=== PATIENT | male | born 1965 ===

== ENCOUNTER 2016-07-30 10:56 | Inpatient (IN) | payer MEDICARE, OTHER ==
[2016-07-30 10:56] VITALS: BMI 27.4
--- NOTE | 2016-07-30 11:41 | RAD ---
PROCEDURE: CHEST RADIOGRAPH, 1 VIEW HISTORY: chest pain COMPARISON: Comparison chest 06/23/2016 FINDINGS: LUNGS: Poor inspiration with low lung volumes, mild crowded bronchovascular markings and atelectasis minimal bibasilar atelectasis PLEURA: No pneumothorax or pleural fluid seen. CARDIOVASCULAR: Heart appears upper limits of normal in size OSSEOUS STRUCTURES: No significant abnormalities. VISUALIZED UPPER ABDOMEN: Normal. OTHER FINDINGS: None. IMPRESSION: Poor inspiration, low lung volumes, mild crowded bronchovascular markings and minimal bibasilar
[2016-07-30 11:52] LABS: EOS # 0.1 K/uL (0.0-0.7); EOS % 2.8 % (0.0-4.0); LYMPH # 0.7 K/uL (1.0-4.3); NRBC % 0.1 % (0.0-2.0); WHITE BLOOD COUNT 4.2 K/uL (4.8-10.8)
[2016-07-30 12:00] LABS: BASO % 0.5 % (0.0-2.0); HEMATOCRIT 39.7 % (35.0-51.0); LYMPH % 16.5 % (20.0-40.0); MEAN CORPUSCULAR HEMOGLOBIN 33.5 pg (27.0-31.0); MEAN CORPUSCULAR HGB CONC 34.4 g/dL (33.0-37.0); MEAN PLATELET VOLUME 10.7 fL (7.2-11.7); MONO # 0.5 K/uL (0.0-0.8); MONO % 12.3 % (0.0-10.0); RED CELL DISTRIBUTION WIDTH 13.7 % (11.5-14.5)
[2016-07-30 12:02] LABS: CHLORIDE 97 mmol/L (98-107)
[2016-07-30 12:03] LABS: MEAN CELL VOLUME 97.4 fL (80.0-94.0); POTASSIUM 3.7 mmol/L (3.6-5.2); SODIUM 135 mmol/L (132-148)
[2016-07-30 12:05] LABS: BILIRUBIN,TOTAL 2.2 mg/dL (0.2-1.3); CARBON DIOXIDE 26 mmol/L (22-30); GFR AFRICAN-AMERICAN > 60
[2016-07-30 12:06] LABS: ALKALINE PHOSPHATASE 115 U/L (38-126); ALT/SGPT 63 U/L (21-72); AST/SGOT 123 U/L (17-59); BLOOD UREA NITROGEN 8 mg/dL (9-20); CALCIUM 9.2 mg/dl (8.6-10.4); GLUCOSE,RANDOM 97 mg/dL (75-110); TOTAL PROTEIN 8.3 g/dL (6.3-8.3)
[2016-07-30 12:07] LABS: ALCOHOL SERUM < 10 mg/dl (0-10)
[2016-07-30] MEDS ORDERED: Sodium Chloride 0.9% 1,000 ML IV ONE (12:48)
[2016-07-30] MEDS ORDERED: Sodium Chloride 0.9% 1,000 ML ONE (12:50)
--- NOTE | 2016-07-30 13:00 | C.PDOC ---
History Of Present Illness 51 year old male with a history of schizophrenia, HTN, Depression/Anxiety, presents to the ED with complaint of substernal chest pain and mild SOB since this morning. Patient states the pain is constant and worse with deep breathing. He also states he has been hearing voices telling him to kill himself for the past week. He is a daily drinker of alcohol, and his last drink was yesterday. Patient denies fever, chills, cough, palpitations, abdominal pain. Time Seen by Provider: 07/30/16 11:01 Chief Complaint (Nursing): Chest Pain History Per: Patient History/Exam Limitations: no limitations Onset/Duration Of Symptoms: Hrs Current Symptoms Are (Timing): Still Present Severity: Mild Quality: "Pain" Associated Symptoms: denies: Nausea, Dyspnea, Diaphoresis Exacerbating Factors: Deep Breathing Past Medical History Reviewed: Historical Data, Nursing Documentation, Vital Signs Vital Signs: Last Vital Signs Temp 98.4 F 08/03/16 16:54 Pulse 59 L 08/03/16 16:54 Resp 20 08/03/16 16:54 BP 131/87 08/03/16 16:54 Pulse Ox 95 08/03/16 16:54 - Medical History PMH: Anxiety, Arthritis (L KNEE), Depression, HTN, Schizophrenia, Seizures ( LAST ONE LONG TIME AGO) Denies: Asthma (SMOKER) - [facility] Procedures ALCOHOL DETOXIFICATION (12/25/14) DETOXIFICATION SERVICES FOR SUBSTANCE ABUSE TREATMENT (05/16/16) GROUP TWISTING FRAME OPERATOR FOR SUBSTANCE ABUSE TREATMENT, PSYCHOEDUCATION (02/12/16) INDIVID PSYCHOTHERAP NEC (01/17/15) INSERTION OF ENDOTRACHEAL AIRWAY INTO TRACHEA, VIA OPENING (02/10/15) MEDS MGMT FOR SUBSTANCE ABUSE TREATMENT, PSYCH MED (05/16/16) OTHER GROUP THERAPY (01/17/15) PSYCHIAT DRUG THERAP NEC (01/17/15) RESPIRATORY VENTILATION, 24-96 CONSECUTIVE HOURS (02/10/15) Family History: States: [place] (Father in his 60's) - Social History Hx Tobacco Use: Yes (heavy smoker) Hx Alcohol Use: Yes (DAILY) Hx Substance Use: No - Immunization History Hx Tetanus Toxoid Vaccination: Yes Hx Influenza Vaccination: Yes Hx Pneumococcal Vaccination: No Review Of Systems Except As Marked, All Systems Reviewed And Found Negative. Cardiovascular: Positive for: Chest Pain. Negative for: Palpitations Respiratory: Positive for: Shortness of Breath. Negative for: Cough Gastrointestinal: Negative for: Nausea, Vomiting, Abdominal Pain, Diarrhea Psych: Positive for: Other (+hearing voices) Physical Exam - Physical Exam Appears: Non-toxic, No Acute Distress, Other (+Anxious) Skin: Normal Color, Warm, Dry, No Rash Head: Normacephalic Eye(s): bilateral: Normal Inspection Oral Mucosa: Moist Chest: Symmetrical, No Deformity, No Tenderness Cardiovascular: Rhythm Regular (+Tachycardic) Respiratory: Normal Breath Sounds, No Rales, No Rhonchi, No Wheezing Gastrointestinal/Abdominal: Normal Exam, Bowel Sounds, Soft, No Tenderness, No Rebound Extremity: Normal ROM, No Deformity, Other (+Mild tremors of B/L extremities) Neurological/Psych: Oriented x3 ED Course And Treatment - Laboratory Results Result Diagrams: 08/03/16 07:05 08/03/16 07:05 ECG: Interpreted By Me, Viewed By Me (NSR 90 bom, normal axis, no acute ST/T wave changes) ECG Rhythm: Sinus Rhythm ECG Interpretation: No Acute Changes Interpretation Of ECG: Normal axis. No acute ST/T wave changes. Rate From EC O2 Sat by Pulse Oximetry: 97 (Room air) Pulse Ox Interpretation: Normal - Radiology CXR: Viewed By Me, Read By Radiologist CXR Interpretation: Yes: Other (Poor inspiration, low lung volumes, mild crowded bronchovascular markings and minimal bibasilar) Progress Note: Blood work, CXR, EKG, Urinalysis, UDS ordered and reviewed. Patient treated with IV NS bolus, IV ativan. Patient also given PO ASA and PO Librium. - Physician Consult Information Physician Contacted: Richard Chacon Outcome Of Conversation: Discussed patient with Dr. Chacon, he agrees with telemetry observation for chest pain r/o ACS, alcohol withdrawal. schizophrenia. Psych consult entered. Medical Decision Making Medical Decision Making: differential diagnoses considered: RI/ACS, pancreatitis, pneumonia, gastritis, GERD, PUD, PE, asthma/copd, aortic dissection Disposition - Disposition Disposition: HOSPITALIZED Disposition Time: 14:37 Condition: STABLE - Clinical Impression Clinical Impression: Chest pain, Alcohol abuse, Schizophrenia, Alcohol withdrawal - Scribe Statement The provider has reviewed the documentation as recorded by the Scribe Pamela Collazo. Provider Attestation: All medical record entries made by the Scribe were at my direction and personally dictated by me. I have reviewed the chart and agree that the record accurately reflects my personal performance of the history, physical exam, medical decision making, and the department course for this patient. I have also personally directed, reviewed, and agree with the discharge instructions and disposition. Decision To Admit - Pt Status Changed To: Hospital Disposition Of: Observation - . Bed Request Type: Telemetry Admitting Physician: Richard Chacon Patient Diagnosis: Chest pain, Alcohol abuse, Schizophrenia, Alcohol withdrawal
[2016-07-30 14:23] LABS: URINE BILIRUBIN NEGATIVE (NEGATIVE); URINE BLOOD NEGATIVE (NEGATIVE); URINE COLOR Yellow (YELLOW); URINE GLUCOSE (UA) NORMAL (Normal); URINE HYALINE CAST 0-2 /lpf (0-2); URINE KETONE NEGATIVE (NEGATIVE); URINE LEUKOCYTE ESTERASE NEG Leu/uL (Negative); URINE PROTEIN 1+ mg/dL (NEGATIVE); URINE UROBILINOGEN NORMAL mg/dL (0.2-1.0); WBC URINE 1 /hpf (0-5)
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
[2016-07-30] MEDS ORDERED: Iohexol 350mg/ml 100 ML ONE (17:00)
[2016-07-30] MEDS ORDERED: Bisacodyl 5mg EC Tab PO ONE (17:23)
[2016-07-30] MEDS ORDERED: Multivitamin (MVI) 10 ML, Thiamine 100 MG, Folic Acid 1 MG in Sodium Chloride 0.9% 1,00... IV ONE (17:23)
[2016-07-30] MEDS ORDERED: Piperacillin/Tazobact 3.375 GM in Sodium Chloride 100 ML IVPB SCH (17:30)
[2016-07-30] MEDS ORDERED: Piperacillin/Tazobact 3.375 gm 100 ML IVPB ONE (18:23)
--- NOTE | 2016-07-30 18:54 | CT ---
PROCEDURE: CT Angiography Chest, Abdomen and Pelvis with and without intravenous contrast HISTORY: r/o dissection COMPARISON: CT abdomen and pelvis from 10/11/2015 TECHNIQUE: Contiguous axial images of the chest, abdomen and pelvis were obtained in the phase of aortic enhancement. A noncontrast enhanced CT of the chest was also obtained to evaluate for possible intramural thrombus. Coronal and sagittal reformats were generated. IV dose administered: 100 mL Omnipaque 350 Radiation dose: Total exam DLP = 2064.78 mGy-cm. FINDINGS: CT ANGIOGRAPHY OF THE CHEST WITH & WITHOUT CONTRAST: AORTA (CHEST AND ABDOMEN): The thoracic and abdominal aorta are unremarkable, without aneurysm, dissection or rupture. There are early atherosclerotic aortoiliac calcifications. No intramural thrombus identified in the thoracic aorta on the non-contrast ct of the chest. The celiac axis, superior mesenteric artery, inferior mesenteric artery and the renal arteries are widely patent. The pelvic arteries are unremarkable. LUNGS: There is dependent atelectasis in the lungs. No nodule, mass or consolidation. MEDIASTINUM: The heart is normal in size. No pericardial effusion LYMPH NODES: No pathologic lymphadenopathy. PLEURA: No pneumothorax. No pleural fluid. BONES: Multilevel degenerative disc disease. OTHER FINDINGS: None. CT ANGIOGRAPHY OF THE ABDOMEN AND PELVIS WITH CONTRAST: LIVER: Normal in size. No gross lesion or ductal dilatation. GALLBLADDER AND BILE DUCTS: The gallbladder is contracted. PANCREAS: The head of the pancreas is bulky. Allowing for angiographic phase, there is an apparent 3.0 x 2.7 cm low-attenuation lesion in the head. SPLEEN: The spleen is normal in size. ADRENALS: Normal in size. No discrete nodule the KIDNEYS AND URETERS: Normal in size and homogeneous enhancement. No hydronephrosis. No solid mass. VASCULATURE: The splenic vein is not visualized. Normal aorta with STOMACH AND BOWEL: The small bowel loops are normal in caliber. The colon is normal in appearance. APPENDIX: Normal appendix. PERITONEUM: Unremarkable. No free fluid. No free air. LYMPH NODES: Unremarkable. No enlarged lymph nodes. BLADDER: There is apparent mild mural thickening in the anterior urinary bladder wall. REPRODUCTIVE: The prostate gland is normal in size. BONES: No acute fracture. Multilevel degenerative changes. OTHER FINDINGS: None. IMPRESSION: 1. No CTA evidence for aortic aneurysm, aortic dissection, mural hematoma or pulmonary embolism. 2. Allowing for angiographic phase, apparent 3.0 x 2.7 cm masslike lesion in the head of the pancreas. The splenic vein is not visualized. Findings are concerning and correlation with CT scan of the abdomen without and with intravenous contrast with pancreatic protocol is recommended for further evaluation. Alternatively, correlation with MRI abdomen without and with intravenous contrast with pancreas protocol could also be performed.
[2016-07-30 20:36] VITALS: RESP 20
[2016-07-30] MEDS ORDERED: Influenza Virus Vaccine 45 mcg/0.5 ml Syr IM ONE (20:39)
[2016-07-31] MEDS: Piperacill/Tazo 3.375gm in Dex 50 ML IVPB SCH ×4 (00:03→18:11)
[2016-07-31] MEDS: Sodium Chloride 0.9% 1,000 ML IV SCH ×2 (05:00→12:33)
[2016-07-31 06:22] LABS: BASO % 0.7 % (0.0-2.0); EOS # 0.3 K/uL (0.0-0.7); LYMPH # 1.1 K/uL (1.0-4.3); LYMPH % 21.5 % (20.0-40.0); MEAN CELL VOLUME 99.2 fL (80.0-94.0); MEAN CORPUSCULAR HEMOGLOBIN 34.7 pg (27.0-31.0); MONO # 0.6 K/uL (0.0-0.8); MONO % 10.8 % (0.0-10.0); NRBC % 0.1 % (0.0-2.0); RED CELL DISTRIBUTION WIDTH 13.6 % (11.5-14.5); WHITE BLOOD COUNT 5.1 K/uL (4.8-10.8)
[2016-07-31 06:42] LABS: CHLORIDE 100 mmol/L (98-107); SODIUM 141 mmol/L (132-148)
[2016-07-31 06:43] LABS: POTASSIUM 3.5 mmol/L (3.6-5.2)
[2016-07-31 06:45] LABS: ALB/GLOB RATIO 1.1 (1.0-2.1); ALKALINE PHOSPHATASE 95 U/L (38-126); ALT/SGPT 45 U/L (21-72); AST/SGOT 74 U/L (17-59); BILIRUBIN,TOTAL 1.9 mg/dL (0.2-1.3); BLOOD UREA NITROGEN 12 mg/dL (9-20); CALCIUM 8.3 mg/dl (8.6-10.4); CARBON DIOXIDE 27 mmol/L (22-30); GFR AFRICAN-AMERICAN > 60; GLUCOSE,RANDOM 90 mg/dL (75-110); PHOSPHOROUS 3.6 mg/dL (2.5-4.5); TOTAL PROTEIN 6.9 g/dL (6.3-8.3)
[2016-07-31 06:46] LABS: MAGNESIUM 1.6 mg/dL (1.6-2.3)
--- NOTE | 2016-07-31 08:00 | CP.PCM.PN ---
<Fadi Brooks - Last Filed: 07/31/16 22:18> Subjective - Date & Time of Evaluation Date of Evaluation: 07/31/16 Time of Evaluation: 07:40 - Subjective Subjective: PGY-1 medicine progress note on Dr. Romero service Patient seen and examined at bedside, chart reviewed and case discussed. The patient states that his chest pain and abdominal pain are only slightly better today. He still feels nauseous but has not vomited since admission. His rash has resolved. Patient denies fever, chills, headache, vomiting, diarrhea, dysuria or any additional acute complaints at this time. Objective - Vital Signs/Intake and Output Vital Signs (last 24 hours): Temp Pulse Resp BP Pulse Ox 98.5 F 79 20 116/74 99 07/30/16 23:05 07/30/16 23:05 07/30/16 23:05 07/30/16 23:05 07/30/16 23:05 Intake and Output: 07/31/16 07/31/16 06:59 18:59 Intake Total 1200 Output Total 500 Balance 700 - Medications Medications: Current Medications Benztropine Mesylate (Cogentin) 1 mg PO BID [facility] Last Admin: 07/30/16 21:56 Dose: 1 mg Chlordiazepoxide (Librium) 25 mg PO Q6 [facility] PRN Reason: Taper Stop: 08/03/16 20:59 Last Admin: 07/31/16 05:40 Dose: 25 mg Docusate Sodium (Colace) 100 mg PO BID [facility] Escitalopram Oxalate (Lexapro) 5 mg PO DAILY [facility] Folic Acid (Folic Acid) 1 mg PO DAILY [facility] Gabapentin (Neurontin) 300 mg PO TID [facility] Last Admin: 07/30/16 21:54 Dose: 300 mg Haloperidol (Haldol) 5 mg PO BID [facility] Last Admin: 07/30/16 21:55 Dose: 5 mg Heparin Sodium (Porcine) (Heparin) 5,000 units SC Q8 [facility] Last Admin: 07/31/16 05:40 Dose: 5,000 units Vancomycin HCl 1,000 mg/ (Sodium Chloride) 250 mls @ 166.6 mls/hr IVPB DAILY [facility] Last Admin: 07/30/16 19:00 Dose: 166.6 mls/hr Sodium Chloride (Sodium Chloride 0.9%) 1,000 mls @ 100 mls/hr IV .Q10H [facility] Last Admin: 07/31/16 05:00 Dose: Not Given Piperacillin Sod/Tazobactam Sod (Zosyn 3.375 Gm Iv Premix) 50 mls @ 100 mls/hr IVPB Q6H [facility] Last Admin: 07/31/16 05:40 Dose: 100 mls/hr Multivitamins (Hexavitamin) 1 tab PO DAILY [facility] Pantoprazole Sodium (Protonix Ec Tab) 40 mg PO DAILY [facility] Thiamine HCl (Vitamin B1 Tab) 100 mg PO DAILY [facility] Trazodone HCl (Desyrel) 50 mg PO HS [facility] Last Admin: 07/30/16 21:55 Dose: 50 mg - Labs Labs: 07/31/16 06:04 07/31/16 06:04 PT 11.6 SECONDS (9.7-12.2) 07/30/16 11:49 INR 1.0 07/30/16 11:49 APTT 32 SECONDS (21-34) 07/31/16 06:04 - Additional Findings Additional findings: - Constitutional Appears: No Acute Distress, Unkempt - Head Exam Head Exam: ATRAUMATIC, NORMOCEPHALIC - Eye Exam Eye Exam: EOMI, Nystagmus - ENT Exam ENT Exam: Mucous Membranes Moist - Respiratory Exam Respiratory Exam: Clear to Auscultation Bilateral, NORMAL BREATHING PATTERN - Cardiovascular Exam Cardiovascular Exam: +S1, +S2. absent: JVD - GI/Abdominal Exam GI & Abdominal Exam: Normal Bowel Sounds, Soft, Tenderness (diffuse, improving) . absent: Distended, Firm, Guarding. - Extremities Exam Extremities exam: Positive for: normal inspection. Negative for: pedal edema - Neurological Exam Neurological exam: Alert Additional comments: no dysmetria noted patient with noticeable Left hand tremor (worst with movement) patient with diminished sensation to both lower extremities - Psychiatric Exam Psychiatric exam: Anxious -tremulous - Skin Skin Exam: Dry, Normal Color, Warm - rash from posterior scalp to upper back RESOLVED Assessment and Plan - Assessment and Plan (Free Text) Assessment: Chest pain -Imaging: CXR in the ED showed poor inspiratory effort and low lung volumes DRE x3 negative ddimer 659 CT angio chest (r/o dissection) - Negative patient received ASA 325mg in ER Lactic Acid x2 - suspicious for SEPSIS - Negative Alcohol withdrawal Patient received Librium 50mg in ED, and another 50mg prior to admission. Starting Librium taper PO Q6H CIWA protocol aspiration precautions seizure precautions fall risk Banana Bag at 100cc/hr once -> NS 0.9 at 100cc/hr thiamine 100mg PO daily folic acid 1mg daily Multivitamins (Hexavitamin) 1 tab PO DAILY [facility] Pancreatic mass GI Consult, Dr. Gutierrez, f/u recs Rec: CEA, CA19, MRI pancreas with contrast. Consider endoscopic ultrasound. URI/Rash 07/31: RESOLVED rash from back of scalp to upper shoulders Zosyn 3.375mg IVPB Q6H Vanco IVPB 1gm QD strep, flu - negative Schizophrenia Dr. So, psychiatry, consulted- help appreciated Abilify instead of haldol - pt has not benefit from haldol much, although this is mainly bc of his non-compliance and alcoholism too. Moreover Abilify is better as he has QTc prolongation Detox refer to short term rehab if possible - Otherwise refer to [facility] in [place] Stop haldol 5mg PO BID (07/31) cogentin 1mg BID Depression Dr. So, psychiatry, consulted- help appreciated Escitalopram Oxalate (Lexapro) 5 mg PO DAILY [facility] Neuropathy -lower extremity neuropathy Gabapentin (Neurontin) 300 mg PO TID [facility] Hypertension 07/31: BP WNL BP 148/97 on admission [place] Constipation Colace 100mg PO BID Prophylactic measure SCDs protonix 40mg PO daily patient counseled on tobacco cessation- will give nicotine patch while hospitalized Hep 5k SC Q8 Trazodone HCl 50 mg PO HS [facility] (home med) <Marie Arthur V - Last Filed: 07/31/16 23:54> Objective - Vital Signs/Intake and Output Vital Signs (last 24 hours): Temp Pulse Resp BP Pulse Ox 97.8 F 113 H 20 110/75 96 07/31/16 15:47 07/31/16 15:47 07/31/16 15:47 07/31/16 15:47 07/31/16 15:47 - Medications Medications: Current Medications Aripiprazole (Abilify) 10 mg PO DAILY [facility] Chlordiazepoxide (Librium) 25 mg PO TID [facility] PRN Reason: Taper Stop: 08/03/16 20:59 Last Admin: 07/31/16 17:59 Dose: 25 mg Docusate Sodium (Colace) 100 mg PO BID [facility] Last Admin: 07/31/16 17:59 Dose: 100 mg Escitalopram Oxalate (Lexapro) 5 mg PO DAILY [facility] Last Admin: 07/31/16 09:31 Dose: 5 mg Folic Acid (Folic Acid) 1 mg PO DAILY [facility] Last Admin: 07/31/16 09:30 Dose: 1 mg Gabapentin (Neurontin) 300 mg PO TID [facility] Last Admin: 07/31/16 17:59 Dose: 300 mg Vancomycin HCl 1,000 mg/ (Sodium Chloride) 250 mls @ 166.6 mls/hr IVPB DAILY [facility] Last Admin: 07/31/16 09:31 Dose: 166.6 mls/hr Sodium Chloride (Sodium Chloride 0.9%) 1,000 mls @ 100 mls/hr IV .Q10H [facility] Last Admin: 07/31/16 12:33 Dose: 100 mls/hr Piperacillin Sod/Tazobactam Sod (Zosyn 3.375 Gm Iv Premix) 50 mls @ 100 mls/hr IVPB Q6H [facility] Last Admin: 07/31/16 18:11 Dose: 100 mls/hr Metoclopramide HCl (Reglan) 10 mg IVP Q6H PRN PRN Reason: Nausea/Vomiting Multivitamins (Hexavitamin) 1 tab PO DAILY [facility] Last Admin: 07/31/16 09:30 Dose: 1 tab Pantoprazole Sodium (Protonix Ec Tab) 40 mg PO DAILY [facility] Last Admin: 07/31/16 09:30 Dose: 40 mg Saccharomyces Boulardii (Florastor) 250 mg PO BID [facility] Last Admin: 07/31/16 17:58 Dose: 250 mg Thiamine HCl (Vitamin B1 Tab) 100 mg PO DAILY [facility] Trazodone HCl (Desyrel) 50 mg PO HS [facility] Last Admin: 07/31/16 22:23 Dose: 50 mg - Labs Labs: 07/31/16 06:04 07/31/16 06:04 PT 11.6 SECONDS (9.7-12.2) 07/30/16 11:49 INR 1.0 07/30/16 11:49 APTT 32 SECONDS (21-34) 07/31/16 06:04 Attending/Attestation - Attestation I have personally seen and examined this patient.: Yes I have fully participated in the care of the patient.: Yes I have reviewed all pertinent clinical information, including history, physical exam and plan: Yes Notes (Text): Patient seen, examined and case discussed with day-time resident. Patient seen by psych today; discussed with psych; Haldol switched to Abilify. Patient has localized tremors but does not appear in DTs. Patient is on Librium taper for heavy alcohol use. GI consult for pancreatic mass noted on CT. ROMIX3 negative; CT angio negative for cardiac cause of chest pain monitor platelets; d/c heparin Assessment/Plan 1) Sepsis * Suspicion of * Patient is tachycardia, leukopenia, thrombocytopenia, lactate: 3.0 but unknown source on admission * Lactate acid resolved to 0.9; 0.7 respectively * Blood culture (07/30): no growth after 24 hoursX2 , urine pending, and CT no sign of pneumonia noted * Started on Zosyn and Vancomycin for empiric broad coverage therapy (07/30/16) * Started on IV fluids 2)Chest pain * Imaging: CXR (07/30/16) in the ED showed poor inspiratory effort and low lung volumes * first DRE negative; no appreciate St changes nor prolonged QT given haldol use on inital EKG * d-dimer: elevated; CT angio: negative for aortic aneurysm, aortic dissection, mural thrombus, and pE * ROMIX3 negative; EKG QT prolongation 470ms * patient received ASA 325mg in ER 3) Alcohol withdrawal * Patient received Librium 50mg in ED, and in addition to Librium given by the ED * Patient started on Librium taper; patient has mild transaminitis * Patient per my exam, mild tremulous over the left upper extremity, HR; 90s * CIWA protocol * aspiration precautions * seizure precautions * fall risk * Banana Bag at 100cc/hr once -> NS 0.9 at 100cc/hr * thiamine 100mg PO daily * folic acid 1mg daily * Multivitamins (Hexavitamin) 1 tab PO daily 4) URI/Rash * rash from back of scalp to upper shoulders resolving; faded on my exam today * Started on Zosyn 3.375mg IVPB Q6H and Vanco IVPB 1gm QDaily for empiric broad coverage (started 07/30/16, day 2 today) * strep: negative, flu: negative 5) Schizophrenia, history of * Dr. So, psychiatry, consulted- help appreciated * Home medications started: d/c haldol 5mg PO BID per psych given QT prolongation noted on follow-up EKG and cogentin 1mg BID * Per psych switched to Abilify 5mg PO daily 6) Depression, history of * Dr. So, psychiatry, consulted- help appreciated * restart home medication: Escitalopram Oxalate (Lexapro) 5 mg PO DAILY 7) Neuropathy, history of * lower extremity neuropathy, decreased sensation b/l * restart home medication: Gabapentin (Neurontin) 300 mg PO TID 8) Hypertension, questionable history of * BP 148/97 on admission * Patient is not on antihypertensives 9) Constipation * Colace 100mg PO BID 10) Thrombocytopenia * heparin d/c * HIT AB ordered * patient is heavy alcohol user, bone marrow suppression secondary 11) Prophylactic measure * SCDs b/l * Protonix 40mg PO daily for GI ppx * patient counseled on tobacco cessation- will give nicotine patch while hospitalized * d/c Hep 5k SC Q8; patient is thrombocytpenia * Trazodone HCl 50 mg PO HS [facility] (home med) * PT/OT eval 12) Pancreatic mass * 3.0 X2.7 CM masslike lesion in the head of pancreas noted on CT * GI consult (Dr. Gutierrez) on board * Suggested for cancer markers, MRI of pancreas, EUS * Discussed with patient finding on CT scan
[2016-07-31] MEDS: Multiple Vitamins Tab PO SCH (09:30)
[2016-07-31] MEDS: Pantoprazole 40 mg EC Tab PO SCH (09:30)
[2016-07-31] MEDS: Saccharomyces Boulardi 250 mg Cap PO SCH ×2 (09:30→17:58)
[2016-07-31] MEDS ORDERED: Potassium Chloride 20 mEq 100 ML IVPB ONE (10:04)
[2016-07-31] MEDS ORDERED: Potassium Chloride 10 mEq 100 ML IVPB SCH (12:00)
[2016-07-31] MEDS ORDERED: Potassium Chloride 20 mEq ER Tab PO SCH (12:00)
--- NOTE | 2016-07-31 14:12 | PCM.PSYCH ---
Initial Psychiatric Evaluation - Initial Psychiatric Evaluation Type of Admission: Voluntary Legal Status: Capacity History of Present Illness and Precipitating Events: Patient seen, chart reviewed, case discussed with staff. He is well-known to the principal technical writer from numerous previous admissions. consultation was requested for his alcohol withdrawal and schizophrenia. 51 year old single, unemployed, domiciled (alone) male with past history of schizophrenia and alcohol use disorder. States that he is seeing "black and men trying to kill" him and hearing their voices telling him they will kill him. He believes them. Patient admits to being noncompliant with his medications (includes Cogentin, Haldol and Seroquel) since his discharge from [facility]... most of the times, and he did relapse as before and last drink was more than 48 hr ago. He has tremors and sweating now. Patient admits to drinking several cans of beer per day since his discharge. He used to have DTs and got admitted to medicine multiple times with alcohol- related complications. Pt gave the principal technical writer his mother's and sister's numbers and principal technical writer left a message. Past psychiatric history: schizophrenia - chronic, multiple admissions. PMHx: HTN Family history: denies Current Medications: Active Medications Generic Name Dose Route Start Last Admin Trade Name Freq PRN Reason Stop Dose Admin Benztropine Mesylate 1 mg 07/30/16 20:04 07/31/16 09:31 Cogentin PO 1 mg BID [facility] Administration Chlordiazepoxide 25 mg 07/30/16 21:00 07/31/16 11:40 Librium PO 08/03/16 20:59 25 mg Q6 [facility] Administration Taper Docusate Sodium 100 mg 07/31/16 10:00 07/31/16 09:30 Colace PO 100 mg BID [facility] Administration Escitalopram Oxalate 5 mg 07/31/16 10:00 07/31/16 09:31 Lexapro PO 5 mg DAILY [facility] Administration Folic Acid 1 mg 07/31/16 10:00 07/31/16 09:30 Folic Acid PO 1 mg DAILY [facility] Administration Gabapentin 300 mg 07/30/16 20:04 07/31/16 13:24 Neurontin PO 300 mg TID [facility] Administration Haloperidol 5 mg 07/30/16 20:04 07/31/16 09:30 Haldol PO 5 mg BID [facility] Administration Vancomycin HCl 1,000 mg/ 250 mls @ 166.6 mls/hr 07/30/16 17:30 07/31/16 09:31 Sodium Chloride IVPB 166.6 mls/hr DAILY [facility] Administration Sodium Chloride 1,000 mls @ 100 mls/hr 07/31/16 04:30 07/31/16 12:33 Sodium Chloride 0.9% IV 100 mls/hr .Q10H [facility] Administration Piperacillin Sod/Tazobactam Sod 50 mls @ 100 mls/hr 07/31/16 00:30 07/31/16 11: 40 Zosyn 3.375 Gm Iv Premix IVPB 100 mls/hr Q6H [facility] Administration Metoclopramide HCl 10 mg 07/31/16 10:00 Reglan IVP Q6H PRN Nausea/Vomiting Multivitamins 1 tab 07/31/16 10:00 07/31/16 09:30 Hexavitamin PO 1 tab DAILY [facility] Administration Pantoprazole Sodium 40 mg 07/31/16 10:00 07/31/16 09:30 Protonix Ec Tab PO 40 mg DAILY [facility] Administration Saccharomyces Boulardii 250 mg 07/31/16 10:00 07/31/16 09:30 Florastor PO 250 mg BID [facility] Administration Thiamine HCl 100 mg 07/31/16 10:00 Vitamin B1 Tab PO DAILY [facility] Trazodone HCl 50 mg 07/30/16 22:00 07/30/16 21:55 Desyrel PO 50 mg HS [facility] Administration Past Psychiatric History - Past Psychiatric History Previous Treatment History: Inpatient Pertinent Medical Hx (Current Medical&Sleep Prob, Allergies): Allergies Allergy/AdvReac Type Severity Reaction Status Date / Time No Known Allergies Allergy Verified 07/01/16 08:47 Benztropine [Cogentin] 1 mg PO BID #60 tab 07/09/16 Escitalopram [Lexapro] 5 mg PO DAILY #30 tab 07/09/16 Gabapentin [Neurontin] 300 mg PO TID #90 cap 07/09/16 Haloperidol [Haldol] 5 mg PO BID #60 tab 07/09/16 traZODone [Desyrel] 50 mg PO HS #30 tab 07/09/16 Review of Systems - Neurological Neurological: Tremor - Psychiatric Psychiatric: Abnormal Sleep Pattern, Anhedonia, Anxiety, Auditory Hallucinations , Depression, Difficulty Concentrating, Hallucinations, Paranoia. absent: Homicidal Ideation, Suicidal Ideation Mental Status Examination - Personal Presentation Personal Presentation: Looks older than stated age - Affect Affect: Constricted - Motor Activity Motor Activity: Calm - Reliability in Providing Information Reliability in Providing Information: Fair - Speech Speech: Organized (slurred) - Mood Mood: Depressed, Anxious - Formal Thought Process Formal Thought Process: Hallucinations, Delusions, Paranoia - Hallucinations/Delusions Hallucinations: Visual, Auditory - Cognitive Functions Orientation: Person, Place, Situation, Time Sensorium: Drowsy Attention/Concentration: Easily distracted Abstract Thinking: [place] Estimate of Intelligence: Below average Judgement: Imparied, as evidence by: Poor judgement, Intact, as evidence by: Insight regarding need for hospitalization Memory: Recent impaired, as evidence by: Inability to recall events of the day, Remote impaired as evidenced by: Inability to recall sig life events - Risk Risk: Seizure, Withdrawal - Strength & Assets Inventory Strength & Assets Inventory: Cooperative - Limitations Limitations: Living alone DSM 5 DX - DSM 5 DSM 5 Diagnosis: Chronic schizophrenia - acute exacerbation Depression- unspecified Alcohol withdrawal Alcohol use d/o - severe - Recommended/Plan of Treatment Treatment Recommendations and Plan of Treatment: Abilify instead of haldol - pt has not benefit from haldol much, although this is mainly bc of his non-compliance and alcoholism too. Moreover Abilify is better as he has QTc prolongation Detox refer to short term rehab if possible Otherwise refer to [facility] in [place] [facility] Medical treatment 33 min
--- NOTE | 2016-07-31 17:19 | US ---
Abdominal ultrasound History: Alcoholic liver disease. Transaminitis. Comparison: 03/30/2016 Technique: Real-time sonography was performed through the abdomen. Findings: Liver: 15.9 centimeters in length. Increased echogenicity suggestive for fatty infiltration. Gallbladder: Within normal limits. Normal wall thickness of 2.7 millimeters. Common bile duct measures 3.7 millimeters, within normal limits. Pancreas not well visualized. Spleen measures 9.6 centimeters in length, within normal limits. Visualized aorta and IVC are preserved. Right kidney: 12.1 x 4.9 x 6.6 centimeters. No calculi or hydronephrosis. Left Kidney: 11.6 x 6.3 x 6.0 centimeters. No calculi or hydronephrosis. Impression: Fatty infiltration of the liver. Limited visualization of the pancreas.
--- NOTE | 2016-07-31 20:51 | CP.PCM.CON ---
History of Present Illness - History of Present Illness History of Present Illness: We were called for GI service consult for pancreas mass. Pt was admiited for CP. Reports mild epig pain x 5 days. Pt is seen with sitter present. Review of Systems - Constitutional Constitutional: absent: Chills, Fatigue, Headache, Weight Gain - Cardiovascular Cardiovascular: Chest Pain. absent: Diaphoresis - Respiratory Respiratory: absent: Cough, Hemoptysis, Wheezing - Gastrointestinal Gastrointestinal: Abdominal Pain. absent: Dysphagia, Heartburn, Hematemesis, Hematochezia, Melena, Vomiting - Genitourinary Genitourinary: absent: Dysuria, Hematuria - Musculoskeletal Musculoskeletal: absent: Myalgias - Integumentary Integumentary: absent: Pruritus, Rash - Neurological Neurological: Tremor. absent: Convulsions Past Patient History - Infectious Disease Hx of Infectious Diseases: None - Past Medical History & Family History Past Medical History?: Yes - Past Social History Smoking Status: Light Smoker < 10 Cigarettes Daily - CARDIAC Hx Hypertension: Yes - PULMONARY Hx Asthma: No (SMOKER) - NEUROLOGICAL Hx Seizures: Yes (LAST ONE LONG TIME AGO) - HEENT Hx HEENT Problems: No - RENAL Hx Chronic Kidney Disease: No - ENDOCRINE/METABOLIC Hx Endocrine Disorders: No - HEMATOLOGICAL/ONCOLOGICAL Hx Human Immunodeficiency Virus (HIV): No - INTEGUMENTARY Hx Dermatological Problems: No - MUSCULOSKELETAL/RHEUMATOLOGICAL Hx Arthritis: Yes (L KNEE) - GASTROINTESTINAL Hx Gastrointestinal Disorders: No - GENITOURINARY/GYNECOLOGICAL Hx Sexually Transmitted Disorders: No - PSYCHIATRIC Hx Anxiety: Yes Hx Depression: Yes Hx Schizophrenia: Yes Hx Substance Use: No - SURGICAL HISTORY Hx Surgeries: Yes Hx Orthopedic Surgery: Yes (left knee) Other/Comment: surgery of the left knee. PRESENTLY USING A CANE - ANESTHESIA Hx Anesthesia: Yes Hx Anesthesia Reactions: No Hx Malignant Hyperthermia: No Meds Allergies/Adverse Reactions: Allergies Allergy/AdvReac Type Severity Reaction Status Date / Time No Known Allergies Allergy Verified 07/01/16 08:47 - Medications Medications: Current Medications Aripiprazole (Abilify) 5 mg PO DAILY [facility] Last Admin: 07/31/16 17:59 Dose: 5 mg Chlordiazepoxide (Librium) 25 mg PO Q6 [facility] PRN Reason: Taper Stop: 08/03/16 20:59 Last Admin: 07/31/16 17:59 Dose: 25 mg Docusate Sodium (Colace) 100 mg PO BID [facility] Last Admin: 07/31/16 17:59 Dose: 100 mg Escitalopram Oxalate (Lexapro) 5 mg PO DAILY [facility] Last Admin: 07/31/16 09:31 Dose: 5 mg Folic Acid (Folic Acid) 1 mg PO DAILY [facility] Last Admin: 07/31/16 09:30 Dose: 1 mg Gabapentin (Neurontin) 300 mg PO TID [facility] Last Admin: 07/31/16 17:59 Dose: 300 mg Vancomycin HCl 1,000 mg/ (Sodium Chloride) 250 mls @ 166.6 mls/hr IVPB DAILY [facility] Last Admin: 07/31/16 09:31 Dose: 166.6 mls/hr Sodium Chloride (Sodium Chloride 0.9%) 1,000 mls @ 100 mls/hr IV .Q10H [facility] Last Admin: 07/31/16 12:33 Dose: 100 mls/hr Piperacillin Sod/Tazobactam Sod (Zosyn 3.375 Gm Iv Premix) 50 mls @ 100 mls/hr IVPB Q6H [facility] Last Admin: 07/31/16 18:11 Dose: 100 mls/hr Metoclopramide HCl (Reglan) 10 mg IVP Q6H PRN PRN Reason: Nausea/Vomiting Multivitamins (Hexavitamin) 1 tab PO DAILY [facility] Last Admin: 07/31/16 09:30 Dose: 1 tab Pantoprazole Sodium (Protonix Ec Tab) 40 mg PO DAILY [facility] Last Admin: 07/31/16 09:30 Dose: 40 mg Saccharomyces Boulardii (Florastor) 250 mg PO BID [facility] Last Admin: 07/31/16 17:58 Dose: 250 mg Thiamine HCl (Vitamin B1 Tab) 100 mg PO DAILY [facility] Trazodone HCl (Desyrel) 50 mg PO HS [facility] Last Admin: 07/30/16 21:55 Dose: 50 mg Physical Exam - Constitutional Appears: Non-toxic - Neck Exam Neck exam: Negative for: Tenderness - Respiratory Exam Respiratory Exam: Clear to Auscultation Bilateral - Cardiovascular Exam Cardiovascular Exam: RRR - GI/Abdominal Exam GI & Abdominal Exam: Normal Bowel Sounds, Soft. absent: Distended, Guarding, Tenderness - Extremities Exam Extremities exam: Negative for: calf tenderness - Neurological Exam Neurological exam: Alert Additional comments: tremors Results - Vital Signs Recent Vital Signs: Last Vital Signs Temp 97.8 F 07/31/16 15:47 Pulse 113 H 07/31/16 15:47 Resp 20 07/31/16 15:47 BP 110/75 07/31/16 15:47 Pulse Ox 96 07/31/16 15:47 - Labs Result Diagrams: 07/31/16 06:04 07/31/16 06:04 Labs: Laboratory Results - last 24 hr 07/30/16 07/30/16 07/31/16 20:30 21:40 00:42 WBC RBC Hgb Hct MCV MCH MCHC RDW Plt Count MPV Neut % (Auto) Lymph % (Auto) [place] % (Auto) Eos % (Auto) Baso % (Auto) Neut # Lymph # [place] # Eos # Baso # APTT Sodium Potassium Chloride Carbon Dioxide Anion Gap BUN Creatinine Est GFR ( Amer) Est GFR (Non-Af Amer) POC Glucose (mg/dL) 99 Random Glucose Lactic Acid 0.9 Calcium Phosphorus Magnesium Total Bilirubin AST ALT Alkaline Phosphatase Total Creatine Kinase 89 CK-MB (Mass) 0.49 Troponin I, Quant < 0.0120 Total Protein Albumin Globulin Albumin/Globulin Ratio 07/31/16 07/31/16 04:13 06:04 WBC 5.1 RBC 3.63 L Hgb 12.6 Hct 36.0 MCV 99.2 H MCH 34.7 H MCHC 35.0 RDW 13.6 Plt Count 55 L MPV 10.0 Neut % (Auto) 62.0 Lymph % (Auto) 21.5 [place] % (Auto) 10.8 H Eos % (Auto) 5.0 H Baso % (Auto) 0.7 Neut # 3.2 Lymph # 1.1 [place] # 0.6 Eos # 0.3 Baso # 0.0 APTT 32 Sodium 141 Potassium 3.5 L Chloride 100 Carbon Dioxide 27 Anion Gap 18 BUN 12 Creatinine 0.8 Est GFR ( Amer) > 60 Est GFR (Non-Af Amer) > 60 POC Glucose (mg/dL) Random Glucose 90 Lactic Acid Calcium 8.3 L Phosphorus 3.6 Magnesium 1.6 Total Bilirubin 1.9 H AST 74 H D ALT 45 Alkaline Phosphatase 95 Total Creatine Kinase 68 CK-MB (Mass) 0.34 Troponin I, Quant < 0.0120 Total Protein 6.9 Albumin 3.6 Globulin 3.3 Albumin/Globulin Ratio 1.1 Assessment & Plan (1) Alcohol intoxication Status: Acute (2) Abdominal pain Assessment and Plan: gastritis Status: Acute (3) Alcohol withdrawal Status: Acute (4) Chest pain Assessment and Plan: chest CT done Status: Acute (5) Elevated liver function tests Assessment and Plan: alcohol liver disease. Status: Acute (6) Pancreatic mass Assessment and Plan: Rec: CEA, CA19, MRI pancreas with contrast.. Consider endoscopic ultrasound. Status: Acute
--- NOTE | 2016-07-31 21:33 | CARD ---
APPROVED REPORT EKG Measurement Heart [id number] CO 126P24 [id number] <Conclusion> Normal sinus rhythm Minimal voltage criteria for LVH, may be normal variant Borderline ECG
[2016-08-01] MEDS: Piperacill/Tazo 3.375gm in Dex 50 ML IVPB SCH ×4 (00:08→17:31)
[2016-08-01 07:15] LABS: BASO % 0.6 % (0.0-2.0); EOS # 0.3 K/uL (0.0-0.7); EOS % 5.4 % (0.0-4.0); HEMATOCRIT 37.8 % (35.0-51.0); LYMPH # 1.3 K/uL (1.0-4.3); LYMPH % 22.8 % (20.0-40.0); MEAN CELL VOLUME 99.9 fL (80.0-94.0); MEAN PLATELET VOLUME 10.9 fL (7.2-11.7); MONO # 0.7 K/uL (0.0-0.8); MONO % 11.8 % (0.0-10.0); NRBC % 0.1 % (0.0-2.0); RED CELL DISTRIBUTION WIDTH 13.3 % (11.5-14.5); WHITE BLOOD COUNT 5.7 K/uL (4.8-10.8)
[2016-08-01 07:45] LABS: CHLORIDE 98 mmol/L (98-107); POTASSIUM 3.2 mmol/L (3.6-5.2); SODIUM 142 mmol/L (132-148)
[2016-08-01 07:47] LABS: GFR AFRICAN-AMERICAN > 60
[2016-08-01 07:48] LABS: ALB/GLOB RATIO 1.1 (1.0-2.1); ALKALINE PHOSPHATASE 88 U/L (38-126); ALT/SGPT 44 U/L (21-72); AST/SGOT 56 U/L (17-59); BLOOD UREA NITROGEN 8 mg/dL (9-20); CARBON DIOXIDE 28 mmol/L (22-30); GLUCOSE,RANDOM 85 mg/dL (75-110); PHOSPHOROUS 3.8 mg/dL (2.5-4.5); TOTAL PROTEIN 7.4 g/dL (6.3-8.3)
[2016-08-01 07:49] LABS: CALCIUM 8.5 mg/dl (8.6-10.4); MAGNESIUM 1.5 mg/dL (1.6-2.3)
--- NOTE | 2016-08-01 07:54 | CP.PCM.PN ---
<Fadi Brooks - Last Filed: 08/01/16 23:42> Subjective - Date & Time of Evaluation Date of Evaluation: 08/01/16 Time of Evaluation: 07:00 - Subjective Subjective: PGY-1 medicine progress note on Dr. Romero service Patient seen and examined at bedside, chart reviewed and case discussed. The patient states that his chest pain and abdominal pain are slightly better today. He still feels nauseous but has not vomited since admission. His rash has resolved. Patient reports that his audio hallucinations continue. Patient denies fever, chills, headache, vomiting, diarrhea, dysuria or any additional acute complaints at this time. Objective - Vital Signs/Intake and Output Vital Signs (last 24 hours): Temp Pulse Resp BP Pulse Ox 97.5 F L 97 H 20 113/76 97 07/31/16 23:00 08/01/16 00:00 07/31/16 23:00 07/31/16 23:00 07/31/16 23:00 - Medications Medications: Current Medications Aripiprazole (Abilify) 10 mg PO DAILY [facility] Chlordiazepoxide (Librium) 25 mg PO TID [facility] PRN Reason: Taper Stop: 08/03/16 20:59 Last Admin: 07/31/16 17:59 Dose: 25 mg Docusate Sodium (Colace) 100 mg PO BID [facility] Last Admin: 07/31/16 17:59 Dose: 100 mg Escitalopram Oxalate (Lexapro) 5 mg PO DAILY [facility] Last Admin: 07/31/16 09:31 Dose: 5 mg Folic Acid (Folic Acid) 1 mg PO DAILY [facility] Last Admin: 07/31/16 09:30 Dose: 1 mg Gabapentin (Neurontin) 300 mg PO TID [facility] Last Admin: 07/31/16 17:59 Dose: 300 mg Vancomycin HCl 1,000 mg/ (Sodium Chloride) 250 mls @ 166.6 mls/hr IVPB DAILY [facility] Last Admin: 07/31/16 09:31 Dose: 166.6 mls/hr Sodium Chloride (Sodium Chloride 0.9%) 1,000 mls @ 100 mls/hr IV .Q10H [facility] Last Admin: 07/31/16 12:33 Dose: 100 mls/hr Piperacillin Sod/Tazobactam Sod (Zosyn 3.375 Gm Iv Premix) 50 mls @ 100 mls/hr IVPB Q6H [facility] Last Admin: 08/01/16 05:29 Dose: 100 mls/hr Metoclopramide HCl (Reglan) 10 mg IVP Q6H PRN PRN Reason: Nausea/Vomiting Multivitamins (Hexavitamin) 1 tab PO DAILY [facility] Last Admin: 07/31/16 09:30 Dose: 1 tab Pantoprazole Sodium (Protonix Ec Tab) 40 mg PO DAILY [facility] Last Admin: 07/31/16 09:30 Dose: 40 mg Saccharomyces Boulardii (Florastor) 250 mg PO BID [facility] Last Admin: 07/31/16 17:58 Dose: 250 mg Thiamine HCl (Vitamin B1 Tab) 100 mg PO DAILY [facility] Trazodone HCl (Desyrel) 50 mg PO HS [facility] Last Admin: 07/31/16 22:23 Dose: 50 mg - Labs Labs: 08/01/16 06:59 07/31/16 06:04 PT 11.6 SECONDS (9.7-12.2) 07/30/16 11:49 INR 1.0 07/30/16 11:49 APTT 32 SECONDS (21-34) 07/31/16 06:04 - Additional Findings Additional findings: - Constitutional Appears: No Acute Distress, Unkempt - Head Exam Head Exam: ATRAUMATIC, NORMOCEPHALIC - Eye Exam Eye Exam: EOMI, Nystagmus - ENT Exam ENT Exam: Mucous Membranes Moist - Respiratory Exam Respiratory Exam: Clear to Auscultation Bilateral, NORMAL BREATHING PATTERN - Cardiovascular Exam Cardiovascular Exam: +S1, +S2. absent: JVD - GI/Abdominal Exam GI & Abdominal Exam: Normal Bowel Sounds, Soft, Tenderness (diffuse, improving) . absent: Distended, Firm, Guarding. - Extremities Exam Extremities exam: Positive for: normal inspection. Negative for: pedal edema - Neurological Exam Neurological exam: Alert Additional comments: no dysmetria noted patient with noticeable Left hand tremor (worst with movement) patient with diminished sensation to both lower extremities - Psychiatric Exam Psychiatric exam: Anxious -tremulous - Skin Skin Exam: Dry, Normal Color, Warm - rash from posterior scalp to upper back RESOLVED Assessment and Plan - Assessment and Plan (Free Text) Assessment: Alcohol withdrawal 08/01: Patient detoxing well. Librium taper due to end 08/03/16 Patient received Librium 50mg in ED, and another 50mg prior to admission. Starting Librium taper PO Q6H [facility] protocol aspiration precautions seizure precautions fall risk Banana Bag at 100cc/hr once -> NS 0.9 at 100cc/hr thiamine 100mg PO daily folic acid 1mg daily Multivitamins (Hexavitamin) 1 tab PO DAILY [facility] Pancreatic mass -GI Consult, Dr. Gutierrez, f/u recs -f/u CT abdomen, pancreatic protocol -f/u Dr. Sheikh regarding performing endoscopic ultrasound CEA 5.7 H CA19-9 = 8.1 N Consider MRI pancreas with contrast. Thrombocytopenia 08/01: Platelet count 60 f/u HIT panel Schizophrenia Dr. So, psychiatry, consulted- help appreciated 07/31-08/01: Abilify instead of haldol - pt has not benefit from haldol much, although this is mainly bc of his non-compliance and alcoholism too. Moreover Abilify is better as he has QTc prolongation Detox refer to short term rehab if possible - Otherwise refer to [facility] in [place] Stop haldol 5mg PO BID (07/31) cogentin 1mg BID Depression Dr. So, psychiatry, consulted- help appreciated Escitalopram Oxalate (Lexapro) 5 mg PO DAILY [facility] Neuropathy -lower extremity neuropathy Gabapentin (Neurontin) 300 mg PO TID [facility] Hypertension 07/31-08/01: BP WNL BP 148/97 on admission [facility] Electrolyte Imbalance -Hypokalemia, K3.2 - monitor and replete -Hypomagnesemia, Mg 1.5 - monitor and replete Chest pain - resolved -Imaging: CXR in the ED showed poor inspiratory effort and low lung volumes DRE x3 negative ddimer 659 CT angio chest (r/o dissection) - Negative patient received ASA 325mg in ER Lactic Acid x2 - suspicious for SEPSIS - Negative URI/Rash - resolved 07/31-08/01: rash from back of scalp to upper shoulders (RESOLVED). D/C IV ABX Zosyn 3.375mg IVPB Q6H (stopped 08/01) Vanco IVPB 1gm QD (stopped 08/01) strep, flu - negative Constipation Colace 100mg PO BID Prophylactic measure SCDs protonix 40mg PO daily patient counseled on tobacco cessation- will give nicotine patch while hospitalized HOLD Hep 5k SC Q8 (due to low platelet count) Trazodone HCl 50 mg PO HS [facility] (home med) <Raffi Arthuria V - Last Filed: 08/02/16 18:03> Objective - Vital Signs/Intake and Output Vital Signs (last 24 hours): Temp Pulse Resp BP Pulse Ox 97.6 F 75 20 113/78 96 08/02/16 07:53 08/02/16 12:55 08/02/16 07:53 08/02/16 07:53 08/02/16 07:53 Intake and Output: 08/02/16 08/02/16 06:59 18:59 Intake Total 1050 Output Total 900 Balance 150 - Medications Medications: Current Medications Aripiprazole (Abilify) 10 mg PO DAILY [facility] Last Admin: 08/02/16 10:29 Dose: 10 mg Chlordiazepoxide (Librium) 25 mg PO BID [facility] PRN Reason: Taper Stop: 08/03/16 20:59 Last Admin: 08/02/16 10:31 Dose: 25 mg Docusate Sodium (Colace) 100 mg PO BID [facility] Last Admin: 08/02/16 10:30 Dose: 100 mg Escitalopram Oxalate (Lexapro) 5 mg PO DAILY [facility] Last Admin: 08/02/16 10:30 Dose: 5 mg Folic Acid (Folic Acid) 1 mg PO DAILY [facility] Last Admin: 08/02/16 10:30 Dose: 1 mg Gabapentin (Neurontin) 300 mg PO TID [facility] Last Admin: 08/02/16 13:19 Dose: 300 mg Sodium Chloride (Sodium Chloride 0.9%) 1,000 mls @ 100 mls/hr IV .Q10H [facility] Last Admin: 08/01/16 22:51 Dose: Not Given Metoclopramide HCl (Reglan) 10 mg IVP Q6H PRN PRN Reason: Nausea/Vomiting Multivitamins (Hexavitamin) 1 tab PO DAILY [facility] Last Admin: 08/02/16 10:30 Dose: 1 tab Pantoprazole Sodium (Protonix Ec Tab) 40 mg PO DAILY [facility] Last Admin: 08/02/16 10:31 Dose: 40 mg Saccharomyces Boulardii (Florastor) 250 mg PO BID [facility] Last Admin: 08/02/16 10:30 Dose: 250 mg Thiamine HCl (Vitamin B1 Tab) 100 mg PO DAILY [facility] Last Admin: 08/02/16 10:31 Dose: 100 mg Trazodone HCl (Desyrel) 50 mg PO HS [facility] Last Admin: 08/01/16 21:36 Dose: 50 mg - Labs Labs: 08/02/16 06:00 08/02/16 06:00 PT 11.6 SECONDS (9.7-12.2) 07/30/16 11:49 INR 1.0 07/30/16 11:49 APTT 32 SECONDS (21-34) 07/31/16 06:04 Attending/Attestation - Attestation I have personally seen and examined this patient.: Yes I have fully participated in the care of the patient.: Yes I have reviewed all pertinent clinical information, including history, physical exam and plan: Yes Notes (Text): This is late computer entry for 08/01/16. Patient seen, examined and case discussed with the patient. Patien reports he is feeling better. Patient has mild tremors. Discussed with patient he is off Haldol and on Abilify. Telemetry renewed given patient is heavy alcohol user and has had propensity for delirium tremens frequently noted in prior EMR records. Discontinue IV antibiotics. Rash has resolved. Blood cultures remain negative. Continue Librium taper for alcohol withdrawl. Discussed with Dr. Porter (Dr. Gutierrez group) given pancreatic mass noted on Ct angio, recommended for Ct pancreatic protocol, consult Dr. Mccall given patient may need EUS for noted pancreatic mass, and cancer markers. Electrolytes repleted. Assessment/Plan 1) Sepsis * Blood culture (07/30): no growth after 24 hoursX2 , urine cx (07/30): no growth , and CT no sign of pneumonia noted * Rash has resolved 2)Chest pain * Imaging: CXR (07/30/16) in the ED showed poor inspiratory effort and low lung volumes * first DRE negative; no appreciate St changes nor prolonged QT given haldol use on inital EKG * d-dimer: elevated; CT angio: negative for aortic aneurysm, aortic dissection, mural thrombus, and pE * ROMIX3 negative; EKG QT prolongation 470ms * patient received ASA 325mg in ER * Off haldol secondary to elongated QT 3) Alcohol withdrawal * Patient received Librium 50mg in ED, and in addition to Librium given by the ED on admission * Patient started on Librium taper; patient has mild transaminitis * CIWA protocol * aspiration precautions * seizure precautions * fall risk * Banana Bag at 100cc/hr once -> NS 0.9 at 100cc/hr * thiamine 100mg PO daily * folic acid 1mg daily * Multivitamins (Hexavitamin) 1 tab PO daily 4) URI/Rash * resolved * strep: negative, flu: negative * d/c abx 5) Schizophrenia, history of * Dr. So, psychiatry, consulted- help appreciated * Home medications started: d/c haldol 5mg PO BID per psych given QT prolongation noted on follow-up EKG and cogentin 1mg BID * Per psych switched and increased to Abilify 10mg PO daily 6) Depression, history of * Dr. So, psychiatry, consulted- help appreciated * restart home medication: Escitalopram Oxalate (Lexapro) 5 mg PO DAILY 7) Neuropathy, history of * lower extremity neuropathy, decreased sensation b/l * restart home medication: Gabapentin (Neurontin) 300 mg PO TID 8) Hypertension, questionable history of * BP 148/97 on admission * Patient is not on antihypertensives 9) Constipation * Colace 100mg PO BID 10) Thrombocytopenia * heparin d/c * HIT AB ordered * patient is heavy alcohol user, bone marrow suppression secondary * improving 11) Prophylactic measure * SCDs b/l * Protonix 40mg PO daily for GI ppx * patient counseled on tobacco cessation- will give nicotine patch while hospitalized * d/c Hep 5k SC Q8; patient is thrombocytpenia * Trazodone HCl 50 mg PO HS [facility] (home med) * PT/OT eval 12) Pancreatic mass * 3.0 X2.7 CM masslike lesion in the head of pancreas noted on CT * Ordered for CT pancreatic protocol given pancreatic mass noted on Ct angio, and cancer markers * GI consult (Dr. Gutierrez) on board; help appreciated * GI (EUS): Dr Sheikh for possible pancreatic mass; help appreciatedl
[2016-08-01] MEDS: Saccharomyces Boulardi 250 mg Cap PO SCH ×2 (09:27→17:18)
[2016-08-01] MEDS: Multiple Vitamins Tab PO SCH (09:27)
[2016-08-01] MEDS: Pantoprazole 40 mg EC Tab PO SCH (09:28)
[2016-08-01] MEDS ORDERED: Influenza Virus Vaccine 45 mcg/0.5 ml Syr IM ONE (10:00)
[2016-08-01] MEDS ORDERED: Pneumococcal 23-Valent Vaccine IM ONE (10:00)
[2016-08-01] MEDS ORDERED: POLYETHYLENE GLYCOL 3350 17 GM/Dose PACKET PO ONE (11:00)
[2016-08-01] MEDS: Potassium Chloride 20 mEq ER Tab PO SCH ×2 (11:10→13:45)
--- NOTE | 2016-08-01 11:39 | CP.PCM.PN ---
Subjective - Date & Time of Evaluation Date of Evaluation: 08/01/16 Time of Evaluation: 11:36 - Subjective Subjective: panc mass incidentally noted on CT for chest pain Still notes soreness in epigastric region. Tolerating diet. Ambulating with physical therapist Objective - Vital Signs/Intake and Output Vital Signs (last 24 hours): Temp Pulse Resp BP Pulse Ox 98.1 F 99 H 20 103/71 99 08/01/16 08:20 08/01/16 08:20 08/01/16 08:20 08/01/16 08:20 08/01/16 08:20 - Medications Medications: Current Medications Aripiprazole (Abilify) 10 mg PO DAILY [facility] Last Admin: 08/01/16 09:26 Dose: 10 mg Chlordiazepoxide (Librium) 25 mg PO TID [facility] PRN Reason: Taper Stop: 08/03/16 20:59 Last Admin: 08/01/16 09:27 Dose: 25 mg Docusate Sodium (Colace) 100 mg PO BID [facility] Last Admin: 08/01/16 09:27 Dose: 100 mg Escitalopram Oxalate (Lexapro) 5 mg PO DAILY [facility] Last Admin: 08/01/16 10:04 Dose: 5 mg Folic Acid (Folic Acid) 1 mg PO DAILY [facility] Last Admin: 08/01/16 09:27 Dose: 1 mg Gabapentin (Neurontin) 300 mg PO TID [facility] Last Admin: 08/01/16 09:28 Dose: 300 mg Vancomycin HCl 1,000 mg/ (Sodium Chloride) 250 mls @ 166.6 mls/hr IVPB DAILY [facility] Last Admin: 08/01/16 10:04 Dose: 166.6 mls/hr Sodium Chloride (Sodium Chloride 0.9%) 1,000 mls @ 100 mls/hr IV .Q10H [facility] Last Admin: 07/31/16 12:33 Dose: 100 mls/hr Piperacillin Sod/Tazobactam Sod (Zosyn 3.375 Gm Iv Premix) 50 mls @ 100 mls/hr IVPB Q6H [facility] Last Admin: 08/01/16 05:29 Dose: 100 mls/hr Metoclopramide HCl (Reglan) 10 mg IVP Q6H PRN PRN Reason: Nausea/Vomiting Multivitamins (Hexavitamin) 1 tab PO DAILY [facility] Last Admin: 08/01/16 09:27 Dose: 1 tab Pantoprazole Sodium (Protonix Ec Tab) 40 mg PO DAILY [facility] Last Admin: 08/01/16 09:28 Dose: 40 mg Potassium Chloride (K-Dur 20 Meq Er Tab) 40 meq PO Q4H [facility] Stop: 08/01/16 14:31 Last Admin: 08/01/16 11:10 Dose: 40 meq Saccharomyces Boulardii (Florastor) 250 mg PO BID [facility] Last Admin: 08/01/16 09:27 Dose: 250 mg Thiamine HCl (Vitamin B1 Tab) 100 mg PO DAILY [facility] Last Admin: 08/01/16 09:28 Dose: 100 mg Trazodone HCl (Desyrel) 50 mg PO HS [facility] Last Admin: 07/31/16 22:23 Dose: 50 mg - Labs Labs: 08/01/16 06:59 08/01/16 06:59 PT 11.6 SECONDS (9.7-12.2) 07/30/16 11:49 INR 1.0 07/30/16 11:49 APTT 32 SECONDS (21-34) 07/31/16 06:04 - Constitutional Appears: Chronically Ill - Eye Exam Eye Exam: absent: Scleral icterus - Respiratory Exam Respiratory Exam: NORMAL BREATHING PATTERN - Cardiovascular Exam Cardiovascular Exam: REGULAR RHYTHM - GI/Abdominal Exam GI & Abdominal Exam: Soft. absent: Tenderness, Mass Assessment and Plan (1) Pancreatic mass Assessment & Plan: 3 cm incidental panc head mass. No evidence of biliary obstruction. R/O malignancy vs chronic alcoholic pancreatitis Rec: as discussed with attending and resident: CEA, CA 19-9, CT with pancreatic protocol, endoscopic ultrasound by biliary endoscopist Status: Acute
[2016-08-01 13:57] LABS: CARCINOEMBRYONIC ANTIGEN 5.7 ng/mL (0-3.0)
[2016-08-01 14:01] LABS: CA 19-9 8.1 U/mL (0-37)
--- NOTE | 2016-08-01 14:43 | PCM.PYCHPN ---
Psychiatric Progress Note - Psychiatric Progress Note Patient seen today, length of contact: 16 min Patient Chief Complaint: "I'm better now" Problems Identified/Issues Discussed: The pt is seen, chart reviewed, case discussed with staff. The pt is compliant with medications and reports no side-effects. Symptoms are improving but needs more time to stabilize. After care discussed, support and psychoeducation given. UT and CBT used briefly. Medication Change: Yes (detox changes daily. Abilify) Medical Record Reviewed: Yes Mental Status Examination - Cognitive Function Orientation: Person, Place, Situation, Time Memory: Impaired Attention: Poor Concentration: Poor Association: WNL Fund of Knowledge: Poor - Mood Mood: Depressed, Anxious - Affect Affect: Constricted - Speech Speech: Appropriate - Formal Thought Process Formal Thought Process: Hallucinations, Delusions, Paranoia - Suicidal Ideation Suicidal Ideation: No - Homicidal Ideation Homicidal Ideation: No Goal/Treatment Plan - Goal/Treatment Plan Need for Continued Stay: Discharge may exacerbated symptoms Progress Toward Problem(s) and Goals/Treatment Plan: Abilify instead of haldol - pt has not benefit from haldol much, although this is mainly bc of his non-compliance and alcoholism too. Moreover Abilify is better as he has QTc prolongation Detox refer to short term rehab if possible Otherwise refer to [facility] in [place] [facility]
[2016-08-01] MEDS ORDERED: Iodixanol 320 MG/ML 100 ML BOTTLE IV ONE (17:36)
[2016-08-01] MEDS ORDERED: Iohexol 240 (50 ml) PO ONE (18:00)
[2016-08-01] MEDS: Sodium Chloride 0.9% 1,000 ML IV SCH (22:51)
--- NOTE | 2016-08-02 00:32 | CP.PCM.PN ---
<Yumi Swartz - Last Filed: 08/02/16 00:55> Subjective - Date & Time of Evaluation Date of Evaluation: 08/02/16 Time of Evaluation: 07:25 - Subjective Subjective: PGY-1 medicine progress note for Dr. Arthur: Patient seen and examined at bedside. He was asleep in bed. He allowed examination but did not want to answer questions. He admitted to [facility]. Patient denies fever, chills, headache, vomiting, diarrhea, dysuria or any additional acute complaints at this time. Objective - Vital Signs/Intake and Output Vital Signs (last 24 hours): Temp Pulse Resp BP Pulse Ox 98.2 F 96 H 20 128/82 96 08/01/16 15:39 08/01/16 16:49 08/01/16 15:39 08/01/16 15:39 08/01/16 16:49 Intake and Output: 08/01/16 08/02/16 18:59 06:59 Intake Total 1050 Balance 1050 - Medications Medications: Current Medications Aripiprazole (Abilify) 10 mg PO DAILY [facility] Last Admin: 08/01/16 09:26 Dose: 10 mg Chlordiazepoxide (Librium) 25 mg PO BID [facility] PRN Reason: Taper Stop: 08/03/16 20:59 Last Admin: 08/01/16 17:18 Dose: 25 mg Docusate Sodium (Colace) 100 mg PO BID [facility] Last Admin: 08/01/16 17:19 Dose: 100 mg Escitalopram Oxalate (Lexapro) 5 mg PO DAILY [facility] Last Admin: 08/01/16 10:04 Dose: 5 mg Folic Acid (Folic Acid) 1 mg PO DAILY [facility] Last Admin: 08/01/16 09:27 Dose: 1 mg Gabapentin (Neurontin) 300 mg PO TID [facility] Last Admin: 08/01/16 17:18 Dose: 300 mg Sodium Chloride (Sodium Chloride 0.9%) 1,000 mls @ 100 mls/hr IV .Q10H [facility] Last Admin: 08/01/16 22:51 Dose: Not Given Metoclopramide HCl (Reglan) 10 mg IVP Q6H PRN PRN Reason: Nausea/Vomiting Multivitamins (Hexavitamin) 1 tab PO DAILY [facility] Last Admin: 08/01/16 09:27 Dose: 1 tab Pantoprazole Sodium (Protonix Ec Tab) 40 mg PO DAILY [facility] Last Admin: 08/01/16 09:28 Dose: 40 mg Saccharomyces Boulardii (Florastor) 250 mg PO BID [facility] Last Admin: 08/01/16 17:18 Dose: 250 mg Thiamine HCl (Vitamin B1 Tab) 100 mg PO DAILY [facility] Last Admin: 08/01/16 09:28 Dose: 100 mg Trazodone HCl (Desyrel) 50 mg PO HS [facility] Last Admin: 08/01/16 21:36 Dose: 50 mg - Labs Labs: 08/01/16 06:59 08/01/16 06:59 PT 11.6 SECONDS (9.7-12.2) 07/30/16 11:49 INR 1.0 07/30/16 11:49 APTT 32 SECONDS (21-34) 07/31/16 06:04 - Constitutional Appears: Non-toxic, No Acute Distress, Unkempt - Head Exam Head Exam: ATRAUMATIC, NORMAL INSPECTION - Eye Exam Eye Exam: EOMI, Normal appearance, PERRL Pupil Exam: NORMAL ACCOMODATION - ENT Exam ENT Exam: Mucous Membranes Dry - Respiratory Exam Respiratory Exam: Clear to Ausculation Bilateral, NORMAL BREATHING PATTERN. absent: Respiratory Distress - Cardiovascular Exam Cardiovascular Exam: REGULAR RHYTHM, +S1 - GI/Abdominal Exam GI & Abdominal Exam: Soft, Normal Bowel Sounds. absent: Distended, Firm, Guarding - Extremities Exam Extremities Exam: Normal Inspection - Back Exam Back Exam: NORMAL INSPECTION. absent: CVA tenderness (L), CVA tenderness (R), paraspinal tenderness - Neurological Exam Neurological Exam: Alert, Awake. absent: Oriented x3 Additional comments: + tremors - Skin Skin Exam: Dry, Intact, Normal Color, Warm Assessment and Plan - Assessment and Plan (Free Text) Assessment: Alcohol withdrawal Patient detoxing well. Librium taper due to end 08/03/16 Patient received Librium 50mg in ED, and another 50mg prior to admission. Starting Librium taper PO Q6H CIWA protocol aspiration precautions seizure precautions fall risk Banana Bag at 100cc/hr once -> NS 0.9 at 100cc/hr thiamine 100mg PO daily folic acid 1mg daily Multivitamins (Hexavitamin) 1 tab PO DAILY [facility] Pancreatic mass -GI Consult, Dr. Gutierrez, f/u recs -f/u CT abdomen, pancreatic protocol -f/u Dr. Sheikh regarding performing endoscopic ultrasound CEA 5.7 H CA19-9 = 8.1 N Consider MRI pancreas with contrast. Thrombocytopenia 08/01: Platelet count 60 f/u HIT panel Schizophrenia Dr. So, psychiatry, consulted- help appreciated: 07/31-08/01: Abilify instead of haldol - pt has not benefit from haldol much, although this is mainly bc of his non-compliance and alcoholism too. Moreover Abilify is better as he has QTc prolongation Detox refer to short term rehab if possible - Otherwise refer to [facility] in [place] Stop haldol 5mg PO BID (07/31) cogentin 1mg BID Depression Dr. So, psychiatry, consulted- help appreciated Escitalopram Oxalate (Lexapro) 5 mg PO DAILY [facility] Neuropathy -lower extremity neuropathy Gabapentin (Neurontin) 300 mg PO TID [facility] Hypertension 07/31-08/01: BP WNL BP 148/97 on admission Montior Electrolyte Imbalance -Hypokalemia, K3.2 - monitor and replete -Hypomagnesemia, Mg 1.5 - monitor and replete Chest pain - resolved -Imaging: CXR in the ED showed poor inspiratory effort and low lung volumes DRE x3 negative ddimer 659 CT angio chest (r/o dissection) - Negative patient received ASA 325mg in ER Lactic Acid x2 - suspicious for SEPSIS - Negative URI/Rash - resolved 07/31-08/01: rash from back of scalp to upper shoulders (RESOLVED). D/C IV ABX Zosyn 3.375mg IVPB Q6H (stopped 08/01) Vanco IVPB 1gm QD (stopped 08/01) strep, flu - negative Constipation Colace 100mg PO BID Prophylactic measure SCDs protonix 40mg PO daily patient counseled on tobacco cessation- will give nicotine patch while hospitalized HOLD Hep 5k SC Q8 (due to low platelet count) Trazodone HCl 50 mg PO HS [facility] (home med) <Marie Arthur V - Last Filed: 08/02/16 17:57> Objective - Vital Signs/Intake and Output Vital Signs (last 24 hours): Temp Pulse Resp BP Pulse Ox 98.3 F 67 20 122/79 96 08/02/16 15:46 08/02/16 16:00 08/02/16 15:46 08/02/16 15:46 08/02/16 15:46 Intake and Output: 08/02/16 08/02/16 06:59 18:59 Intake Total 1050 Output Total 900 Balance 150 - Medications Medications: Current Medications Aripiprazole (Abilify) 10 mg PO DAILY [facility] Last Admin: 08/02/16 10:29 Dose: 10 mg Chlordiazepoxide (Librium) 25 mg PO BID [facility] PRN Reason: Taper Stop: 08/03/16 20:59 Last Admin: 08/02/16 17:10 Dose: 25 mg Docusate Sodium (Colace) 100 mg PO BID [facility] Last Admin: 08/02/16 17:10 Dose: 100 mg Escitalopram Oxalate (Lexapro) 5 mg PO DAILY [facility] Last Admin: 08/02/16 10:30 Dose: 5 mg Folic Acid (Folic Acid) 1 mg PO DAILY [facility] Last Admin: 08/02/16 10:30 Dose: 1 mg Gabapentin (Neurontin) 300 mg PO TID [facility] Last Admin: 08/02/16 17:10 Dose: 300 mg Sodium Chloride (Sodium Chloride 0.9%) 1,000 mls @ 100 mls/hr IV .Q10H [facility] Last Admin: 08/02/16 16:08 Dose: Not Given Metoclopramide HCl (Reglan) 10 mg IVP Q6H PRN PRN Reason: Nausea/Vomiting Multivitamins (Hexavitamin) 1 tab PO DAILY [facility] Last Admin: 08/02/16 10:30 Dose: 1 tab Pantoprazole Sodium (Protonix Ec Tab) 40 mg PO DAILY [facility] Last Admin: 08/02/16 10:31 Dose: 40 mg Saccharomyces Boulardii (Florastor) 250 mg PO BID [facility] Last Admin: 08/02/16 17:10 Dose: 250 mg Thiamine HCl (Vitamin B1 Tab) 100 mg PO DAILY [facility] Last Admin: 08/02/16 10:31 Dose: 100 mg Trazodone HCl (Desyrel) 50 mg PO HS [facility] Last Admin: 08/01/16 21:36 Dose: 50 mg - Labs Labs: 08/02/16 06:00 08/02/16 06:00 PT 11.6 SECONDS (9.7-12.2) 07/30/16 11:49 INR 1.0 07/30/16 11:49 APTT 32 SECONDS (21-34) 07/31/16 06:04 Attending/Attestation - Attestation I have personally seen and examined this patient.: Yes I have fully participated in the care of the patient.: Yes I have reviewed all pertinent clinical information, including history, physical exam and plan: Yes Notes (Text): Patient seen, examined, and case discussed with day-time resident. Patient seen this morning. Patient seen no acute complaints except for mild tremors. Patient completed CT pancreatic protocol: no evidence of mass lesion in the pancreas. No evidence of acute pathology in the abdomen and pelvis. Patient is on Librium taper (day 4) for heavy alcohol use. ROMIX3 negative; CT angio negative for cardiac cause of chest pain monitor platelets; pending HIT panel Possible discharge tomorrow; will discuss with GI and Psych Assessment/Plan 1) Sepsis * Patient is not septic. White count has normalized. Thrombocytopenia improving. Lactic acid has normalized * Blood culture (07/30): no growth after 48 hoursX2 , urine cx (07/30): no growth , and CT no sign of pneumonia noted 2)Chest pain * Imaging: CXR (07/30/16) in the ED showed poor inspiratory effort and low lung volumes * first DRE negative; no appreciate St changes nor prolonged QT given haldol use on inital EKG * d-dimer: elevated; CT angio: negative for aortic aneurysm, aortic dissection, mural thrombus, and pE * ROMIX3 negative; EKG QT prolongation 470ms * patient received ASA 325mg in ER * Off haldol secondary to elongated QT 3) Alcohol withdrawal * Patient received Librium 50mg in ED, and in addition to Librium given by the ED on admission * Patient started on Librium taper; patient has mild transaminitis * CIWA protocol * aspiration precautions * seizure precautions * fall risk * Banana Bag at 100cc/hr once -> NS 0.9 at 100cc/hr * thiamine 100mg PO daily * folic acid 1mg daily * Multivitamins (Hexavitamin) 1 tab PO daily 4) URI/Rash * resolved * strep: negative, flu: negative 5) Schizophrenia, history of * Dr. So, psychiatry, consulted- help appreciated * Home medications started: d/c haldol 5mg PO BID per psych given QT prolongation noted on follow-up EKG and cogentin 1mg BID * Per psych switched to Abilify 10mg PO daily 6) Depression, history of * Dr. So, psychiatry, consulted- help appreciated * restart home medication: Escitalopram Oxalate (Lexapro) 5 mg PO DAILY 7) Neuropathy, history of * lower extremity neuropathy, decreased sensation b/l * restart home medication: Gabapentin (Neurontin) 300 mg PO TID 8) Hypertension, questionable history of * BP 148/97 on admission * Patient is not on antihypertensives 9) Constipation * Colace 100mg PO BID 10) Thrombocytopenia * heparin d/c * HIT AB pending * patient is heavy alcohol user, bone marrow suppression secondary * improving 11) Prophylactic measure * SCDs b/l * Protonix 40mg PO daily for GI ppx * patient counseled on tobacco cessation- will give nicotine patch while hospitalized * d/c Hep 5k SC Q8; patient is thrombocytpenia * Trazodone HCl 50 mg PO HS [facility] (home med) * PT/OT eval 12) Pancreatic mass * 3.0 X2.7 CM masslike lesion in the head of pancreas noted on CT * Patient completed CT pancreatic protocol: no evidence of mass lesion in the pancreas. No evidence of acute pathology in the abdomen and pelvis. * GI consult (Dr. Gutierrez) on board; help appreciated * GI (EUS): Dr Sheikh for possible pancreatic mass; help appreciated * CEA: normal
--- NOTE | 2016-08-02 06:39 | CARD ---
APPROVED REPORT EKG Measurement Heart [id number] <Conclusion> Normal sinus rhythm Moderate voltage criteria for LVH, may be normal variant Nonspecific T wave abnormality Prolonged QT Abnormal ECG
[2016-08-02 06:42] LABS: BASO % 0.6 % (0.0-2.0); EOS # 0.4 K/uL (0.0-0.7); EOS % 5.2 % (0.0-4.0); HEMATOCRIT 38.6 % (35.0-51.0); MEAN CELL VOLUME 99.7 fL (80.0-94.0); MEAN CORPUSCULAR HEMOGLOBIN 33.4 pg (27.0-31.0); MEAN CORPUSCULAR HGB CONC 33.5 g/dL (33.0-37.0); MEAN PLATELET VOLUME 10.5 fL (7.2-11.7); MONO # 0.7 K/uL (0.0-0.8); MONO % 10.1 % (0.0-10.0); NRBC % 0.1 % (0.0-2.0); RED CELL DISTRIBUTION WIDTH 13.6 % (11.5-14.5); WHITE BLOOD COUNT 7.2 K/uL (4.8-10.8)
[2016-08-02 07:23] LABS: CHLORIDE 103 mmol/L (98-107); POTASSIUM 3.6 mmol/L (3.6-5.2); SODIUM 141 mmol/L (132-148)
[2016-08-02 07:25] LABS: ALB/GLOB RATIO 1.1 (1.0-2.1); ALKALINE PHOSPHATASE 78 U/L (38-126); AST/SGOT 48 U/L (17-59); BILIRUBIN,TOTAL 1.3 mg/dL (0.2-1.3); BLOOD UREA NITROGEN 9 mg/dL (9-20); CARBON DIOXIDE 26 mmol/L (22-30); GFR AFRICAN-AMERICAN > 60; TOTAL PROTEIN 7.1 g/dL (6.3-8.3)
[2016-08-02 07:26] LABS: ALT/SGPT 37 U/L (21-72); CALCIUM 8.9 mg/dl (8.6-10.4); GLUCOSE,RANDOM 95 mg/dL (75-110); PHOSPHOROUS 4.8 mg/dL (2.5-4.5)
--- NOTE | 2016-08-02 09:33 | CP.PCM.CON ---
<Cristina Lyle - Last Filed: 08/02/16 09:28> History of Present Illness - History of Present Illness History of Present Illness: Gastroenterology Fellow/PGY4 Consult Note 51 year old male with history of Schizophrenia, Hypertension, and Alcohol Abuse presenting with chest pain and shortness of breath on initial presentation. Currently improved with dissection and PE ruled out on CT Angiography. Incidental finding of pancreatic head mass on CT measuring 3.0x2.7cm with normal CBD caliber. GI consultation with workup of CT pancreatic protocol in process and request for EUS evaluation by Dr. Sheikh. On patient evaluation, he notes prior epigastric pain for one week associated with 1-2 episodes of vomiting daily for three days. No further episodes inpatient. He notes a 18 pound weight loss in the last two to three months associated with loss of appetite. He drinks four 24 ounce beers daily for 20 years, last drink three days prior to admission. Active treatment of alcohol withdrawal. No prior EGD or colonoscopy. Family- Mother-Hypertension, Diabetes, Father-CVA, denies colon cancer, pancreatic cancer Social- 5 cigarettes daily for 11 years, 4- 24oz beers daily for 20 years, denies illicit drugs Surgery- left knee arthroscopy Review of Systems - Review of Systems Review of Systems: A 12-point review of systems negative except for above Past Patient History - Infectious Disease Hx of Infectious Diseases: None - Past Medical History & Family History Past Medical History?: Yes - Past Social History Smoking Status: Light Smoker < 10 Cigarettes Daily - CARDIAC Hx Hypertension: Yes - PULMONARY Hx Asthma: No (SMOKER) - NEUROLOGICAL Hx Seizures: Yes (LAST ONE LONG TIME AGO) - HEENT Hx HEENT Problems: No - RENAL Hx Chronic Kidney Disease: No - ENDOCRINE/METABOLIC Hx Endocrine Disorders: No - HEMATOLOGICAL/ONCOLOGICAL Hx Human Immunodeficiency Virus (HIV): No - INTEGUMENTARY Hx Dermatological Problems: No - MUSCULOSKELETAL/RHEUMATOLOGICAL Hx Arthritis: Yes (L KNEE) - GASTROINTESTINAL Hx Gastrointestinal Disorders: No - GENITOURINARY/GYNECOLOGICAL Hx Sexually Transmitted Disorders: No - PSYCHIATRIC Hx Anxiety: Yes Hx Depression: Yes Hx Schizophrenia: Yes Hx Substance Use: No - SURGICAL HISTORY Hx Surgeries: Yes Hx Orthopedic Surgery: Yes (left knee) Other/Comment: surgery of the left knee. PRESENTLY USING A CANE - ANESTHESIA Hx Anesthesia: Yes Hx Anesthesia Reactions: No Hx Malignant Hyperthermia: No Meds Allergies/Adverse Reactions: Allergies Allergy/AdvReac Type Severity Reaction Status Date / Time No Known Allergies Allergy Verified 07/01/16 08:47 - Medications Medications: Current Medications Aripiprazole (Abilify) 10 mg PO DAILY [facility] Last Admin: 08/01/16 09:26 Dose: 10 mg Chlordiazepoxide (Librium) 25 mg PO BID [facility] PRN Reason: Taper Stop: 08/03/16 20:59 Last Admin: 08/01/16 17:18 Dose: 25 mg Docusate Sodium (Colace) 100 mg PO BID [facility] Last Admin: 08/01/16 17:19 Dose: 100 mg Escitalopram Oxalate (Lexapro) 5 mg PO DAILY [facility] Last Admin: 08/01/16 10:04 Dose: 5 mg Folic Acid (Folic Acid) 1 mg PO DAILY [facility] Last Admin: 08/01/16 09:27 Dose: 1 mg Gabapentin (Neurontin) 300 mg PO TID [facility] Last Admin: 08/01/16 17:18 Dose: 300 mg Sodium Chloride (Sodium Chloride 0.9%) 1,000 mls @ 100 mls/hr IV .Q10H [facility] Last Admin: 08/01/16 22:51 Dose: Not Given Metoclopramide HCl (Reglan) 10 mg IVP Q6H PRN PRN Reason: Nausea/Vomiting Multivitamins (Hexavitamin) 1 tab PO DAILY [facility] Last Admin: 08/01/16 09:27 Dose: 1 tab Pantoprazole Sodium (Protonix Ec Tab) 40 mg PO DAILY [facility] Last Admin: 08/01/16 09:28 Dose: 40 mg Saccharomyces Boulardii (Florastor) 250 mg PO BID [facility] Last Admin: 08/01/16 17:18 Dose: 250 mg Thiamine HCl (Vitamin B1 Tab) 100 mg PO DAILY [facility] Last Admin: 08/01/16 09:28 Dose: 100 mg Trazodone HCl (Desyrel) 50 mg PO [facility] Last Admin: 08/01/16 21:36 Dose: 50 mg Physical Exam - Constitutional Appears: Non-toxic, No Acute Distress - Head Exam Head Exam: ATRAUMATIC, NORMOCEPHALIC - Eye Exam Eye Exam: EOMI, PERRL Pupil Exam: PERRL. absent: Miosis, Mydriatic - ENT Exam ENT Exam: Mucous Membranes Moist, Normal Oropharynx - Neck Exam Neck exam: Positive for: Full Rom, Normal Inspection - Respiratory Exam Respiratory Exam: Clear to Auscultation Bilateral. absent: Rales, Rhonchi, Wheezes - Cardiovascular Exam Cardiovascular Exam: RRR, +S1, +S2. absent: Gallop, Rubs - GI/Abdominal Exam GI & Abdominal Exam: Normal Bowel Sounds, Soft, Tenderness. absent: Distended, Firm, Guarding, Organomegaly, Rebound, Rigid Additional comments: mid-epigastric tenderness to palpation - Extremities Exam Extremities exam: Positive for: normal inspection. Negative for: pedal edema - Neurological Exam Additional comments: delayed, appropriate responses to questioning - Psychiatric Exam Psychiatric exam: Flat Affect - Skin Skin Exam: Dry, Intact, Normal Color, Warm Results - Vital Signs Recent Vital Signs: Last Vital Signs Temp 97.6 F 08/02/16 07:53 Pulse 75 08/02/16 08:27 Resp 20 08/02/16 07:53 BP 113/78 08/02/16 07:53 Pulse Ox 96 08/02/16 07:53 - Labs Result Diagrams: 08/02/16 06:00 08/02/16 06:00 Labs: Laboratory Results - last 24 hr 08/01/16 08/02/16 06:59 06:00 WBC 7.2 RBC 3.87 L Hgb 12.9 Hct 38.6 MCV 99.7 H MCH 33.4 H MCHC 33.5 RDW 13.6 Plt Count 71 L MPV 10.5 Neut % (Auto) 70.1 Lymph % (Auto) 14.0 L [place] % (Auto) 10.1 H Eos % (Auto) 5.2 H Baso % (Auto) 0.6 Neut # 5.0 Lymph # 1.0 [place] # 0.7 Eos # 0.4 Baso # 0.0 Sodium 141 Potassium 3.6 Chloride 103 Carbon Dioxide 26 Anion Gap 16 BUN 9 Creatinine 0.9 Est GFR ( Amer) > 60 Est GFR (Non-Af Amer) > 60 Random Glucose 95 Calcium 8.9 Phosphorus 4.8 H Magnesium 2.0 Total Bilirubin 1.3 AST 48 ALT 37 Alkaline Phosphatase 78 Total Protein 7.1 Albumin 3.7 Globulin 3.4 Albumin/Globulin Ratio 1.1 Carcinoembryonic Ag 5.7 H CA 19-9 Antigen 8.1 Vancomycin Trough 5.5 Assessment & Plan - Assessment and Plan (Free Text) Assessment: 51 year old male with history of Schizophrenia, Hypertension, and Alcohol Abuse presenting with chest pain and shortness of breath on initial presentation with dissection and PE ruled out on CT Angiography. Incidental finding of pancreatic head mass on CT measuring 3.0x2.7cm with normal CBD caliber. Active treatment of alcohol withdrawal. GI consultation with workup of CT pancreatic protocol in process and request for EUS evaluation by Dr. Sheikh. No prior EGD or colonoscopy. Plan: >pending read of CT pancreas protocol >continue supportive care: IVFs, pain control >CT head negative >CTA negative >normal CEA and CA 19-9 >GI managing >further recommendations for EUS based on CT results <Ha Carpio - Last Filed: 08/02/16 09:52> Meds - Medications Medications: Current Medications Aripiprazole (Abilify) 10 mg PO DAILY [facility] Last Admin: 08/01/16 09:26 Dose: 10 mg Chlordiazepoxide (Librium) 25 mg PO BID [facility] PRN Reason: Taper Stop: 08/03/16 20:59 Last Admin: 08/01/16 17:18 Dose: 25 mg Docusate Sodium (Colace) 100 mg PO BID [facility] Last Admin: 08/01/16 17:19 Dose: 100 mg Escitalopram Oxalate (Lexapro) 5 mg PO DAILY [facility] Last Admin: 08/01/16 10:04 Dose: 5 mg Folic Acid (Folic Acid) 1 mg PO DAILY [facility] Last Admin: 08/01/16 09:27 Dose: 1 mg Gabapentin (Neurontin) 300 mg PO TID [facility] Last Admin: 08/01/16 17:18 Dose: 300 mg Sodium Chloride (Sodium Chloride 0.9%) 1,000 mls @ 100 mls/hr IV .Q10H [facility] Last Admin: 08/01/16 22:51 Dose: Not Given Metoclopramide HCl (Reglan) 10 mg IVP Q6H PRN PRN Reason: Nausea/Vomiting Multivitamins (Hexavitamin) 1 tab PO DAILY [facility] Last Admin: 08/01/16 09:27 Dose: 1 tab Pantoprazole Sodium (Protonix Ec Tab) 40 mg PO DAILY [facility] Last Admin: 08/01/16 09:28 Dose: 40 mg Saccharomyces Boulardii (Florastor) 250 mg PO BID [facility] Last Admin: 08/01/16 17:18 Dose: 250 mg Thiamine HCl (Vitamin B1 Tab) 100 mg PO DAILY [facility] Last Admin: 08/01/16 09:28 Dose: 100 mg Trazodone HCl (Desyrel) 50 mg PO HS [facility] Last Admin: 08/01/16 21:36 Dose: 50 mg Results - Vital Signs Recent Vital Signs: Last Vital Signs Temp 97.6 F 08/02/16 07:53 Pulse 75 08/02/16 08:27 Resp 20 08/02/16 07:53 BP 113/78 08/02/16 07:53 Pulse Ox 96 08/02/16 07:53 - Labs Result Diagrams: 08/02/16 06:00 08/02/16 06:00 Labs: Laboratory Results - last 24 hr 08/01/16 08/02/16 06:59 06:00 WBC 7.2 RBC 3.87 L Hgb 12.9 Hct 38.6 MCV 99.7 H MCH 33.4 H MCHC 33.5 RDW 13.6 Plt Count 71 L MPV 10.5 Neut % (Auto) 70.1 Lymph % (Auto) 14.0 L [place] % (Auto) 10.1 H Eos % (Auto) 5.2 H Baso % (Auto) 0.6 Neut # 5.0 Lymph # 1.0 [place] # 0.7 Eos # 0.4 Baso # 0.0 Sodium 141 Potassium 3.6 Chloride 103 Carbon Dioxide 26 Anion Gap 16 BUN 9 Creatinine 0.9 Est GFR ( Amer) > 60 Est GFR (Non-Af Amer) > 60 Random Glucose 95 Calcium 8.9 Phosphorus 4.8 H Magnesium 2.0 Total Bilirubin 1.3 AST 48 ALT 37 Alkaline Phosphatase 78 Total Protein 7.1 Albumin 3.7 Globulin 3.4 Albumin/Globulin Ratio 1.1 Carcinoembryonic Ag 5.7 H CA 19-9 Antigen 8.1 Vancomycin Trough 5.5 Attending/Attestation - Attestation I have personally seen and examined this patient.: Yes I have fully participated in the care of the patient.: Yes I have reviewed all pertinent clinical information: Yes Notes (Text): 08/02/16 09:43 I have seen and examined patient with GI fellow. Agree with above documentation with the following additions. In brief, this is a 51 year old male with history of schizophrenia, ETOH abuse, HTN who initially presented to hospital with complaint of dyspnea and chest pain. GI called for evaluation of pancreatic mass lesion noted on CT imaging during workup. Upon questioning, patient endorses epigastric pain, 4/10 intensity which radiates to umbilicus and worse after meal consumption for the past 1 week. During this time period he also notes multiple episodes of non-bloody emesis. He also endorses an approximately 15 pound weight loss over the past 3 months with associated loss of appetite. He otherwise denies fever/chills, jaundice, pruritis, or change in bowel habits. No prior endoscopic evaluation. Schizophrenia HTN ETOH abuse Pancratic mass lesion noted on CT imaging - Pancreatic CT protocol obtained by medical team, awaiting results - LFTs normal, continue to monitor - ETOH withdrawal management as per medical team - Diet as tolerated - Patient may benefit from EUS/FNA of lesion, will make additional recommendations following review of pancreatic CT imaging
[2016-08-02] MEDS: Saccharomyces Boulardi 250 mg Cap PO SCH ×2 (10:30→17:10)
[2016-08-02] MEDS: Multiple Vitamins Tab PO SCH (10:30)
[2016-08-02] MEDS: Pantoprazole 40 mg EC Tab PO SCH (10:31)
--- NOTE | 2016-08-02 12:44 | CP.PCM.PN ---
Subjective - Date & Time of Evaluation Date of Evaluation: 08/02/16 Time of Evaluation: 12:42 - Subjective Subjective: COVERING DR ELKINS/[place] Still with some epigastric pain, no vomiting GI therapeutic consult note appreciated and reviewed Objective - Vital Signs/Intake and Output Vital Signs (last 24 hours): Temp Pulse Resp BP Pulse Ox 97.6 F 75 20 113/78 96 08/02/16 07:53 08/02/16 08:27 08/02/16 07:53 08/02/16 07:53 08/02/16 07:53 Intake and Output: 08/02/16 08/02/16 06:59 18:59 Intake Total 1050 Output Total 900 Balance 150 - Medications Medications: Current Medications Aripiprazole (Abilify) 10 mg PO DAILY [facility] Last Admin: 08/02/16 10:29 Dose: 10 mg Chlordiazepoxide (Librium) 25 mg PO BID [facility] PRN Reason: Taper Stop: 08/03/16 20:59 Last Admin: 08/02/16 10:31 Dose: 25 mg Docusate Sodium (Colace) 100 mg PO BID [facility] Last Admin: 08/02/16 10:30 Dose: 100 mg Escitalopram Oxalate (Lexapro) 5 mg PO DAILY [facility] Last Admin: 08/02/16 10:30 Dose: 5 mg Folic Acid (Folic Acid) 1 mg PO DAILY [facility] Last Admin: 08/02/16 10:30 Dose: 1 mg Gabapentin (Neurontin) 300 mg PO TID [facility] Last Admin: 08/02/16 10:31 Dose: 300 mg Sodium Chloride (Sodium Chloride 0.9%) 1,000 mls @ 100 mls/hr IV .Q10H [facility] Last Admin: 08/01/16 22:51 Dose: Not Given Metoclopramide HCl (Reglan) 10 mg IVP Q6H PRN PRN Reason: Nausea/Vomiting Multivitamins (Hexavitamin) 1 tab PO DAILY [facility] Last Admin: 08/02/16 10:30 Dose: 1 tab Pantoprazole Sodium (Protonix Ec Tab) 40 mg PO DAILY [facility] Last Admin: 08/02/16 10:31 Dose: 40 mg Saccharomyces Boulardii (Florastor) 250 mg PO BID [facility] Last Admin: 08/02/16 10:30 Dose: 250 mg Thiamine HCl (Vitamin B1 Tab) 100 mg PO DAILY [facility] Last Admin: 08/02/16 10:31 Dose: 100 mg Trazodone HCl (Desyrel) 50 mg PO HS [facility] Last Admin: 08/01/16 21:36 Dose: 50 mg - Labs Labs: 08/02/16 06:00 08/02/16 06:00 PT 11.6 SECONDS (9.7-12.2) 07/30/16 11:49 INR 1.0 07/30/16 11:49 APTT 32 SECONDS (21-34) 07/31/16 06:04 - Constitutional Appears: No Acute Distress - Head Exam Head Exam: ATRAUMATIC, NORMOCEPHALIC - Eye Exam Eye Exam: EOMI, PERRL - Respiratory Exam Respiratory Exam: NORMAL BREATHING PATTERN - Cardiovascular Exam Cardiovascular Exam: REGULAR RHYTHM, +S1 - GI/Abdominal Exam GI & Abdominal Exam: Soft, Normal Bowel Sounds. absent: Guarding, Tenderness, Mass, Organomegaly - Extremities Exam Extremities Exam: Normal Inspection Assessment and Plan (1) Alcohol dependence Assessment & Plan: follow up as per psych. Still somulent but responds to questioning Status: Chronic (2) Pancreatic mass Assessment & Plan: Therapeutic GI consult done for possible EUS/FNA Awaiting CT SCan with pancreatic protocol Serologic markers ordered by Dr Elkins CA 19-9=8 CEA=5.7 Unclear if patient has had a colonoscopy. This should be considered as well based upon his age and CEA elevation. Status: Acute (3) Carcinoembryonic antigen (CEA) elevation Assessment & Plan: as above Status: Acute
--- NOTE | 2016-08-02 13:05 | CT ---
PROCEDURE: CT Abdomen and Pelvis with and without intravenous contrast HISTORY: pancreatic mass COMPARISON: Comparison is made to the previous CT dated 07/30/2016 TECHNIQUE: Axial images of the abdomen were obtained in the pre contrast, portal venous and delayed phases of enhancement. Coronal and sagittal reformats were generated. This CT exam was performed using one or more of the following dose reduction techniques: Automated exposure control, adjustment of the mA and/or kv according to patient size, and/or use of iterative reconstruction technique. Contrast dose: 100 cc of Visipaque 320 Radiation dose: Total exam DLP = 100 mL Visipaque 320 mGy-cm. FINDINGS: LOWER THORAX: Unremarkable. LIVER: Heterogeneous mildly enlarged liver without evidence of discrete mass. The portal vein is patent. GALLBLADDER AND BILE DUCTS: No evidence of acute cholecystitis. PANCREAS: No evidence of mass lesion in the pancreas. The pancreatic duct is not dilated. 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 SPLEEN: Unremarkable. ADRENALS: Unremarkable. No mass. KIDNEYS AND URETERS: Again seen is fat containing K partially exophytic lesion at the lower pole right kidney likely benign. The kidneys enhance symmetrically without evidence of hydronephrosis. VASCULATURE: Unremarkable. No aortic aneurysm. BOWEL: Unremarkable. No obstruction. No gross mural thickening. Mild constipation is noted. APPENDIX: No evidence of appendicitis. PERITONEUM: Unremarkable. No free fluid. No free air. LYMPH NODES: Unremarkable. No enlarged lymph nodes. BLADDER: [id number] urinary bladder wall thickening. REPRODUCTIVE: Unremarkable. BONES: No acute fracture. OTHER FINDINGS: None. IMPRESSION: No evidence of mass lesion in the pancreas. 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 No evidence of acute pathology in the abdomen and pelvis. Preliminary report was submitted by virtual Radiology contains concordant findings.
[2016-08-02] MEDS: Sodium Chloride 0.9% 1,000 ML IV SCH (16:08)
[2016-08-03 07:15] LABS: BASO % 0.6 % (0.0-2.0); EOS # 0.3 K/uL (0.0-0.7); EOS % 7.4 % (0.0-4.0); LYMPH # 1.2 K/uL (1.0-4.3); LYMPH % 26.4 % (20.0-40.0); MEAN CORPUSCULAR HEMOGLOBIN 34.1 pg (27.0-31.0); MEAN CORPUSCULAR HGB CONC 34.2 g/dL (33.0-37.0); MEAN PLATELET VOLUME 10.5 fL (7.2-11.7); MONO # 0.5 K/uL (0.0-0.8); MONO % 11.8 % (0.0-10.0); NRBC % 0.1 % (0.0-2.0); RED CELL DISTRIBUTION WIDTH 13.6 % (11.5-14.5); WHITE BLOOD COUNT 4.5 K/uL (4.8-10.8)
[2016-08-03 07:35] LABS: CHLORIDE 98 mmol/L (98-107); POTASSIUM 3.3 mmol/L (3.6-5.2); SODIUM 136 mmol/L (132-148)
[2016-08-03 07:37] LABS: AST/SGOT 46 U/L (17-59); BILIRUBIN,TOTAL 0.7 mg/dL (0.2-1.3); CARBON DIOXIDE 28 mmol/L (22-30); GFR AFRICAN-AMERICAN > 60; TOTAL PROTEIN 6.5 g/dL (6.3-8.3)
[2016-08-03 07:38] LABS: ALKALINE PHOSPHATASE 65 U/L (38-126); ALT/SGPT 39 U/L (21-72); BLOOD UREA NITROGEN 11 mg/dL (9-20); CALCIUM 8.8 mg/dl (8.6-10.4); GLUCOSE,RANDOM 112 mg/dL (75-110); MAGNESIUM 1.8 mg/dL (1.6-2.3); PHOSPHOROUS 4.1 mg/dL (2.5-4.5)
--- NOTE | 2016-08-03 07:47 | CP.PCM.PN ---
<Cristina Lyle - Last Filed: 08/03/16 08:47> Subjective - Date & Time of Evaluation Date of Evaluation: 08/03/16 Time of Evaluation: 07:44 - Subjective Subjective: Gastroenterology Fellow/PGY4 Progress Note Patient admits to mild mid-epigastric pain. No bowel movement for a couple of days. Tolerating regular diet. A 12-point review of systems negative except for as above. Objective - Vital Signs/Intake and Output Vital Signs (last 24 hours): Temp Pulse Resp BP Pulse Ox 97.9 F 61 20 110/70 95 08/03/16 00:15 08/03/16 00:15 08/03/16 00:15 08/03/16 00:15 08/03/16 00:15 - Medications Medications: Current Medications Aripiprazole (Abilify) 10 mg PO DAILY [facility] Last Admin: 08/02/16 10:29 Dose: 10 mg Chlordiazepoxide (Librium) 25 mg PO DAILY [facility] PRN Reason: Taper Stop: 08/03/16 20:59 Last Admin: 08/02/16 17:10 Dose: 25 mg Docusate Sodium (Colace) 100 mg PO BID [facility] Last Admin: 08/02/16 17:10 Dose: 100 mg Escitalopram Oxalate (Lexapro) 5 mg PO DAILY [facility] Last Admin: 08/02/16 10:30 Dose: 5 mg Folic Acid (Folic Acid) 1 mg PO DAILY [facility] Last Admin: 08/02/16 10:30 Dose: 1 mg Gabapentin (Neurontin) 300 mg PO TID [facility] Last Admin: 08/02/16 17:10 Dose: 300 mg Metoclopramide HCl (Reglan) 10 mg IVP Q6H PRN PRN Reason: Nausea/Vomiting Multivitamins (Hexavitamin) 1 tab PO DAILY [facility] Last Admin: 08/02/16 10:30 Dose: 1 tab Pantoprazole Sodium (Protonix Ec Tab) 40 mg PO DAILY [facility] Last Admin: 08/02/16 10:31 Dose: 40 mg Saccharomyces Boulardii (Florastor) 250 mg PO BID [facility] Last Admin: 08/02/16 17:10 Dose: 250 mg Thiamine HCl (Vitamin B1 Tab) 100 mg PO DAILY [facility] Last Admin: 08/02/16 10:31 Dose: 100 mg Trazodone HCl (Desyrel) 50 mg PO HS [facility] Last Admin: 08/02/16 21:21 Dose: 50 mg - Labs Labs: 08/03/16 07:05 08/03/16 07:05 PT 11.6 SECONDS (9.7-12.2) 07/30/16 11:49 INR 1.0 07/30/16 11:49 APTT 32 SECONDS (21-34) 07/31/16 06:04 - Constitutional Appears: Non-toxic, No Acute Distress - Head Exam Head Exam: ATRAUMATIC, NORMOCEPHALIC - Eye Exam Eye Exam: EOMI, PERRL Pupil Exam: PERRL. absent: Miosis, Mydriatic - ENT Exam ENT Exam: Mucous Membranes Moist, Normal Oropharynx - Neck Exam Neck Exam: Full ROM, Normal Inspection - Respiratory Exam Respiratory Exam: Clear to Ausculation Bilateral. absent: Rales, Rhonchi, Wheezes - Cardiovascular Exam Cardiovascular Exam: RRR, +S1, +S2. absent: Gallop, Rubs - GI/Abdominal Exam GI & Abdominal Exam: Soft, Tenderness, Normal Bowel Sounds, Organomegaly. absent: Distended, Firm, Rigid, Rebound Additional comments: mild mid-epigastric discomfort, hepatomegaly - Extremities Exam Extremities Exam: Full ROM, Pedal Edema - Neurological Exam Neurological Exam: Alert, Awake - Psychiatric Exam Psychiatric exam: Flat Affect - Skin Skin Exam: Dry, Intact, Normal Color, Warm Assessment and Plan - Assessment and Plan (Free Text) Assessment: 51 year old male with history of Schizophrenia, Hypertension, and Alcohol Abuse presenting with chest pain and shortness of breath on initial presentation with dissection and PE ruled out on CT Angiography. Incidental finding of pancreatic head mass on CT measuring 3.0x2.7cm with normal CBD caliber. Active treatment of alcohol withdrawal. GI consultation with workup of incidental pancreatic mass on CT Angiography with request for EUS evaluation by Dr. Sheikh. No prior EGD or colonoscopy. 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 Contact with questions or concerns. <Ha Carpio - Last Filed: 08/03/16 09:14> Objective - Vital Signs/Intake and Output Vital Signs (last 24 hours): Temp Pulse Resp BP Pulse Ox 98.0 F 64 20 122/78 96 08/03/16 08:01 08/03/16 08:06 08/03/16 08:01 08/03/16 08:01 08/03/16 08:01 - Medications Medications: Current Medications Aripiprazole (Abilify) 10 mg PO DAILY [facility] Last Admin: 08/02/16 10:29 Dose: 10 mg Chlordiazepoxide (Librium) 25 mg PO DAILY [facility] PRN Reason: Taper Stop: 08/03/16 20:59 Last Admin: 08/02/16 17:10 Dose: 25 mg Docusate Sodium (Colace) 100 mg PO BID [facility] Last Admin: 08/02/16 17:10 Dose: 100 mg Escitalopram Oxalate (Lexapro) 5 mg PO DAILY [facility] Last Admin: 08/02/16 10:30 Dose: 5 mg Folic Acid (Folic Acid) 1 mg PO DAILY [facility] Last Admin: 08/02/16 10:30 Dose: 1 mg Gabapentin (Neurontin) 300 mg PO TID [facility] Last Admin: 08/02/16 17:10 Dose: 300 mg Metoclopramide HCl (Reglan) 10 mg IVP Q6H PRN PRN Reason: Nausea/Vomiting Multivitamins (Hexavitamin) 1 tab PO DAILY [facility] Last Admin: 08/02/16 10:30 Dose: 1 tab Pantoprazole Sodium (Protonix Ec Tab) 40 mg PO DAILY [facility] Last Admin: 08/02/16 10:31 Dose: 40 mg Saccharomyces Boulardii (Florastor) 250 mg PO BID [facility] Last Admin: 08/02/16 17:10 Dose: 250 mg Thiamine HCl (Vitamin B1 Tab) 100 mg PO DAILY [facility] Last Admin: 08/02/16 10:31 Dose: 100 mg Trazodone HCl (Desyrel) 50 mg PO HS [facility] Last Admin: 08/02/16 21:21 Dose: 50 mg - Labs Labs: 08/03/16 07:05 08/03/16 07:05 PT 11.6 SECONDS (9.7-12.2) 07/30/16 11:49 INR 1.0 07/30/16 11:49 APTT 32 SECONDS (21-34) 07/31/16 06:04 Attending/Attestation - Attestation I have personally seen and examined this patient.: Yes I have fully participated in the care of the patient.: Yes I have reviewed all pertinent clinical information, including history, physical exam and plan: Yes Notes (Text): 08/03/16 09:07 I have seen and examined patient with GI fellow. No acute events overnight, he continues to endorse mild right sided abdominal pain. He denies nausea, vomiting, diarrhea (no bowel movements in past 2 days), fever/chills. He consumed his breakfast tray in entirety this morning. Review of vitals from today are normal. Schizophrenia HTN ETOH abuse Questionable pancreatic mass lesion seen on prior CT - I have personally reviewed the pancreatic CT myself along with discussion with radiologist Dr. Arellano. There does not appear to be any pancreatic mass lesion on the dedicated contrast enhanced images and no presence of pancreatic duct dilation. Rather, what was previously visualized seems to be the confluence of portal and splenic vein. - LFTs normal, continue to monitor - Diet as tolerated - Management of ETOH withdrawal as per medical team - No current indication for EUS imaging of pancreas at this time. Patient would however benefit from colonoscopy given his ongoing abdominal pain and recent weight loss. Patient has not had prior endoscopic evaluation. Will sign off case, further plan as per primary GI team. Please reconsult as necessary, thank you.
[2016-08-03] MEDS ORDERED: Potassium Chloride 20 mEq ER Tab PO ONE (09:20)
--- NOTE | 2016-08-03 09:28 | CP.PCM.DIS ---
<Monica Gilbert - Last Filed: 08/03/16 13:06> Provider - Provider Date of Admission: 07/30/16 14:37 Attending physician: Marie Arthur DO Primary care physician: Dr. Schmidt Consults: Dr. So psych Dr. Gutierrez/Speedy/Charlotte: GI Time Spent in preparation of Discharge (in minutes): 45 Hospital Course - Lab Results Lab Results: Micro Results 07/30/16 16:30 Blood Blood Culture - Preliminary NO GROWTH AFTER 3 DAYS 07/30/16 16:45 Blood Blood Culture - Preliminary NO GROWTH AFTER 3 DAYS 07/30/16 16:24 Urine,Clean Catch Urine Culture - Final No Growth (<1,000 CFU/ML) 07/30/16 16:24 Throat Group A Strep Throat Culture - Final NO BETA STREP GROUP A ISOLATED. Most Recent Lab Values WBC 4.5 K/uL (4.8-10.8) L 08/03/16 07:05 RBC 3.70 Mil/uL (4.40-5.90) L 08/03/16 07:05 Hgb 12.6 g/dL (12.0-18.0) 08/03/16 07:05 Hct 37.0 % (35.0-51.0) 08/03/16 07:05 MCV 100.0 fL (80.0-94.0) H 08/03/16 07:05 MCH 34.1 pg (27.0-31.0) H 08/03/16 07:05 MCHC 34.2 g/dL (33.0-37.0) 08/03/16 07:05 RDW 13.6 % (11.5-14.5) 08/03/16 07:05 Plt Count 78 K/uL (130-400) L 08/03/16 07:05 MPV 10.5 fL (7.2-11.7) 08/03/16 07:05 Neut % (Auto) 53.8 % (50.0-75.0) 08/03/16 07:05 Lymph % (Auto) 26.4 % (20.0-40.0) 08/03/16 07:05 [place] % (Auto) 11.8 % (0.0-10.0) H 08/03/16 07:05 Eos % (Auto) 7.4 % (0.0-4.0) H 08/03/16 07:05 Baso % (Auto) 0.6 % (0.0-2.0) 08/03/16 07:05 Neut # 2.4 K/uL (1.8-7.0) 08/03/16 07:05 Lymph # 1.2 K/uL (1.0-4.3) 08/03/16 07:05 [place] # 0.5 K/uL (0.0-0.8) 08/03/16 07:05 Eos # 0.3 K/uL (0.0-0.7) 08/03/16 07:05 Baso # 0.0 K/uL (0.0-0.2) 08/03/16 07:05 Differential Comment 07/30/16 11:49 PT 11.6 SECONDS (9.7-12.2) 07/30/16 11:49 INR 1.0 07/30/16 11:49 APTT 32 SECONDS (21-34) 07/31/16 06:04 D-Dimer, Quantitative 659 ng/mlDDU (0-243) H 07/30/16 17:32 Sodium 136 mmol/L (132-148) 08/03/16 07:05 Potassium 3.3 mmol/L (3.6-5.2) L 08/03/16 07:05 Chloride 98 mmol/L (98-107) 08/03/16 07:05 Carbon Dioxide 28 mmol/L (22-30) 08/03/16 07:05 Anion Gap 13 (10-20) 08/03/16 07:05 BUN 11 mg/dL (9-20) 08/03/16 07:05 Creatinine 0.9 MG/DL (0.8-1.5) 08/03/16 07:05 Est GFR ( Amer) > 60 08/03/16 07:05 Est GFR (Non-Af Amer) > 60 08/03/16 07:05 POC Glucose (mg/dL) 99 mg/dL (65-110) 07/30/16 21:40 Random Glucose 112 mg/dL (75-110) H 08/03/16 07:05 Lactic Acid 0.9 mmol/L (0.7-2.1) 07/31/16 00:42 Calcium 8.8 mg/dl (8.6-10.4) 08/03/16 07:05 Phosphorus 4.1 mg/dL (2.5-4.5) 08/03/16 07:05 Magnesium 1.8 mg/dL (1.6-2.3) 08/03/16 07:05 Total Bilirubin 0.7 mg/dL (0.2-1.3) 08/03/16 07:05 AST 46 U/L (17-59) 08/03/16 07:05 ALT 39 U/L (21-72) 08/03/16 07:05 Alkaline Phosphatase 65 U/L (38-126) 08/03/16 07:05 Total Creatine Kinase 68 U/L (55-170) 07/31/16 04:13 CK-MB (Mass) 0.34 ng/mL (0.0-3.38) 07/31/16 04:13 Troponin I < 0.0120 ng/mL (0.00-0.120) 07/30/16 11:49 Troponin I, Quant < 0.0120 ng/mL (0.00-0.120) 07/31/16 04:13 Total Protein 6.5 g/dL (6.3-8.3) 08/03/16 07:05 Albumin 3.3 g/dL (3.5-5.0) L 08/03/16 07:05 Globulin 3.2 gm/dL (2.2-3.9) 08/03/16 07:05 Albumin/Globulin Ratio 1.0 (1.0-2.1) 08/03/16 07:05 Carcinoembryonic Ag 5.7 ng/mL (0-3.0) H 08/01/16 06:59 CA 19-9 Antigen 8.1 U/mL (0-37) 08/01/16 06:59 Urine Color Yellow (YELLOW) 07/30/16 11:21 Urine Clarity Clear (Clear) 07/30/16 11:21 Urine pH 6.0 (5.0-8.0) 07/30/16 11:21 Ur Specific [place] 1.008 (1.003-1.030) 07/30/16 11:21 Urine Protein 1+ mg/dL (NEGATIVE) H 07/30/16 11:21 Urine Glucose (UA) Normal mg/dL (Normal) 07/30/16 11:21 Urine Ketones Negative mg/dL (NEGATIVE) 07/30/16 11:21 Urine Blood Negative (NEGATIVE) 07/30/16 11:21 Urine Nitrate Negative (NEGATIVE) 07/30/16 11:21 Urine Bilirubin Negative (NEGATIVE) 07/30/16 11:21 Urine Urobilinogen Normal mg/dL (0.2-1.0) 07/30/16 11:21 Ur Leukocyte Esterase Neg Ruiz/uL (Negative) 07/30/16 11:21 Urine WBC (Auto) 1 /hpf (0-5) 07/30/16 11:21 Hyaline Casts 0-2 /lpf (0-2) 07/30/16 11:21 Vancomycin Trough 5.5 ug/mL (5.0-10.0) 08/02/16 06:00 Urine Opiates Screen Negative (NEGATIVE) 07/30/16 14:06 Urine Methadone Screen Negative (NEGATIVE) 07/30/16 14:06 Ur Barbiturates Screen Negative (NEGATIVE) 07/30/16 14:06 Ur Phencyclidine Scrn Negative (NEGATIVE) 07/30/16 14:06 Ur Amphetamines Screen Negative (NEGATIVE) 07/30/16 14:06 U Benzodiazepines Scrn Negative (NEGATIVE) 07/30/16 14:06 U Oth Cocaine Metabols Negative (NEGATIVE) 07/30/16 14:06 U Cannabinoids Screen Negative (NEGATIVE) 07/30/16 14:06 Alcohol, Quantitative < 10 mg/dl (0-10) 07/30/16 11:49 Influenza Typ A,B (EIA) Negative for flu a/b (NEGATIVE) 07/30/16 16:36 Grp A Beta Strep Ag Negative (NEGATIVE) 07/30/16 16:24 - Hospital Course Hospital Course: Upon Admission: 51 yo male with past medical history of HTN, schizophrenia, and alcoholism - presents c/o substernal chest pain and mild SOB since this morning. His chest pain began around 8:30 this AM and came on suddenly without provocation. He describes the pain as tight, sharp and localized to the sternum with radiation to the right arm/back and of a 9/10 intensity. The patient is well-known to the hospital as having an alcohol use disorder and states that his last drink of several 24 oz beers was 2-3 days ago. Patient reports he drinks 4, 24-ounce beers per day, and gets tremors when he does not drink. Patient reports vomiting food contents and alcohol approximately 3 days ago, and again yesterday. He also admitted that he has had a bit of a URI recently and that coughing and heavy breathing worsen his pain. Nothing makes the pain better. Hallucinations are an ongoing problem as he has a well-documented history of schizophrenia. He states that he hears male and female voices that tell him to harm himself and his family. He sees the sources of the voices in the room with him and describes them as the same as you or me. He denies ever having suicidal or homicidal ideations. Patient reports lower leg numbness for the past 6 months and frequent falls. Patient ambulates with a cane at baseline. Admits to falls, anxiety, chills, diaphoresis, weakness, sore throat, palpitations, abdominal pain, n/v, leg pain, back pain, lack of appetite, unintentional weight loss, and depression. Patient was admitted to med/surg floor. Patient had negative DRE x 3 and no acute changes on EKG and CTA negative for aortic aneurysm, aortic dissection, mural thrombus, and PE. Patient was started on CIWA protocol for alcohol withdrawal and was started on Zosyn and Vancomycin for sepsis with lactate of 3. Blood culture (07/30) had no growth after 48 hoursX2, urine cx (07/30) had no growth, and CT no sign of pneumonia. Dr. So was consulted for schizophrenia and depression and patient was started on appropriate medications but haldol was discontinued secondary to QT elongation. On CT patient was seen to have 3.0 X2.7 CM masslike lesion in the head of pancreas and patient completed CT pancreatic protocol which showed no evidence of mass lesion in the pancreas. No evidence of acute pathology in the abdomen and pelvis and patient was not a candidate for EUS. GI was consulted and as patient had normal CEA it was determined that patient was to be seen outpatient and have colonoscopy outpatient. On day of discharge patient was deemed medically stable for discharge as per hospitalist team, psychiatry, and GI. 1) Sepsis; resolved 2) Chest pain: resolved 3) Alcohol withdrawal: resolved s/p CIWA protocol- patient [facility] 4) URI/rash: resolved 5) Depression/schizophrenia: managed outpatient by psychiatry Dr. Abdullahi 6) Neuropathy: monitor outpatient 7) Thrombocytopenia: likely secondary to bone marrow supression secondary to alcohol abuse- monitor outpatient 8) Pancreatic mass: unlikely mass as per pancreatic protocol and radiology. Patient to follow up with GI outpatient. Upon Discharge: Patient stable for discharge home as per Dr. Arthur, psychiatry Dr. So, and GI Dr. Carpio. Patient has been prescribed the following medications: Abilify 10mg po daily Disp #30 Colace 100mg po bid Disp#60 Trazodone 50mg po qhs Disp#30 Haloperidol 5mg po bid Disp#60 Lexapro 5mg PO daily Disp#30 Gabapentin 300mg PO tid Disp#90 Protonix 40mg po daily Disp#30 Thiamine 100mg po daily Disp#30 Patient needs to follow up with PMD Dr. Schmidt within 7 days. Patient to also follow up with Dr. Ruff GI for outpatient colonoscopy within 10 days and follow up with psychiatry Dr. Abdullahi within 10 days. Patient to [facility]. Patient counseled on abstaining from alcohol abuse and advised to seek alcohol cessation help. If symptoms persist or worsen patient to visit ED immediately. Instructions discussed with patient who understands and agrees. Discharge Exam - Head Exam Head Exam: ATRAUMATIC, NORMOCEPHALIC - Eye Exam Eye Exam: Normal appearance - ENT Exam ENT Exam: Mucous Membranes Moist - Neck Exam Neck exam: Normal Inspection - Respiratory Exam Respiratory Exam: Clear to PA & Lateral, NORMAL BREATHING PATTERN. absent: Accessory Muscle Use, Rales, Rhonchi, Wheezes, Respiratory Distress, UNREMARKABLE - Cardiovascular Exam Cardiovascular Exam: REGULAR RHYTHM, +S1, +S2 - GI/Abdominal Exam GI & Abdominal Exam: Normal Bowel Sounds, Soft. absent: Tenderness - Extremities Exam Extremities exam: normal capillary refill, normal inspection, pedal pulses present - Back Exam Back exam: NORMAL INSPECTION. absent: rash noted - Neurological Exam Neurological exam: Alert, Oriented x3 Additional comments: patient walks with cane - Psychiatric Exam Psychiatric exam: Normal Affect, Normal Mood - Skin Skin Exam: Dry, Intact, Normal Color, Warm Discharge Plan - Discharge Medications Prescriptions: ARIPiprazole [Abilify] 10 mg PO DAILY #30 tab Docusate [Colace] 100 mg PO BID #60 cap traZODone [Desyrel] 50 mg PO HS #30 tab Escitalopram [Lexapro] 5 mg PO DAILY #30 tab Gabapentin [Neurontin] 300 mg PO TID #90 cap Pantoprazole [Protonix EC Tab] 40 mg PO DAILY #30 tab Thiamine [Vitamin B1 Tab] 100 mg PO DAILY #30 tab - Follow Up Plan Condition: FAIR Disposition: HOME/ ROUTINE Instructions: Alcohol Intoxication (DC), Alcohol Intoxication (GEN), Alcohol Withdrawal (DC), Alcohol Withdrawal (GEN) Additional Instructions: Patient stable for discharge home as per Dr. Arthur, psychiatry Dr. So, and GI Dr. Carpio. Patient has been prescribed the following medications: Abilify 10mg po daily Disp #30 Colace 100mg po bid Disp#60 Trazodone 50mg po qhs Disp#30 Haloperidol 5mg po bid Disp#60 Lexapro 5mg PO daily Disp#30 Gabapentin 300mg PO tid Disp#90 Protonix 40mg po daily Disp#30 Thiamine 100mg po daily Disp#30 Patient needs to follow up with PMD Dr. Schmidt within 7 days. Patient to also follow up with Dr. Ruff GI for outpatient colonoscopy within 10 days and follow up with psychiatry Dr. Abdullahi within 10 days. Patient to go to [facility] for outpatient alcohol abuse help and [facility] for inpatient alcohol abuse help. Patient counseled on abstaining from alcohol abuse and advised to seek alcohol cessation help. If symptoms persist or worsen patient to visit ED immediately. Instructions discussed with patient who understands and agrees. Pt also given information for out patient meetings. Anna Arias <Marie Arthur V - Last Filed: 08/03/16 16:03> Provider - Provider Date of Admission: 07/30/16 14:37 Attending physician: Marie Arthur DO Hospital Course - Lab Results Lab Results: Micro Results 07/30/16 16:30 Blood Blood Culture - Preliminary NO GROWTH AFTER 3 DAYS 07/30/16 16:45 Blood Blood Culture - Preliminary NO GROWTH AFTER 3 DAYS 07/30/16 16:24 Urine,Clean Catch Urine Culture - Final No Growth (<1,000 CFU/ML) 07/30/16 16:24 Throat Group A Strep Throat Culture - Final NO BETA STREP GROUP A ISOLATED. Most Recent Lab Values WBC 4.5 K/uL (4.8-10.8) L 08/03/16 07:05 RBC 3.70 Mil/uL (4.40-5.90) L 08/03/16 07:05 Hgb 12.6 g/dL (12.0-18.0) 08/03/16 07:05 Hct 37.0 % (35.0-51.0) 08/03/16 07:05 MCV 100.0 fL (80.0-94.0) H 08/03/16 07:05 MCH 34.1 pg (27.0-31.0) H 08/03/16 07:05 MCHC 34.2 g/dL (33.0-37.0) 08/03/16 07:05 RDW 13.6 % (11.5-14.5) 08/03/16 07:05 Plt Count 78 K/uL (130-400) L 08/03/16 07:05 MPV 10.5 fL (7.2-11.7) 08/03/16 07:05 Neut % (Auto) 53.8 % (50.0-75.0) 08/03/16 07:05 Lymph % (Auto) 26.4 % (20.0-40.0) 08/03/16 07:05 [place] % (Auto) 11.8 % (0.0-10.0) H 08/03/16 07:05 Eos % (Auto) 7.4 % (0.0-4.0) H 08/03/16 07:05 Baso % (Auto) 0.6 % (0.0-2.0) 08/03/16 07:05 Neut # 2.4 K/uL (1.8-7.0) 08/03/16 07:05 Lymph # 1.2 K/uL (1.0-4.3) 08/03/16 07:05 [place] # 0.5 K/uL (0.0-0.8) 08/03/16 07:05 Eos # 0.3 K/uL (0.0-0.7) 08/03/16 07:05 Baso # 0.0 K/uL (0.0-0.2) 08/03/16 07:05 Differential Comment 07/30/16 11:49 PT 11.6 SECONDS (9.7-12.2) 07/30/16 11:49 INR 1.0 07/30/16 11:49 APTT 32 SECONDS (21-34) 07/31/16 06:04 D-Dimer, Quantitative 659 ng/mlDDU (0-243) H 07/30/16 17:32 Sodium 136 mmol/L (132-148) 08/03/16 07:05 Potassium 3.3 mmol/L (3.6-5.2) L 08/03/16 07:05 Chloride 98 mmol/L (98-107) 08/03/16 07:05 Carbon Dioxide 28 mmol/L (22-30) 08/03/16 07:05 Anion Gap 13 (10-20) 08/03/16 07:05 BUN 11 mg/dL (9-20) 08/03/16 07:05 Creatinine 0.9 MG/DL (0.8-1.5) 08/03/16 07:05 Est GFR ( Amer) > 60 08/03/16 07:05 Est GFR (Non-Af Amer) > 60 08/03/16 07:05 POC Glucose (mg/dL) 99 mg/dL (65-110) 07/30/16 21:40 Random Glucose 112 mg/dL (75-110) H 08/03/16 07:05 Lactic Acid 0.9 mmol/L (0.7-2.1) 07/31/16 00:42 Calcium 8.8 mg/dl (8.6-10.4) 08/03/16 07:05 Phosphorus 4.1 mg/dL (2.5-4.5) 08/03/16 07:05 Magnesium 1.8 mg/dL (1.6-2.3) 08/03/16 07:05 Total Bilirubin 0.7 mg/dL (0.2-1.3) 08/03/16 07:05 AST 46 U/L (17-59) 08/03/16 07:05 ALT 39 U/L (21-72) 08/03/16 07:05 Alkaline Phosphatase 65 U/L (38-126) 08/03/16 07:05 Total Creatine Kinase 68 U/L (55-170) 07/31/16 04:13 CK-MB (Mass) 0.34 ng/mL (0.0-3.38) 07/31/16 04:13 Troponin I < 0.0120 ng/mL (0.00-0.120) 07/30/16 11:49 Troponin I, Quant < 0.0120 ng/mL (0.00-0.120) 07/31/16 04:13 Total Protein 6.5 g/dL (6.3-8.3) 08/03/16 07:05 Albumin 3.3 g/dL (3.5-5.0) L 08/03/16 07:05 Globulin 3.2 gm/dL (2.2-3.9) 08/03/16 07:05 Albumin/Globulin Ratio 1.0 (1.0-2.1) 08/03/16 07:05 Carcinoembryonic Ag 5.7 ng/mL (0-3.0) H 08/01/16 06:59 CA 19-9 Antigen 8.1 U/mL (0-37) 08/01/16 06:59 Urine Color Yellow (YELLOW) 07/30/16 11:21 Urine Clarity Clear (Clear) 07/30/16 11:21 Urine pH 6.0 (5.0-8.0) 07/30/16 11:21 Ur Specific [place] 1.008 (1.003-1.030) 07/30/16 11:21 Urine Protein 1+ mg/dL (NEGATIVE) H 07/30/16 11:21 Urine Glucose (UA) Normal mg/dL (Normal) 07/30/16 11:21 Urine Ketones Negative mg/dL (NEGATIVE) 07/30/16 11:21 Urine Blood Negative (NEGATIVE) 07/30/16 11:21 Urine Nitrate Negative (NEGATIVE) 07/30/16 11:21 Urine Bilirubin Negative (NEGATIVE) 07/30/16 11:21 Urine Urobilinogen Normal mg/dL (0.2-1.0) 07/30/16 11:21 Ur Leukocyte Esterase Neg Ruiz/uL (Negative) 07/30/16 11:21 Urine WBC (Auto) 1 /hpf (0-5) 07/30/16 11:21 Hyaline Casts 0-2 /lpf (0-2) 07/30/16 11:21 Vancomycin Trough 5.5 ug/mL (5.0-10.0) 08/02/16 06:00 Urine Opiates Screen Negative (NEGATIVE) 07/30/16 14:06 Urine Methadone Screen Negative (NEGATIVE) 07/30/16 14:06 Ur Barbiturates Screen Negative (NEGATIVE) 07/30/16 14:06 Ur Phencyclidine Scrn Negative (NEGATIVE) 07/30/16 14:06 Ur Amphetamines Screen Negative (NEGATIVE) 07/30/16 14:06 U Benzodiazepines Scrn Negative (NEGATIVE) 07/30/16 14:06 U Oth Cocaine Metabols Negative (NEGATIVE) 07/30/16 14:06 U Cannabinoids Screen Negative (NEGATIVE) 07/30/16 14:06 Alcohol, Quantitative < 10 mg/dl (0-10) 07/30/16 11:49 Influenza Typ A,B (EIA) Negative for flu a/b (NEGATIVE) 07/30/16 16:36 Grp A Beta Strep Ag Negative (NEGATIVE) 07/30/16 16:24 Attending/Attestation - Attestation I have personally seen and examined this patient.: Yes I have fully participated in the care of the patient.: Yes I have reviewed all pertinent clinical information, including history, physical exam and plan: Yes Notes (Text): Patient seen, examined, and case discussed with day-time resident. Patient seen this morning. Patient seen no acute complaints except for mild tremors likely secondary to prior haldol use; which has been noted past EMR. Discussed with GI (Dr. Carpio), no plans for EUS given low suspicion for pancreatic mass and normalization for LFTs without PD dilation. Per GI, recommended for outpatient colonoscopy. Discussed with patient at bedside, patient is aware he should follow-up with GI to schedule for outpatient colonoscopy. Patient completed Librium taper (day 5) for heavy alcohol use. ROMIX3 negative; CT angio negative for cardiac cause of chest pain Platelets improving. Electrolytes repleted. Psychiatrically stable for discharge. Patient is medically stable for discharge. Discussed discharge order and instructions with the resident. Patient recommended for colonoscopy and to follow-up with GI. Patient has been prescribed the following medications: Abilify 10mg po daily Disp #30 Colace 100mg po bid Disp#60 Trazodone 50mg po qhs Disp#30 Lexapro 5mg PO daily Disp#30 Gabapentin 300mg PO tid Disp#90 Protonix 40mg po daily Disp#30 Thiamine 100mg po daily Disp#30 Discontinue Haldol given prolonged QT. Patient needs to follow up with PMD Dr. Schmidt within 7 days. Patient to also follow up with Dr. Charlotte SKINNER for outpatient colonoscopy within 10 days and follow up with psychiatry Dr. Abdullahi within 10 days. Patient recommended to go to [facility] for outpatient alcohol abuse help and [facility] for inpatient alcohol abuse help. Patient counseled on abstaining from alcohol abuse and advised to seek alcohol cessation help. If symptoms persist or worsen patient to visit ED immediately. Instructions discussed with patient who understands and agrees. This is summary of patient's hospitalization. Please refer to EMR for further details. Assessment/Plan 1) Sepsis * Patient is not septic. White count has normalized. Thrombocytopenia improving. Lactic acid has normalized * Blood culture (07/30): no growth after 3 days , urine cx (07/30): no growth, and CT no sign of pneumonia noted, no group A Step 2)Chest pain * Resolved * Imaging: CXR (07/30/16) in the ED showed poor inspiratory effort and low lung volumes * first DRE negative; no appreciate St changes nor prolonged QT given haldol use on inital EKG * d-dimer: elevated; CT angio: negative for aortic aneurysm, aortic dissection, mural thrombus, and pE * ROMIX3 negative; EKG QT prolongation 470ms * patient received ASA 325mg in ER * Off haldol secondary to elongated QT 3) Alcohol withdrawal * Completed Librium taper today * CIWA protocol * aspiration precautions * seizure precautions * fall risk * Banana Bag at 100cc/hr once -> NS 0.9 at 100cc/hr * thiamine 100mg PO daily * folic acid 1mg daily * Multivitamins (Hexavitamin) 1 tab PO daily 4) URI/Rash * resolved * strep: negative, flu: negative 5) Schizophrenia, history of * Dr. So, psychiatry, consulted- help appreciated * Home medications started: d/c haldol 5mg PO BID per psych given QT prolongation noted on follow-up EKG and cogentin 1mg BID * Per psych switched to Abilify 10mg PO daily 6) Depression, history of * Dr. So, psychiatry, consulted- help appreciated * restart home medication: Escitalopram Oxalate (Lexapro) 5 mg PO DAILY 7) Neuropathy, history of * lower extremity neuropathy, decreased sensation b/l * restart home medication: Gabapentin (Neurontin) 300 mg PO TID 8) Hypertension, questionable history of * Vitals are stable 9) Constipation * Colace 100mg PO BID 10) Thrombocytopenia * heparin d/c * HIT AB pending * patient is heavy alcohol user, bone marrow suppression secondary * improving 11) Prophylactic measure * SCDs b/l * Protonix 40mg PO daily for GI ppx * patient counseled on tobacco cessation- will give nicotine patch while hospitalized * d/c Hep 5k SC Q8; patient is thrombocytpenia * Trazodone HCl 50 mg PO HS IFTIKHAR (home med) * PT/OT eval 12) Pancreatic mass * 3.0 X2.7 CM masslike lesion in the head of pancreas noted on CT * Patient completed CT pancreatic protocol: no evidence of mass lesion in the pancreas. No evidence of acute pathology in the abdomen and pelvis. * GI consult (Dr. Gutierrez) on board; help appreciated * GI (EUS): Dr Sheikh for possible pancreatic mass; help appreciated * Discussed with GI (Dr. Carpio), no plans for EUS given low suspicion for pancreatic mass and normalization for LFTs without PD dilation. * CEA: mildly elevated--->recommended for outpatient colonoscopy.
[2016-08-03] MEDS: Pantoprazole 40 mg EC Tab PO SCH (10:34)
[2016-08-03] MEDS: Saccharomyces Boulardi 250 mg Cap PO SCH ×2 (10:34→17:10)
[2016-08-03] MEDS: Multiple Vitamins Tab PO SCH (10:35)
--- NOTE | 2016-08-03 11:14 | CP.PCM.PN ---
Subjective - Date & Time of Evaluation Date of Evaluation: 08/03/16 Time of Evaluation: 11:12 - Subjective Subjective: CT Scan reviewed as was note of therapeutic GI team No pain, N/V Objective - Vital Signs/Intake and Output Vital Signs (last 24 hours): Temp Pulse Resp BP Pulse Ox 98.0 F 64 20 122/78 96 08/03/16 08:01 08/03/16 08:06 08/03/16 08:01 08/03/16 08:01 08/03/16 08:01 - Medications Medications: Current Medications Aripiprazole (Abilify) 10 mg PO DAILY [facility] Last Admin: 08/03/16 10:33 Dose: 10 mg Chlordiazepoxide (Librium) 25 mg PO DAILY [facility] PRN Reason: Taper Stop: 08/03/16 20:59 Last Admin: 08/03/16 10:36 Dose: Not Given Docusate Sodium (Colace) 100 mg PO BID [facility] Last Admin: 08/03/16 10:36 Dose: Not Given Escitalopram Oxalate (Lexapro) 5 mg PO DAILY [facility] Last Admin: 08/03/16 10:35 Dose: 5 mg Folic Acid (Folic Acid) 1 mg PO DAILY [facility] Last Admin: 08/03/16 10:34 Dose: 1 mg Gabapentin (Neurontin) 300 mg PO TID [facility] Last Admin: 08/03/16 10:35 Dose: 300 mg Metoclopramide HCl (Reglan) 10 mg IVP Q6H PRN PRN Reason: Nausea/Vomiting Multivitamins (Hexavitamin) 1 tab PO DAILY [facility] Last Admin: 08/03/16 10:35 Dose: 1 tab Pantoprazole Sodium (Protonix Ec Tab) 40 mg PO DAILY [facility] Last Admin: 08/03/16 10:34 Dose: 40 mg Saccharomyces Boulardii (Florastor) 250 mg PO BID [facility] Last Admin: 08/03/16 10:34 Dose: 250 mg Thiamine HCl (Vitamin B1 Tab) 100 mg PO DAILY [facility] Last Admin: 08/03/16 10:37 Dose: 100 mg Trazodone HCl (Desyrel) 50 mg PO HS [facility] Last Admin: 08/02/16 21:21 Dose: 50 mg - Labs Labs: 08/03/16 07:05 08/03/16 07:05 PT 11.6 SECONDS (9.7-12.2) 07/30/16 11:49 INR 1.0 07/30/16 11:49 APTT 32 SECONDS (21-34) 07/31/16 06:04 - Constitutional Appears: No Acute Distress - Head Exam Head Exam: ATRAUMATIC, NORMOCEPHALIC - Eye Exam Eye Exam: EOMI, PERRL - Respiratory Exam Respiratory Exam: NORMAL BREATHING PATTERN - Cardiovascular Exam Cardiovascular Exam: REGULAR RHYTHM - GI/Abdominal Exam GI & Abdominal Exam: Soft, Normal Bowel Sounds. absent: Tenderness Assessment and Plan (1) Alcohol dependence Status: Chronic (2) Pancreatic mass Assessment & Plan: Mass appears to be confluence of vascular markings and not a mass No further workup indicated Status: Acute (3) Carcinoembryonic antigen (CEA) elevation Assessment & Plan: In view of plans to discharge today, would advise follow up with GI as outpatient for colonoscopy (Dr Porter/B[facility] or [facility] if uninsured) Status: Acute
[2016-08-03 16:55] VITALS: BP 131/87; PULSE 59; TEMP 98.4
[2016-08-04 16:08] LABS: HEPARIN-IND PLATELET AB Negative (Negative); RESULT Negative (Negative)
[2016-08-04 18:57] LABS: UFH SRA RESULT Negative (Negative)
[2016-08-13 02:37] VITALS: O2SAT 97
--- NOTE | 2016-08-13 12:13 | CARD ---
APPROVED REPORT EKG Measurement Heart [id number] <Conclusion> Normal sinus rhythm Nonspecific T wave abnormality Prolonged QT Abnormal ECG
== END 2016-08-03 18:50 | disposition home or self-care (01) | DRG 872 ==
LOC: C.ER 10:56 → C.9E 14:37 → UNDOADMOB 14:37 → OBSVTOIN 14:37 → INTOOBSV 14:37 → C.9E 18:45 → C.6T 18:45 → C.9E 19:03 → C.6T 19:43 → OBSVTOIN 08-01 23:43 → C.9E 08-01 23:43 → C.6T 08-01 23:43 → UNDODISIN 08-03 18:50
PROVIDERS: ADMIT Hospitalist; ATTEND Hospitalist
DX: A41.9 Sepsis, unspecified organism (principal); E87.2 Acidosis; G62.9 Polyneuropathy, unspecified; D69.59 Other secondary thrombocytopenia; F20.9 Schizophrenia, unspecified; F10.230 Alcohol dependence with withdrawal, uncomplicated; I10 Essential (primary) hypertension; R07.2 Precordial pain; J06.9 Acute upper respiratory infection, unspecified; F17.210 Nicotine dependence, cigarettes, uncomplicated; K86.9 Disease of pancreas, unspecified; F10.220 Alcohol dependence with intoxication, uncomplicated; R97.0 Elevated carcinoembryonic antigen [CEA]; K59.00 Constipation, unspecified; F32.9 Major depressive disorder, single episode, unspecified; R00.0 Tachycardia, unspecified; R21 Rash and other nonspecific skin eruption; Y90.0 Blood alcohol level of less than 20 mg/100 ml; Z91.14 Patient's other noncompliance with medication regimen

== ENCOUNTER 2016-09-09 16:26 | Inpatient (IN) | payer MEDICARE, OTHER ==
[2016-09-09 16:27] VITALS: BMI 27.4
--- NOTE | 2016-09-09 18:15 | C.PDOC ---
History Of Present Illness <Miriam Alvarez - Last Filed: 09/09/16 19:03> <Romario Lozano - Last Filed: 09/09/16 20:18> 51 year old patient, with a past medical history of anxiety, asthma, gastritis, schizophrenia, hypertension, and arthritis, presents to the ED complaining of worsening jaundice diffusely to his body for the past 3-4 days. Patient also complains of diffuse and sharp abdominal pain with associated symptoms of nausea , vomiting and diarrhea. Patient reports he's had dark urine for several days. He admits to his last alcoholic drink was earlier today. He notes a few drops of blood in the toilet after a strained bowel movement. Patient went to see his PMD today who sent him to the ED for further evaluation. Patient denies having a fever. (Miriam Alvarez) History Per: Patient History/Exam Limitations: no limitations Onset/Duration Of Symptoms: Days (3-4) Current Symptoms Are (Timing): Still Present Context: Other Severity: Mild Pain Scale Rating Of: 3 Location Of Pain/Discomfort: Diffuse Radiation Of Pain To:: None Quality Of Discomfort: Sharp, "Pain" Associated Symptoms: Nausea, Vomiting, Diarrhea Exacerbating Factors: None Alleviating Factors: None Last Bowel Movement: Today Recent travel outside of the [place]: No <Miriam Alvarez - Last Filed: 09/09/16 19:03> <Romario Lozano - Last Filed: 09/09/16 20:18> Time Seen by Provider: 09/09/16 16:43 Chief Complaint (Nursing): Abdominal Pain Past Medical History Reviewed: Historical Data, Nursing Documentation, Vital Signs - Medical History PMH: Anxiety, Arthritis (L KNEE), Depression, Gastritis, HTN, Schizophrenia, Seizures Family History: States: [place] (Father in his 60's) - Social History Hx Tobacco Use: Yes (heavy smoker) Hx Alcohol Use: Yes (DAILY) Hx Substance Use: No - Immunization History Hx Tetanus Toxoid Vaccination: Yes Hx Influenza Vaccination: Yes Hx Pneumococcal Vaccination: No <Miriam Alvarez - Last Filed: 09/09/16 19:03> Review Of Systems Except As Marked, All Systems Reviewed And Found Negative. Constitutional: Negative for: Fever Gastrointestinal: Positive for: Nausea, Vomiting, Abdominal Pain (diffuse), Diarrhea Genitourinary: Positive for: Other (dark urine; blood with strained stool) Skin: Positive for: Jaundice <Miriam Alvarez - Last Filed: 09/09/16 19:03> Physical Exam - Physical Exam Appears: Non-toxic, No Acute Distress Skin: Warm, Dry, Jaundice (diffusely) Head: Atraumatic, Normacephalic Eye(s): bilateral: EOMI, Scleral Icterus Ear(s): Bilateral: Normal Nose: Normal Oral Mucosa: Moist Throat: Normal Neck: Normal ROM, Supple Chest: Symmetrical Cardiovascular: Rhythm Regular Respiratory: Normal Breath Sounds, No Rales, No Rhonchi, No Wheezing Gastrointestinal/Abdominal: Soft, Tenderness (diffuse with hepatomegaly), No Guarding, No Rebound Rectal: Normal Exam, No Tenderness Back: Normal Inspection, No CVA Tenderness Extremity: Normal ROM Neurological/Psych: Oriented x3, Normal Speech, Normal Cognition Gait: Steady <Miriam Alvarez - Last Filed: 09/09/16 19:03> ED Course And Treatment - Laboratory Results Result Diagrams: 09/09/16 18:25 09/09/16 18:25 O2 Sat by Pulse Oximetry: 95 (room air) Pulse Ox Interpretation: Normal Progress Note: Plan: Pepcid, Zofran, Urinalysis, Abdomen US <Miriam Alvarez - Last Filed: 09/09/16 19:03> - Laboratory Results Result Diagrams: 09/09/16 18:25 09/09/16 18:25 <Romario Lozano - Last Filed: 09/09/16 20:18> Medical Decision Making <Miriam Alvarez - Last Filed: 09/09/16 19:03> <Romraio Lozano - Last Filed: 09/09/16 20:18> Medical Decision Making: pt endorsed to me pending us results and admission. us non specific. case dicussed with dr davies, accepts for admission. requests ct to be followed inpt ( Romario Lozano) Disposition - Disposition Disposition Time: 19:03 <Miriam Alvarez - Last Filed: 09/09/16 19:03> <Romario Lozano - Last Filed: 09/09/16 20:18> - Disposition Disposition: HOSPITALIZED Condition: SERIOUS - Clinical Impression Clinical Impression: Abdominal pain, Jaundice, Hyponatremia - PA / GOLD NIB GRINDER / Resident Statement MD/DO has reviewed & agrees with the documentation as recorded. - Scribe Statement The provider has reviewed the documentation as recorded by the Scribe <Miriam Alvarez - Last Filed: 09/09/16 19:03> <Romario Lozano - Last Filed: 09/09/16 20:18> - Scribe Statement Sabina Albarran All medical record entries made by the Scribe were at my direction and personally dictated by me. I have reviewed the chart and agree that the record accurately reflects my personal performance of the history, physical exam, medical decision making, and the department course for this patient. I have also personally directed, reviewed, and agree with the discharge instructions and disposition. (Miriam Alvarez) Physician Patient Turnover Patient Signed Over To: Romario Lozano Handoff Comments: follow up sonogram abdomen, admit to appropriate service <Miriam Alvarez - Last Filed: 09/09/16 19:03> Decision To Admit <Miriam Alvarez - Last Filed: 09/09/16 19:03> - Pt Status Changed To: Hospital Disposition Of: Inpatient - Admit Certification Admit to Inpatient:: After my assessment, the patient will require hospitalization for at least two midnights. This is because of the severity of symptoms shown, intensity of services needed, and/or the medical risk in this patient being treated as an outpatient. - InPatient: Physician Admission Certification:: pt with new onset jaundice, and hyponatremia , needs gi eval - . Bed Request Type: Regular Admitting Physician: Andrez Velazquez <Romario Lozano - Last Filed: 09/09/16 20:18> - . Patient Diagnosis: Abdominal pain, Jaundice, Hyponatremia
[2016-09-09 18:37] LABS: RBC URINE 3 /hpf (0-3); URINE BACTERIA RARE (<OCC); URINE BILIRUBIN 2+ (NEGATIVE); URINE COLOR Amber (YELLOW); URINE GLUCOSE (UA) 1+ mg/dL (Normal); URINE KETONE NEGATIVE (NEGATIVE); URINE LEUKOCYTE ESTERASE NEG Leu/uL (Negative); URINE PROTEIN 1+ mg/dL (NEGATIVE)
[2016-09-09 18:38] LABS: URINE BLOOD TRACE (NEGATIVE)
[2016-09-09 18:43] LABS: HEMATOCRIT 38.3 % (35.0-51.0); MEAN CELL VOLUME 99.3 fL (80.0-94.0); MEAN CORPUSCULAR HEMOGLOBIN 34.8 pg (27.0-31.0); MEAN CORPUSCULAR HGB CONC 35.1 g/dL (33.0-37.0); PLATELET COUNT 61 K/uL (130-400); RED CELL DISTRIBUTION WIDTH 14.1 % (11.5-14.5); WHITE BLOOD COUNT 5.9 K/uL (4.8-10.8)
[2016-09-09 18:49] LABS: CHLORIDE 90 mmol/L (98-107); POTASSIUM 3.3 mmol/L (3.6-5.2); SODIUM 126 mmol/L (132-148)
[2016-09-09 18:51] LABS: GFR AFRICAN-AMERICAN > 60
[2016-09-09 18:52] LABS: ALB/GLOB RATIO 0.7 (1.0-2.1); ALKALINE PHOSPHATASE 367 U/L (38-126); ALT/SGPT 96 U/L (21-72); AST/SGOT 267 U/L (17-59); BLOOD UREA NITROGEN 16 mg/dL (9-20); CALCIUM 8.7 mg/dl (8.6-10.4); CARBON DIOXIDE 20 mmol/L (22-30); GLUCOSE,RANDOM 110 mg/dL (75-110); TOTAL PROTEIN 8.3 g/dL (6.3-8.3)
[2016-09-09 19:03] LABS: INR 1.3
[2016-09-09] MEDS ORDERED: Sodium Chloride 0.9% 1,000 ML IV ONE (19:25)
[2016-09-09 19:26] LABS: ALCOHOL SERUM 173 mg/dl (0-10); AMYLASE 44 U/L (30-110)
[2016-09-09 19:28] LABS: BASOPHIL 2 % (0-2); EOSINOPHIL 1 % (0-4); NEUTROPHIL 75 % (50-75); TOTAL CELLS COUNTED 100
[2016-09-09 19:32] LABS: LARGE PLATELETS PRESENT
[2016-09-09] MEDS ORDERED: Iodixanol 320 MG/ML 100 ML BOTTLE IV ONE (21:25)
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
--- NOTE | 2016-09-09 23:01 | CT ---
EXAM: CT Abdomen and Pelvis With Intravenous Contrast CLINICAL HISTORY: 51 years old, male; Pain; Abdominal pain; Patient HX: 6-19-16; Additional info: Jaundice TECHNIQUE: Axial computed tomography images of the abdomen and pelvis with intravenous contrast. This CT exam was performed using one or more of the following dose reduction techniques: automated exposure control, adjustment of the mA and/or kV according to patient size, and/or use of iterative reconstruction technique. Coronal and sagittal reformatted images were created and reviewed. CONTRAST: 100 mL of visipaque administered intravenously. COMPARISON: CT - PANCREATIC PROTOCOL 08/01/2016 7:42:45 PM FINDINGS: Lower thorax: There is minimal bibasilar atelectasis. Small hiatal hernia. ABDOMEN: Liver: There is a diffuse decrease in hepatic parenchymal density, consistent with fatty infiltration. Gallbladder and bile ducts: Gallbladder is decompressed. Gallbladder contains radiodense material which may represent sludge or vicarious excretion of contrast. No calcified stones. No ductal dilation. Pancreas: The pancreas is normal. No ductal dilation. Spleen: The spleen is normal. Adrenals: The adrenal glands are normal. Kidneys and ureters: The kidneys are normal. No hydronephrosis. Stomach and bowel: Stomach is decompressed. As the There is no evidence of intestinal obstruction. No mucosal thickening. Appendix: No findings to suggest acute appendicitis. PELVIS: Bladder: Bladder is predominantly decompressed. Reproductive: Clip prostate there are bilateral fat containing inguinal hernias. ABDOMEN and PELVIS: Intraperitoneal space: There is no evidence of free intraperitoneal fluid. There is no free intraperitoneal air. Bones/joints: There are moderate degenerative changes present. There is moderate diffuse osteopenia. No acute fracture. No dislocation. Soft tissues: See above. Vasculature: The aorta demonstrates mild atherosclerotic calcification. No abdominal aortic aneurysm. Lymph nodes: There are multiple nonspecific enlarged lymph nodes. IMPRESSION: No acute findings.
[2016-09-09] MEDS ORDERED: Folic Acid 1 MG, Thiamine 100 MG, Multivitamin (MVI) 10 ML in Dextrose 5% In Water 1,00... IV PRN (23:30)
[2016-09-10 08:19] LABS: HEMATOCRIT 34.7 % (35.0-51.0); MEAN CELL VOLUME 99.8 fL (80.0-94.0); MEAN CORPUSCULAR HEMOGLOBIN 34.5 pg (27.0-31.0); MEAN CORPUSCULAR HGB CONC 34.5 g/dL (33.0-37.0); MEAN PLATELET VOLUME 10.7 fL (7.2-11.7); RED CELL DISTRIBUTION WIDTH 14.3 % (11.5-14.5); WHITE BLOOD COUNT 5.2 K/uL (4.8-10.8)
[2016-09-10 08:20] LABS: INR 1.3
[2016-09-10 09:14] LABS: CHLORIDE 93 mmol/L (98-107); POTASSIUM 2.7 mmol/L (3.6-5.2)
[2016-09-10 09:16] LABS: GFR AFRICAN-AMERICAN > 60
[2016-09-10 09:17] LABS: ALB/GLOB RATIO 0.7 (1.0-2.1); ALKALINE PHOSPHATASE 318 U/L (38-126); ALT/SGPT 83 U/L (21-72); AST/SGOT 239 U/L (17-59); BILIRUBIN,TOTAL 17.4 mg/dL (0.2-1.3); BLOOD UREA NITROGEN 11 mg/dL (9-20); CALCIUM 7.6 mg/dl (8.6-10.4); CARBON DIOXIDE 18 mmol/L (22-30); GLUCOSE,RANDOM 111 mg/dL (75-110); TOTAL PROTEIN 6.9 g/dL (6.3-8.3)
--- NOTE | 2016-09-10 09:23 | US ---
HISTORY: abd pain COMPARISON: None. TECHNIQUE: Sonographic evaluation of the abdomen. FINDINGS: LIVER: Measures 19.9 cm. Diffusely increased, heterogeneous echogenicity of the liver parenchyma. No mass. No biliary ductal dilatation. GALLBLADDER: Not visualized COMMON BILE DUCT: Measures 5 mm. No stones. No dilatation. PANCREAS: Unremarkable as visualized. No mass. No ductal dilatation. RIGHT KIDNEY: Measures 11.4cm. Normal echogenicity. No calculus, mass, or hydronephrosis. LEFT KIDNEY: Measures 11.3cm. Normal echogenicity. No calculus, mass, or hydronephrosis. SPLEEN: Normal in size and contour. No mass. AORTA: No aneurysmal dilatation. IVC: Unremarkable. OTHER FINDINGS: Prominence of the portal confluence of uncertain significance. IMPRESSION: Hepatomegaly with diffuse fatty infiltration. No splenomegaly. No pancreatic mass. Prominent portal confluence, uncertain significance. No evidence of cholelithiasis although the gallbladder is not well visualized. Preliminary interpretation of this examination was reported by [employer] at 8:06 p.m. on 09/09/2016. There is concurrence of this report with the preliminary interpretation.
[2016-09-10 09:48] LABS: LYMPH # 0.9 K/uL (1.0-4.3)
[2016-09-10 09:49] LABS: EOS # 0.1 K/uL (0.0-0.7); MONO # 0.6 K/uL (0.0-0.8)
[2016-09-10 11:07] LABS: SODIUM 126 mmol/L (132-148)
[2016-09-10 12:19] LABS: CHLORIDE 92 mmol/L (98-107)
[2016-09-10 12:20] LABS: POTASSIUM 2.8 mmol/L (3.6-5.2); SODIUM 127 mmol/L (132-148)
[2016-09-10 12:23] LABS: ALB/GLOB RATIO 0.7 (1.0-2.1); ALKALINE PHOSPHATASE 345 U/L (38-126); ALT/SGPT 88 U/L (21-72); AST/SGOT 252 U/L (17-59); BILIRUBIN,TOTAL 18.6 mg/dL (0.2-1.3); BLOOD UREA NITROGEN 11 mg/dL (9-20); CALCIUM 7.8 mg/dl (8.6-10.4); CARBON DIOXIDE 19 mmol/L (22-30); GFR AFRICAN-AMERICAN > 60; GLUCOSE,RANDOM 112 mg/dL (75-110)
[2016-09-10 12:24] LABS: MAGNESIUM 1.4 mg/dL (1.6-2.3)
--- NOTE | 2016-09-10 12:54 | CP.PCM.CON ---
History of Present Illness - History of Present Illness History of Present Illness: I was never called or notified of tyhis consult, but order for consult is present CC: GI Service consult for jaundice HPI: 51 year old man admitted from Dr Schmidt's office for jaundice. He has been drinking beer heavily and started to get upper abdominal pain and malaise and nauseafor past 4 days. Denies hematemesis or fevers. Recently in hospital for hyperbilirubinemia. Negative CT for pancreas malignancy. Repeated again as well as sono- again no pancreatic malignancy, but hepatocellular disease/fatty liver present. Review of Systems - Constitutional Constitutional: Daytime Sleepiness - EENT Eyes: Change in Vision Ears: absent: Ear Pain Nose/Mouth/Throat: absent: Epistaxis, Nasal Discharge - Cardiovascular Cardiovascular: absent: Chest Pain - Respiratory Respiratory: absent: Cough, Dyspnea - Gastrointestinal Gastrointestinal: Abdominal Pain, Loose Stools - Genitourinary Genitourinary: absent: Difficulty Urinating - Musculoskeletal Musculoskeletal: Myalgias - Integumentary Integumentary: Jaundice. absent: Bleeding Lesions - Neurological Neurological: Abnormal Gait, Memory Loss, Weakness - Psychiatric Psychiatric: Behavioral Changes Past Patient History - Infectious Disease Hx of Infectious Diseases: None - Past Medical History & Family History Past Medical History?: Yes - Past Social History Smoking Status: Light Smoker < 10 Cigarettes Daily Alcohol: > 2 Drinks/Day - CARDIAC Hx Cardiac Disorders: Yes Hx Hypertension: Yes - PULMONARY Hx Respiratory Disorders: No Hx Asthma: (SMOKER) - NEUROLOGICAL Hx Neurological Disorder: Yes Hx Seizures: Yes - HEENT Hx HEENT Problems: No - RENAL Hx Chronic Kidney Disease: No - ENDOCRINE/METABOLIC Hx Endocrine Disorders: No - HEMATOLOGICAL/ONCOLOGICAL Hx Blood Disorders: No Hx Human Immunodeficiency Virus (HIV): No - INTEGUMENTARY Hx Dermatological Problems: No - MUSCULOSKELETAL/RHEUMATOLOGICAL Hx Musculoskeletal Disorders: Yes Hx Arthritis: Yes (L KNEE) Hx Falls: Yes - GASTROINTESTINAL Hx Gastrointestinal Disorders: Yes Hx Gastritis: Yes - GENITOURINARY/GYNECOLOGICAL Hx Genitourinary Disorders: No Hx Sexually Transmitted Disorders: No - PSYCHIATRIC Hx Psychophysiologic Disorder: Yes Hx Anxiety: Yes Hx Depression: Yes Hx Schizophrenia: Yes Hx Substance Use: No - SURGICAL HISTORY Hx Surgeries: Yes Hx Orthopedic Surgery: Yes (left knee) Other/Comment: surgery of the left knee. PRESENTLY USING A CANE - ANESTHESIA Hx Anesthesia: Yes Hx Anesthesia Reactions: No Hx Malignant Hyperthermia: No Meds Allergies/Adverse Reactions: Allergies Allergy/AdvReac Type Severity Reaction Status Date / Time seasonal Allergy Uncoded 09/09/16 16:36 - Medications Medications: Current Medications Aripiprazole (Abilify) 10 mg PO DAILY [facility] Last Admin: 09/10/16 10:25 Dose: 10 mg Docusate Sodium (Colace) 100 mg PO BID [facility] Last Admin: 09/10/16 10:25 Dose: 100 mg Escitalopram Oxalate (Lexapro) 5 mg PO DAILY [facility] Last Admin: 09/10/16 10:25 Dose: 5 mg Gabapentin (Neurontin) 300 mg PO TID [facility] Last Admin: 09/10/16 10:25 Dose: 300 mg Potassium Chloride (Potassium Chloride 20 Meq/100 Ml) 20 meq in 100 mls @ 50 mls/hr IVPB ONCE ONE Stop: 09/10/16 12:59 Last Admin: 09/10/16 10:34 Dose: 50 mls/hr Potassium Chloride/Dextrose/Sod Cl (Potassium Chl 40 Meq In D5-1/2ns) 1,000 mls @ 125 mls/hr IV .Q8H [facility] Lorazepam (Ativan) 2 mg IVP Q3H PRN PRN Reason: Anxiety Morphine Sulfate (Morphine) 1 mg IVP Q4H PRN PRN Reason: Pain, severe (8-10) Last Admin: 09/10/16 01:01 Dose: 1 mg Ondansetron HCl (Zofran Inj) 4 mg IVP Q6 PRN PRN Reason: Nausea/Vomiting Pantoprazole Sodium (Protonix Inj) 40 mg IVP Q12H [facility] Last Admin: 09/10/16 10:34 Dose: 40 mg Quetiapine Fumarate (Seroquel) 200 mg PO DAILY [facility] Last Admin: 09/10/16 10:25 Dose: 200 mg Trazodone HCl (Desyrel) 50 mg PO [facility] Physical Exam - Constitutional Appears: In Acute Distress, Confused Additional comments: Deeply jaundiced - Head Exam Head Exam: ATRAUMATIC, NORMOCEPHALIC - Eye Exam Eye Exam: Scleral icterus - ENT Exam ENT Exam: Normal Exam - Neck Exam Neck exam: Positive for: Normal Inspection - Respiratory Exam Respiratory Exam: Clear to Auscultation Bilateral - Cardiovascular Exam Cardiovascular Exam: REGULAR RHYTHM - GI/Abdominal Exam GI & Abdominal Exam: Organomegaly, Soft, Tenderness. absent: Distended, Guarding, Mass, Rebound - Rectal Exam Rectal Exam: Deferred - Extremities Exam Extremities exam: Negative for: calf tenderness (Asterixis) - Neurological Exam Neurological exam: Alert - Psychiatric Exam Psychiatric exam: Flat Affect Results - Vital Signs Recent Vital Signs: Last Vital Signs Temp 98.4 F 09/10/16 08:00 Pulse 71 09/10/16 08:00 Resp 20 09/10/16 08:00 BP 105/65 09/10/16 08:00 Pulse Ox 96 09/10/16 08:00 - Labs Result Diagrams: 09/10/16 04:00 09/10/16 11:43 Labs: Laboratory Results - last 24 hr 09/10/16 09/10/16 09/10/16 02:31 04:00 04:00 WBC 5.2 RBC 3.47 L Hgb 12.0 Hct 34.7 L MCV 99.8 H MCH 34.5 H MCHC 34.5 RDW 14.3 Plt Count 45 L MPV 10.7 Neut % (Auto) 71.0 Lymph % (Auto) 17.0 L [place] % (Auto) 11.0 H Eos % (Auto) 1.0 Baso % (Auto) 0.0 Neut # 3.7 Lymph # 0.9 L [place] # 0.6 Eos # 0.1 Baso # 0.0 PT 15.1 H INR 1.3 APTT 40 H Sodium Potassium Chloride Carbon Dioxide Anion Gap BUN Creatinine Est GFR ( Amer) Est GFR (Non-Af Amer) POC Glucose (mg/dL) Random Glucose Calcium Magnesium Total Bilirubin Direct Bilirubin AST ALT Alkaline Phosphatase Total Creatine Kinase 40 L CK-MB (Mass) 0.35 Troponin I, Quant 0.0180 Total Protein Albumin Globulin Albumin/Globulin Ratio Lipase 09/10/16 09/10/16 09/10/16 04:00 07:12 11:43 WBC RBC Hgb Hct MCV MCH MCHC RDW Plt Count MPV Neut % (Auto) Lymph % (Auto) [place] % (Auto) Eos % (Auto) Baso % (Auto) Neut # Lymph # [place] # Eos # Baso # PT INR APTT Sodium 126 L 127 L Potassium 2.7 L 2.8 L Chloride 93 L 92 L Carbon Dioxide 18 L 19 L Anion Gap 20 19 BUN 11 11 Creatinine 0.9 0.9 Est GFR ( Amer) > 60 > 60 Est GFR (Non-Af Amer) > 60 > 60 POC Glucose (mg/dL) 95 Random Glucose 111 H 112 H Calcium 7.6 L 7.8 L Magnesium 1.4 L Total Bilirubin 17.4 H 18.6 H Direct Bilirubin 16.0 H AST 239 H 252 H ALT 83 H 88 H Alkaline Phosphatase 318 H 345 H Total Creatine Kinase 32 L CK-MB (Mass) 0.24 Troponin I, Quant 0.0140 Total Protein 6.9 7.0 Albumin 2.8 L 2.9 L Globulin 4.1 H 4.2 H Albumin/Globulin Ratio 0.7 L 0.7 L Lipase 100 09/10/16 12:07 WBC RBC Hgb Hct MCV MCH MCHC RDW Plt Count MPV Neut % (Auto) Lymph % (Auto) [place] % (Auto) Eos % (Auto) Baso % (Auto) Neut # Lymph # [place] # Eos # Baso # PT INR APTT Sodium Potassium Chloride Carbon Dioxide Anion Gap BUN Creatinine Est GFR ( Amer) Est GFR (Non-Af Amer) POC Glucose (mg/dL) 120 H Random Glucose Calcium Magnesium Total Bilirubin Direct Bilirubin AST ALT Alkaline Phosphatase Total Creatine Kinase CK-MB (Mass) Troponin I, Quant Total Protein Albumin Globulin Albumin/Globulin Ratio Lipase Assessment & Plan (1) Acute alcoholic hepatitis Assessment and Plan: Rec: Supportive care. DF=32, monitor and decide on Prednisolone. Encephalopathic as well, continue Lactulose. 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 Monitor Status: Chronic
[2016-09-10] MEDS: Potassium Chl 40 mEq in D5-1/2 1,000 ML IV SCH ×2 (14:28→21:14)
[2016-09-10] MEDS ORDERED: Sodium Chloride 0.9% 1,000 ML IV ONE (16:44)
--- NOTE | 2016-09-10 19:01 | CP.PCM.PN ---
<Bladimir Mccallum - Last Filed: 09/10/16 18:57> Subjective - Date & Time of Evaluation Date of Evaluation: 09/10/16 Time of Evaluation: 07:30 - Subjective Subjective: Dr. Mccallum PGY 1 Hospitalist Note Patient seen and evaluated at bedside. He reports feeling weak and tired today. He reports having dark stool with blood tinge prior to admission. He reports being afraid because his skin is yellowing. He denies IV drug use but has been sleeping with a woman who also has yellowing skin, but they recently broke up. He currently denies any chest pain, SOB, fever, chills, nausea, or vomiting. Per nursing, no adverse events over night. Objective - Vital Signs/Intake and Output Vital Signs (last 24 hours): Temp Pulse Resp BP Pulse Ox 98.6 F 79 18 95/59 L 96 09/10/16 15:25 09/10/16 17:32 09/10/16 15:25 09/10/16 15:25 09/10/16 15:25 Intake and Output: 09/10/16 09/10/16 06:59 18:59 Intake Total 650 Balance 650 - Medications Medications: Current Medications Aripiprazole (Abilify) 10 mg PO DAILY [facility] Last Admin: 09/10/16 10:25 Dose: 10 mg Docusate Sodium (Colace) 100 mg PO BID [facility] Last Admin: 09/10/16 10:25 Dose: 100 mg Escitalopram Oxalate (Lexapro) 5 mg PO DAILY [facility] Last Admin: 09/10/16 10:25 Dose: 5 mg Folic Acid (Folic Acid) 1 mg PO DAILY [facility] Gabapentin (Neurontin) 300 mg PO TID [facility] Last Admin: 09/10/16 13:41 Dose: 300 mg Potassium Chloride/Dextrose/Sod Cl (Potassium Chl 40 Meq In D5-1/2ns) 1,000 mls @ 125 mls/hr IV .Q8H [facility] Last Admin: 09/10/16 14:28 Dose: 125 mls/hr Lorazepam (Ativan) 2 mg IVP Q3H PRN PRN Reason: Anxiety Morphine Sulfate (Morphine) 1 mg IVP Q4H PRN PRN Reason: Pain, severe (8-10) Last Admin: 09/10/16 01:01 Dose: 1 mg Ondansetron HCl (Zofran Inj) 4 mg IVP Q6 PRN PRN Reason: Nausea/Vomiting Pantoprazole Sodium (Protonix Inj) 40 mg IVP Q12H [facility] Last Admin: 09/10/16 10:34 Dose: 40 mg Quetiapine Fumarate (Seroquel) 200 mg PO DAILY [facility] Last Admin: 09/10/16 10:25 Dose: 200 mg Trazodone HCl (Desyrel) 50 mg PO HS [facility] - Labs Labs: 09/10/16 04:00 09/10/16 11:43 PT 15.1 SECONDS (9.7-12.2) H 09/10/16 04:00 INR 1.3 09/10/16 04:00 APTT 40 SECONDS (21-34) H 09/10/16 04:00 - Constitutional Appears: Non-toxic, No Acute Distress - Head Exam Head Exam: ATRAUMATIC, NORMOCEPHALIC - Eye Exam Eye Exam: EOMI, PERRL, Scleral icterus Pupil Exam: NORMAL ACCOMODATION, PERRL - ENT Exam ENT Exam: Mucous Membranes Moist, Normal Oropharynx - Neck Exam Neck Exam: Normal Inspection - Respiratory Exam Respiratory Exam: Clear to Ausculation Bilateral, NORMAL BREATHING PATTERN. absent: Rales, Rhonchi, Wheezes - Cardiovascular Exam Cardiovascular Exam: REGULAR RHYTHM, +S1, +S2. absent: Gallop, Rubs, Murmur - GI/Abdominal Exam GI & Abdominal Exam: Soft, Tenderness (RUQ), Normal Bowel Sounds, Organomegaly ( liver palpable) - Rectal Exam Rectal Exam: Deferred - Extremities Exam Extremities Exam: Normal Capillary Refill, Normal Inspection. absent: Pedal Edema, Tenderness - Back Exam Back Exam: NORMAL INSPECTION. absent: rash noted, tenderness - Neurological Exam Neurological Exam: Alert, Awake, CN II-XII Intact, Oriented x3 - Psychiatric Exam Psychiatric exam: Depressed - Skin Skin Exam: Dry, Intact, Warm. absent: Normal Color (jaundiced) Assessment and Plan - Assessment and Plan (Free Text) Plan: Abdominal Pain * GI consult, Dr. Gutierrez, help appreciated * CT abd/pelvis showed: no acute disease process {see full report} * ABUS shows: fatty liver infiltration [see full report] * NPO * Banana Bag then IVF D5NS with potassium * Protonix 40 mg IVP Q12H GI Bleed * GI consult, Dr. Gutierrez, help appreciated * Protonix 40 mg IVP Q2H * FOBT + * Trend hgb and hct Transaminitis * AST 252, ALT 88, Alk 345 * GI consult, Dr. Gutierrez, help appreciated * Hep panel and HIV negative Nausea/vomiting * Zofran 4 mg IVP Q6H Alcohol Abuse * Ativan 2 mg IVP Q3H PRN * CIWA protocol * aspiration precautions * seizure precautions * fall risk * Banana Bag * Alcohol 173 Schizophrenia * haldol 5mg PO BID (dc due to LFT's and thrombocytopenia) Depression * Escitalopram Oxalate (Lexapro) 5 mg PO DAILY [facility] * Seroquel 200 mg PO daily Neuropathy * lower extremity neuropathy * Gabapentin (Neurontin) 300 mg PO TID [facility] Constipation * Colace 100mg PO BID Thrombocytopenia * likely alcohol induced * hold nephrotoxic medications * f/u in AM Prophylactic measure * SCDs * protonix 40mg IVP Q12H * Trazodone HCl 50 mg PO HS [facility] (home med) <Marie Arthur V - Last Filed: 12/11/16 00:02> Objective - Vital Signs/Intake and Output Vital Signs (last 24 hours): Temp Pulse Resp BP Pulse Ox 97.1 F L 65 14 113/76 95 09/17/16 11:30 09/17/16 12:00 09/17/16 12:00 09/17/16 12:00 09/17/16 12:00 - Labs Labs: 09/17/16 07:32 09/17/16 07:32 PT 12.5 SECONDS (9.7-12.2) H 09/17/16 07:40 INR 1.1 09/17/16 07:40 APTT 36 SECONDS (21-34) H 09/17/16 07:40 Attending/Attestation - Attestation I have personally seen and examined this patient.: Yes I have fully participated in the care of the patient.: Yes I have reviewed all pertinent clinical information, including history, physical exam and plan: Yes
[2016-09-10 20:30] LABS: INR 1.3
[2016-09-10 20:32] LABS: BASO # 0.1 K/uL (0.0-0.2); EOS % 0.6 % (0.0-4.0); HEMATOCRIT 33.5 % (35.0-51.0); LYMPH # 3.1 K/uL (1.0-4.3); MEAN CELL VOLUME 99.9 fL (80.0-94.0); MEAN CORPUSCULAR HEMOGLOBIN 34.3 pg (27.0-31.0); MEAN CORPUSCULAR HGB CONC 34.4 g/dL (33.0-37.0); MEAN PLATELET VOLUME 9.5 fL (7.2-11.7); MONO # 0.9 K/uL (0.0-0.8); MONO % 16.6 % (0.0-10.0); NRBC % 0.1 % (0.0-2.0); PLATELET COUNT 38 K/uL (130-400); RED CELL DISTRIBUTION WIDTH 14.1 % (11.5-14.5); WHITE BLOOD COUNT 5.2 K/uL (4.8-10.8)
[2016-09-10 23:45] LABS: BASOPHIL 1 % (0-2); EOSINOPHIL 2 % (0-4); NEUTROPHIL 73 % (50-75); TOTAL CELLS COUNTED 100
[2016-09-10 23:46] LABS: LARGE PLATELETS PRESENT
[2016-09-11 01:24] LABS: CHLORIDE 100 mmol/L (98-107); POTASSIUM 3.1 mmol/L (3.6-5.2); SODIUM 131 mmol/L (132-148)
[2016-09-11 01:26] LABS: GFR AFRICAN-AMERICAN > 60
[2016-09-11 01:27] LABS: BLOOD UREA NITROGEN 8 mg/dL (9-20); CALCIUM 7.7 mg/dl (8.6-10.4); CARBON DIOXIDE 20 mmol/L (22-30); GLUCOSE,RANDOM 110 mg/dL (75-110)
[2016-09-11] MEDS ORDERED: Potassium Chloride 20 mEq ER Tab PO ONE ×2 (01:54→04:00)
[2016-09-11] MEDS: Magnesium Sulfate 1 gm in D5W 1 GM/100 ML BAG IVPB SCH ×2 (02:17→03:00)
[2016-09-11 06:37] LABS: HEMATOCRIT 33.1 % (35.0-51.0); MEAN CORPUSCULAR HEMOGLOBIN 33.8 pg (27.0-31.0); MEAN CORPUSCULAR HGB CONC 33.8 g/dL (33.0-37.0); MEAN PLATELET VOLUME 9.6 fL (7.2-11.7); RED CELL DISTRIBUTION WIDTH 14.4 % (11.5-14.5); WHITE BLOOD COUNT 5.4 K/uL (4.8-10.8)
[2016-09-11] MEDS ORDERED: Magnesium Sulfate 1 gm in D5W 1 GM/100 ML BAG IVPB ONE (06:45)
[2016-09-11] MEDS: Potassium Chl 40 mEq in D5-1/2 1,000 ML IV SCH ×3 (06:58→20:00)
[2016-09-11 06:59] LABS: CHLORIDE 101 mmol/L (98-107)
[2016-09-11 07:00] LABS: POTASSIUM 3.2 mmol/L (3.6-5.2); SODIUM 131 mmol/L (132-148)
[2016-09-11 07:02] LABS: ALB/GLOB RATIO 0.6 (1.0-2.1); ALKALINE PHOSPHATASE 331 U/L (38-126); AST/SGOT 203 U/L (17-59); BILIRUBIN,DIRECT 17.8 mg/dL (0.0-0.4); BILIRUBIN,TOTAL 19.2 mg/dL (0.2-1.3); BLOOD UREA NITROGEN 5 mg/dL (9-20); CARBON DIOXIDE 20 mmol/L (22-30); GFR AFRICAN-AMERICAN > 60; GLUCOSE,RANDOM 128 mg/dL (75-110); TOTAL PROTEIN 6.5 g/dL (6.3-8.3)
[2016-09-11 07:03] LABS: ALT/SGPT 90 U/L (21-72); CALCIUM 7.9 mg/dl (8.6-10.4)
[2016-09-11 07:13] LABS: THYROID STIMULATING HORMONE 1.73 mIU/L (0.46-4.68)
[2016-09-11 10:13] LABS: LYMPH # 1.3 K/uL (1.0-4.3); MONO # 0.4 K/uL (0.0-0.8)
[2016-09-11 10:41] LABS: MAGNESIUM 1.9 mg/dL (1.6-2.3)
--- NOTE | 2016-09-11 12:08 | CP.PCM.PN ---
Subjective - Date & Time of Evaluation Date of Evaluation: 09/11/16 Time of Evaluation: 11:40 - Subjective Subjective: F/U jaundice. Pt reports dark stool x 2 days. Reports mild epig pain. Denies hematemesis, fever, chills, SZ, Cp, SOB, SANTILLAN cough, hematuria Objective - Vital Signs/Intake and Output Vital Signs (last 24 hours): Temp Pulse Resp BP Pulse Ox 98 F 86 18 98/62 L 98 09/10/16 23:24 09/10/16 23:24 09/10/16 23:24 09/10/16 23:24 09/10/16 23:24 Intake and Output: 09/11/16 09/11/16 06:59 18:59 Intake Total 2700 Output Total 1000 Balance 1700 - Medications Medications: Current Medications Aripiprazole (Abilify) 10 mg PO DAILY [facility] Last Admin: 09/10/16 10:25 Dose: 10 mg Docusate Sodium (Colace) 100 mg PO BID [facility] Last Admin: 09/11/16 11:22 Dose: 100 mg Escitalopram Oxalate (Lexapro) 5 mg PO DAILY [facility] Last Admin: 09/11/16 11:38 Dose: 5 mg Folic Acid (Folic Acid) 1 mg PO DAILY [facility] Last Admin: 09/11/16 11:22 Dose: 1 mg Gabapentin (Neurontin) 300 mg PO TID [facility] Last Admin: 09/11/16 11:22 Dose: 300 mg Potassium Chloride/Dextrose/Sod Cl (Potassium Chl 40 Meq In D5-1/2ns) 1,000 mls @ 125 mls/hr IV .Q8H [facility] Last Admin: 09/11/16 06:58 Dose: Not Given Potassium Chloride (Potassium Chloride 20 Meq/100 Ml) 20 meq in 100 mls @ 50 mls/hr IVPB ONCE ONE Stop: 09/11/16 12:11 Last Admin: 09/11/16 11:20 Dose: 50 mls/hr Potassium Chloride (Potassium Chloride 20 Meq/100 Ml) 20 meq in 100 mls @ 50 mls/hr IVPB ONCE ONE Stop: 09/11/16 14:59 Lorazepam (Ativan) 2 mg IVP Q3H PRN PRN Reason: Anxiety Morphine Sulfate (Morphine) 1 mg IVP Q4H PRN PRN Reason: Pain, severe (8-10) Last Admin: 09/10/16 01:01 Dose: 1 mg Ondansetron HCl (Zofran Inj) 4 mg IVP Q6 PRN PRN Reason: Nausea/Vomiting Pantoprazole Sodium (Protonix Inj) 40 mg IVP Q12H [facility] Last Admin: 09/10/16 23:53 Dose: Not Given Quetiapine Fumarate (Seroquel) 200 mg PO DAILY [facility] Last Admin: 09/11/16 11:38 Dose: 200 mg Trazodone HCl (Desyrel) 50 mg PO HS [facility] Last Admin: 09/10/16 21:14 Dose: 50 mg - Labs Labs: 09/11/16 05:58 09/11/16 05:58 PT 14.6 SECONDS (9.7-12.2) H 09/10/16 20:07 INR 1.3 09/10/16 20:07 APTT 40 SECONDS (21-34) H 09/10/16 04:00 - Constitutional Appears: Non-toxic - Neck Exam Neck Exam: absent: Tenderness - Respiratory Exam Respiratory Exam: Clear to Ausculation Bilateral - Cardiovascular Exam Cardiovascular Exam: RRR - GI/Abdominal Exam GI & Abdominal Exam: Soft, Normal Bowel Sounds. absent: Guarding, Tenderness, Mass - Neurological Exam Neurological Exam: Alert, Oriented x3 Assessment and Plan (1) Abdominal pain Assessment & Plan: and dark stool. Considre ulcer , gastritsi. Doubt variceal bleeding. REC; PPI, check labe. Correct lytes, then EGD thursday. Status: Acute (2) Acute alcoholic hepatitis Status: Acute (3) Jaundice Assessment & Plan: alcohol hepatitis. Discrimanent index=30 Status: Acute (4) Hypokalemia Status: Acute (5) Chronic alcohol abuse Status: Chronic
--- NOTE | 2016-09-11 16:56 | CP.PCM.CON ---
History of Present Illness - History of Present Illness History of Present Illness: 51 yo man with history ETOH abuse, admitted from PMD's office with jaundice. Patient has been c/o vomiting, abdominal pain, nausea, generalized weakness. Was complaining of dark stool, no hemetemesis, last drink was the Am of admission Says he is feeling better in the hospital. Patient says he drinks 4-6 beers daily, has tried to quit before. PMHx-H/O schizophrenia, has history of noncompliance with meds. History of several admissions for jaundice, also with history of thrombocytopenia. Past Patient History - Infectious Disease Hx of Infectious Diseases: None - Past Medical History & Family History Past Medical History?: Yes - Past Social History Smoking Status: Light Smoker < 10 Cigarettes Daily Alcohol: > 2 Drinks/Day - CARDIAC Hx Cardiac Disorders: Yes Hx Hypertension: Yes - PULMONARY Hx Respiratory Disorders: No Hx Asthma: (SMOKER) - NEUROLOGICAL Hx Neurological Disorder: Yes Hx Seizures: Yes - HEENT Hx HEENT Problems: No - RENAL Hx Chronic Kidney Disease: No - ENDOCRINE/METABOLIC Hx Endocrine Disorders: No - HEMATOLOGICAL/ONCOLOGICAL Hx Blood Disorders: No Hx Human Immunodeficiency Virus (HIV): No - INTEGUMENTARY Hx Dermatological Problems: No - MUSCULOSKELETAL/RHEUMATOLOGICAL Hx Musculoskeletal Disorders: Yes Hx Arthritis: Yes (L KNEE) Hx Falls: Yes - GASTROINTESTINAL Hx Gastrointestinal Disorders: Yes Hx Gastritis: Yes - GENITOURINARY/GYNECOLOGICAL Hx Genitourinary Disorders: No Hx Sexually Transmitted Disorders: No - PSYCHIATRIC Hx Psychophysiologic Disorder: Yes Hx Anxiety: Yes Hx Depression: Yes Hx Schizophrenia: Yes Hx Substance Use: No - SURGICAL HISTORY Hx Surgeries: Yes Hx Orthopedic Surgery: Yes (left knee) Other/Comment: surgery of the left knee. PRESENTLY USING A CANE - ANESTHESIA Hx Anesthesia: Yes Hx Anesthesia Reactions: No Hx Malignant Hyperthermia: No Meds Allergies/Adverse Reactions: Allergies Allergy/AdvReac Type Severity Reaction Status Date / Time seasonal Allergy Uncoded 09/09/16 16:36 - Medications Medications: Current Medications Aripiprazole (Abilify) 10 mg PO DAILY [facility] Last Admin: 09/11/16 11:17 Dose: 10 mg Docusate Sodium (Colace) 100 mg PO BID [facility] Last Admin: 09/11/16 11:22 Dose: 100 mg Escitalopram Oxalate (Lexapro) 5 mg PO DAILY [facility] Last Admin: 09/11/16 11:38 Dose: 5 mg Folic Acid (Folic Acid) 1 mg PO DAILY [facility] Last Admin: 09/11/16 11:22 Dose: 1 mg Gabapentin (Neurontin) 300 mg PO TID [facility] Last Admin: 09/11/16 14:20 Dose: 300 mg Potassium Chloride/Dextrose/Sod Cl (Potassium Chl 40 Meq In D5-1/2ns) 1,000 mls @ 125 mls/hr IV .Q8H [facility] Last Admin: 09/11/16 13:10 Dose: 125 mls/hr Lorazepam (Ativan) 2 mg IVP Q3H PRN PRN Reason: Anxiety Morphine Sulfate (Morphine) 1 mg IVP Q4H PRN PRN Reason: Pain, severe (8-10) Last Admin: 09/10/16 01:01 Dose: 1 mg Ondansetron HCl (Zofran Inj) 4 mg IVP Q6 PRN PRN Reason: Nausea/Vomiting Pantoprazole Sodium (Protonix Inj) 40 mg IVP Q12H [facility] Last Admin: 09/11/16 10:17 Dose: 40 mg Quetiapine Fumarate (Seroquel) 200 mg PO DAILY [facility] Last Admin: 09/11/16 11:38 Dose: 200 mg Trazodone HCl (Desyrel) 50 mg PO HS [facility] Last Admin: 09/10/16 21:14 Dose: 50 mg Results - Vital Signs Recent Vital Signs: Last Vital Signs Temp 97.9 F 09/11/16 15:05 Pulse 83 09/11/16 15:05 Resp 20 09/11/16 15:05 BP 113/73 09/11/16 15:05 Pulse Ox 97 09/11/16 15:05 - Labs Result Diagrams: 09/11/16 05:58 09/11/16 05:58 Labs: Laboratory Results - last 24 hr 09/10/16 09/10/16 09/10/16 16:39 20:07 20:07 WBC 5.2 RBC 3.35 L Hgb 11.5 L Hct 33.5 L MCV 99.9 H MCH 34.3 H MCHC 34.4 RDW 14.1 Plt Count 38 L MPV 9.5 Neut % (Auto) 21.8 L Lymph % (Auto) 60.0 H [place] % (Auto) 16.6 H Eos % (Auto) 0.6 Baso % (Auto) 1.0 Neut # 1.1 L Lymph # 3.1 [place] # 0.9 H Eos # 0.0 Baso # 0.1 Neutrophils % (Manual) 73 Band Neutrophils % TEST NOT PERFORMED Lymphocytes % (Manual) 17 L Monocytes % (Manual) 7 Eosinophils % (Manual) 2 Basophils % (Manual) 1 Platelet Estimate Decreased L Large Platelets Present Microcytosis (manual) Slight Schistocytes Slight PT 14.6 H INR 1.3 Sodium Potassium Chloride Carbon Dioxide Anion Gap BUN Creatinine Est GFR ( Amer) Est GFR (Non-Af Amer) POC Glucose (mg/dL) 127 H Random Glucose Calcium Magnesium Ferritin Total Bilirubin Direct Bilirubin AST ALT Alkaline Phosphatase Total Protein Albumin Globulin Albumin/Globulin Ratio Vitamin B12 TSH 3rd Generation 09/10/16 09/11/16 09/11/16 21:25 01:04 05:58 WBC 5.4 RBC 3.31 L Hgb 11.2 L Hct 33.1 L MCV 100.0 H MCH 33.8 H MCHC 33.8 RDW 14.4 Plt Count 35 L MPV 9.6 Neut % (Auto) 69.0 Lymph % (Auto) 23.0 [place] % (Auto) 8.0 Eos % (Auto) 0.0 Baso % (Auto) 0.0 Neut # 3.7 Lymph # 1.3 [place] # 0.4 Eos # 0.0 Baso # 0.0 Neutrophils % (Manual) Band Neutrophils % Lymphocytes % (Manual) Monocytes % (Manual) Eosinophils % (Manual) Basophils % (Manual) Platelet Estimate Large Platelets Microcytosis (manual) Schistocytes PT INR Sodium 131 L Potassium 3.1 L Chloride 100 Carbon Dioxide 20 L Anion Gap 14 BUN 8 L Creatinine 1.0 Est GFR ( Amer) > 60 Est GFR (Non-Af Amer) > 60 POC Glucose (mg/dL) 135 H Random Glucose 110 Calcium 7.7 L Magnesium Ferritin Total Bilirubin Direct Bilirubin AST ALT Alkaline Phosphatase Total Protein Albumin Globulin Albumin/Globulin Ratio Vitamin B12 TSH 3rd Generation 09/11/16 09/11/16 05:58 06:54 WBC RBC Hgb Hct MCV MCH MCHC RDW Plt Count MPV Neut % (Auto) Lymph % (Auto) [place] % (Auto) Eos % (Auto) Baso % (Auto) Neut # Lymph # [place] # Eos # Baso # Neutrophils % (Manual) Band Neutrophils % Lymphocytes % (Manual) Monocytes % (Manual) Eosinophils % (Manual) Basophils % (Manual) Platelet Estimate Large Platelets Microcytosis (manual) Schistocytes PT INR Sodium 131 L Potassium 3.2 L Chloride 101 Carbon Dioxide 20 L Anion Gap 13 BUN 5 L Creatinine 1.0 Est GFR ( Amer) > 60 Est GFR (Non-Af Amer) > 60 POC Glucose (mg/dL) 124 H Random Glucose 128 H Calcium 7.9 L Magnesium 1.9 Ferritin 1930.0 Total Bilirubin 19.2 H Direct Bilirubin 17.8 H AST 203 H ALT 90 H Alkaline Phosphatase 331 H Total Protein 6.5 Albumin 2.4 L Globulin 4.2 H Albumin/Globulin Ratio 0.6 L Vitamin B12 > 1000 H TSH 3rd Generation 1.73 Assessment & Plan (1) Thrombocytopenia concurrent with and due to alcoholism Assessment and Plan: 51 yo patient, this is one of several admissions for abdominal pain, increased LFTs, hyperbilirubinemia, thrombocytopenia. Etiology of thrombocytopenia is most likely acute alcoholism, the platelet count is relatively unchanged for the past several admissions. His Hgb is stable during this admission around 11, but his baseline is 13. For now will hold off on any transfusions. Work up for increased bili ongoing. Repeat CBC daily Status: Acute
--- NOTE | 2016-09-11 18:25 | CP.PCM.PN ---
<Bladimir Mccallum - Last Filed: 09/11/16 18:22> Subjective - Date & Time of Evaluation Date of Evaluation: 09/11/16 Time of Evaluation: 07:00 - Subjective Subjective: Dr. Mccallum PGY 1 Hospitalist Note Patient seen and evaluated at bedside. He reports feeling a little stronger today but still worried about his skin being yellow. He denies having any shakes or tremors today. He notes that he is mildly hungry. He denies any nausea , vomiting, chest pain, SOB, fever, or chills. He states his last BM was dark but no visible blood today. Per nursing, no adverse events over night. Objective - Vital Signs/Intake and Output Vital Signs (last 24 hours): Temp Pulse Resp BP Pulse Ox 97.9 F 83 20 113/73 97 09/11/16 15:05 09/11/16 15:05 09/11/16 15:05 09/11/16 15:05 09/11/16 15:05 Intake and Output: 09/11/16 09/11/16 06:59 18:59 Intake Total 2700 375 Output Total 1000 500 Balance 1700 -125 - Medications Medications: Current Medications Aripiprazole (Abilify) 10 mg PO DAILY [facility] Last Admin: 09/11/16 11:17 Dose: 10 mg Docusate Sodium (Colace) 100 mg PO BID [facility] Last Admin: 09/11/16 11:22 Dose: 100 mg Escitalopram Oxalate (Lexapro) 5 mg PO DAILY [facility] Last Admin: 09/11/16 11:38 Dose: 5 mg Folic Acid (Folic Acid) 1 mg PO DAILY [facility] Last Admin: 09/11/16 11:22 Dose: 1 mg Gabapentin (Neurontin) 300 mg PO TID [facility] Last Admin: 09/11/16 14:20 Dose: 300 mg Potassium Chloride/Dextrose/Sod Cl (Potassium Chl 40 Meq In D5-1/2ns) 1,000 mls @ 125 mls/hr IV .Q8H [facility] Last Admin: 09/11/16 13:10 Dose: 125 mls/hr Lorazepam (Ativan) 2 mg IVP Q3H PRN PRN Reason: Anxiety Morphine Sulfate (Morphine) 1 mg IVP Q4H PRN PRN Reason: Pain, severe (8-10) Last Admin: 09/10/16 01:01 Dose: 1 mg Ondansetron HCl (Zofran Inj) 4 mg IVP Q6 PRN PRN Reason: Nausea/Vomiting Pantoprazole Sodium (Protonix Inj) 40 mg IVP Q12H [facility] Last Admin: 09/11/16 10:17 Dose: 40 mg Quetiapine Fumarate (Seroquel) 200 mg PO DAILY [facility] Last Admin: 09/11/16 11:38 Dose: 200 mg Trazodone HCl (Desyrel) 50 mg PO HS [facility] Last Admin: 09/10/16 21:14 Dose: 50 mg - Labs Labs: 09/11/16 05:58 09/11/16 05:58 PT 14.6 SECONDS (9.7-12.2) H 09/10/16 20:07 INR 1.3 09/10/16 20:07 APTT 40 SECONDS (21-34) H 09/10/16 04:00 - Constitutional Appears: Non-toxic, No Acute Distress, Other (jaundiced) - Head Exam Head Exam: ATRAUMATIC, NORMOCEPHALIC - Eye Exam Eye Exam: EOMI, Normal appearance, PERRL Pupil Exam: NORMAL ACCOMODATION, PERRL - ENT Exam ENT Exam: Mucous Membranes Dry. absent: Normal Oropharynx (lips cracking) - Neck Exam Neck Exam: Normal Inspection. absent: Tenderness - Respiratory Exam Respiratory Exam: Clear to Ausculation Bilateral, NORMAL BREATHING PATTERN. absent: Rales, Rhonchi, Wheezes - Cardiovascular Exam Cardiovascular Exam: REGULAR RHYTHM, +S1, +S2. absent: Gallop, Rubs, Murmur - GI/Abdominal Exam GI & Abdominal Exam: Soft, Tenderness (RUQ), Normal Bowel Sounds. absent: Distended, Guarding - Extremities Exam Extremities Exam: Normal Capillary Refill, Normal Inspection. absent: Pedal Edema, Tenderness - Back Exam Back Exam: NORMAL INSPECTION. absent: rash noted, tenderness - Neurological Exam Neurological Exam: Alert, Awake, CN II-XII Intact, Oriented x3 - Psychiatric Exam Psychiatric exam: Depressed - Skin Skin Exam: Dry, Intact, Warm. absent: Normal Color (jaundiced) Assessment and Plan - Assessment and Plan (Free Text) Plan: Abdominal Pain * GI consult, Dr. Gutierrez, help appreciated * CT abd/pelvis showed: no acute disease process {see full report} * ABUS shows: fatty liver infiltration [see full report] * NPO * IVF hydration * Possible EGD tomorrow * Protonix 40 mg IVP Q12H GI Bleed * GI consult, Dr. Gutierrez, help appreciated * Protonix 40 mg IVP Q12H * FOBT + * B12 >1000, Ferritin 1930 * Trend hgb and hct (stable) Transaminitis * AST 203, ALT 90, Alk 331 (improving) * GI consult, Dr. Gutierrez, help appreciated * Hep panel and HIV negative Nausea/vomiting * Zofran 4 mg IVP Q6H Alcohol Abuse * Ativan 2 mg IVP Q3H PRN * CIWA protocol * aspiration precautions * seizure precautions * fall risk * Banana Bag * Alcohol 173 Schizophrenia * haldol 5mg PO BID (dc due to LFT's and thrombocytopenia) Depression * Escitalopram Oxalate (Lexapro) 5 mg PO DAILY [facility] * Seroquel 200 mg PO daily Neuropathy * lower extremity neuropathy * Gabapentin (Neurontin) 300 mg PO TID [facility] Constipation * Colace 100mg PO BID Thrombocytopenia * likely alcohol induced * hold nephrotoxic medications * around baseline, hold transfusions as per heme/onc Electrolyte Imbalance * Na and Potassium low today * replenish Potassium and Mag * f/u repeat in AM Prophylactic measure * SCDs * protonix 40mg IVP Q12H * Trazodone HCl 50 mg PO HS [facility] (home med) <Marie Arthur V - Last Filed: 12/11/16 00:02> Objective - Vital Signs/Intake and Output Vital Signs (last 24 hours): Temp Pulse Resp BP Pulse Ox 97.1 F L 65 14 113/76 95 09/17/16 11:30 09/17/16 12:00 09/17/16 12:00 09/17/16 12:00 09/17/16 12:00 - Labs Labs: 09/17/16 07:32 09/17/16 07:32 PT 12.5 SECONDS (9.7-12.2) H 09/17/16 07:40 INR 1.1 09/17/16 07:40 APTT 36 SECONDS (21-34) H 09/17/16 07:40 Attending/Attestation - Attestation I have personally seen and examined this patient.: Yes I have fully participated in the care of the patient.: Yes I have reviewed all pertinent clinical information, including history, physical exam and plan: Yes
[2016-09-12] MEDS: Potassium Chl 40 mEq in D5-1/2 1,000 ML IV SCH ×3 (03:31→20:00)
[2016-09-12 08:21] LABS: HEMATOCRIT 32.5 % (35.0-51.0); MEAN CELL VOLUME 99.3 fL (80.0-94.0); MEAN CORPUSCULAR HEMOGLOBIN 33.5 pg (27.0-31.0); MEAN CORPUSCULAR HGB CONC 33.7 g/dL (33.0-37.0); MEAN PLATELET VOLUME 9.6 fL (7.2-11.7); RED CELL DISTRIBUTION WIDTH 14.7 % (11.5-14.5); WHITE BLOOD COUNT 6.3 K/uL (4.8-10.8)
[2016-09-12 08:38] LABS: CHLORIDE 103 mmol/L (98-107); POTASSIUM 3.3 mmol/L (3.6-5.2); SODIUM 137 mmol/L (132-148)
[2016-09-12 08:40] LABS: GFR AFRICAN-AMERICAN > 60
[2016-09-12 08:41] LABS: ALB/GLOB RATIO 0.7 (1.0-2.1); ALKALINE PHOSPHATASE 302 U/L (38-126); AST/SGOT 172 U/L (17-59); BILIRUBIN,DIRECT 21.4 mg/dL (0.0-0.4); BILIRUBIN,TOTAL 22.9 mg/dL (0.2-1.3); CARBON DIOXIDE 23 mmol/L (22-30); GLUCOSE,RANDOM 112 mg/dL (75-110); TOTAL PROTEIN 6.9 g/dL (6.3-8.3)
[2016-09-12 08:42] LABS: ALT/SGPT 80 U/L (21-72); CALCIUM 8.2 mg/dl (8.6-10.4); MAGNESIUM 1.7 mg/dL (1.6-2.3)
[2016-09-12 08:59] LABS: BLOOD UREA NITROGEN < 2 mg/dL (9-20)
[2016-09-12 09:38] LABS: LYMPH # 1.5 K/uL (1.0-4.3); MONO # 0.7 K/uL (0.0-0.8)
[2016-09-12] MEDS ORDERED: Potassium Phosphate 15 MMOLE in Sodium Chloride 0.9% 250 ML IV ONE (10:00)
[2016-09-12] MEDS: Magnesium Sulfate 1 gm in D5W 1 GM/100 ML BAG IVPB SCH ×2 (11:01→11:48)
--- NOTE | 2016-09-12 11:23 | CP.PCM.PN ---
Subjective - Date & Time of Evaluation Date of Evaluation: 09/12/16 Time of Evaluation: 11:20 - Subjective Subjective: GI service follow up CC: Alcoholic hepatitis Was to have EGD today however patient now decompensated and fully encephalopathic, DTs, electrolyte imbalnce, and Hgb is stable. Discussed with Dr Arthur, patient will be transferred to ICU. Objective - Vital Signs/Intake and Output Vital Signs (last 24 hours): Temp Pulse Resp BP Pulse Ox 98 F 87 18 99/63 L 97 09/12/16 09:43 09/12/16 09:43 09/12/16 09:43 09/12/16 09:43 09/12/16 09:43 Intake and Output: 09/12/16 09/12/16 06:59 18:59 Output Total 700 Balance -700 - Medications Medications: Current Medications Aripiprazole (Abilify) 10 mg PO DAILY [facility] Last Admin: 09/12/16 10:55 Dose: 10 mg Chlordiazepoxide (Librium) 10 mg PO Q8 [facility] Docusate Sodium (Colace) 100 mg PO BID [facility] Last Admin: 09/12/16 10:53 Dose: 100 mg Escitalopram Oxalate (Lexapro) 5 mg PO DAILY [facility] Last Admin: 09/12/16 10:54 Dose: 5 mg Folic Acid (Folic Acid) 1 mg PO DAILY [facility] Last Admin: 09/12/16 10:53 Dose: 1 mg Gabapentin (Neurontin) 300 mg PO TID [facility] Last Admin: 09/12/16 10:53 Dose: 300 mg Potassium Chloride/Dextrose/Sod Cl (Potassium Chl 40 Meq In D5-1/2ns) 1,000 mls @ 125 mls/hr IV .Q8H [facility] Last Admin: 09/12/16 03:31 Dose: 125 mls/hr Potassium Phosphate 15 mmole/ (Sodium Chloride) 255 mls @ 63 mls/hr IV ONCE ONE Stop: 09/12/16 14:02 Last Admin: 09/12/16 10:56 Dose: 63 mls/hr Magnesium Sulfate/Dextrose (Magnesium Sulfate 1 Gm/100 Ml D5w) 1 gm in 100 mls @ 100 mls/hr IVPB Q1H [facility] Stop: 09/12/16 11:59 Last Admin: 09/12/16 11:01 Dose: 100 mls/hr Lorazepam (Ativan) 2 mg IVP Q2H PRN PRN Reason: Seizure activity Morphine Sulfate (Morphine) 1 mg IVP Q4H PRN PRN Reason: Pain, severe (8-10) Last Admin: 09/10/16 01:01 Dose: 1 mg Ondansetron HCl (Zofran Inj) 4 mg IVP Q6 PRN PRN Reason: Nausea/Vomiting Pantoprazole Sodium (Protonix Inj) 40 mg IVP Q12H [facility] Last Admin: 09/12/16 10:53 Dose: 40 mg Quetiapine Fumarate (Seroquel) 200 mg PO DAILY [facility] Last Admin: 09/12/16 10:54 Dose: 200 mg Trazodone HCl (Desyrel) 50 mg PO HS [facility] Last Admin: 09/11/16 22:13 Dose: 50 mg - Labs Labs: 09/12/16 08:13 09/12/16 08:13 PT 14.6 SECONDS (9.7-12.2) H 09/10/16 20:07 INR 1.3 09/10/16 20:07 APTT 40 SECONDS (21-34) H 09/10/16 04:00 - Constitutional Appears: In Acute Distress, Confused - Eye Exam Eye Exam: Scleral icterus - Respiratory Exam Respiratory Exam: NORMAL BREATHING PATTERN - Cardiovascular Exam Cardiovascular Exam: Tachycardia - GI/Abdominal Exam GI & Abdominal Exam: Soft, Organomegaly. absent: Guarding, Tenderness - Neurological Exam Neurological Exam: Alert, Altered, Awake. absent: Oriented x3 Additional comments: Asterixis - Psychiatric Exam Psychiatric exam: Agitated - Skin Additional comments: deeply jaundiced Assessment and Plan (1) Acute alcoholic hepatitis Assessment & Plan: Decompensated. Encephalopathic. DF = 35 high 30 day mortality risk. Now going into DTs. Rec: Supportive care, correct lytes, start Prednosolone Status: Acute (2) Hypertension Status: Chronic (3) Thrombocytopenia Assessment & Plan: Due to cirrhosis with splenic sequestration. Heme Consult appreciated. No active GI bleed, so would not transfuse platelets at present. Status: Chronic
[2016-09-12] MEDS ORDERED: Sodium Chloride 0.9% 1,000 ML IV ONE ×2 (12:24→17:07)
[2016-09-12 15:05] LABS: CHLORIDE 102 mmol/L (98-107)
[2016-09-12 15:06] LABS: POTASSIUM 3.3 mmol/L (3.6-5.2); SODIUM 135 mmol/L (132-148)
[2016-09-12 15:08] LABS: CARBON DIOXIDE 23 mmol/L (22-30); GFR AFRICAN-AMERICAN > 60
[2016-09-12 15:09] LABS: CALCIUM 8.4 mg/dl (8.6-10.4); GLUCOSE,RANDOM 104 mg/dL (75-110); MAGNESIUM 2.4 mg/dL (1.6-2.3); PHOSPHOROUS 1.9 mg/dL (2.5-4.5)
[2016-09-12 15:17] LABS: BLOOD UREA NITROGEN < 2 mg/dL (9-20)
[2016-09-12] MEDS ORDERED: Potassium Phosphate 3 mmol/ml Inj IV ONE (15:27)
--- NOTE | 2016-09-12 15:38 | CP.PCM.PN ---
Addendum entered and electronically signed by Bladimir Mccallum DO 09/12/16 21:24: Patient re-evaluated. Altered mental status- ammonia level 73. Given lactulose. Due to DT's and AMS- consult critical care, help appreciated possible transfer to ICU. Original Note: <Bladimir Mccallum - Last Filed: 09/12/16 21:18> Subjective - Date & Time of Evaluation Date of Evaluation: 09/12/16 Time of Evaluation: 08:00 - Subjective Subjective: Dr. Mccallum PGY 1 Hospitalist Note Patient seen and evaluated at bedside. He is alert and oriented and states he feels terrible and weak. He states he still has some abdominal pain but denies any chest pain, SOB, nausea, or vomiting. Per nursing, the patient was agitated over night and had to be isolated with a sitter. When evaluated he has a noticeable tremor. Objective - Vital Signs/Intake and Output Vital Signs (last 24 hours): Temp Pulse Resp BP Pulse Ox 98 F 87 18 99/63 L 97 09/12/16 09:43 09/12/16 09:43 09/12/16 09:43 09/12/16 09:43 09/12/16 09:43 Intake and Output: 09/12/16 09/12/16 06:59 18:59 Output Total 700 Balance -700 - Medications Medications: Current Medications Aripiprazole (Abilify) 10 mg PO DAILY [facility] Last Admin: 09/12/16 10:55 Dose: 10 mg Chlordiazepoxide (Librium) 10 mg PO Q8 [facility] Last Admin: 09/12/16 13:53 Dose: 10 mg Docusate Sodium (Colace) 100 mg PO BID [facility] Last Admin: 09/12/16 10:53 Dose: 100 mg Escitalopram Oxalate (Lexapro) 5 mg PO DAILY [facility] Last Admin: 09/12/16 10:54 Dose: 5 mg Folic Acid (Folic Acid) 1 mg PO DAILY [facility] Last Admin: 09/12/16 10:53 Dose: 1 mg Gabapentin (Neurontin) 300 mg PO TID [facility] Last Admin: 09/12/16 14:47 Dose: 300 mg Potassium Chloride/Dextrose/Sod Cl (Potassium Chl 40 Meq In D5-1/2ns) 1,000 mls @ 125 mls/hr IV .Q8H [facility] Last Admin: 09/12/16 13:53 Dose: 125 mls/hr Lorazepam (Ativan) 2 mg IVP Q2H PRN PRN Reason: Seizure activity Morphine Sulfate (Morphine) 1 mg IVP Q4H PRN PRN Reason: Pain, severe (8-10) Last Admin: 09/10/16 01:01 Dose: 1 mg Ondansetron HCl (Zofran Inj) 4 mg IVP Q6 PRN PRN Reason: Nausea/Vomiting Pantoprazole Sodium (Protonix Inj) 40 mg IVP Q12H [facility] Last Admin: 09/12/16 10:53 Dose: 40 mg Potassium Phosphate (Potassium Phosphate) 15 mmole IV ONCE ONE Stop: 09/12/16 15:28 Prednisolone (Prednisolone) 32 mg PO [facility] Quetiapine Fumarate (Seroquel) 200 mg PO DAILY [facility] Last Admin: 09/12/16 10:54 Dose: 200 mg Trazodone HCl (Desyrel) 50 mg PO [facility] Last Admin: 09/11/16 22:13 Dose: 50 mg - Labs Labs: 09/12/16 08:13 09/12/16 14:14 PT 14.6 SECONDS (9.7-12.2) H 09/10/16 20:07 INR 1.3 09/10/16 20:07 APTT 40 SECONDS (21-34) H 09/10/16 04:00 - Constitutional Appears: Toxic, Other (jaundiced) - Head Exam Head Exam: ATRAUMATIC, NORMOCEPHALIC - Eye Exam Eye Exam: Conjunctival injection, EOMI, PERRL, Scleral icterus Pupil Exam: NORMAL ACCOMODATION, PERRL - ENT Exam ENT Exam: Mucous Membranes Moist. absent: Normal Oropharynx (tongue has dried blood and lips are cracked) - Respiratory Exam Respiratory Exam: Clear to Ausculation Bilateral, NORMAL BREATHING PATTERN. absent: Rales, Rhonchi, Wheezes - Cardiovascular Exam Cardiovascular Exam: REGULAR RHYTHM, +S1, +S2. absent: Gallop, Rubs, Murmur - GI/Abdominal Exam GI & Abdominal Exam: Soft, Normal Bowel Sounds. absent: Distended, Rigid, Tenderness - Extremities Exam Extremities Exam: Normal Capillary Refill, Normal Inspection. absent: Pedal Edema, Tenderness - Neurological Exam Neurological Exam: Awake, CN II-XII Intact, Oriented x3 - Psychiatric Exam Psychiatric exam: Anxious - Skin Skin Exam: Dry, Intact, Warm. absent: Normal Color (jaundiced) Assessment and Plan - Assessment and Plan (Free Text) Plan: Abdominal Pain * GI consult, Dr. Gutierrez, help appreciated * CT abd/pelvis showed: no acute disease process {see full report} * ABUS shows: fatty liver infiltration [see full report] * NPO * IVF hydration * EGD cancelled due to thrombocytopenia * pain controlled * Protonix 40 mg IVP Q12H GI Bleed * GI consult, Dr. Gutierrez, help appreciated * Protonix 40 mg IVP Q12H * FOBT + * B12 >1000, Ferritin 1930 * Trend hgb and hct (stable) Transaminitis * AST 172, ALT 80, Alk 302 (improving) * GI consult, Dr. Gutierrez, help appreciated * Hep panel and HIV negative * Tbili increased to 22 today Nausea/vomiting * Zofran 4 mg IVP Q6H Alcohol Abuse * Ativan 2 mg IVP Q3H PRN * Librium 50mg once * Libirum 10 mg Q8H * CIWA protocol * aspiration precautions * seizure precautions * fall risk * Alcohol 173 on admission Schizophrenia * haldol 5mg PO BID (dc due to LFT's and thrombocytopenia) Depression * Escitalopram Oxalate (Lexapro) 5 mg PO DAILY [facility] * Seroquel 200 mg PO daily Neuropathy * lower extremity neuropathy * Gabapentin (Neurontin) 300 mg PO TID [facility] Constipation * Colace 100mg PO BID Thrombocytopenia * likely alcohol induced * hold nephrotoxic medications * around baseline, hold transfusions as per heme/onc * bleeding in mouth, hold procedure Electrolyte Imbalance * Potassium low today * replenish Potassium and Mag * phos low at 1.0 * replenish phos * f/u repeat in AM Prophylactic measure * SCDs * protonix 40mg IVP Q12H * Trazodone HCl 50 mg PO HS [facility] (home med) Assesment and plan discussed with attending physician. <Marie Arthur V - Last Filed: 12/11/16 00:03> Objective - Vital Signs/Intake and Output Vital Signs (last 24 hours): Temp Pulse Resp BP Pulse Ox 97.1 F L 65 14 113/76 95 09/17/16 11:30 09/17/16 12:00 09/17/16 12:00 09/17/16 12:00 09/17/16 12:00 - Labs Labs: 09/17/16 07:32 09/17/16 07:32 PT 12.5 SECONDS (9.7-12.2) H 09/17/16 07:40 INR 1.1 09/17/16 07:40 APTT 36 SECONDS (21-34) H 09/17/16 07:40 Attending/Attestation - Attestation I have personally seen and examined this patient.: Yes I have fully participated in the care of the patient.: Yes I have reviewed all pertinent clinical information, including history, physical exam and plan: Yes
[2016-09-12] MEDS ORDERED: POTASSIUM CHLORIDE IV ONE (15:45)
[2016-09-12] MEDS ORDERED: SODIUM PHOSPHATE IV ONE (15:45)
[2016-09-12] MEDS ORDERED: SODIUM CHLORIDE 0.9% IV ONE (15:45)
[2016-09-12] MEDS ORDERED: Thiamine 100 mg/ml Inj IV ONE (15:55)
[2016-09-12] MEDS: PrednisoLONE 6 MG/2 ML SYR PO SCH (23:00)
[2016-09-13] MEDS: Potassium Chl 40 mEq in D5-1/2 1,000 ML IV SCH ×3 (04:23→21:53)
[2016-09-13 09:01] LABS: HEMATOCRIT 35.1 % (35.0-51.0); MEAN CELL VOLUME 100.5 fL (80.0-94.0); MEAN CORPUSCULAR HEMOGLOBIN 33.4 pg (27.0-31.0); MEAN CORPUSCULAR HGB CONC 33.2 g/dL (33.0-37.0); MEAN PLATELET VOLUME 11.3 fL (7.2-11.7); RED CELL DISTRIBUTION WIDTH 14.8 % (11.5-14.5); WHITE BLOOD COUNT 5.9 K/uL (4.8-10.8)
[2016-09-13 09:16] LABS: CHLORIDE 104 mmol/L (98-107)
[2016-09-13 09:17] LABS: POTASSIUM 3.6 mmol/L (3.6-5.2); SODIUM 137 mmol/L (132-148)
[2016-09-13 09:19] LABS: ALB/GLOB RATIO 0.7 (1.0-2.1); ALKALINE PHOSPHATASE 290 U/L (38-126); AST/SGOT 146 U/L (17-59); BILIRUBIN,TOTAL 25.3 mg/dL (0.2-1.3); CARBON DIOXIDE 23 mmol/L (22-30); GFR AFRICAN-AMERICAN > 60; TOTAL PROTEIN 7.1 g/dL (6.3-8.3)
[2016-09-13 09:20] LABS: ALT/SGPT 73 U/L (21-72); BLOOD UREA NITROGEN < 2 mg/dL (9-20); CALCIUM 8.1 mg/dl (8.6-10.4); GLUCOSE,RANDOM 134 mg/dL (75-110); PHOSPHOROUS 2.9 mg/dL (2.5-4.5)
[2016-09-13] MEDS: Thiamine 100 mg/ml Inj IV SCH (09:59)
[2016-09-13] MEDS ORDERED: Sodium Chloride 0.9% 1,000 ML IV ONE (10:17)
[2016-09-13 12:26] LABS: LYMPH # 0.7 K/uL (1.0-4.3); MONO # 0.3 K/uL (0.0-0.8)
--- NOTE | 2016-09-13 14:51 | CP.PCM.PN ---
<Armando Felix - Last Filed: 09/13/16 15:13> Subjective - Date & Time of Evaluation Date of Evaluation: 09/13/16 Time of Evaluation: 14:35 - Subjective Subjective: Med progress note. Attending: Dr. Arthur Pt seen and examined at bedside. No acute distress. Pt very jaundiced and lethargic, but talkative and arousable. Will add lactulose qid and bolus for hypotension. Objective - Vital Signs/Intake and Output Vital Signs (last 24 hours): Temp Pulse Resp BP Pulse Ox 98.0 F 76 20 99/63 L 95 09/13/16 08:00 09/13/16 08:00 09/13/16 08:00 09/13/16 08:00 09/13/16 08:00 Intake and Output: 09/13/16 09/13/16 06:59 18:59 Intake Total 1100 Output Total 300 Balance 800 - Medications Medications: Current Medications Aripiprazole (Abilify) 10 mg PO DAILY [facility] Last Admin: 09/13/16 09:59 Dose: 10 mg Docusate Sodium (Colace) 100 mg PO BID [facility] Last Admin: 09/13/16 09:58 Dose: 100 mg Escitalopram Oxalate (Lexapro) 5 mg PO DAILY [facility] Last Admin: 09/13/16 09:59 Dose: 5 mg Folic Acid (Folic Acid) 1 mg PO DAILY [facility] Last Admin: 09/13/16 09:58 Dose: 1 mg Gabapentin (Neurontin) 300 mg PO TID [facility] [place] Last Admin: 09/13/16 09:58 Dose: 300 mg Potassium Chloride/Dextrose/Sod Cl (Potassium Chl 40 Meq In D5-1/2ns) 1,000 mls @ 125 mls/hr IV .Q8H [facility] [place] Last Admin: 09/13/16 04:23 Dose: Not Given Lactulose (Enulose) 30 gm PO QID [facility] Lorazepam (Ativan) 2 mg IVP Q2H PRN PRN Reason: Seizure activity Lorazepam (Ativan) 2 mg PO Q6 [facility] Last Admin: 09/13/16 12:00 Dose: Not Given Morphine Sulfate (Morphine) 1 mg IVP Q4H PRN PRN Reason: Pain, severe (8-10) Last Admin: 09/10/16 01:01 Dose: 1 mg Ondansetron HCl (Zofran Inj) 4 mg IVP Q6 PRN PRN Reason: Nausea/Vomiting Pantoprazole Sodium (Protonix Inj) 40 mg IVP Q12H [facility] Last Admin: 09/13/16 11:59 Dose: 40 mg Prednisolone (Prednisolone) 32 mg PO [facility] Last Admin: 09/12/16 23:00 Dose: 32 mg Quetiapine Fumarate (Seroquel) 200 mg PO DAILY [facility] [place] Last Admin: 09/13/16 09:59 Dose: 200 mg Thiamine HCl (Vitamin B1 Inj) 100 mg IV DAILY [facility] Last Admin: 09/13/16 09:59 Dose: 100 mg Trazodone HCl (Desyrel) 50 mg PO [facility] Last Admin: 09/12/16 23:00 Dose: 50 mg - Labs Labs: 09/13/16 08:30 09/13/16 08:30 PT 14.6 SECONDS (9.7-12.2) H 09/10/16 20:07 INR 1.3 09/10/16 20:07 APTT 40 SECONDS (21-34) H 09/10/16 04:00 - Constitutional Appears: Chronically Ill - Head Exam Head Exam: ATRAUMATIC, NORMOCEPHALIC. absent: NORMAL INSPECTION - Eye Exam Eye Exam: EOMI, Scleral icterus - Neck Exam Neck Exam: Full ROM, Normal Inspection - Respiratory Exam Respiratory Exam: NORMAL BREATHING PATTERN. absent: Respiratory Distress - Cardiovascular Exam Cardiovascular Exam: +S1, +S2 - GI/Abdominal Exam GI & Abdominal Exam: Distended - Extremities Exam Extremities Exam: Full ROM, Normal Inspection - Back Exam Back Exam: NORMAL INSPECTION - Neurological Exam Neurological Exam: Alert, Awake - Psychiatric Exam Psychiatric exam: Flat Affect. absent: Normal Mood - Skin Additional comments: Diffusely jaundiced Assessment and Plan - Assessment and Plan (Free Text) Assessment: This is a 51 yo male presenting with hepatic encephalopathy Abdominal Pain * GI consult, Dr. Gutierrez, help appreciated * CT abd/pelvis showed: no acute disease process {see full report} * ABUS shows: fatty liver infiltration [see full report] * NPO * IVF hydration * EGD cancelled due to thrombocytopenia * pain controlled * Protonix 40 mg IVP Q12H * zofran 4 mg q6 * we will add lactuloseqid * 1 L bolus for hypotension, monitor bp GI Bleed * GI consult, Dr. Gutierrez, help appreciated * Protonix 40 mg IVP Q12H * FOBT + * B12 >1000, Ferritin 1930 * Trend hgb and hct (stable) Transaminitis * AST 172, ALT 80, Alk 302 (improving) * GI consult, Dr. Gutierrez, help appreciated * Hep panel and HIV negative * lipase normal Nausea/vomiting * Zofran 4 mg IVP Q6H Alcohol Abuse * Ativan 2 mg IVP Q32 PRN * Librium 50mg once * CIWA protocol * aspiration precautions * seizure precautions * fall risk * Alcohol 173 on admission Schizophrenia * haldol 5mg PO BID (dc due to LFT's and thrombocytopenia) * continue abilify 10 * continue seroquel 200 daily * continue trazodone Depression * Seroquel 200 mg PO daily * continue lexaprol 5 Neuropathy * lower extremity neuropathy * Gabapentin (Neurontin) 300 mg PO TID [facility] Constipation * Colace 100mg PO BID Thrombocytopenia * likely alcohol induced * hold nephrotoxic medications * around baseline, hold transfusions as per heme/onc * bleeding in mouth, hold procedure Electrolyte Imbalance * Potassium 3.6 ttoday * replenish Potassium and Mag * phos normal today * replenish phos if low * f/u repeat in AM Prophylactic measure * SCDs * protonix 40mg IVP Q12H * Trazodone HCl 50 mg PO HS [facility] (home med) Assesment and plan discussed with attending physician. <aMrie Arthur V - Last Filed: 12/11/16 00:03> Objective - Vital Signs/Intake and Output Vital Signs (last 24 hours): Temp Pulse Resp BP Pulse Ox 97.1 F L 65 14 113/76 95 09/17/16 11:30 09/17/16 12:00 09/17/16 12:00 09/17/16 12:00 09/17/16 12:00 - Labs Labs: 09/17/16 07:32 09/17/16 07:32 PT 12.5 SECONDS (9.7-12.2) H 09/17/16 07:40 INR 1.1 09/17/16 07:40 APTT 36 SECONDS (21-34) H 09/17/16 07:40 Attending/Attestation - Attestation I have personally seen and examined this patient.: Yes I have fully participated in the care of the patient.: Yes I have reviewed all pertinent clinical information, including history, physical exam and plan: Yes
[2016-09-13] MEDS: PrednisoLONE 6 MG/2 ML SYR PO SCH (21:52)
[2016-09-14] MEDS: Potassium Chl 40 mEq in D5-1/2 1,000 ML IV SCH ×4 (01:34→19:51)
[2016-09-14 08:29] LABS: CHLORIDE 102 mmol/L (98-107)
[2016-09-14 08:30] LABS: POTASSIUM 3.6 mmol/L (3.6-5.2); SODIUM 135 mmol/L (132-148)
[2016-09-14 08:31] LABS: HEMATOCRIT 31.6 % (35.0-51.0); MEAN CELL VOLUME 98.9 fL (80.0-94.0); MEAN CORPUSCULAR HEMOGLOBIN 34.1 pg (27.0-31.0); MEAN CORPUSCULAR HGB CONC 34.5 g/dL (33.0-37.0); MEAN PLATELET VOLUME 10.5 fL (7.2-11.7); RED CELL DISTRIBUTION WIDTH 15.4 % (11.5-14.5); WHITE BLOOD COUNT 7.2 K/uL (4.8-10.8)
[2016-09-14 08:32] LABS: ALB/GLOB RATIO 0.7 (1.0-2.1); AST/SGOT 122 U/L (17-59); BLOOD UREA NITROGEN 3 mg/dL (9-20); CARBON DIOXIDE 21 mmol/L (22-30); GFR AFRICAN-AMERICAN > 60; TOTAL PROTEIN 7.3 g/dL (6.3-8.3)
[2016-09-14 08:33] LABS: ALKALINE PHOSPHATASE 240 U/L (38-126); ALT/SGPT 69 U/L (21-72); CALCIUM 8.4 mg/dl (8.6-10.4); GLUCOSE,RANDOM 145 mg/dL (75-110); MAGNESIUM 1.7 mg/dL (1.6-2.3); PHOSPHOROUS 2.7 mg/dL (2.5-4.5)
[2016-09-14 08:38] LABS: BILIRUBIN,TOTAL 26.7 mg/dL (0.2-1.3)
[2016-09-14] MEDS: Thiamine 100 mg/ml Inj IV SCH (09:50)
--- NOTE | 2016-09-14 09:58 | CP.PCM.PN ---
Subjective - Date & Time of Evaluation Date of Evaluation: 09/14/16 Time of Evaluation: 09:55 - Subjective Subjective: CC: Follow up alcoholic hepatitis Confused, jaundiced. No reported GI bleeding. On Prednisolone due to CF > 32 alcoholic Hepatitis with increased mortality rate. Objective - Vital Signs/Intake and Output Vital Signs (last 24 hours): Temp Pulse Resp BP Pulse Ox 98.2 F 73 20 93/56 L 96 09/14/16 00:00 09/14/16 00:00 09/14/16 00:00 09/14/16 00:00 09/14/16 00:00 Intake and Output: 09/14/16 09/14/16 06:59 18:59 Intake Total 1750 Balance 1750 - Medications Medications: Current Medications Aripiprazole (Abilify) 10 mg PO DAILY [facility] Last Admin: 09/14/16 09:49 Dose: 10 mg Docusate Sodium (Colace) 100 mg PO BID [facility] Last Admin: 09/14/16 09:48 Dose: 100 mg Escitalopram Oxalate (Lexapro) 5 mg PO DAILY [facility] Last Admin: 09/14/16 09:49 Dose: 5 mg Folic Acid (Folic Acid) 1 mg PO DAILY [facility] Last Admin: 09/14/16 09:48 Dose: 1 mg Gabapentin (Neurontin) 300 mg PO TID [facility] Last Admin: 09/14/16 09:48 Dose: 300 mg Potassium Chloride/Dextrose/Sod Cl (Potassium Chl 40 Meq In D5-1/2ns) 1,000 mls @ 125 mls/hr IV .Q8H [facility] Last Admin: 09/14/16 04:00 Dose: Not Given Lactulose (Enulose) 30 gm PO QID [facility] Last Admin: 09/14/16 09:48 Dose: 30 gm Lorazepam (Ativan) 2 mg IVP Q2H PRN PRN Reason: Seizure activity Lorazepam (Ativan) 2 mg PO Q6 [facility] Last Admin: 09/14/16 05:10 Dose: 2 mg Morphine Sulfate (Morphine) 1 mg IVP Q4H PRN PRN Reason: Pain, severe (8-10) Last Admin: 09/10/16 01:01 Dose: 1 mg Ondansetron HCl (Zofran Inj) 4 mg IVP Q6 PRN PRN Reason: Nausea/Vomiting Pantoprazole Sodium (Protonix Inj) 40 mg IVP Q12H [facility] Last Admin: 09/13/16 23:12 Dose: 40 mg Prednisolone (Prednisolone) 32 mg PO HS [facility] Last Admin: 09/13/16 21:52 Dose: 32 mg Quetiapine Fumarate (Seroquel) 200 mg PO DAILY [facility] Last Admin: 09/14/16 09:49 Dose: 200 mg Thiamine HCl (Vitamin B1 Inj) 100 mg IV DAILY [facility] Last Admin: 09/14/16 09:50 Dose: 100 mg Trazodone HCl (Desyrel) 50 mg PO HS [facility] Last Admin: 09/13/16 21:52 Dose: 50 mg - Labs Labs: 09/14/16 08:02 09/14/16 08:02 PT 14.6 SECONDS (9.7-12.2) H 09/10/16 20:07 INR 1.3 09/10/16 20:07 APTT 40 SECONDS (21-34) H 09/10/16 04:00 - Constitutional Appears: Confused, Chronically Ill - Eye Exam Eye Exam: Scleral icterus - Respiratory Exam Respiratory Exam: NORMAL BREATHING PATTERN - Cardiovascular Exam Cardiovascular Exam: REGULAR RHYTHM - GI/Abdominal Exam GI & Abdominal Exam: Soft. absent: Tenderness, Organomegaly - Extremities Exam Additional comments: tremulous - Neurological Exam Neurological Exam: Awake. absent: Oriented x3 - Psychiatric Exam Psychiatric exam: Flat Affect - Skin Additional comments: deeply jaundiced Assessment and Plan (1) Acute alcoholic hepatitis Assessment & Plan: Poor prognosis based on DF. Gradually recovering. LFTs trending as expected for recovery phase. Rec: Supportive care, treat alcohol withdrawal, Hydrate, safety precautions, Lactulose for hepatic encephalopthy. No urgent need for EGD while patient remains in unstable condition. Prednisolne to continue x 30 days Status: Acute (2) Hypertension Status: Chronic (3) Thrombocytopenia Assessment & Plan: improving gradually as he remains off etoh intake Status: Chronic
[2016-09-14 12:08] LABS: LYMPH # 3.2 K/uL (1.0-4.3)
[2016-09-14 12:09] LABS: EOS # 0.2 K/uL (0.0-0.7); MONO # 0.4 K/uL (0.0-0.8)
--- NOTE | 2016-09-14 18:19 | CP.PCM.PN ---
<Armando Felix - Last Filed: 09/14/16 18:21> Subjective - Date & Time of Evaluation Date of Evaluation: 09/14/16 Time of Evaluation: 18:15 - Subjective Subjective: Medicine progress note. Attending: Dr. Arthur Pt seen and examined at bedside. No acute distress. Pt remains lethargic. Not able to respond appropriately to questions. Will continue lactulose. Cultures negative thus far. Objective - Vital Signs/Intake and Output Vital Signs (last 24 hours): Temp Pulse Resp BP Pulse Ox 98.1 F 68 20 130/79 96 09/14/16 15:33 09/14/16 16:00 09/14/16 15:33 09/14/16 15:33 09/14/16 15:33 Intake and Output: 09/14/16 09/14/16 06:59 18:59 Intake Total 1750 Output Total 100 Balance 1750 -100 - Medications Medications: Current Medications Aripiprazole (Abilify) 10 mg PO DAILY [facility] Last Admin: 09/14/16 09:49 Dose: 10 mg Docusate Sodium (Colace) 100 mg PO BID [facility] Last Admin: 09/14/16 09:48 Dose: 100 mg Escitalopram Oxalate (Lexapro) 5 mg PO DAILY [facility] Last Admin: 09/14/16 09:49 Dose: 5 mg Folic Acid (Folic Acid) 1 mg PO DAILY [facility] Last Admin: 09/14/16 09:48 Dose: 1 mg Gabapentin (Neurontin) 300 mg PO TID [facility] Last Admin: 09/14/16 13:51 Dose: 300 mg Potassium Chloride/Dextrose/Sod Cl (Potassium Chl 40 Meq In D5-1/2ns) 1,000 mls @ 125 mls/hr IV .Q8H [facility] Last Admin: 09/14/16 10:55 Dose: 125 mls/hr Lactulose (Enulose) 30 gm PO QID [facility] Last Admin: 09/14/16 13:50 Dose: 30 gm Lorazepam (Ativan) 2 mg IVP Q2H PRN PRN Reason: Seizure activity Lorazepam (Ativan) 2 mg PO Q6 [facility] Last Admin: 09/14/16 11:36 Dose: 2 mg Morphine Sulfate (Morphine) 1 mg IVP Q4H PRN PRN Reason: Pain, severe (8-10) Last Admin: 09/10/16 01:01 Dose: 1 mg Ondansetron HCl (Zofran Inj) 4 mg IVP Q6 PRN PRN Reason: Nausea/Vomiting Pantoprazole Sodium (Protonix Inj) 40 mg IVP Q12H [facility] Last Admin: 09/14/16 10:51 Dose: 40 mg Prednisolone (Prednisolone) 32 mg PO HS [facility] Last Admin: 09/13/16 21:52 Dose: 32 mg Quetiapine Fumarate (Seroquel) 200 mg PO DAILY [facility] Last Admin: 09/14/16 09:49 Dose: 200 mg Thiamine HCl (Vitamin B1 Inj) 100 mg IV DAILY [facility] Last Admin: 09/14/16 09:50 Dose: 100 mg Trazodone HCl (Desyrel) 50 mg PO HS [facility] Last Admin: 09/13/16 21:52 Dose: 50 mg - Labs Labs: 09/14/16 08:02 09/14/16 08:02 PT 14.6 SECONDS (9.7-12.2) H 09/10/16 20:07 INR 1.3 09/10/16 20:07 APTT 40 SECONDS (21-34) H 09/10/16 04:00 - Constitutional Appears: Non-toxic, No Acute Distress - Head Exam Head Exam: ATRAUMATIC, NORMOCEPHALIC. absent: NORMAL INSPECTION - Eye Exam Eye Exam: EOMI - ENT Exam ENT Exam: Mucous Membranes Moist - Neck Exam Neck Exam: Full ROM, Normal Inspection - Respiratory Exam Respiratory Exam: NORMAL BREATHING PATTERN. absent: Respiratory Distress - Cardiovascular Exam Cardiovascular Exam: +S1, +S2 - GI/Abdominal Exam GI & Abdominal Exam: Distended - Extremities Exam Extremities Exam: Full ROM, Normal Inspection - Neurological Exam Neurological Exam: Altered, Awake - Psychiatric Exam Psychiatric exam: Flat Affect - Skin Additional comments: Skin is jaundiced throughout body Assessment and Plan - Assessment and Plan (Free Text) Assessment: This is a 51 yo male presenting with hepatic encephalopathy Abdominal Pain * GI consult, Dr. Gutierrez, help appreciated * CT abd/pelvis showed: no acute disease process {see full report} * ABUS shows: fatty liver infiltration [see full report] * altered gi/hepatic diet * EGD cancelled due to thrombocytopenia * pain controlled, morphine 1 q 4 prn * Protonix 40 mg IVP Q12H * zofran 4 mg q6 * we will add lactuloseqid * monitor bp GI Bleed * GI consult, Dr. Gutierrez/[place], help appreciated * Protonix 40 mg IVP Q12H * FOBT + * B12 >1000, Ferritin 1930 * Trend hgb and hct (stable) Transaminitis * AST 172, ALT 80, Alk 302 (improving) * GI consult, Dr. Gutierrez, help appreciated * Hep panel and HIV negative * lipase normal Nausea/vomiting * Zofran 4 mg IVP Q6H Alcohol Abuse * Ativan 2 mg IVP Q2 PRN * Librium 50mg once * CIWA protocol * aspiration precautions * seizure precautions * fall risk * Alcohol 173 on admission * gabapentin 300 tid Schizophrenia * haldol 5mg PO BID (dc due to LFT's and thrombocytopenia) * continue abilify 10 * continue seroquel 200 daily * continue trazodone Depression * Seroquel 200 mg PO daily * continue lexaprol 5 Constipation * Colace 100mg PO BID Thrombocytopenia * likely alcohol induced * hold nephrotoxic medications * around baseline, hold transfusions as per heme/onc * bleeding in mouth, hold procedure Electrolyte Imbalance * replenish Potassium and Mag * phos normal today * replenish phos if low * f/u repeat in AM Prophylactic measure * SCDs * protonix 40mg IVP Q12H * Trazodone HCl 50 mg PO HS [facility] (home med) Assesment and plan discussed with attending physician Dr. Arthur <Marie Arthur V - Last Filed: 12/11/16 00:03> Objective - Vital Signs/Intake and Output Vital Signs (last 24 hours): Temp Pulse Resp BP Pulse Ox 97.1 F L 65 14 113/76 95 09/17/16 11:30 09/17/16 12:00 09/17/16 12:00 09/17/16 12:00 09/17/16 12:00 - Labs Labs: 09/17/16 07:32 09/17/16 07:32 PT 12.5 SECONDS (9.7-12.2) H 09/17/16 07:40 INR 1.1 09/17/16 07:40 APTT 36 SECONDS (21-34) H 09/17/16 07:40 Attending/Attestation - Attestation I have personally seen and examined this patient.: Yes I have fully participated in the care of the patient.: Yes I have reviewed all pertinent clinical information, including history, physical exam and plan: Yes
[2016-09-14] MEDS: Pantoprazole 40 mg EC Tab PO SCH (23:12)
[2016-09-14] MEDS: PrednisoLONE 6 MG/2 ML SYR PO SCH (23:12)
[2016-09-15] MEDS: Potassium Chl 40 mEq in D5-1/2 1,000 ML IV SCH ×5 (03:55→23:17)
[2016-09-15 07:25] LABS: RED CELL DISTRIBUTION WIDTH 14.9 % (11.5-14.5); WHITE BLOOD COUNT 6.5 K/uL (4.8-10.8)
[2016-09-15 07:48] LABS: HEMATOCRIT 30.5 % (35.0-51.0); MEAN CELL VOLUME 98.3 fL (80.0-94.0); MEAN CORPUSCULAR HEMOGLOBIN 34.1 pg (27.0-31.0); MEAN CORPUSCULAR HGB CONC 34.7 g/dL (33.0-37.0); MEAN PLATELET VOLUME 10.4 fL (7.2-11.7); PLATELET COUNT 72 K/uL (130-400)
[2016-09-15 07:51] LABS: CHLORIDE 101 mmol/L (98-107); SODIUM 135 mmol/L (132-148)
[2016-09-15 07:52] LABS: POTASSIUM 3.8 mmol/L (3.6-5.2)
[2016-09-15 07:53] LABS: GFR AFRICAN-AMERICAN > 60
[2016-09-15 07:54] LABS: ALB/GLOB RATIO 0.7 (1.0-2.1); ALKALINE PHOSPHATASE 203 U/L (38-126); ALT/SGPT 59 U/L (21-72); AST/SGOT 94 U/L (17-59); BILIRUBIN,TOTAL 22.5 mg/dL (0.2-1.3); BLOOD UREA NITROGEN 3 mg/dL (9-20); CALCIUM 8.2 mg/dl (8.6-10.4); CARBON DIOXIDE 23 mmol/L (22-30); GLUCOSE,RANDOM 95 mg/dL (75-110); PHOSPHOROUS 2.3 mg/dL (2.5-4.5); TOTAL PROTEIN 6.9 g/dL (6.3-8.3)
[2016-09-15 07:55] LABS: MAGNESIUM 1.6 mg/dL (1.6-2.3)
[2016-09-15] MEDS: Pantoprazole 40 mg EC Tab PO SCH ×2 (09:28→22:17)
[2016-09-15] MEDS: Thiamine 100 mg/ml Inj IV SCH (09:30)
--- NOTE | 2016-09-15 13:46 | CP.PCM.CON ---
History of Present Illness - History of Present Illness History of Present Illness: Palliative consult Requested by Bladimir MAN Reason: Goals of care discussion Patient is a 51 yo male admitted with sharp, diffuse abdominal pain and generalized jaundice for 4_5 days. Pain was rated at 8/10. patient reported dark BMs with occasionally seen fresh blood in it. The CT liver on admission was significant for fatty liver. Liver enzymes and ammonia level elevated on admission. PMH: anxity, asthma, scizophrenia, HTN, Soc.Hx: , ex and children have no close contact with patient, sister is a contact center consultant, daily drinker, 4-6 beers a days PMH: Unknown Review of Systems - Constitutional Constitutional: Lethargy, Malaise - EENT Eyes: absent: As Per HPI, Blind Spots, Blurred Vision, Change in Vision, Decreased Night Vision, Diplopia, Discharge, Dry Eye, Exophthalmos, Floaters, Irritation, Itchy Eyes, Loss of Peripheral Vision, Pain, Photophobia, Requires Corrective Lenses, Sees Flashes, Spots in Vision, Tunnel Vision, Other Visual Disturbances, Loss of Vision, Other Ears: absent: As Per HPI, Decreased Hearing, Ear Discharge, Ear Pain, Tinnitus, Abnormal Hearing, Disequilibrium, Dizziness, Other Nose/Mouth/Throat: absent: As Per HPI, Epistaxis, Nasal Congestion, Nasal Discharge, Nasal Obstruction, Nasal Trauma, Nose Pain, Post Nasal Drip, Sinus Pain, Sinus Pressure, Bleeding Gums, Change in Voice, Dental Pain, Dry Mouth, Dysphagia, Halitosis, Hoarsness, Lip Swelling, Mouth Lesions, Mouth Pain, Odynophagia, Sore Throat, Throat Swelling, Tongue Swelling, Facial Pain, Neck Pain, Neck Mass, Other - Cardiovascular Cardiovascular: Leg Edema - Respiratory Respiratory: absent: As Per HPI, Cough, Dyspnea, Hemoptysis, Dyspnea on Exertion , Wheezing, Snoring, Stridor, Pain on Inspiration, Chest Congestion, Excessive Mucous Production, Change in Mucous Color, Pain with Coughing, Other - Gastrointestinal Gastrointestinal: Hematemesis, Melena - Genitourinary Genitourinary: absent: As Per HPI, Change in Urinary Stream, Difficulty Urinating, Dysuria, Flank Pain, Hematuria, Pyuria, Nocturia, Urinary Incontinence, Urinary Frequency, Urinary Hesitance, Urinary Urgency, Voiding Freq/Small Amts, Freq UTI, Hx Renal/Bladder Calculi, Hx /Renal Surgery, Bladder Distension, Other - Musculoskeletal Musculoskeletal: Muscle Weakness, Myalgias - Integumentary Integumentary: Jaundice - Neurological Neurological: Weakness - Psychiatric Psychiatric: Anxiety - Endocrine Endocrine: absent: As Per HPI, Change in Body Appearance, Change in Libido, Cold Intolorance, Deepening of Voice, Excessive Sweating, Fatigue, Flushing, Heat Intolorance, Increase in Ring/Shoe/Hat Size, Palpitations, Polydipsia, Polyphagia, Polyuria, Other - Hematologic/Lymphatic Hematologic: Easy Bruising Past Patient History - Infectious Disease Hx of Infectious Diseases: None - Past Medical History & Family History Past Medical History?: Yes - Past Social History Smoking Status: Light Smoker < 10 Cigarettes Daily Alcohol: > 2 Drinks/Day - CARDIAC Hx Cardiac Disorders: Yes Hx Hypertension: Yes - PULMONARY Hx Respiratory Disorders: No Hx Asthma: (SMOKER) - NEUROLOGICAL Hx Neurological Disorder: Yes Hx Seizures: Yes - HEENT Hx HEENT Problems: No - RENAL Hx Chronic Kidney Disease: No - ENDOCRINE/METABOLIC Hx Endocrine Disorders: No - HEMATOLOGICAL/ONCOLOGICAL Hx Blood Disorders: No Hx Human Immunodeficiency Virus (HIV): No - INTEGUMENTARY Hx Dermatological Problems: No - MUSCULOSKELETAL/RHEUMATOLOGICAL Hx Arthritis: Yes (L KNEE) - GASTROINTESTINAL Hx Gastrointestinal Disorders: Yes Hx Gastritis: Yes - GENITOURINARY/GYNECOLOGICAL Hx Genitourinary Disorders: No Hx Sexually Transmitted Disorders: No - PSYCHIATRIC Hx Psychophysiologic Disorder: Yes Hx Anxiety: Yes Hx Depression: Yes Hx Schizophrenia: Yes Hx Substance Use: No - SURGICAL HISTORY Hx Surgeries: Yes Hx Orthopedic Surgery: Yes (left knee) Other/Comment: surgery of the left knee. PRESENTLY USING A CANE - ANESTHESIA Hx Anesthesia: Yes Hx Anesthesia Reactions: No Hx Malignant Hyperthermia: No Meds Allergies/Adverse Reactions: Allergies Allergy/AdvReac Type Severity Reaction Status Date / Time seasonal Allergy Uncoded 09/09/16 16:36 - Medications Medications: Current Medications Aripiprazole (Abilify) 10 mg PO DAILY [facility] Last Admin: 09/15/16 09:35 Dose: 10 mg Docusate Sodium (Colace) 100 mg PO BID [facility] Last Admin: 09/15/16 09:29 Dose: 100 mg Escitalopram Oxalate (Lexapro) 5 mg PO DAILY [facility] Last Admin: 09/15/16 09:35 Dose: 5 mg Folic Acid (Folic Acid) 1 mg PO DAILY [facility] Last Admin: 09/15/16 09:29 Dose: 1 mg Gabapentin (Neurontin) 300 mg PO TID [facility] Last Admin: 09/15/16 09:29 Dose: 300 mg Potassium Chloride/Dextrose/Sod Cl (Potassium Chl 40 Meq In D5-1/2ns) 1,000 mls @ 125 mls/hr IV .Q8H [facility] Last Admin: 09/15/16 13:07 Dose: Not Given Lactulose (Enulose) 30 gm PO QID [facility] Last Admin: 09/15/16 09:29 Dose: 30 gm Lorazepam (Ativan) 2 mg IVP Q2H PRN PRN Reason: Seizure activity Lorazepam (Ativan) 2 mg PO Q6 [facility] Last Admin: 09/15/16 05:56 Dose: Not Given Morphine Sulfate (Morphine) 1 mg IVP Q4H PRN PRN Reason: Pain, severe (8-10) Last Admin: 09/10/16 01:01 Dose: 1 mg Ondansetron HCl (Zofran Inj) 4 mg IVP Q6 PRN PRN Reason: Nausea/Vomiting Pantoprazole Sodium (Protonix Ec Tab) 40 mg PO Q12H [facility] Last Admin: 09/15/16 09:28 Dose: 40 mg Prednisolone (Prednisolone) 32 mg PO [facility] Last Admin: 09/14/16 23:12 Dose: Not Given Quetiapine Fumarate (Seroquel) 200 mg PO DAILY [facility] Last Admin: 09/15/16 09:34 Dose: 200 mg Thiamine HCl (Vitamin B1 Inj) 100 mg IV DAILY [facility] Last Admin: 09/15/16 09:30 Dose: 100 mg Trazodone HCl (Desyrel) 50 mg PO [facility] Last Admin: 09/14/16 23:12 Dose: Not Given Physical Exam - Constitutional Appears: Chronically Ill - Head Exam Head Exam: ATRAUMATIC, NORMAL INSPECTION - Eye Exam Eye Exam: Normal appearance Pupil Exam: NORMAL ACCOMODATION Additional comments: sclera yellow - ENT Exam ENT Exam: Mucous Membranes Dry - Neck Exam Neck exam: Positive for: Normal Inspection - Respiratory Exam Respiratory Exam: NORMAL BREATHING PATTERN - Cardiovascular Exam Cardiovascular Exam: REGULAR RHYTHM, +S1, +S2 - GI/Abdominal Exam GI & Abdominal Exam: Normal Bowel Sounds - Rectal Exam Rectal Exam: Deferred - Extremities Exam Extremities exam: Positive for: pedal edema - Back Exam Back exam: NORMAL INSPECTION - Neurological Exam Neurological exam: Alert, Oriented x3 - Psychiatric Exam Psychiatric exam: Flat Affect - Skin Additional comments: Yellow skin Results - Vital Signs Recent Vital Signs: Last Vital Signs Temp 98.2 F 09/15/16 09:12 Pulse 68 09/15/16 09:12 Resp 20 09/15/16 09:12 BP 114/77 09/15/16 09:12 Pulse Ox 96 09/15/16 09:12 - Labs Result Diagrams: 09/15/16 07:12 09/15/16 07:12 Labs: Laboratory Results - last 24 hr 09/14/16 09/14/16 09/15/16 17:37 22:28 06:41 WBC RBC Hgb Hct MCV MCH MCHC RDW Plt Count MPV Sodium Potassium Chloride Carbon Dioxide Anion Gap BUN Creatinine Est GFR ( Amer) Est GFR (Non-Af Amer) POC Glucose (mg/dL) 126 H 114 H 87 Random Glucose Calcium Phosphorus Magnesium Total Bilirubin AST ALT Alkaline Phosphatase Ammonia Total Protein Albumin Globulin Albumin/Globulin Ratio 09/15/16 09/15/16 09/15/16 07:12 07:12 07:12 WBC 6.5 RBC 3.11 L Hgb 10.6 L Hct 30.5 L MCV 98.3 H MCH 34.1 H MCHC 34.7 RDW 14.9 H Plt Count 72 L MPV 10.4 Sodium 135 Potassium 3.8 Chloride 101 Carbon Dioxide 23 Anion Gap 15 BUN 3 L Creatinine 0.8 Est GFR ( Amer) > 60 Est GFR (Non-Af Amer) > 60 POC Glucose (mg/dL) Random Glucose 95 Calcium 8.2 L Phosphorus 2.3 L Magnesium 1.6 Total Bilirubin 22.5 H AST 94 H D ALT 59 Alkaline Phosphatase 203 H Ammonia 50 H D Total Protein 6.9 Albumin 2.8 L Globulin 4.2 H Albumin/Globulin Ratio 0.7 L 09/15/16 12:11 WBC RBC Hgb Hct MCV MCH MCHC RDW Plt Count MPV Sodium Potassium Chloride Carbon Dioxide Anion Gap BUN Creatinine Est GFR ( Amer) Est GFR (Non-Af Amer) POC Glucose (mg/dL) 108 Random Glucose Calcium Phosphorus Magnesium Total Bilirubin AST ALT Alkaline Phosphatase Ammonia Total Protein Albumin Globulin Albumin/Globulin Ratio Assessment & Plan - Assessment and Plan (Free Text) Assessment: Palliative consult Code status Full Code, no advance directive on chart, PPS 20%. I reviewed medical records, all diagnostic studies, examined and interviewed patient in the bed. Goals of care discussed. Patient is lethargic, alert, oriented X 3, speech is soft on occasions and mumbled, but patient makes sense answering the questions. Patient looks ill. Skin and sclera areyellow. Abdomen is soft with hypoactive bowel sounds. Pain is detected to right upper quadrant, and patient reports pain radiates across the abdomen. Patient reports stool and urine being still dark. There is minimal pedal edema. I reviewed with patient his clinical presentation and offered more information about the alcoholic liver disease and its symptoms/prognosis. I suggested that his condition was an example of it. Patient admitted he has spoken to a Doctor and was aware of how severe his condition could be. Patient admits drinking daily and having withdrawal symptoms if he absents from drinking. Patient is concerned about his condition and was asking about the alcohol rehab . Patient suggests being ready to get help with alcohol addiction. He hopes that will help him cure his disease. When I asked what if all our interventions fail and he may need life support to maintain his life, patient asked for full life support regardless of quality of life . I further asked about the decision making pwerson if he loses his capacvity to do so, patient named his sister Lula Salazar. Impression * Patient is with symptoms of alcoholic liver * Abdominal pain secondary to liver disease * Body image changes and debility * Patient is negotiating for his life and is asking for assistance with alcoholic rehab * patient prefers to remain full code and would like his sister Lula Roque to be a surrogate decision maker. Suggestion * Symptoms management * Apply all interventions to support life including the aggressive ones if needed * Pain management I will meet with patient again and assist him with signing the POLST form. Thank you very much for consulting palliative care.
--- NOTE | 2016-09-15 15:42 | CP.PCM.PN ---
Subjective - Date & Time of Evaluation Date of Evaluation: 09/15/16 Time of Evaluation: 15:39 - Subjective Subjective: CC: Follow up alcoholic hepatitis Sleepy, less combative. LFTs improving. Objective - Vital Signs/Intake and Output Vital Signs (last 24 hours): Temp Pulse Resp BP Pulse Ox 98.2 F 68 20 114/77 96 09/15/16 09:12 09/15/16 09:12 09/15/16 09:12 09/15/16 09:12 09/15/16 09:12 Intake and Output: 09/15/16 09/15/16 06:59 18:59 Output Total 450 Balance -450 - Medications Medications: Current Medications Aripiprazole (Abilify) 10 mg PO DAILY [facility] Last Admin: 09/15/16 09:35 Dose: 10 mg Docusate Sodium (Colace) 100 mg PO BID [facility] Last Admin: 09/15/16 09:29 Dose: 100 mg Escitalopram Oxalate (Lexapro) 5 mg PO DAILY [facility] Last Admin: 09/15/16 09:35 Dose: 5 mg Folic Acid (Folic Acid) 1 mg PO DAILY [facility] Last Admin: 09/15/16 09:29 Dose: 1 mg Gabapentin (Neurontin) 300 mg PO TID [facility] Last Admin: 09/15/16 13:44 Dose: 300 mg Potassium Chloride/Dextrose/Sod Cl (Potassium Chl 40 Meq In D5-1/2ns) 1,000 mls @ 125 mls/hr IV .Q8H [facility] Last Admin: 09/15/16 13:07 Dose: Not Given Lactulose (Enulose) 30 gm PO QID [facility] Last Admin: 09/15/16 13:45 Dose: 30 gm Lorazepam (Ativan) 2 mg IVP Q2H PRN PRN Reason: Seizure activity Lorazepam (Ativan) 2 mg PO Q6 [facility] Last Admin: 09/15/16 13:44 Dose: Not Given Morphine Sulfate (Morphine) 1 mg IVP Q4H PRN PRN Reason: Pain, severe (8-10) Last Admin: 09/10/16 01:01 Dose: 1 mg Ondansetron HCl (Zofran Inj) 4 mg IVP Q6 PRN PRN Reason: Nausea/Vomiting Pantoprazole Sodium (Protonix Ec Tab) 40 mg PO Q12H [facility] Last Admin: 09/15/16 09:28 Dose: 40 mg Prednisolone (Prednisolone) 32 mg PO HS [facility] Last Admin: 09/14/16 23:12 Dose: Not Given Quetiapine Fumarate (Seroquel) 200 mg PO DAILY [facility] Last Admin: 09/15/16 09:34 Dose: 200 mg Thiamine HCl (Vitamin B1 Inj) 100 mg IV DAILY [facility] Last Admin: 09/15/16 09:30 Dose: 100 mg Trazodone HCl (Desyrel) 50 mg PO [facility] Last Admin: 09/14/16 23:12 Dose: Not Given - Labs Labs: 09/15/16 07:12 09/15/16 07:12 PT 14.6 SECONDS (9.7-12.2) H 09/10/16 20:07 INR 1.3 09/10/16 20:07 APTT 40 SECONDS (21-34) H 09/10/16 04:00 - Constitutional Appears: Chronically Ill - Head Exam Additional comments: Appears deeply jaundiced - Eye Exam Eye Exam: Scleral icterus - Respiratory Exam Respiratory Exam: NORMAL BREATHING PATTERN - Cardiovascular Exam Cardiovascular Exam: REGULAR RHYTHM - GI/Abdominal Exam GI & Abdominal Exam: Soft. absent: Tenderness Assessment and Plan (1) Acute alcoholic hepatitis Assessment & Plan: Gradually improving with supportive care On Prednisolone due to elevated DF on presentation, foreboding increased mortality Status: Acute (2) Hypertension Status: Chronic (3) Thrombocytopenia Assessment & Plan: Improving with supportive care Status: Chronic (4) Alcohol withdrawal Assessment & Plan: Encephalopathy improving Status: Acute
--- NOTE | 2016-09-15 17:42 | CP.PCM.PN ---
<Bladimir Mccallum - Last Filed: 09/15/16 17:39> Subjective - Date & Time of Evaluation Date of Evaluation: 09/15/16 Time of Evaluation: 07:30 - Subjective Subjective: Dr. Mccallum PGY 1 Hospitalist Note Patient seen and evaluated at bedside with sitter present. He is somnolent but answers questions appropriately. He thinks he has" gotten over the hump" of withdrawals but still has a tremor. He says his abdominal pain has improved but still feels weak. He denies any nausea, vomiting, chest pain, or SOB. Per nursing, no adverse events over night. Objective - Vital Signs/Intake and Output Vital Signs (last 24 hours): Temp Pulse Resp BP Pulse Ox 98.6 F 80 20 96/61 L 97 09/15/16 16:12 09/15/16 16:12 09/15/16 16:12 09/15/16 16:12 09/15/16 16:12 Intake and Output: 09/15/16 09/15/16 06:59 18:59 Intake Total 1280 Output Total 450 Balance -450 1280 - Medications Medications: Current Medications Aripiprazole (Abilify) 10 mg PO DAILY [facility] Last Admin: 09/15/16 09:35 Dose: 10 mg Docusate Sodium (Colace) 100 mg PO BID [facility] Last Admin: 09/15/16 09:29 Dose: 100 mg Escitalopram Oxalate (Lexapro) 5 mg PO DAILY [facility] Last Admin: 09/15/16 09:35 Dose: 5 mg Folic Acid (Folic Acid) 1 mg PO DAILY [facility] Last Admin: 09/15/16 09:29 Dose: 1 mg Gabapentin (Neurontin) 300 mg PO TID [facility] Last Admin: 09/15/16 13:44 Dose: 300 mg Potassium Chloride/Dextrose/Sod Cl (Potassium Chl 40 Meq In D5-1/2ns) 1,000 mls @ 125 mls/hr IV .Q8H [facility] Last Admin: 09/15/16 13:07 Dose: Not Given Lactulose (Enulose) 30 gm PO QID [facility] Last Admin: 09/15/16 13:45 Dose: 30 gm Lorazepam (Ativan) 2 mg IVP Q2H PRN PRN Reason: Seizure activity Lorazepam (Ativan) 2 mg PO Q6 [facility] Last Admin: 09/15/16 13:44 Dose: Not Given Morphine Sulfate (Morphine) 1 mg IVP Q4H PRN PRN Reason: Pain, severe (8-10) Last Admin: 09/10/16 01:01 Dose: 1 mg Ondansetron HCl (Zofran Inj) 4 mg IVP Q6 PRN PRN Reason: Nausea/Vomiting Pantoprazole Sodium (Protonix Ec Tab) 40 mg PO Q12H [facility] Last Admin: 09/15/16 09:28 Dose: 40 mg Prednisolone (Prednisolone) 32 mg PO [facility] Last Admin: 09/14/16 23:12 Dose: Not Given Quetiapine Fumarate (Seroquel) 200 mg PO DAILY [facility] Last Admin: 09/15/16 09:34 Dose: 200 mg Thiamine HCl (Vitamin B1 Inj) 100 mg IV DAILY [facility] Last Admin: 09/15/16 09:30 Dose: 100 mg Trazodone HCl (Desyrel) 50 mg PO [facility] Last Admin: 09/14/16 23:12 Dose: Not Given - Labs Labs: 09/15/16 07:12 09/15/16 07:12 PT 14.6 SECONDS (9.7-12.2) H 09/10/16 20:07 INR 1.3 09/10/16 20:07 APTT 40 SECONDS (21-34) H 09/10/16 04:00 - Constitutional Appears: Toxic, Other (jaundiced) - Head Exam Head Exam: ATRAUMATIC, NORMOCEPHALIC - Eye Exam Eye Exam: EOMI, PERRL, Scleral icterus Pupil Exam: NORMAL ACCOMODATION, PERRL - ENT Exam ENT Exam: Mucous Membranes Moist, Normal Oropharynx - Respiratory Exam Respiratory Exam: Clear to Ausculation Bilateral, NORMAL BREATHING PATTERN. absent: Rales, Rhonchi, Wheezes - Cardiovascular Exam Cardiovascular Exam: REGULAR RHYTHM, +S1, +S2. absent: Gallop, Rubs, Murmur - GI/Abdominal Exam GI & Abdominal Exam: Soft, Tenderness (LLQ and RUQ) - Extremities Exam Extremities Exam: Normal Inspection. absent: Pedal Edema, Tenderness - Back Exam Back Exam: NORMAL INSPECTION. absent: rash noted, tenderness - Neurological Exam Neurological Exam: Alert, Awake, CN II-XII Intact, Oriented x3 - Psychiatric Exam Psychiatric exam: Depressed - Skin Skin Exam: Dry, Intact, Warm. absent: Normal Color (jaundiced) Assessment and Plan - Assessment and Plan (Free Text) Assessment: This is a 51 yo male presenting with hepatic encephalopathy Plan: Abdominal Pain * GI consult, Dr. Gutierrez, help appreciated * CT abd/pelvis showed: no acute disease process {see full report} * ABUS shows: fatty liver infiltration [see full report] * Altered gi/hepatic diet * EGD cancelled due to thrombocytopenia * Pain controlled, morphine 1 q 4 prn * Protonix 40 mg IVP Q12H * zofran 4 mg q6 * Lactulose 30gm PO QID * monitor bp GI Bleed * GI consult, Dr. Gutierrez/[place], help appreciated * Protonix 40 mg IVP Q12H * FOBT + * B12 >1000, Ferritin 1930 * Trend hgb and hct (stable) Transaminitis * AST 94, ALT 59, Alk 203 (improving) * GI consult, Dr. Gutierrez, help appreciated * Hep panel and HIV negative * lipase normal Nausea/vomiting * Zofran 4 mg IVP Q6H Alcohol Abuse * Ativan 2 mg IVP Q6 IFTIKHAR * Ativan 2 Q PRN * CIWA protocol * aspiration precautions * seizure precautions * fall risk * Alcohol 173 on admission * gabapentin 300 tid Schizophrenia * haldol 5mg PO BID (dc due to LFT's and thrombocytopenia) * continue abilify 10mg po daily * continue seroquel 200mg PO daily * continue trazodone 50mg PO HS Depression * Seroquel 200 mg PO daily * continue lexaprol 5 PO daily Constipation * Colace 100mg PO BID * Lactulose 30gm QID Thrombocytopenia * likely alcohol induced * hold nephrotoxic medications * around baseline, hold transfusions as per heme/onc * bleeding in mouth, hold procedure Electrolyte Imbalance * replenish Potassium and Mag * phos normal today * replenish phos if low * f/u repeat in AM Prophylactic measure * SCDs * protonix 40mg IVP Q12H * Trazodone HCl 50 mg PO HS IFTIKHAR (home med) Assesment and plan discussed with attending physician <Fadi Santiago - Last Filed: 09/15/16 18:17> Objective - Vital Signs/Intake and Output Vital Signs (last 24 hours): Temp Pulse Resp BP Pulse Ox 98.6 F 80 20 96/61 L 97 09/15/16 16:12 09/15/16 16:12 09/15/16 16:12 09/15/16 16:12 09/15/16 16:12 Intake and Output: 09/15/16 09/15/16 06:59 18:59 Intake Total 1280 Output Total 450 Balance -450 1280 - Medications Medications: Current Medications Aripiprazole (Abilify) 10 mg PO DAILY [facility] Last Admin: 09/15/16 09:35 Dose: 10 mg Docusate Sodium (Colace) 100 mg PO BID [facility] Last Admin: 09/15/16 17:44 Dose: 100 mg Escitalopram Oxalate (Lexapro) 5 mg PO DAILY [facility] Last Admin: 09/15/16 09:35 Dose: 5 mg Folic Acid (Folic Acid) 1 mg PO DAILY [facility] Last Admin: 09/15/16 09:29 Dose: 1 mg Gabapentin (Neurontin) 300 mg PO TID [facility] Last Admin: 09/15/16 17:44 Dose: 300 mg Potassium Chloride/Dextrose/Sod Cl (Potassium Chl 40 Meq In D5-1/2ns) 1,000 mls @ 125 mls/hr IV .Q8H [facility] Last Admin: 09/15/16 13:07 Dose: Not Given Lactulose (Enulose) 30 gm PO QID [facility] Last Admin: 09/15/16 17:43 Dose: 30 gm Lorazepam (Ativan) 2 mg IVP Q2H PRN PRN Reason: Seizure activity Lorazepam (Ativan) 2 mg PO Q6 [facility] Last Admin: 09/15/16 17:44 Dose: 2 mg Morphine Sulfate (Morphine) 1 mg IVP Q4H PRN PRN Reason: Pain, severe (8-10) Last Admin: 09/10/16 01:01 Dose: 1 mg Ondansetron HCl (Zofran Inj) 4 mg IVP Q6 PRN PRN Reason: Nausea/Vomiting Pantoprazole Sodium (Protonix Ec Tab) 40 mg PO Q12H [facility] Last Admin: 09/15/16 09:28 Dose: 40 mg Prednisolone (Prednisolone) 32 mg PO HS [facility] Last Admin: 09/14/16 23:12 Dose: Not Given Quetiapine Fumarate (Seroquel) 200 mg PO DAILY [facility] Last Admin: 09/15/16 09:34 Dose: 200 mg Thiamine HCl (Vitamin B1 Inj) 100 mg IV DAILY [facility] Last Admin: 09/15/16 09:30 Dose: 100 mg Trazodone HCl (Desyrel) 50 mg PO HS [facility] Last Admin: 09/14/16 23:12 Dose: Not Given - Labs Labs: 09/15/16 07:12 09/15/16 07:12 PT 14.6 SECONDS (9.7-12.2) H 09/10/16 20:07 INR 1.3 09/10/16 20:07 APTT 40 SECONDS (21-34) H 09/10/16 04:00 Attending/Attestation - Attestation I have personally seen and examined this patient.: Yes I have fully participated in the care of the patient.: Yes I have reviewed all pertinent clinical information, including history, physical exam and plan: Yes Notes (Text): 09/15/16 18:14 Medical Attending: Patient was seen and examined by me. He is well known to the hospitalist service as well as the hospital in general. His numbers are very concerning and the overall prognosis is poor, his T billirubin remains elevated. from what I am being told his mental status is more alert today but when I saw him he still seems to be confused and slow affect. Ammonia level was higher before, he is getting lactulose. As mentioned before, the patient has been in the ER/hospital numerous times and still uses alcohol. Prognosis is very guarded at this time. Fadi Santiago
[2016-09-15] MEDS: PrednisoLONE 6 MG/2 ML SYR PO SCH (22:15)
[2016-09-16] MEDS: Potassium Chl 40 mEq in D5-1/2 1,000 ML IV SCH ×5 (04:46→21:06)
--- NOTE | 2016-09-16 08:28 | CP.PCM.PN ---
Subjective - Date & Time of Evaluation Date of Evaluation: 09/16/16 Time of Evaluation: 08:25 - Subjective Subjective: F/u alcohol liver disease. Pt is more alert. Less abdom pain Denies RB, melena, fever, chills, CP SOB, SANTILLAN cough, SZ, hemoptysis Objective - Vital Signs/Intake and Output Vital Signs (last 24 hours): Temp Pulse Resp BP Pulse Ox 98.8 F 87 20 100/65 95 09/15/16 23:00 09/15/16 23:00 09/15/16 23:00 09/15/16 23:00 09/15/16 23:00 Intake and Output: 09/16/16 09/16/16 06:59 18:59 Intake Total 500 Balance 500 - Medications Medications: Current Medications Aripiprazole (Abilify) 10 mg PO DAILY [facility] Last Admin: 09/15/16 09:35 Dose: 10 mg Docusate Sodium (Colace) 100 mg PO BID [facility] Last Admin: 09/15/16 17:44 Dose: 100 mg Escitalopram Oxalate (Lexapro) 5 mg PO DAILY [facility] Last Admin: 09/15/16 09:35 Dose: 5 mg Folic Acid (Folic Acid) 1 mg PO DAILY [facility] Last Admin: 09/15/16 09:29 Dose: 1 mg Gabapentin (Neurontin) 300 mg PO TID [facility] Last Admin: 09/15/16 17:44 Dose: 300 mg Potassium Chloride/Dextrose/Sod Cl (Potassium Chl 40 Meq In D5-1/2ns) 1,000 mls @ 125 mls/hr IV .Q8H [facility] Last Admin: 09/16/16 04:46 Dose: Not Given Lactulose (Enulose) 30 gm PO QID [facility] Last Admin: 09/15/16 22:15 Dose: 30 gm Lorazepam (Ativan) 2 mg IVP Q2H PRN PRN Reason: Seizure activity Lorazepam (Ativan) 2 mg PO Q6 [facility] Last Admin: 09/16/16 05:46 Dose: Not Given Morphine Sulfate (Morphine) 1 mg IVP Q4H PRN PRN Reason: Pain, severe (8-10) Last Admin: 09/10/16 01:01 Dose: 1 mg Ondansetron HCl (Zofran Inj) 4 mg IVP Q6 PRN PRN Reason: Nausea/Vomiting Pantoprazole Sodium (Protonix Ec Tab) 40 mg PO Q12H [facility] Last Admin: 09/15/16 22:17 Dose: 40 mg Prednisolone (Prednisolone) 32 mg PO HS [facility] Last Admin: 09/15/16 22:15 Dose: 32 mg Quetiapine Fumarate (Seroquel) 200 mg PO DAILY [facility] Last Admin: 09/15/16 09:34 Dose: 200 mg Thiamine HCl (Vitamin B1 Inj) 100 mg IV DAILY [facility] Last Admin: 09/15/16 09:30 Dose: 100 mg Trazodone HCl (Desyrel) 50 mg PO HS [facility] Last Admin: 09/15/16 22:14 Dose: 50 mg - Labs Labs: 09/15/16 07:12 09/15/16 07:12 PT 14.6 SECONDS (9.7-12.2) H 09/10/16 20:07 INR 1.3 09/10/16 20:07 APTT 40 SECONDS (21-34) H 09/10/16 04:00 - Constitutional Appears: Non-toxic - Eye Exam Eye Exam: Scleral icterus - Respiratory Exam Respiratory Exam: Clear to Ausculation Bilateral - Cardiovascular Exam Cardiovascular Exam: RRR - GI/Abdominal Exam GI & Abdominal Exam: Soft, Normal Bowel Sounds. absent: Guarding, Mass, Rebound - Extremities Exam Extremities Exam: absent: Calf Tenderness - Neurological Exam Neurological Exam: Alert, Awake, Oriented x3 Assessment and Plan (1) Abdominal pain Assessment & Plan: Likely etoh gastritis. Less pain Continue PPI Status: Acute (2) Acute alcoholic hepatitis Status: Acute (3) Jaundice Status: Acute (4) Hypokalemia Status: Acute (5) Chronic alcohol abuse Status: Chronic (6) GI bleed Assessment & Plan: Hb is sable. Should consider EGD. Will schedule for thursday. Status: Acute
[2016-09-16 09:03] LABS: CHLORIDE 98 mmol/L (98-107); SODIUM 132 mmol/L (132-148)
[2016-09-16 09:04] LABS: INR 1.1
[2016-09-16 09:06] LABS: ALB/GLOB RATIO 0.7 (1.0-2.1); ALKALINE PHOSPHATASE 207 U/L (38-126); AST/SGOT 85 U/L (17-59); CARBON DIOXIDE 23 mmol/L (22-30); GFR AFRICAN-AMERICAN > 60; TOTAL PROTEIN 7.4 g/dL (6.3-8.3)
[2016-09-16 09:07] LABS: ALT/SGPT 58 U/L (21-72); BLOOD UREA NITROGEN 5 mg/dL (9-20); CALCIUM 8.6 mg/dl (8.6-10.4); GLUCOSE,RANDOM 125 mg/dL (75-110)
[2016-09-16 09:19] LABS: HEMATOCRIT 32.1 % (35.0-51.0); MEAN CELL VOLUME 98.4 fL (80.0-94.0); MEAN CORPUSCULAR HEMOGLOBIN 34.2 pg (27.0-31.0); MEAN CORPUSCULAR HGB CONC 34.8 g/dL (33.0-37.0); MEAN PLATELET VOLUME 11.3 fL (7.2-11.7); RED CELL DISTRIBUTION WIDTH 15.1 % (11.5-14.5); WHITE BLOOD COUNT 8.9 K/uL (4.8-10.8)
--- NOTE | 2016-09-16 09:42 | CP.PCM.PN ---
<Bladimir Mccallum - Last Filed: 09/16/16 19:29> Subjective - Date & Time of Evaluation Date of Evaluation: 09/16/16 Time of Evaluation: 07:30 - Subjective Subjective: Hospitalist Note- Dr. Santiago's service Patient seen and evaluated at bedside. He reports being tired and less shaky. He denies any bleeding, abdominal pain, SOB, fever, or chills. Per nursing, no adverse events. Objective - Vital Signs/Intake and Output Vital Signs (last 24 hours): Temp Pulse Resp BP Pulse Ox 98.8 F 87 20 100/65 95 09/15/16 23:00 09/15/16 23:00 09/15/16 23:00 09/15/16 23:00 09/15/16 23:00 Intake and Output: 09/16/16 09/16/16 06:59 18:59 Intake Total 500 Balance 500 - Medications Medications: Current Medications Aripiprazole (Abilify) 10 mg PO DAILY [facility] Last Admin: 09/15/16 09:35 Dose: 10 mg Docusate Sodium (Colace) 100 mg PO BID [facility] Last Admin: 09/15/16 17:44 Dose: 100 mg Escitalopram Oxalate (Lexapro) 5 mg PO DAILY [facility] Last Admin: 09/15/16 09:35 Dose: 5 mg Folic Acid (Folic Acid) 1 mg PO DAILY [facility] Last Admin: 09/15/16 09:29 Dose: 1 mg Gabapentin (Neurontin) 300 mg PO TID [facility] Last Admin: 09/15/16 17:44 Dose: 300 mg Potassium Chloride/Dextrose/Sod Cl (Potassium Chl 40 Meq In D5-1/2ns) 1,000 mls @ 125 mls/hr IV .Q8H [facility] Last Admin: 09/16/16 08:37 Dose: 125 mls/hr Lactulose (Enulose) 30 gm PO QID [facility] Last Admin: 09/15/16 22:15 Dose: 30 gm Lorazepam (Ativan) 2 mg IVP Q2H PRN PRN Reason: Seizure activity Lorazepam (Ativan) 2 mg PO Q6 [facility] Last Admin: 09/16/16 05:46 Dose: Not Given Morphine Sulfate (Morphine) 1 mg IVP Q4H PRN PRN Reason: Pain, severe (8-10) Last Admin: 09/10/16 01:01 Dose: 1 mg Ondansetron HCl (Zofran Inj) 4 mg IVP Q6 PRN PRN Reason: Nausea/Vomiting Pantoprazole Sodium (Protonix Ec Tab) 40 mg PO Q12H [facility] Last Admin: 09/15/16 22:17 Dose: 40 mg Prednisolone (Prednisolone) 32 mg PO HS [facility] Last Admin: 09/15/16 22:15 Dose: 32 mg Quetiapine Fumarate (Seroquel) 200 mg PO DAILY [facility] Last Admin: 09/15/16 09:34 Dose: 200 mg Thiamine HCl (Vitamin B1 Inj) 100 mg IV DAILY [facility] Last Admin: 09/15/16 09:30 Dose: 100 mg Trazodone HCl (Desyrel) 50 mg PO HS [facility] Last Admin: 09/15/16 22:14 Dose: 50 mg - Labs Labs: 09/16/16 08:42 09/16/16 08:42 PT 12.8 SECONDS (9.7-12.2) H 09/16/16 08:42 INR 1.1 09/16/16 08:42 APTT 40 SECONDS (21-34) H 09/10/16 04:00 - Constitutional Appears: Toxic, Other (jaundiced) - Head Exam Head Exam: ATRAUMATIC, NORMOCEPHALIC - Eye Exam Eye Exam: EOMI, PERRL, Scleral icterus Pupil Exam: NORMAL ACCOMODATION, PERRL - ENT Exam ENT Exam: Mucous Membranes Moist, Normal Oropharynx - Respiratory Exam Respiratory Exam: Clear to Ausculation Bilateral, NORMAL BREATHING PATTERN. absent: Rales, Rhonchi, Wheezes - Cardiovascular Exam Cardiovascular Exam: REGULAR RHYTHM, +S1, +S2. absent: Gallop, Rubs, Murmur - GI/Abdominal Exam GI & Abdominal Exam: Soft, Normal Bowel Sounds. absent: Tenderness - Extremities Exam Extremities Exam: Normal Capillary Refill, Normal Inspection. absent: Pedal Edema, Tenderness - Back Exam Back Exam: NORMAL INSPECTION. absent: rash noted, tenderness - Neurological Exam Neurological Exam: Alert, Awake, CN II-XII Intact, Oriented x3 - Psychiatric Exam Psychiatric exam: Depressed - Skin Skin Exam: Dry, Intact, Warm. absent: Normal Color (jaundiced) Assessment and Plan - Assessment and Plan (Free Text) Assessment: This is a 51 yo male presenting jaundiced with hepatic encephalopathy Plan: Abdominal Pain * GI consult, Dr. Gutierrez, help appreciated * CT abd/pelvis showed: no acute disease process {see full report} * ABUS shows: fatty liver infiltration [see full report] * Altered gi/hepatic diet * Pain controlled, morphine 1 q 4 prn * Protonix 40 mg IVP Q12H * zofran 4 mg q6 * Lactulose 30gm PO QID * monitor bp * Possible EGD tomorrow, make NPO after midnight GI Bleed * GI consult, Dr. Gutierrez/[place], help appreciated * Protonix 40 mg IVP Q12H * FOBT + * B12 >1000, Ferritin 1930 * Trend hgb and hct (stable) * Possible EGD tomorrow, make NPO after midnight Transaminitis * AST 85, ALT 58, Alk 207 (improving) * GI consult, Dr. Gutierrez, help appreciated * Hep panel and HIV negative * lipase normal Nausea/vomiting * Zofran 4 mg IVP Q6H Alcohol Abuse * Ativan 2 mg IVP Q6 IFTIKHAR * Ativan 2 Q PRN * CIWA protocol * aspiration precautions * seizure precautions * fall risk * Alcohol 173 on admission * gabapentin 300 tid Schizophrenia * haldol 5mg PO BID (dc due to LFT's and thrombocytopenia) * continue abilify 10mg po daily * continue seroquel 200mg PO daily * continue trazodone 50mg PO HS Depression * Seroquel 200 mg PO daily * continue lexaprol 5 PO daily Constipation * Colace 100mg PO BID * Lactulose 30gm QID Thrombocytopenia * likely alcohol induced * hold nephrotoxic medications * around baseline, hold transfusions as per heme/onc * bleeding in mouth, hold procedure Electrolyte Imbalance * replenish Potassium and Mag * replenish phos if low * f/u repeat in AM Prophylactic measure * SCDs * protonix 40mg IVP Q12H * Trazodone HCl 50 mg PO HS IFTIKHAR (home med) Assesment and plan discussed with attending physician <Fadi Santiago - Last Filed: 09/17/16 07:10> Objective - Vital Signs/Intake and Output Vital Signs (last 24 hours): Temp Pulse Resp BP Pulse Ox 97.5 F L 73 20 99/64 L 97 09/16/16 23:05 09/17/16 03:47 09/16/16 23:05 09/16/16 23:05 09/16/16 23:05 Intake and Output: 09/17/16 09/17/16 06:59 18:59 Intake Total 1600 Output Total 850 Balance 750 - Medications Medications: Current Medications Aripiprazole (Abilify) 10 mg PO DAILY [facility] Last Admin: 09/16/16 10:28 Dose: 10 mg Docusate Sodium (Colace) 100 mg PO BID [facility] Last Admin: 09/16/16 17:45 Dose: 100 mg Escitalopram Oxalate (Lexapro) 5 mg PO DAILY [facility] Last Admin: 09/16/16 10:28 Dose: 5 mg Folic Acid (Folic Acid) 1 mg PO DAILY [facility] Last Admin: 09/16/16 10:26 Dose: 1 mg Gabapentin (Neurontin) 300 mg PO TID [facility] Last Admin: 09/16/16 17:46 Dose: 300 mg Potassium Chloride/Dextrose/Sod Cl (Potassium Chl 40 Meq In D5-1/2ns) 1,000 mls @ 125 mls/hr IV .Q8H [facility] Last Admin: 09/17/16 04:00 Dose: Not Given Lactulose (Enulose) 30 gm PO QID [facility] Last Admin: 09/16/16 22:55 Dose: 30 gm Lorazepam (Ativan) 2 mg IVP Q2H PRN PRN Reason: Seizure activity Lorazepam (Ativan) 2 mg PO Q6 [facility] Last Admin: 09/17/16 05:25 Dose: 2 mg Morphine Sulfate (Morphine) 1 mg IVP Q4H PRN PRN Reason: Pain, severe (8-10) Last Admin: 09/10/16 01:01 Dose: 1 mg Ondansetron HCl (Zofran Inj) 4 mg IVP Q6 PRN PRN Reason: Nausea/Vomiting Pantoprazole Sodium (Protonix Ec Tab) 40 mg PO Q12H [facility] Last Admin: 09/16/16 22:56 Dose: 40 mg Prednisolone (Prednisolone) 32 mg PO HS [facility] Last Admin: 09/16/16 22:57 Dose: 32 mg Quetiapine Fumarate (Seroquel) 200 mg PO DAILY [facility] Last Admin: 09/16/16 10:28 Dose: 200 mg Thiamine HCl (Vitamin B1 Inj) 100 mg IV DAILY [facility] Last Admin: 09/16/16 10:28 Dose: 100 mg Trazodone HCl (Desyrel) 50 mg PO HS [facility] Last Admin: 09/16/16 22:56 Dose: 50 mg - Labs Labs: 09/16/16 08:42 09/16/16 08:42 PT 12.8 SECONDS (9.7-12.2) H 09/16/16 08:42 INR 1.1 09/16/16 08:42 APTT 40 SECONDS (21-34) H 09/10/16 04:00
[2016-09-16 10:15] LABS: EOS # 0.1 K/uL (0.0-0.7); LYMPH # 1.4 K/uL (1.0-4.3); MONO # 0.9 K/uL (0.0-0.8)
[2016-09-16] MEDS: Pantoprazole 40 mg EC Tab PO SCH ×2 (10:26→22:56)
[2016-09-16] MEDS: Thiamine 100 mg/ml Inj IV SCH (10:28)
[2016-09-16] MEDS: PrednisoLONE 6 MG/2 ML SYR PO SCH (22:57)
[2016-09-17] MEDS: Potassium Chl 40 mEq in D5-1/2 1,000 ML IV SCH ×3 (02:30→04:00)
[2016-09-17 07:53] LABS: INR 1.1
[2016-09-17 07:56] LABS: HEMATOCRIT 30.5 % (35.0-51.0); MEAN CELL VOLUME 98.3 fL (80.0-94.0); MEAN CORPUSCULAR HEMOGLOBIN 34.2 pg (27.0-31.0); MEAN CORPUSCULAR HGB CONC 34.8 g/dL (33.0-37.0); RED CELL DISTRIBUTION WIDTH 14.8 % (11.5-14.5); WHITE BLOOD COUNT 10.3 K/uL (4.8-10.8)
[2016-09-17 08:21] LABS: CHLORIDE 99 mmol/L (98-107)
[2016-09-17 08:22] LABS: POTASSIUM 4.3 mmol/L (3.6-5.2); SODIUM 134 mmol/L (132-148)
[2016-09-17 08:24] LABS: GFR AFRICAN-AMERICAN > 60
[2016-09-17 08:25] LABS: ALB/GLOB RATIO 0.8 (1.0-2.1); ALKALINE PHOSPHATASE 196 U/L (38-126); ALT/SGPT 55 U/L (21-72); AST/SGOT 87 U/L (17-59); BILIRUBIN,TOTAL 24.7 mg/dL (0.2-1.3); BLOOD UREA NITROGEN 7 mg/dL (9-20); CALCIUM 8.6 mg/dl (8.6-10.4); CARBON DIOXIDE 21 mmol/L (22-30); GLUCOSE,RANDOM 124 mg/dL (75-110); TOTAL PROTEIN 7.4 g/dL (6.3-8.3)
[2016-09-17] MEDS: Thiamine 100 mg/ml Inj IV SCH (09:12)
[2016-09-17] MEDS: Pantoprazole 40 mg EC Tab PO SCH (09:12)
[2016-09-17] MEDS ORDERED: Propofol 10 mg/ml Inj (20 ML) ONE (10:59)
[2016-09-17] MEDS ORDERED: Lidocaine Hydrochloride 5 ML INJ ONE (11:17)
[2016-09-17] MEDS ORDERED: Lactated Ringer's 500 ML IV SCH (11:30)
[2016-09-17 12:14] VITALS: TEMP 97.1
[2016-09-17 12:16] VITALS: BP 113/76; PULSE 65; RESP 14; O2SAT 95
--- NOTE | 2016-09-17 13:16 | CP.PCM.DIS ---
<Bladimir Mccallum - Last Filed: 09/17/16 17:41> Provider - Provider Date of Admission: 09/09/16 20:14 Attending physician: Marie Arthur DO Consults: Dr. Yaya Brock Time Spent in preparation of Discharge (in minutes): 45 Hospital Course - Lab Results Lab Results: Most Recent Lab Values WBC 10.3 K/uL (4.8-10.8) 09/17/16 07:32 RBC 3.11 Mil/uL (4.40-5.90) L 09/17/16 07:32 Hgb 10.6 g/dL (12.0-18.0) L 09/17/16 07:32 Hct 30.5 % (35.0-51.0) L 09/17/16 07:32 MCV 98.3 fL (80.0-94.0) H 09/17/16 07:32 MCH 34.2 pg (27.0-31.0) H 09/17/16 07:32 MCHC 34.8 g/dL (33.0-37.0) 09/17/16 07:32 RDW 14.8 % (11.5-14.5) H 09/17/16 07:32 Plt Count 120 K/uL (130-400) L D 09/17/16 07:32 MPV 11.0 fL (7.2-11.7) 09/17/16 07:32 Neut % (Auto) 73.0 % (50.0-75.0) 09/16/16 08:42 Lymph % (Auto) 16.0 % (20.0-40.0) L 09/16/16 08:42 [place] % (Auto) 10.0 % (0.0-10.0) 09/16/16 08:42 Eos % (Auto) 1.0 % (0.0-4.0) 09/16/16 08:42 Baso % (Auto) 0.0 % (0.0-2.0) 09/16/16 08:42 Neut # 6.5 K/uL (1.8-7.0) 09/16/16 08:42 Lymph # 1.4 K/uL (1.0-4.3) 09/16/16 08:42 [place] # 0.9 K/uL (0.0-0.8) H 09/16/16 08:42 Eos # 0.1 K/uL (0.0-0.7) 09/16/16 08:42 Baso # 0.0 K/uL (0.0-0.2) 09/16/16 08:42 Neutrophils % (Manual) 73 % (50-75) 09/10/16 20:07 Band Neutrophils % TEST NOT PERFORMED 09/10/16 20:07 Lymphocytes % (Manual) 17 % (20-40) L 09/10/16 20:07 Monocytes % (Manual) 7 % (0-10) 09/10/16 20:07 Eosinophils % (Manual) 2 % (0-4) 09/10/16 20:07 Basophils % (Manual) 1 % (0-2) 09/10/16 20:07 Differential Comment 09/17/16 07:32 Platelet Estimate Decreased (NORMAL) L 09/10/16 20:07 Large Platelets Present 09/10/16 20:07 Anisocytosis (manual) Slight 09/09/16 18:25 Microcytosis (manual) Slight 09/10/16 20:07 Schistocytes Slight 09/10/16 20:07 PT 12.5 SECONDS (9.7-12.2) H 09/17/16 07:40 INR 1.1 09/17/16 07:40 APTT 36 SECONDS (21-34) H 09/17/16 07:40 Sodium 134 mmol/L (132-148) 09/17/16 07:32 Potassium 4.3 mmol/L (3.6-5.2) 09/17/16 07:32 Chloride 99 mmol/L (98-107) 09/17/16 07:32 Carbon Dioxide 21 mmol/L (22-30) L 09/17/16 07:32 Anion Gap 18 (10-20) 09/17/16 07:32 BUN 7 mg/dL (9-20) L 09/17/16 07:32 Creatinine 0.7 MG/DL (0.8-1.5) L 09/17/16 07:32 Est GFR ( Amer) > 60 09/17/16 07:32 Est GFR (Non-Af Amer) > 60 09/17/16 07:32 POC Glucose (mg/dL) 140 mg/dL (65-110) H 09/17/16 06:32 Random Glucose 124 mg/dL (75-110) H 09/17/16 07:32 Calcium 8.6 mg/dl (8.6-10.4) 09/17/16 07:32 Phosphorus 2.3 mg/dL (2.5-4.5) L 09/15/16 07:12 Magnesium 1.6 mg/dL (1.6-2.3) 09/15/16 07:12 Ferritin 1930.0 ng/mL 09/11/16 05:58 Total Bilirubin 24.7 mg/dL (0.2-1.3) H 09/17/16 07:32 Direct Bilirubin 21.4 mg/dL (0.0-0.4) H 09/12/16 08:13 AST 87 U/L (17-59) H 09/17/16 07:32 ALT 55 U/L (21-72) 09/17/16 07:32 Alkaline Phosphatase 196 U/L (38-126) H 09/17/16 07:32 Ammonia 65 umol/L (9-33) H D 09/16/16 08:42 Total Creatine Kinase 32 U/L (55-170) L 09/10/16 04:00 CK-MB (Mass) 0.24 ng/mL (0.0-3.38) 09/10/16 04:00 Troponin I, Quant 0.0140 ng/mL (0.00-0.120) 09/10/16 04:00 Total Protein 7.4 g/dL (6.3-8.3) 09/17/16 07:32 Albumin 3.2 g/dL (3.5-5.0) L 09/17/16 07:32 Globulin 4.2 gm/dL (2.2-3.9) H 09/17/16 07:32 Albumin/Globulin Ratio 0.8 (1.0-2.1) L 09/17/16 07:32 Amylase 44 U/L (30-110) 09/09/16 19:11 Lipase 100 U/L (23-300) 09/10/16 04:00 Vitamin B12 > 1000 pg/mL (239-931) H 09/11/16 05:58 TSH 3rd Generation 1.73 mIU/L (0.46-4.68) 09/11/16 05:58 Urine Color Hanna (YELLOW) 09/09/16 18:25 Urine Clarity Hazy (Clear) 09/09/16 18:25 Urine pH 5.0 (5.0-8.0) 09/09/16 18:25 Ur Specific [place] 1.019 (1.003-1.030) 09/09/16 18:25 Urine Protein 1+ mg/dL (NEGATIVE) H 09/09/16 18:25 Urine Glucose (UA) 1+ mg/dL (Normal) H 09/09/16 18:25 Urine Ketones Negative mg/dL (NEGATIVE) 09/09/16 18:25 Urine Blood Trace (NEGATIVE) H 09/09/16 18:25 Urine Nitrate Negative (NEGATIVE) 09/09/16 18:25 Urine Bilirubin 2+ (NEGATIVE) H 09/09/16 18:25 Urine Urobilinogen 4.0 mg/dL (0.2-1.0) 09/09/16 18:25 Ur Leukocyte Esterase Neg Ruiz/uL (Negative) 09/09/16 18:25 Urine RBC (Auto) 3 /hpf (0-3) 09/09/16 18:25 Ur Squamous Epith Cells 5 /hpf (0-5) 09/09/16 18:25 Urine Bacteria Rare (<OCC) 09/09/16 18:25 Hyaline Casts 11-20 /lpf (0-2) H 09/09/16 18:25 Stool Occult Blood Positive (NEGATIVE) H 09/09/16 18:41 Urine Opiates Screen Negative (NEGATIVE) 09/09/16 18:25 Urine Methadone Screen Negative (NEGATIVE) 09/09/16 18:25 Ur Barbiturates Screen Negative (NEGATIVE) 09/09/16 18:25 Ur Phencyclidine Scrn Negative (NEGATIVE) 09/09/16 18:25 Ur Amphetamines Screen Negative (NEGATIVE) 09/09/16 18:25 U Benzodiazepines Scrn Positive (NEGATIVE) 09/09/16 18:25 U Oth Cocaine Metabols Negative (NEGATIVE) 09/09/16 18:25 U Cannabinoids Screen Negative (NEGATIVE) 09/09/16 18:25 Alcohol, Quantitative 173 mg/dl (0-10) H 09/09/16 19:11 Hepatitis A IgM Ab Negative (NEGATIVE) 09/10/16 11:43 Hep Bs Antigen Negative (NEGATIVE) 09/10/16 11:43 Hep B Core IgM Ab Negative (NEGATIVE) 09/10/16 11:43 Hepatitis C Antibody Negative (NEGATIVE) 09/10/16 11:43 HIV 1&2 Antibody Screen Negative (NEGATIVE) 09/10/16 11:43 - Hospital Course Hospital Course: CC: "stomach pain, nausea/vomiting" 51 yo male with past medical history of HTN, schizophrenia, and alcoholism presents to [facility] ED with complaint of abdominal pain and nausea/vomiting. Patient stated that he has had these symptoms for about 4-5 days. Earlier today, patient went to Dr. Schmidt's office to see him for these symptoms and instructed him to come to the hospital because he looked yellow. Patient only had one drink today at 1030 AM. He normally has 4-6 beers per day. Patient has experienced these symptoms before when he was hospitalized a couple months ago. Patient stated his symptoms had a gradual onset and have progressively gotten worse. He rates the abdominal pain as 8/10 in severity. He described the pain as constant, sharp pain in epigastric region radiating toward his chest. He stated that palpation exacerbates his pain while nothing alleviates it. He also reports dark stools with occasional episode of bright red blood. Patient reports lower leg numbness and falls. Patient ambulates with a cane at baseline. Admits to hematochezia, melena, chills, diaphoresis, weakness, abdominal pain, n/v, leg pain, back pain, lack of appetite. Denies hematemesis, hemotypsis, SOB, incontinence. Hospital Course: Patient is a 51 y/o M who presented with abdominal pain, jaundice, nausea, and vomiting. A CT abd/pelvis showed no acute disease process. Abdominal ultrasound showed fatty liver infiltration. He was found to be thrombocytopenic, hyperbilirubemic, and fecal occult blood test positive. GI was consulted. He was placed on CIWAA protocol and seizure protocol and Ativan taper. He began to have withdrawal symptoms and bleeding at the gums and lips and heme/onc and critical care were consulted. He was determined not a candidate of the ICU at that time. He was started on lactulose and his ammonia level decreased. After his mental status improved, as well as his platelet count , he was scheduled for an EGD. The EGD was performed but it showed food in his stomach. He requested to sign out AMA. He was fully competent and oriented x3. He was advised to risks of signing out AMA and determined he wished to leave and he signed out AMA. This is a brief summary of the patient's stay at this facility. For more detail , see patient's full chart. - Date & Time of H&P Date of H&P: 09/09/16 Time of H&P: 22:15 Discharge Exam - Head Exam Head Exam: ATRAUMATIC, NORMOCEPHALIC - Eye Exam Eye Exam: EOMI, PERRL, Scleral icterus Pupil Exam: NORMAL ACCOMODATION, PERRL - ENT Exam ENT Exam: Mucous Membranes Moist, Normal Oropharynx - Neck Exam Neck exam: Normal Inspection - Respiratory Exam Respiratory Exam: Clear to PA & Lateral, NORMAL BREATHING PATTERN. absent: Rales, Rhonchi, Wheezes - Cardiovascular Exam Cardiovascular Exam: REGULAR RHYTHM, +S1, +S2. absent: Gallop, Rubs, Systolic Murmur - GI/Abdominal Exam GI & Abdominal Exam: Normal Bowel Sounds, Soft. absent: Distended, Tenderness - Extremities Exam Extremities exam: normal capillary refill, normal inspection, pedal pulses present - Back Exam Back exam: NORMAL INSPECTION. absent: rash noted, tenderness - Neurological Exam Neurological exam: Alert, CN II-XII Intact, Normal Gait, Oriented x3 - Psychiatric Exam Psychiatric exam: Depressed - Skin Skin Exam: Dry, Intact, Warm Additional comments: jaundiced Discharge Plan - Follow Up Plan Condition: STABLE Disposition: AGAINST MEDICAL ADVICE <Fadi Santiago - Last Filed: 09/17/16 18:14> Provider - Provider Date of Admission: 09/09/16 20:14 Attending physician: Fadi Santiago DO Hospital Course - Lab Results Lab Results: Most Recent Lab Values WBC 10.3 K/uL (4.8-10.8) 09/17/16 07:32 RBC 3.11 Mil/uL (4.40-5.90) L 09/17/16 07:32 Hgb 10.6 g/dL (12.0-18.0) L 09/17/16 07:32 Hct 30.5 % (35.0-51.0) L 09/17/16 07:32 MCV 98.3 fL (80.0-94.0) H 09/17/16 07:32 MCH 34.2 pg (27.0-31.0) H 09/17/16 07:32 MCHC 34.8 g/dL (33.0-37.0) 09/17/16 07:32 RDW 14.8 % (11.5-14.5) H 09/17/16 07:32 Plt Count 120 K/uL (130-400) L D 09/17/16 07:32 MPV 11.0 fL (7.2-11.7) 09/17/16 07:32 Neut % (Auto) 73.0 % (50.0-75.0) 09/16/16 08:42 Lymph % (Auto) 16.0 % (20.0-40.0) L 09/16/16 08:42 [place] % (Auto) 10.0 % (0.0-10.0) 09/16/16 08:42 Eos % (Auto) 1.0 % (0.0-4.0) 09/16/16 08:42 Baso % (Auto) 0.0 % (0.0-2.0) 09/16/16 08:42 Neut # 6.5 K/uL (1.8-7.0) 09/16/16 08:42 Lymph # 1.4 K/uL (1.0-4.3) 09/16/16 08:42 [place] # 0.9 K/uL (0.0-0.8) H 09/16/16 08:42 Eos # 0.1 K/uL (0.0-0.7) 09/16/16 08:42 Baso # 0.0 K/uL (0.0-0.2) 09/16/16 08:42 Neutrophils % (Manual) 73 % (50-75) 09/10/16 20:07 Band Neutrophils % TEST NOT PERFORMED 09/10/16 20:07 Lymphocytes % (Manual) 17 % (20-40) L 09/10/16 20:07 Monocytes % (Manual) 7 % (0-10) 09/10/16 20:07 Eosinophils % (Manual) 2 % (0-4) 09/10/16 20:07 Basophils % (Manual) 1 % (0-2) 09/10/16 20:07 Differential Comment 09/17/16 07:32 Platelet Estimate Decreased (NORMAL) L 09/10/16 20:07 Large Platelets Present 09/10/16 20:07 Anisocytosis (manual) Slight 09/09/16 18:25 Microcytosis (manual) Slight 09/10/16 20:07 Schistocytes Slight 09/10/16 20:07 PT 12.5 SECONDS (9.7-12.2) H 09/17/16 07:40 INR 1.1 09/17/16 07:40 APTT 36 SECONDS (21-34) H 09/17/16 07:40 Sodium 134 mmol/L (132-148) 09/17/16 07:32 Potassium 4.3 mmol/L (3.6-5.2) 09/17/16 07:32 Chloride 99 mmol/L (98-107) 09/17/16 07:32 Carbon Dioxide 21 mmol/L (22-30) L 09/17/16 07:32 Anion Gap 18 (10-20) 09/17/16 07:32 BUN 7 mg/dL (9-20) L 09/17/16 07:32 Creatinine 0.7 MG/DL (0.8-1.5) L 09/17/16 07:32 Est GFR ( Amer) > 60 09/17/16 07:32 Est GFR (Non-Af Amer) > 60 09/17/16 07:32 POC Glucose (mg/dL) 140 mg/dL (65-110) H 09/17/16 06:32 Random Glucose 124 mg/dL (75-110) H 09/17/16 07:32 Calcium 8.6 mg/dl (8.6-10.4) 09/17/16 07:32 Phosphorus 2.3 mg/dL (2.5-4.5) L 09/15/16 07:12 Magnesium 1.6 mg/dL (1.6-2.3) 09/15/16 07:12 Ferritin 1930.0 ng/mL 09/11/16 05:58 Total Bilirubin 24.7 mg/dL (0.2-1.3) H 09/17/16 07:32 Direct Bilirubin 21.4 mg/dL (0.0-0.4) H 09/12/16 08:13 AST 87 U/L (17-59) H 09/17/16 07:32 ALT 55 U/L (21-72) 09/17/16 07:32 Alkaline Phosphatase 196 U/L (38-126) H 09/17/16 07:32 Ammonia 65 umol/L (9-33) H D 09/16/16 08:42 Total Creatine Kinase 32 U/L (55-170) L 09/10/16 04:00 CK-MB (Mass) 0.24 ng/mL (0.0-3.38) 09/10/16 04:00 Troponin I, Quant 0.0140 ng/mL (0.00-0.120) 09/10/16 04:00 Total Protein 7.4 g/dL (6.3-8.3) 09/17/16 07:32 Albumin 3.2 g/dL (3.5-5.0) L 09/17/16 07:32 Globulin 4.2 gm/dL (2.2-3.9) H 09/17/16 07:32 Albumin/Globulin Ratio 0.8 (1.0-2.1) L 09/17/16 07:32 Amylase 44 U/L (30-110) 09/09/16 19:11 Lipase 100 U/L (23-300) 09/10/16 04:00 Vitamin B12 > 1000 pg/mL (239-931) H 09/11/16 05:58 TSH 3rd Generation 1.73 mIU/L (0.46-4.68) 09/11/16 05:58 Urine Color Hanna (YELLOW) 09/09/16 18:25 Urine Clarity Hazy (Clear) 09/09/16 18:25 Urine pH 5.0 (5.0-8.0) 09/09/16 18:25 Ur Specific [place] 1.019 (1.003-1.030) 09/09/16 18:25 Urine Protein 1+ mg/dL (NEGATIVE) H 09/09/16 18:25 Urine Glucose (UA) 1+ mg/dL (Normal) H 09/09/16 18:25 Urine Ketones Negative mg/dL (NEGATIVE) 09/09/16 18:25 Urine Blood Trace (NEGATIVE) H 09/09/16 18:25 Urine Nitrate Negative (NEGATIVE) 09/09/16 18:25 Urine Bilirubin 2+ (NEGATIVE) H 09/09/16 18:25 Urine Urobilinogen 4.0 mg/dL (0.2-1.0) 09/09/16 18:25 Ur Leukocyte Esterase Neg Ruiz/uL (Negative) 09/09/16 18:25 Urine RBC (Auto) 3 /hpf (0-3) 09/09/16 18:25 Ur Squamous Epith Cells 5 /hpf (0-5) 09/09/16 18:25 Urine Bacteria Rare (<OCC) 09/09/16 18:25 Hyaline Casts 11-20 /lpf (0-2) H 09/09/16 18:25 Stool Occult Blood Positive (NEGATIVE) H 09/09/16 18:41 Urine Opiates Screen Negative (NEGATIVE) 09/09/16 18:25 Urine Methadone Screen Negative (NEGATIVE) 09/09/16 18:25 Ur Barbiturates Screen Negative (NEGATIVE) 09/09/16 18:25 Ur Phencyclidine Scrn Negative (NEGATIVE) 09/09/16 18:25 Ur Amphetamines Screen Negative (NEGATIVE) 09/09/16 18:25 U Benzodiazepines Scrn Positive (NEGATIVE) 09/09/16 18:25 U Oth Cocaine Metabols Negative (NEGATIVE) 09/09/16 18:25 U Cannabinoids Screen Negative (NEGATIVE) 09/09/16 18:25 Alcohol, Quantitative 173 mg/dl (0-10) H 09/09/16 19:11 Hepatitis A IgM Ab Negative (NEGATIVE) 09/10/16 11:43 Hep Bs Antigen Negative (NEGATIVE) 09/10/16 11:43 Hep B Core IgM Ab Negative (NEGATIVE) 09/10/16 11:43 Hepatitis C Antibody Negative (NEGATIVE) 09/10/16 11:43 HIV 1&2 Antibody Screen Negative (NEGATIVE) 09/10/16 11:43 Attending/Attestation - Attestation I have personally seen and examined this patient.: Yes I have fully participated in the care of the patient.: Yes I have reviewed all pertinent clinical information, including history, physical exam and plan: Yes
[2016-09-18] MEDS ORDERED: Pantoprazole 20 mg EC Tab PO SCH (10:00)
--- NOTE | 2016-10-18 10:49 | CARD ---
APPROVED REPORT EKG Measurement Heart [id number] <Conclusion> Normal sinus rhythm Septal infarct, age undetermined Prolonged QT Abnormal ECG
== END 2016-09-17 13:50 | disposition left against medical advice (07) | DRG 433 ==
LOC: C.ER 16:26 → C.3T 20:14 → C.5T 09-10 09:36 → C.6T 09-11 10:53
PROVIDERS: ADMIT Hospitalist; ATTEND Hospitalist
PROC: 0DJ08ZZ Inspection of Upper Intestinal Tract, Via Natural or Artificial Opening Endoscopic (ICD-10-PCS; principal; 2016-09-17 11:25)
DX: K70.10 Alcoholic hepatitis without ascites (principal); F10.231 Alcohol dependence with withdrawal delirium; K70.30 Alcoholic cirrhosis of liver without ascites; K72.90 Hepatic failure, unspecified without coma; D69.59 Other secondary thrombocytopenia; K92.1 Melena; G62.9 Polyneuropathy, unspecified; D69.6 Thrombocytopenia, unspecified; I10 Essential (primary) hypertension; F17.210 Nicotine dependence, cigarettes, uncomplicated; J45.909 Unspecified asthma, uncomplicated; F20.9 Schizophrenia, unspecified; K59.00 Constipation, unspecified; E87.6 Hypokalemia; F32.9 Major depressive disorder, single episode, unspecified; K29.20 Alcoholic gastritis without bleeding

== ENCOUNTER 2016-09-17 19:33 | Inpatient (IN) | payer MEDICARE, OTHER ==
[2016-09-17 19:34] VITALS: BMI 27.4
[2016-09-17 19:53] LABS: CHLORIDE 101 mmol/L (98-107)
[2016-09-17 19:54] LABS: POTASSIUM 4.6 mmol/L (3.6-5.2); SODIUM 134 mmol/L (132-148)
[2016-09-17 19:56] LABS: ALB/GLOB RATIO 0.8 (1.0-2.1); ALKALINE PHOSPHATASE 193 U/L (38-126); ALT/SGPT 57 U/L (21-72); AST/SGOT 115 U/L (17-59); BILIRUBIN,TOTAL 24.5 mg/dL (0.2-1.3); BLOOD UREA NITROGEN 16 mg/dL (9-20); CARBON DIOXIDE 19 mmol/L (22-30); GFR AFRICAN-AMERICAN 45; GLUCOSE,RANDOM 90 mg/dL (75-110); TOTAL PROTEIN 7.6 g/dL (6.3-8.3)
[2016-09-17 19:57] LABS: CALCIUM 8.3 mg/dl (8.6-10.4)
[2016-09-17] MEDS ORDERED: Sodium Chloride 0.9% 1,000 ML IV ONE (19:57)
[2016-09-17 19:59] LABS: MEAN CORPUSCULAR HEMOGLOBIN 33.5 pg (27.0-31.0)
--- NOTE | 2016-09-17 19:59 | C.PDOC ---
History Of Present Illness 51 y/o male presents to emergency department with c/o generalized weakness. Patient brought in from correction. States he has not been feeling well for the past few days. Denies fever, chills, nausea, vomiting, chest pain, or shortness of breath. Chief Complaint (Nursing): Weakness/Neurological Deficit History Per: Patient History/Exam Limitations: no limitations Onset/Duration Of Symptoms: Days Current Symptoms Are (Timing): Still Present Fall Associated With With Symptoms: No Recent travel outside of the [place]: No Past Medical History Reviewed: Historical Data, Nursing Documentation, Vital Signs Vital Signs: Last Vital Signs Temp 97.6 F 09/17/16 19:36 Pulse 67 09/17/16 21:27 Resp 20 09/17/16 21:27 BP 116/77 09/17/16 21:27 Pulse Ox 95 09/17/16 21:55 - Medical History PMH: Anxiety, Arthritis (L KNEE), Depression, Gastritis, HTN, Schizophrenia, Seizures Comment Only: Asthma (SMOKER) - [facility] Procedures ALCOHOL DETOXIFICATION (12/25/14) DETOXIFICATION SERVICES FOR SUBSTANCE ABUSE TREATMENT (05/16/16) GROUP [employer] SERVICES MANAGER FOR SUBSTANCE ABUSE TREATMENT, PSYCHOEDUCATION (02/12/16) INDIVID PSYCHOTHERAP NEC (01/17/15) INSERTION OF ENDOTRACHEAL AIRWAY INTO TRACHEA, VIA OPENING (02/10/15) MEDS MGMT FOR SUBSTANCE ABUSE TREATMENT, PSYCH MED (05/16/16) OTHER GROUP THERAPY (01/17/15) PSYCHIAT DRUG THERAP NEC (01/17/15) RESPIRATORY VENTILATION, 24-96 CONSECUTIVE HOURS (02/10/15) Family History: States: Unknown Family Hx, [place] (Father in his 60's) - Social History Hx Tobacco Use: Yes (heavy smoker) Hx Alcohol Use: Yes Hx Substance Use: No - Immunization History Hx Tetanus Toxoid Vaccination: Yes Hx Influenza Vaccination: Yes Hx Pneumococcal Vaccination: No Review Of Systems Except As Marked, All Systems Reviewed And Found Negative. Constitutional: Positive for: Weakness. Negative for: Fever, Chills Cardiovascular: Negative for: Chest Pain Respiratory: Negative for: Cough, Shortness of Breath, Wheezing Gastrointestinal: Negative for: Vomiting Skin: Negative for: Rash Physical Exam - Physical Exam Appears: Non-toxic, Other (lethargic) Skin: Warm, Dry, Jaundice Head: Atraumatic, Normacephalic Oral Mucosa: Moist Chest: Symmetrical Cardiovascular: Rhythm Regular Respiratory: Normal Breath Sounds, No Rales, No Rhonchi, No Wheezing Gastrointestinal/Abdominal: Soft, Organomegaly (hepatomegaly), No Distention, No Guarding, No Rebound Extremity: Normal ROM, Capillary Refill (< 2 sec. ) Neurological/Psych: Oriented x3, Normal Speech, Normal Cognition ED Course And Treatment - Laboratory Results Result Diagrams: 09/17/16 19:43 09/17/16 19:43 O2 Sat by Pulse Oximetry: 95 Pulse Ox Interpretation: Normal Progress Note: EKG, CxR, bloodwork ordered. Fluids given. Disposition Discussed With : Trinity Coronado Doctor Will See Patient In The: Hospital Counseled Patient/Family Regarding: Diagnosis - Disposition Disposition: HOSPITALIZED Disposition Time: 21:54 Condition: STABLE - POA Present On Arrival: None - Clinical Impression Clinical Impression: Hypotensive episode, Liver failure - Scribe Statement The provider has reviewed the documentation as recorded by the Scribe Asim [place] All medical record entries made by the Scribbailey were at my direction and personally dictated by me. I have reviewed the chart and agree that the record accurately reflects my personal performance of the history, physical exam, medical decision making, and the department course for this patient. I have also personally directed, reviewed, and agree with the discharge instructions and disposition.
[2016-09-17 20:17] LABS: HEMATOCRIT 27.2 % (35.0-51.0); MEAN CELL VOLUME 99.6 fL (80.0-94.0); MEAN CORPUSCULAR HGB CONC 33.6 g/dL (33.0-37.0); WHITE BLOOD COUNT 11.7 K/uL (4.8-10.8)
[2016-09-17 20:39] LABS: BASO % 0.8 % (0.0-2.0); EOS % 0.3 % (0.0-4.0); LYMPH % 23.8 % (20.0-40.0); MONO % 8.9 % (0.0-10.0)
[2016-09-17 20:40] LABS: BASO # 0.1 K/uL (0.0-0.2); LYMPH # 2.8 K/uL (1.0-4.3); NRBC % 0.2 % (0.0-2.0)
[2016-09-17 20:43] LABS: INR 1.1
[2016-09-17] MEDS ORDERED: Benzoin Compound Tincture (60 ml) ONE (22:14)
--- NOTE | 2016-09-18 08:13 | RAD ---
PROCEDURE: CHEST RADIOGRAPH, 1 VIEW HISTORY: CHEST PAIN COMPARISON: 07/30/2016 FINDINGS: LUNGS: Shallow lung volumes and inferred infrahilar crowded bronchovascular markings. -slightly more conspicuous at the left lung base. No definitive consolidation. PLEURA: No pneumothorax or pleural fluid seen. CARDIOVASCULAR: Normal. OSSEOUS STRUCTURES: Thoracic spondylosis VISUALIZED UPPER ABDOMEN: Normal. OTHER FINDINGS: None. IMPRESSION: Shallow lung volumes limiting lung base evaluation. No gross/definitive consolidation
--- NOTE | 2016-09-18 21:17 | US ---
Indication: Evaluate for liver Comparison: CT of the abdomen pelvis with IV contrast performed 09/09/16, abdominal ultrasound performed 09/09/16 Findings: The liver measures approximately 18.4 cm in sagittal dimension. Echogenic liver may be seen in setting of hepatic parenchymal disease or fatty infiltration. The main portal vein appears patent with normal directional flow. There is no evidence of intrahepatic ductal dilatation. The common bile duct appears within normal limits of caliber, measuring 4 mm. Contracted gallbladder markedly limits evaluation. Gallbladder wall measures approximately 3 mm. Question trace pericholecystic fluid. No gallstones or sludge appreciated the. Negative sonographic Limon's sign as assessed by the welt stitch cleaner. The pancreas was not well-visualized. The right kidney measures 11.0 x 5.5 x 5.1 cm. The left kidney measures 10.5 x 5.5 x 6.1 cm. No evidence of obstructing calculus or hydronephrosis. Evidence of bilateral peripelvic cysts. The spleen measures approximately 11.9 cm. Heterogeneous appearance of the splenic parenchyma. Limited visualization of the abdominal aorta and IVC appear grossly unremarkable. Question presence of an aneurysm measuring approximately 3.1 x 3.6 cm possibly at the portal confluence. Impression: Echogenic liver may be seen in setting of hepatic parenchymal disease or fatty infiltration. Contracted gallbladder markedly limits evaluation. Gallbladder wall measures approximately 3 mm. Question trace pericholecystic fluid. No gallstones or sludge appreciated the. Negative sonographic Limon's sign as assessed by the welt stitch cleaner. Question presence of an aneurysm measuring approximately 3.1 x 3.6 cm possibly at the portal confluence. Heterogeneous appearance of the splenic parenchyma.
--- NOTE | 2016-09-18 22:53 | PCM.PSYCH ---
Initial Psychiatric Evaluation - Initial Psychiatric Evaluation Type of Admission: Voluntary Legal Status: Capacity Chief Complaint (in patient's own words): I ma hearing voices History of Present Illness and Precipitating Events: Patient is a 51 year male. He is and has three children ages, 11, 23, and 25. He lives alone and is on disability for his mental health issues. Patient has a history of schizophrenia and anxiety. Patient left the hospital yesterday and returned today. He said he came home, had two 24oz beers. He went to his primary care doctor's office today and was brought to the ER by EMS. Patient remains disorganized but able to respond to questions although timelines are not clear. He appears delusional and paranoid. He hears voices and says the voices are saying bad things such as "they will kill and chop up my family." He says the voices are always there. He says he is having visual hallucinations of people. When asked what kind of people, he just says "humans. " Patient says he is very anxious. Denies S/I. Patient has been a heavy drinker since he was 21. He says he drinks 6-8 24 oz beers a day. Patient smokes 8 cigarettes a day. Patient is tremulous. He appears to have withdrawal s/s. Allergies: denies Medications: Haldol, Seroquel, gabapentin, Propanolol (patient can't recall rest ) PMH: Liver failure, neuropathy, hypertension PsychHx: anxiety, schizophrenia FamPsychHx: denies Current Medications: Active Medications Generic Name Dose Route Start Last Admin Trade Name Kurtis PRN Reason Stop Dose Admin Famotidine 40 mg 09/19/16 10:00 Pepcid PO DAILY IFTIKHAR Lactulose 20 gm 09/19/16 10:00 Enulose PO DAILY IFTIKHAR Thiamine HCl 100 mg 09/19/16 10:00 Vitamin B1 Tab PO DAILY IFTIKHAR Past Psychiatric History - Past Psychiatric History Previous Treatment History: Inpatient Pertinent Medical Hx (Current Medical&Sleep Prob, Allergies): Allergies Allergy/AdvReac Type Severity Reaction Status Date / Time seasonal Allergy Uncoded 09/09/16 16:36 Haloperidol [Haldol] 5 mg PO BID #60 tab 07/09/16 ARIPiprazole [Abilify] 10 mg PO DAILY #30 tab 08/03/16 Docusate [Colace] 100 mg PO BID #60 cap 08/03/16 Escitalopram [Lexapro] 5 mg PO DAILY #30 tab 08/03/16 Gabapentin [Neurontin] 300 mg PO TID #90 cap 08/03/16 Pantoprazole [Protonix EC Tab] 40 mg PO DAILY #30 tab 08/03/16 Thiamine [Vitamin B1 Tab] 100 mg PO DAILY #30 tab 08/03/16 traZODone [Desyrel] 50 mg PO HS #30 tab 08/03/16 QUEtiapine [SEROquel] 200 mg PO DAILY 09/09/16 Review of Systems - Review of Systems All systems: reviewed and no additional remarkable complaints except - Psychiatric Psychiatric: Anxiety, Auditory Hallucinations, Irritability, Paranoia, Visual Hallucinations Mental Status Examination - Personal Presentation Personal Presentation: Looks older than stated age - Affect Affect: Constricted, Depressed - Motor Activity Motor Activity: Psychomotor Retardation - Reliability in Providing Information Reliability in Providing Information: Poor, due to alteration in thoughts, Poor , due to altered mood - Speech Speech: Disorganized - Mood Mood: Anxious - Formal Thought Process Formal Thought Process: Hallucinations, Delusions, Paranoia, Loosening of associations - Hallucinations/Delusions Hallucinations: Visual, Auditory Delusions: Persecution - Obsessions/Compulsions Obsessions: No Compulsions: No - Cognitive Functions Orientation: Person Sensorium: Drowsy, Lethargic Attention/Concentration: Easily distracted Estimate of Intelligence: Below average Judgement: Imparied, as evidence by: Poor judgement, Imparied, as evidence by: Lack of insight into illness - Risk Risk: Withdrawal, Diminished functioning - Limitations Limitations: Living alone DSM 5 DX - DSM 5 DSM 5 Diagnosis: Alcohol use disorder severe Alcohol withdrawal with perceptual disturbance Schizophrenia paranoid type continuous - Recommended/Plan of Treatment Treatment Recommendations and Plan of Treatment: Alcohol use disorder severe CBT Psychoeducation Supportive therapy, individual therapy Use [place] for abstinence Alcohol withdrawal with perceptual disturbance CBT Psychoeducation Supportive therapy, individual therapy Ativan when necessary Schizophrenia paranoid type continuous CBT individual therapy Haldol 5 mg by mouth twice a day Trazodone 50 mg by mouth daily at bedtime
--- NOTE | 2016-09-19 10:31 | CP.PCM.CON ---
History of Present Illness - History of Present Illness History of Present Illness: Asked by Dr. Coronado for a GI consultation on this patient CC: abdominal pain, jaundice HPI: This is a 51 year old male with h/o HTN, anxiety, schizophrenia who presents to hospital with abdominal pain and reported paranoia/delusions. His history is inconsistent at times. He was recently admitted to hospital (09/09-09/17) for abdominal pain, jaundice. Work up at that time included an EGD 09/17 showing gastric food bezoar. Abdominal ultrasound/CT scan showed hepatomegaly/fatty liver, no ductal abnormalities. He was observed and eventually discharged home. Per Psych note, he again consumed alcohol and was readmitted. He reports drinking a 6 pack of beer daily. He states that his abdominal pain is generalized, but most prominent in epigastrium. He reports 2 episodes of non bloody/non bilious emesis two days ago. No change in bowel habits. T bili during prior admission peaked at 26.7, on this admission 24. He states that his abdominal pain is overall improved this morning without any further episodes of nausea/vomiting. PMHx/PSHx: as above Allergies: NKDA ROS: as per HPI, otherwise negative in detail FH: denies any history of GI malignancy SH: +ETOH abuse as above, denies illicit drug use Review of Systems - Constitutional Constitutional: absent: Chills, Fever - Cardiovascular Cardiovascular: absent: Chest Pain - Respiratory Respiratory: absent: Cough, Dyspnea - Gastrointestinal Gastrointestinal: As Per HPI - Genitourinary Genitourinary: absent: Difficulty Urinating, Dysuria - Musculoskeletal Musculoskeletal: absent: Arthralgias, Atrophy - Integumentary Integumentary: Jaundice. absent: Rash - Psychiatric Psychiatric: Anxiety, Hallucinations - Endocrine Endocrine: absent: Fatigue Past Patient History - Infectious Disease Hx of Infectious Diseases: None - Past Medical History & Family History Past Medical History?: Yes - Past Social History Smoking Status: Current Some Days Smoker - CARDIAC Hx Hypertension: Yes - PULMONARY Hx Asthma: (SMOKER) - NEUROLOGICAL Hx Seizures: Yes - HEENT Hx HEENT Problems: No - RENAL Hx Chronic Kidney Disease: No - ENDOCRINE/METABOLIC Hx Endocrine Disorders: No - HEMATOLOGICAL/ONCOLOGICAL Hx Blood Disorders: No Hx Human Immunodeficiency Virus (HIV): No - INTEGUMENTARY Hx Dermatological Problems: No - MUSCULOSKELETAL/RHEUMATOLOGICAL Hx Falls: Yes - GASTROINTESTINAL Hx Gastritis: Yes - GENITOURINARY/GYNECOLOGICAL Hx Genitourinary Disorders: No Hx Sexually Transmitted Disorders: No - PSYCHIATRIC Hx Substance Use: No - SURGICAL HISTORY Hx Surgeries: Yes Hx Orthopedic Surgery: Yes (left knee) Other/Comment: surgery of the left knee. PRESENTLY USING A CANE - ANESTHESIA Hx Anesthesia: Yes Hx Anesthesia Reactions: No Hx Malignant Hyperthermia: No Meds Allergies/Adverse Reactions: Allergies Allergy/AdvReac Type Severity Reaction Status Date / Time seasonal Allergy Uncoded 09/09/16 16:36 - Medications Medications: Current Medications Benztropine Mesylate (Cogentin) 2 mg PO Q6 PRN PRN Reason: Extra Pyramidal Symptoms Famotidine (Pepcid) 40 mg PO DAILY [facility] Folic Acid (Folic Acid) 1 mg PO DAILY [facility] Haloperidol (Haldol) 5 mg PO Q8 PRN PRN Reason: Moderate Agitation Haloperidol Lactate (Haldol) 5 mg IM Q8 PRN PRN Reason: Moderate Agitation Lactulose (Enulose) 20 gm PO DAILY [facility] Lorazepam (Ativan) 1 mg PO Q4H PRN PRN Reason: Symptoms of alcohol withdrawl Last Admin: 09/19/16 09:09 Dose: 1 mg Multivitamins (Hexavitamin) 1 tab PO DAILY [facility] Thiamine HCl (Vitamin B1 Tab) 100 mg PO DAILY [facility] Physical Exam - Constitutional Appears: No Acute Distress, Chronically Ill - Eye Exam Eye Exam: Scleral icterus - ENT Exam ENT Exam: Mucous Membranes Moist - Respiratory Exam Respiratory Exam: Clear to Auscultation Bilateral - Cardiovascular Exam Cardiovascular Exam: +S1, +S2 - GI/Abdominal Exam Additional comments: abdomen soft, non tender to palpation, no rebound or guarding, bowel sounds present, no palpable mass - Extremities Exam Extremities exam: Negative for: pedal edema - Back Exam Back exam: absent: CVA tenderness (L), CVA tenderness (R) - Neurological Exam Neurological exam: Alert Additional comments: no asterixis - Skin Skin Exam: Dry Results - Vital Signs Recent Vital Signs: Last Vital Signs Temp 97.9 F 09/19/16 08:53 Pulse 67 09/19/16 08:53 Resp 20 09/19/16 08:53 BP 93/54 L 09/19/16 08:53 Pulse Ox 96 09/19/16 08:53 - Labs Result Diagrams: 09/17/16 19:43 09/17/16 19:43 Labs: Laboratory Results - last 24 hr 09/18/16 09/18/16 09/18/16 11:14 16:36 21:23 POC Glucose (mg/dL) 75 86 88 Assessment & Plan - Assessment and Plan (Free Text) Assessment: This is a 51 year old male with h/o HTN, schizophrenia, ETOH abuse who is admitted with abdominal pain/delusions/paranoia and jaundice. He has ETOH hepatitis (admission DF 29). Abdominal sonogram without any acute pathology. He also has PADMINI. Plan: Continue supportive care Obtain daily LFTs, ordered for today Check autoimmune serologies, direct bili/GGT Abdominal sonogram without acute pathology, normal duct Pain control as needed Antiemetic therapy if needed PADMINI noted, repeat Cr pending Advance diet as tolerated
[2016-09-19] MEDS: Multiple Vitamins Tab PO SCH (10:52)
[2016-09-19 12:37] LABS: HEMATOCRIT 26.8 % (35.0-51.0); MEAN CELL VOLUME 99.4 fL (80.0-94.0); MEAN CORPUSCULAR HEMOGLOBIN 34.6 pg (27.0-31.0); MEAN CORPUSCULAR HGB CONC 34.8 g/dL (33.0-37.0); MEAN PLATELET VOLUME 10.6 fL (7.2-11.7); RED CELL DISTRIBUTION WIDTH 15.5 % (11.5-14.5); WHITE BLOOD COUNT 10.2 K/uL (4.8-10.8)
[2016-09-19 13:05] LABS: CHLORIDE 97 mmol/L (98-107)
[2016-09-19 13:06] LABS: POTASSIUM 3.4 mmol/L (3.6-5.2); SODIUM 132 mmol/L (132-148)
[2016-09-19 13:08] LABS: ALB/GLOB RATIO 0.7 (1.0-2.1); ALKALINE PHOSPHATASE 297 U/L (38-126); AST/SGOT 108 U/L (17-59); BILIRUBIN,DIRECT 21.5 mg/dL (0.0-0.4); BILIRUBIN,TOTAL 23.5 mg/dL (0.2-1.3); BLOOD UREA NITROGEN 10 mg/dL (9-20); CARBON DIOXIDE 27 mmol/L (22-30); GFR AFRICAN-AMERICAN > 60; TOTAL PROTEIN 7.2 g/dL (6.3-8.3)
[2016-09-19 13:09] LABS: ALT/SGPT 69 U/L (21-72); CALCIUM 8.3 mg/dl (8.6-10.4); GLUCOSE,RANDOM 99 mg/dL (75-110)
[2016-09-19 13:18] LABS: BASO # 0.1 K/uL (0.0-0.2); EOS # 0.1 K/uL (0.0-0.7); EOS % 0.8 % (0.0-4.0); LYMPH # 2.1 K/uL (1.0-4.3); LYMPH % 20.7 % (20.0-40.0)
[2016-09-19] MEDS ORDERED: Potassium Chloride 20 mEq/15 ml LIQ UD PO STA (14:09)
--- NOTE | 2016-09-19 17:48 | PCM.PYCHPN ---
Psychiatric Progress Note - Psychiatric Progress Note Patient seen today, length of contact: 17 min Patient Chief Complaint: I ma hearing voices Problems Identified/Issues Discussed: Patient seen and evaluated, chart reviewed and discussed with the nurse. Patient remained disorganized and internally preoccupied. Patient remained isolated, confined and withdrawn. He still reports of hearing voices. Patient still appears paranoid and delusional. He reports withdrawal symptoms including cramps, sweating, headaches anxiety. But remained isolated and withdrawn, denies any suicidal ideation or homicidal ideation. Supportive therapy and psychoeducation were given. Medication Change: No Medical Record Reviewed: Yes Mental Status Examination - Cognitive Function Orientation: Person, Place, Situation, Time Memory: Intact Attention: WNL Concentration: Poor Association: WNL Fund of Knowledge: Poor - Mood Mood: Anxious - Affect Affect: Constricted, Depressed - Speech Speech: Soft - Formal Thought Process Formal Thought Process: Hallucinations, Delusions - Suicidal Ideation Suicidal Ideation: No - Homicidal Ideation Homicidal Ideation: No Goal/Treatment Plan - Goal/Treatment Plan Need for Continued Stay: Discharge may exacerbated symptoms, Severe functional impairment Progress Toward Problem(s) and Goals/Treatment Plan: Alcohol use disorder severe CBT Psychoeducation Supportive therapy, individual therapy Use ME for abstinence Alcohol withdrawal with perceptual disturbance CBT Psychoeducation Supportive therapy, individual therapy Ativan when necessary Schizophrenia paranoid type continuous CBT individual therapy Haldol 5 mg by mouth twice a day Trazodone 50 mg by mouth daily at bedtime
[2016-09-20 07:23] LABS: HEMATOCRIT 26.4 % (35.0-51.0); MEAN CELL VOLUME 98.7 fL (80.0-94.0); MEAN CORPUSCULAR HEMOGLOBIN 35.2 pg (27.0-31.0); MEAN CORPUSCULAR HGB CONC 35.7 g/dL (33.0-37.0); MEAN PLATELET VOLUME 10.9 fL (7.2-11.7); PLATELET COUNT 137 K/uL (130-400); RED CELL DISTRIBUTION WIDTH 15.3 % (11.5-14.5); WHITE BLOOD COUNT 10.8 K/uL (4.8-10.8)
[2016-09-20 07:52] LABS: CHLORIDE 95 mmol/L (98-107)
[2016-09-20 07:53] LABS: POTASSIUM 3.8 mmol/L (3.6-5.2); SODIUM 132 mmol/L (132-148)
[2016-09-20 07:55] LABS: CARBON DIOXIDE 28 mmol/L (22-30); GFR AFRICAN-AMERICAN > 60
[2016-09-20 07:56] LABS: ALB/GLOB RATIO 0.7 (1.0-2.1); ALKALINE PHOSPHATASE 346 U/L (38-126); ALT/SGPT 56 U/L (21-72); AST/SGOT 103 U/L (17-59); BLOOD UREA NITROGEN 10 mg/dL (9-20); CALCIUM 8.8 mg/dl (8.6-10.4); GLUCOSE,RANDOM 100 mg/dL (75-110); TOTAL PROTEIN 7.3 g/dL (6.3-8.3)
[2016-09-20] MEDS: Multiple Vitamins Tab PO SCH (09:13)
[2016-09-20 10:07] LABS: EOS # 0.1 K/uL (0.0-0.7); EOS % 0.7 % (0.0-4.0); LYMPH % 18.9 % (20.0-40.0); MONO # 0.8 K/uL (0.0-0.8); MONO % 7.8 % (0.0-10.0)
[2016-09-20 10:12] LABS: EOSINOPHIL 1 % (0-4); METAMYELOCYTE 3 % (0-0); MYELOCYTE 2 % (0-0); NEUTROPHIL 62 % (50-75); REACTIVE LYMPHOCYTES 1 % (0-0); TOTAL CELLS COUNTED 100
[2016-09-20 10:13] LABS: GIANT PLATELETS PRESENT; LARGE PLATELETS PRESENT; STOMATOCYTES SLIGHT
--- NOTE | 2016-09-20 11:22 | CP.PCM.PN ---
<MikieirajAjay - Last Filed: 09/20/16 11:22> Subjective - Date & Time of Evaluation Date of Evaluation: 09/20/16 Time of Evaluation: 10:40 - Subjective Subjective: PGY4 GI Fellow Progress Note Patient seen and examined bedside this morning. The patient denies any new complaints and is eager to go home. He does not appear to have insight in to how ill he is or how his drinking is impacting his life. Denies any prior rehabilitation but may be interested. No nausea, vomiting or other issues overnight. 12 system ROS performed and negative except where stated. Objective - Vital Signs/Intake and Output Vital Signs (last 24 hours): Temp Pulse Resp BP Pulse Ox 98.3 F 63 20 96/60 L 100 09/20/16 07:20 09/20/16 07:20 09/20/16 07:20 09/20/16 07:20 09/20/16 07:20 Intake and Output: 09/20/16 09/20/16 06:59 18:59 Intake Total 320 Output Total 1300 Balance -980 - Medications Medications: Current Medications Benztropine Mesylate (Cogentin) 2 mg PO Q6 PRN PRN Reason: Extra Pyramidal Symptoms Famotidine (Pepcid) 40 mg PO DAILY [facility] Last Admin: 09/20/16 09:14 Dose: 40 mg Folic Acid (Folic Acid) 1 mg PO DAILY [facility] Last Admin: 09/20/16 09:13 Dose: 1 mg Haloperidol (Haldol) 5 mg PO Q8 PRN PRN Reason: Moderate Agitation Haloperidol (Haldol) 5 mg PO BID [facility] Last Admin: 09/20/16 09:15 Dose: 5 mg Haloperidol Lactate (Haldol) 5 mg IM Q8 PRN PRN Reason: Moderate Agitation Lactulose (Enulose) 20 gm PO DAILY [facility] Last Admin: 09/20/16 09:13 Dose: 20 gm Lorazepam (Ativan) 1 mg PO Q4H PRN PRN Reason: Symptoms of alcohol withdrawl Last Admin: 09/20/16 09:12 Dose: 1 mg Multivitamins (Hexavitamin) 1 tab PO DAILY [facility] Last Admin: 09/20/16 09:13 Dose: 1 tab Thiamine HCl (Vitamin B1 Tab) 100 mg PO DAILY [facility] Last Admin: 09/20/16 09:14 Dose: 100 mg - Labs Labs: 09/20/16 07:09 09/20/16 07:09 PT 11.7 SECONDS (9.7-12.2) 09/20/16 07:09 INR 1.0 09/20/16 07:09 APTT 32 SECONDS (21-34) 09/17/16 19:43 - Constitutional Appears: No Acute Distress - Eye Exam Eye Exam: EOMI, PERRL, Scleral icterus - ENT Exam ENT Exam: Mucous Membranes Dry - Respiratory Exam Respiratory Exam: Clear to Ausculation Bilateral. absent: Rales, Rhonchi, Wheezes - Cardiovascular Exam Cardiovascular Exam: RRR, +S1, +S2 - GI/Abdominal Exam GI & Abdominal Exam: Distended, Soft, Normal Bowel Sounds. absent: Firm, Guarding, Rigid, Tenderness, Organomegaly - Extremities Exam Extremities Exam: Normal Inspection. absent: Pedal Edema - Neurological Exam Neurological Exam: Alert, Awake, Oriented x3 - Psychiatric Exam Psychiatric exam: Normal Affect, Normal Mood - Skin Skin Exam: Dry, Warm Additional comments: jaundice Assessment and Plan - Assessment and Plan (Free Text) Assessment: Patient is a 51yo male with PMHx significant for HTN, schizophrenia, ETOH abuse who was admitted with abdominal pain/delusions/paranoia and jaundice. -EtOH hepatitis -EtOH abuse/dependence -Schizophrenia -HTN -Anemia Plan: -Maddrey: 29 on admission; corticosteroid therapy not indicated -Continue supportive care -Daily LFTs -Autoimmune work up pending -Diet as tolerated -EtOH cessation counseling; would benefit from rehabilitation -Psychiatry following -Social work evaluation would be beneficial <Chalo Narvaez - Last Filed: 09/20/16 12:41> Objective - Vital Signs/Intake and Output Vital Signs (last 24 hours): Temp Pulse Resp BP Pulse Ox 98.3 F 63 20 96/60 L 100 09/20/16 07:20 09/20/16 07:20 09/20/16 07:20 09/20/16 07:20 09/20/16 07:20 Intake and Output: 09/20/16 09/20/16 06:59 18:59 Intake Total 320 Output Total 1300 Balance -980 - Medications Medications: Current Medications Benztropine Mesylate (Cogentin) 2 mg PO Q6 PRN PRN Reason: Extra Pyramidal Symptoms Famotidine (Pepcid) 40 mg PO DAILY [facility] Last Admin: 09/20/16 09:14 Dose: 40 mg Folic Acid (Folic Acid) 1 mg PO DAILY [facility] Last Admin: 09/20/16 09:13 Dose: 1 mg Haloperidol (Haldol) 5 mg PO Q8 PRN PRN Reason: Moderate Agitation Haloperidol (Haldol) 5 mg PO BID [facility] Last Admin: 09/20/16 09:15 Dose: 5 mg Haloperidol Lactate (Haldol) 5 mg IM Q8 PRN PRN Reason: Moderate Agitation Lactulose (Enulose) 20 gm PO DAILY [facility] Last Admin: 09/20/16 09:13 Dose: 20 gm Lorazepam (Ativan) 1 mg PO Q4H PRN PRN Reason: Symptoms of alcohol withdrawl Last Admin: 09/20/16 09:12 Dose: 1 mg Multivitamins (Hexavitamin) 1 tab PO DAILY [facility] Last Admin: 09/20/16 09:13 Dose: 1 tab Thiamine HCl (Vitamin B1 Tab) 100 mg PO DAILY [facility] Last Admin: 09/20/16 09:14 Dose: 100 mg - Labs Labs: 09/20/16 07:09 09/20/16 07:09 PT 11.7 SECONDS (9.7-12.2) 09/20/16 07:09 INR 1.0 09/20/16 07:09 APTT 32 SECONDS (21-34) 09/17/16 19:43 Attending/Attestation - Attestation I have personally seen and examined this patient.: Yes I have fully participated in the care of the patient.: Yes I have reviewed all pertinent clinical information, including history, physical exam and plan: Yes Notes (Text): Patient seen and examined with GI fellow. Agree with his note as documented above with the following additions/exceptions. This is a 51 year old male with h/o HTN, schizophrenia, ETOH abuse who is readmitted with abdominal pain/ jaundice, ETOH hepatitis (DF<32). His T bili is slowly improving. He no longer complains of abdominal pain. He is tolerating PO. Recommend continued supportive care, monitor LFTs, diet as tolerated. Follow up psychiatry recommendations. Strict ETOH abstinence was recommended. He would benefit from ETOH rehab, recommend social work follow up. 09/20/16 12:40
[2016-09-21] MEDS: Multiple Vitamins Tab PO SCH (10:13)
--- NOTE | 2016-09-21 10:56 | CP.PCM.PN ---
<MikieirajAjay - Last Filed: 09/21/16 10:57> Subjective - Date & Time of Evaluation Date of Evaluation: 09/21/16 Time of Evaluation: 09:50 - Subjective Subjective: PGY4 GI Fellow Progress Note Patient seen and examined bedside this morning. The patient denies any issues overnight and is tolerating diet without issue. No nausea, vomiting. Not feeling anxious, tremulous. 12 system ROS performed and negative except where stated. Objective - Vital Signs/Intake and Output Vital Signs (last 24 hours): Temp Pulse Resp BP Pulse Ox 99.0 F 77 20 93/55 L 98 09/21/16 07:30 09/21/16 07:30 09/21/16 07:30 09/21/16 07:30 09/21/16 07:30 - Medications Medications: Current Medications Benztropine Mesylate (Cogentin) 2 mg PO Q6 PRN PRN Reason: Extra Pyramidal Symptoms Famotidine (Pepcid) 40 mg PO DAILY [facility] Last Admin: 09/21/16 10:27 Dose: 40 mg Folic Acid (Folic Acid) 1 mg PO DAILY [facility] Last Admin: 09/21/16 10:27 Dose: 1 mg Haloperidol (Haldol) 5 mg PO Q8 PRN PRN Reason: Moderate Agitation Haloperidol (Haldol) 5 mg PO BID [facility] Last Admin: 09/21/16 10:28 Dose: 5 mg Haloperidol Lactate (Haldol) 5 mg IM Q8 PRN PRN Reason: Moderate Agitation Lactulose (Enulose) 20 gm PO BID [facility] Last Admin: 09/21/16 10:27 Dose: 20 gm Lorazepam (Ativan) 1 mg PO Q4H PRN PRN Reason: Symptoms of alcohol withdrawl Last Admin: 09/21/16 10:28 Dose: 1 mg Multivitamins (Hexavitamin) 1 tab PO DAILY [facility] Last Admin: 09/20/16 09:13 Dose: 1 tab Thiamine HCl (Vitamin B1 Tab) 100 mg PO DAILY [facility] Last Admin: 09/21/16 10:27 Dose: 100 mg - Labs Labs: 09/20/16 07:09 09/20/16 07:09 PT 11.7 SECONDS (9.7-12.2) 09/20/16 07:09 INR 1.0 09/20/16 07:09 APTT 32 SECONDS (21-34) 09/17/16 19:43 - Constitutional Appears: Non-toxic, No Acute Distress - Eye Exam Eye Exam: EOMI, PERRL, Scleral icterus - ENT Exam ENT Exam: Mucous Membranes Moist - Respiratory Exam Respiratory Exam: Clear to Ausculation Bilateral. absent: Rales, Rhonchi, Wheezes - Cardiovascular Exam Cardiovascular Exam: RRR, +S1, +S2 - GI/Abdominal Exam GI & Abdominal Exam: Soft, Normal Bowel Sounds. absent: Distended, Firm, Guarding, Rigid, Tenderness, Organomegaly - Extremities Exam Extremities Exam: Normal Inspection. absent: Pedal Edema - Neurological Exam Neurological Exam: Alert, Awake, Oriented x3 - Psychiatric Exam Psychiatric exam: Flat Affect, Normal Mood - Skin Skin Exam: Dry, Warm Additional comments: jaundiced Assessment and Plan - Assessment and Plan (Free Text) Assessment: Patient is a 51yo male with PMHx significant for HTN, schizophrenia, ETOH abuse who was admitted with abdominal pain/delusions/paranoia and jaundice. -EtOH hepatitis -EtOH abuse/dependence -Schizophrenia -HTN -Anemia Plan: -Awaiting AM lab work (CBC, CMP, INR) -T bili was trending upwards yesterday, continue to monitor - recalculate MDF when labs return; was not candidate for steroid therapy given MDF of 29 on admission -Supportive care -Continue daily LFTs -EtOH cessation counseling; would benefit from rehabilitation on discharge -Psychiatry following -Social work evaluation would be beneficial <Chalo Narvaez - Last Filed: 09/21/16 13:32> Objective - Vital Signs/Intake and Output Vital Signs (last 24 hours): Temp Pulse Resp BP Pulse Ox 99.0 F 77 20 93/55 L 98 09/21/16 07:30 09/21/16 07:30 09/21/16 07:30 09/21/16 07:30 09/21/16 07:30 - Medications Medications: Current Medications Benztropine Mesylate (Cogentin) 2 mg PO Q6 PRN PRN Reason: Extra Pyramidal Symptoms Famotidine (Pepcid) 40 mg PO DAILY [facility] Last Admin: 09/21/16 10:27 Dose: 40 mg Folic Acid (Folic Acid) 1 mg PO DAILY [facility] Last Admin: 09/21/16 10:27 Dose: 1 mg Haloperidol (Haldol) 5 mg PO Q8 PRN PRN Reason: Moderate Agitation Haloperidol (Haldol) 5 mg PO BID [facility] Last Admin: 09/21/16 10:28 Dose: 5 mg Haloperidol Lactate (Haldol) 5 mg IM Q8 PRN PRN Reason: Moderate Agitation Lactulose (Enulose) 20 gm PO BID [facility] Last Admin: 09/21/16 10:27 Dose: 20 gm Lorazepam (Ativan) 1 mg PO Q4H PRN PRN Reason: Symptoms of alcohol withdrawl Last Admin: 09/21/16 10:28 Dose: 1 mg Multivitamins (Hexavitamin) 1 tab PO DAILY [facility] Last Admin: 09/20/16 09:13 Dose: 1 tab Thiamine HCl (Vitamin B1 Tab) 100 mg PO DAILY [facility] Last Admin: 09/21/16 10:27 Dose: 100 mg - Labs Labs: 09/21/16 11:23 09/21/16 11:23 PT 12.2 SECONDS (9.7-12.2) 09/21/16 11:23 INR 1.1 09/21/16 11:23 APTT 32 SECONDS (21-34) 09/17/16 19:43 Attending/Attestation - Attestation I have personally seen and examined this patient.: Yes I have fully participated in the care of the patient.: Yes I have reviewed all pertinent clinical information, including history, physical exam and plan: Yes Notes (Text): Patient seen and examined with GI fellow. Agree with his note as documented above with the following additions/exceptions. This is a 51 year old male with h/o HTN, schizophrenia, ETOH abuse admitted with abdominal pain/jaundice. Recent CT pancreas protocol neg for pancreas mass/obstruction. Abnormal LFTs likely due to ETOH hepatitis, MDF on admission 29. Would continue to monitor LFTs, continue supportive care. Strict ETOH abstinence advised. Diet as tolerated. Follow up psychiatry recommendations. 09/21/16 13:31
[2016-09-21 11:36] LABS: INR 1.1
[2016-09-21 11:37] LABS: HEMATOCRIT 24.6 % (35.0-51.0)
[2016-09-21 11:43] LABS: MEAN CORPUSCULAR HEMOGLOBIN 35.2 pg (27.0-31.0); MEAN CORPUSCULAR HGB CONC 35.2 g/dL (33.0-37.0); MEAN PLATELET VOLUME 11.2 fL (7.2-11.7); RED CELL DISTRIBUTION WIDTH 17.1 % (11.5-14.5); WHITE BLOOD COUNT 10.9 K/uL (4.8-10.8)
[2016-09-21 12:00] LABS: CHLORIDE 95 mmol/L (98-107)
[2016-09-21 12:01] LABS: POTASSIUM 3.9 mmol/L (3.6-5.2); SODIUM 132 mmol/L (132-148)
[2016-09-21 12:03] LABS: ALB/GLOB RATIO 0.7 (1.0-2.1); ALKALINE PHOSPHATASE 350 U/L (38-126); AST/SGOT 89 U/L (17-59); BILIRUBIN,DIRECT 22.7 mg/dL (0.0-0.4); BILIRUBIN,TOTAL 24.7 mg/dL (0.2-1.3); BLOOD UREA NITROGEN 15 mg/dL (9-20); CARBON DIOXIDE 26 mmol/L (22-30); GFR AFRICAN-AMERICAN > 60; GLUCOSE,RANDOM 101 mg/dL (75-110); TOTAL PROTEIN 7.8 g/dL (6.3-8.3)
[2016-09-21 12:04] LABS: ALT/SGPT 63 U/L (21-72); CALCIUM 8.6 mg/dl (8.6-10.4)
[2016-09-21 12:23] LABS: LYMPH # 1.3 K/uL (1.0-4.3)
--- NOTE | 2016-09-22 06:44 | PN ---
DATE: 09/19/2016 SUBJECTIVE: The patient was seen and examined on the bedside, still having jaundiced skin. According to the patient, his abdominal pain is overall improved and he is moving without any further episodes of nausea and vomiting. No hematuria or hematochezia. No headache, no dizziness. PHYSICAL EXAMINATION: VITAL SIGNS: Temperature 98.4, pulse 75, blood pressure 85/54, respiratory rate 20. HEENT: Head normocephalic, atraumatic. Eyes: PERRLA. Extraocular muscles intact. Conjunctivae clear. Nose patent. NECK: Supple. No carotid bruit, JVD or thyromegaly. CHEST: Bilaterally symmetrical. HEART: S1, S2 positive. LUNGS: Clear to auscultation. ABDOMEN: Soft. Bowel sounds positive. No organomegaly. EXTREMITIES: No edema, no cyanosis. NEUROLOGIC: The patient is awake, alert, moving all 4 extremities. No focal deficit MEDICATIONS: Ativan, Cogentin, folic acid, Haldol, multivitamins. LABORATORY DATA: White blood cells 10.2, on admission was 11.7, hemoglobin 9.3 , hematocrit 26.3. Hypochloremia, need to replace hyperchloremia. Renal insufficiency, abnormal liver function tests. Medications reviewed by me. ASSESSMENT AND PLAN: The patient came in [facility] of [facility] x 2. First time, he came he signed against medical advice and then he came back. History of hypertension, anxiety, schizophrenia, History of noncompliance, history of drinking, history of ethanol abuse which is admitted with abdominal pain. Abdominal sonography without any acute pathology. He also had acute kidney injury. Gastrointestinal and deep venous thrombosis prophylaxis. Repeat labs. We will follow up. Trinity Coronado MD cc: [id number] TT: 09/20/2016 07:42:06 Confirmation # [id number] Dictation # [id number] karuna MTDD
--- NOTE | 2016-09-22 06:46 | PN ---
DATE: 09/20/2016 The patient is a 51-year-old male. The patient is seen and examined on the bedside. No nausea, vomiting, diarrhea. No hematuria, no hematochezia. No swelling of the legs. No headache, no dizziness. PHYSICAL EXAMINATION: VITAL SIGNS: Temperature 98.5, pulse 93, blood pressure 98/59, respiratory rate 20. HEENT: Head normocephalic, atraumatic. Eyes: PERRLA. Extraocular muscles intact. Conjunctivae clear. Nose patent. Mucous membranes moist. NECK: Supple. No carotid bruit, no JVD, no thyromegaly. CHEST: Bilaterally symmetrical. HEART: S1, S2 positive. LUNGS: Clear to auscultation. ABDOMEN: Soft. Bowel sounds positive. No organomegaly. EXTREMITIES: No edema, no cyanosis. NEUROLOGIC: The patient is awake, alert. Moving all 4 extremities. No focal deficits. MEDICATIONS: Ativan, Cogentin, lactulose, folic acid, Haldol, multivitamins, Pepcid, thiamine. LABORATORIES: White blood cells 10.8, hemoglobin 9.4, hematocrit 26.4, platelets 137. Sodium 132, potassium 3.8, BUN 10, creatinine 1.0, bilirubin noted , AST 103, alkaline phosphatase 346, ammonia 146. ASSESSMENT AND PLAN: The patient is a 51-year-old male, came with leukocytosis , improved, anemia, abnormal liver function test. Seen by the [facility] administrator, Chalo Narvaez. History of ethanol abuse, urged to quit. Called psychiatrist consult. Schizophrenia, has multiple admissions for abdominal pain, has jaundice. His total bilirubin is slowly improving. He no longer complaining of abdominal pain, tolerating p.o. Continuing recommending supportive care, monitoring liver function tests, diet as tolerated. Strict ethanol abstinence was recommended. Needs ethanol rehabilitation. Social workers are on the case. Will continue present treatment. Gastrointestinal and deep venous thrombosis prophylaxis. If patient will not sign against medical advice ' DICTATION ENDS HERE Trinity Coronado MD cc: [id number] TT: 09/21/2016 07:40:30 Confirmation # [id number] Dictation # [id number] en MIKE
[2016-09-22 07:45] LABS: INR 1.1
[2016-09-22 07:48] LABS: HEMATOCRIT 23.3 % (35.0-51.0); MEAN CORPUSCULAR HEMOGLOBIN 35.6 pg (27.0-31.0); MEAN CORPUSCULAR HGB CONC 35.3 g/dL (33.0-37.0); MEAN PLATELET VOLUME 10.5 fL (7.2-11.7); RED CELL DISTRIBUTION WIDTH 16.8 % (11.5-14.5); WHITE BLOOD COUNT 10.8 K/uL (4.8-10.8)
[2016-09-22 08:03] LABS: CHLORIDE 100 mmol/L (98-107); SODIUM 133 mmol/L (132-148)
[2016-09-22 08:04] LABS: POTASSIUM 3.4 mmol/L (3.6-5.2)
[2016-09-22 08:06] LABS: ALB/GLOB RATIO 0.7 (1.0-2.1); ALKALINE PHOSPHATASE 328 U/L (38-126); ALT/SGPT 57 U/L (21-72); AST/SGOT 88 U/L (17-59); BILIRUBIN,TOTAL 21.3 mg/dL (0.2-1.3); BLOOD UREA NITROGEN 13 mg/dL (9-20); CALCIUM 8.7 mg/dl (8.6-10.4); CARBON DIOXIDE 24 mmol/L (22-30); GFR AFRICAN-AMERICAN > 60; GLUCOSE,RANDOM 111 mg/dL (75-110); TOTAL PROTEIN 7.3 g/dL (6.3-8.3)
--- NOTE | 2016-09-22 08:44 | CP.PCM.PN ---
<Cristina Lyle - Last Filed: 09/22/16 09:41> Subjective - Date & Time of Evaluation Date of Evaluation: 09/22/16 Time of Evaluation: 08:40 - Subjective Subjective: Gastorenterology Fellow/PGY4 Progress Note patient denies abdominal pain or confusion. Tolerating diet. Notes daily bowel movement. A 12-point review of systems negative except for as above. Objective - Vital Signs/Intake and Output Vital Signs (last 24 hours): Temp Pulse Resp BP Pulse Ox 99.2 F 81 20 98/55 L 99 09/21/16 23:30 09/22/16 07:30 09/21/16 23:30 09/21/16 23:30 09/21/16 23:30 Intake and Output: 09/22/16 09/22/16 06:59 18:59 Output Total 250 Balance -250 - Medications Medications: Current Medications Benztropine Mesylate (Cogentin) 2 mg PO Q6 PRN PRN Reason: Extra Pyramidal Symptoms Famotidine (Pepcid) 40 mg PO DAILY [facility] Last Admin: 09/21/16 10:27 Dose: 40 mg Folic Acid (Folic Acid) 1 mg PO DAILY [facility] Last Admin: 09/21/16 10:27 Dose: 1 mg Haloperidol (Haldol) 5 mg PO Q8 PRN PRN Reason: Moderate Agitation Haloperidol (Haldol) 5 mg PO BID [facility] Last Admin: 09/21/16 17:43 Dose: 5 mg Haloperidol Lactate (Haldol) 5 mg IM Q8 PRN PRN Reason: Moderate Agitation Lactulose (Enulose) 20 gm PO BID [facility] Last Admin: 09/21/16 17:43 Dose: 20 gm Lorazepam (Ativan) 1 mg PO Q4H PRN PRN Reason: Symptoms of alcohol withdrawl Last Admin: 09/21/16 15:04 Dose: 1 mg Multivitamins (Hexavitamin) 1 tab PO DAILY [facility] Last Admin: 09/20/16 09:13 Dose: 1 tab Thiamine HCl (Vitamin B1 Tab) 100 mg PO DAILY [facility] Last Admin: 09/21/16 10:27 Dose: 100 mg - Labs Labs: 09/22/16 07:26 09/22/16 07:26 PT 12.7 SECONDS (9.7-12.2) H 09/22/16 07:26 INR 1.1 09/22/16 07:26 APTT 32 SECONDS (21-34) 09/17/16 19:43 - Constitutional Appears: No Acute Distress, Chronically Ill - Head Exam Head Exam: ATRAUMATIC, NORMOCEPHALIC - Eye Exam Eye Exam: EOMI, PERRL, Scleral icterus Pupil Exam: PERRL. absent: Miosis, Mydriatic - ENT Exam ENT Exam: Mucous Membranes Moist, Normal Oropharynx - Neck Exam Neck Exam: Full ROM, Normal Inspection - Respiratory Exam Respiratory Exam: Clear to Ausculation Bilateral. absent: Rales, Rhonchi, Wheezes - Cardiovascular Exam Cardiovascular Exam: RRR, +S1, +S2. absent: Gallop, Rubs - GI/Abdominal Exam GI & Abdominal Exam: Soft, Normal Bowel Sounds. absent: Distended, Firm, Guarding, Rigid, Tenderness, Organomegaly, Rebound - Extremities Exam Extremities Exam: Full ROM. absent: Pedal Edema - Neurological Exam Neurological Exam: Alert, Awake - Psychiatric Exam Psychiatric exam: Normal Affect, Normal Mood - Skin Skin Exam: Dry, Intact, Warm Additional comments: jaundice Assessment and Plan - Assessment and Plan (Free Text) Assessment: 51 year old male with history of schizophrenia, Hypertension and alcohol abuse with recent discharge for alcoholic hepatitis presenting with abdominal pain, delusions and jaundice. Active treatment of alcoholic hepatitis. EGD 09/17/16 with food bezoar. No prior colonoscopy. Plan: >DF 29 on admission, 09/21 24, today 23.6 >daily LFTs PT/INR >continue Lactulose >alcohol cessation counselling provided >psych managing >social work managing request for detox on discharge <Amaris Bailey MD - Last Filed: 09/22/16 11:18> Objective - Vital Signs/Intake and Output Vital Signs (last 24 hours): Temp Pulse Resp BP Pulse Ox 98.2 F 68 18 96/52 L 98 09/22/16 07:30 09/22/16 07:30 09/22/16 07:30 09/22/16 07:30 09/22/16 07:30 Intake and Output: 09/22/16 09/22/16 06:59 18:59 Output Total 250 Balance -250 - Medications Medications: Current Medications Benztropine Mesylate (Cogentin) 2 mg PO Q6 PRN PRN Reason: Extra Pyramidal Symptoms Famotidine (Pepcid) 40 mg PO DAILY [facility] Last Admin: 09/22/16 10:14 Dose: 40 mg Folic Acid (Folic Acid) 1 mg PO DAILY [facility] Last Admin: 09/22/16 10:14 Dose: 1 mg Haloperidol (Haldol) 5 mg PO Q8 PRN PRN Reason: Moderate Agitation Haloperidol (Haldol) 5 mg PO BID [facility] Last Admin: 09/22/16 10:16 Dose: 5 mg Haloperidol Lactate (Haldol) 5 mg IM Q8 PRN PRN Reason: Moderate Agitation Lactulose (Enulose) 20 gm PO BID [facility] Last Admin: 09/22/16 10:14 Dose: 20 gm Lorazepam (Ativan) 1 mg PO Q4H PRN PRN Reason: Symptoms of alcohol withdrawl Last Admin: 09/22/16 10:13 Dose: 1 mg Multivitamins (Hexavitamin) 1 tab PO DAILY [facility] Last Admin: 09/22/16 10:13 Dose: 1 tab Thiamine HCl (Vitamin B1 Tab) 100 mg PO DAILY [facility] Last Admin: 09/22/16 10:14 Dose: 100 mg - Labs Labs: 09/22/16 07:26 09/22/16 07:26 PT 12.7 SECONDS (9.7-12.2) H 09/22/16 07:26 INR 1.1 09/22/16 07:26 APTT 32 SECONDS (21-34) 09/17/16 19:43 Attending/Attestation - Attestation I have personally seen and examined this patient.: Yes I have fully participated in the care of the patient.: Yes I have reviewed all pertinent clinical information, including history, physical exam and plan: Yes Notes (Text): 09/22/16 11:16 Patient seen with GI fellow. This is a 51 year old male with history of schizophrenia, Hypertension and alcohol abuse with recent discharge for alcoholic hepatitis presenting with abdominal pain, delusions and jaundice. Active treatment of alcoholic hepatitis. EGD 09/17/16 with food bezoar. No prior colonoscopy. DF < 32 hence no indication for steroids. Total bilirubin downtrending. Alcohol cessation councelling done. Needs close outpatient follow up. High caloric high protein low salt diet. Patient is interested in inpatient detox.
[2016-09-22 09:55] LABS: LYMPH # 2.5 K/uL (1.0-4.3); MONO # 0.7 K/uL (0.0-0.8)
[2016-09-22] MEDS: Multiple Vitamins Tab PO SCH (10:13)
--- NOTE | 2016-09-23 07:08 | CP.PCM.PN ---
<Cristina Lyle - Last Filed: 09/23/16 08:35> Subjective - Date & Time of Evaluation Date of Evaluation: 09/23/16 Time of Evaluation: 07:04 - Subjective Subjective: Gastorenterology Fellow/PGY4 Progress Note Patient awaiting decision for inpatient rehab. Tolerating diet. Notes daily bowel movement. A 12-point review of systems negative except for as above. Objective - Vital Signs/Intake and Output Vital Signs (last 24 hours): Temp Pulse Resp BP Pulse Ox 99.5 F 67 20 102/62 98 09/22/16 23:25 09/22/16 23:25 09/22/16 23:25 09/22/16 23:25 09/22/16 23:25 Intake and Output: 09/23/16 09/23/16 06:59 18:59 Output Total 300 Balance -300 - Medications Medications: Current Medications Benztropine Mesylate (Cogentin) 2 mg PO Q6 PRN PRN Reason: Extra Pyramidal Symptoms Famotidine (Pepcid) 40 mg PO DAILY [facility] Last Admin: 09/22/16 10:14 Dose: 40 mg Folic Acid (Folic Acid) 1 mg PO DAILY [facility] Last Admin: 09/22/16 10:14 Dose: 1 mg Haloperidol (Haldol) 5 mg PO Q8 PRN PRN Reason: Moderate Agitation Haloperidol (Haldol) 5 mg PO BID [facility] Last Admin: 09/22/16 18:01 Dose: 5 mg Haloperidol Lactate (Haldol) 5 mg IM Q8 PRN PRN Reason: Moderate Agitation Lactulose (Enulose) 20 gm PO BID [facility] Last Admin: 09/22/16 18:01 Dose: 20 gm Lorazepam (Ativan) 1 mg PO Q4H PRN PRN Reason: Symptoms of alcohol withdrawl Last Admin: 09/22/16 10:13 Dose: 1 mg Multivitamins (Hexavitamin) 1 tab PO DAILY [facility] Last Admin: 09/22/16 10:13 Dose: 1 tab Thiamine HCl (Vitamin B1 Tab) 100 mg PO DAILY [facility] Last Admin: 09/22/16 10:14 Dose: 100 mg - Labs Labs: 09/22/16 07:26 09/22/16 07:26 PT 12.7 SECONDS (9.7-12.2) H 09/22/16 07:26 INR 1.1 09/22/16 07:26 APTT 32 SECONDS (21-34) 09/17/16 19:43 - Constitutional Appears: Non-toxic, No Acute Distress - Head Exam Head Exam: ATRAUMATIC, NORMOCEPHALIC - Eye Exam Eye Exam: EOMI, PERRL, Scleral icterus Pupil Exam: PERRL. absent: Miosis, Mydriatic - ENT Exam ENT Exam: Mucous Membranes Moist, Normal Oropharynx - Neck Exam Neck Exam: Full ROM, Normal Inspection - Respiratory Exam Respiratory Exam: Clear to Ausculation Bilateral. absent: Rales, Rhonchi, Wheezes - Cardiovascular Exam Cardiovascular Exam: RRR, +S1, +S2. absent: Gallop, Rubs - GI/Abdominal Exam GI & Abdominal Exam: Soft, Normal Bowel Sounds. absent: Distended, Firm, Guarding, Rigid, Tenderness, Organomegaly, Rebound - Extremities Exam Extremities Exam: Full ROM. absent: Pedal Edema - Neurological Exam Neurological Exam: Alert, Awake, Oriented x3 - Psychiatric Exam Psychiatric exam: Normal Affect, Normal Mood - Skin Skin Exam: Dry, Intact, Warm Additional comments: jaundice Assessment and Plan - Assessment and Plan (Free Text) Assessment: 51 year old male with history of schizophrenia, Hypertension and alcohol abuse with recent discharge for alcoholic hepatitis presenting with abdominal pain, delusions and jaundice. Active treatment of alcoholic hepatitis. Ultrasound showed hepatic steatosis. EGD 09/17/16 with food bezoar. No prior colonoscopy. Plan: >DF 29 on admission, 09/22 23.6, today pending >daily LFTs, PT/INR >on Lactulose >continue regular diet >total bilirubin improving, cleared for discharge from GI standpoint >alcohol cessation counselling provided >social work managing request for detox on discharge <Ha Carpio - Last Filed: 09/23/16 09:24> Objective - Vital Signs/Intake and Output Vital Signs (last 24 hours): Temp Pulse Resp BP Pulse Ox 98.9 F 70 20 91/60 L 96 09/23/16 07:00 09/23/16 07:30 09/23/16 07:00 09/23/16 07:00 09/23/16 07:00 Intake and Output: 09/23/16 09/23/16 06:59 18:59 Output Total 300 Balance -300 - Medications Medications: Current Medications Benztropine Mesylate (Cogentin) 2 mg PO Q6 PRN PRN Reason: Extra Pyramidal Symptoms Famotidine (Pepcid) 40 mg PO DAILY [facility] Last Admin: 09/22/16 10:14 Dose: 40 mg Folic Acid (Folic Acid) 1 mg PO DAILY [facility] Last Admin: 09/22/16 10:14 Dose: 1 mg Haloperidol (Haldol) 5 mg PO BID [facility] Last Admin: 09/22/16 18:01 Dose: 5 mg Lactulose (Enulose) 20 gm PO BID [facility] Last Admin: 09/22/16 18:01 Dose: 20 gm Lorazepam (Ativan) 0.5 mg PO Q6H PRN PRN Reason: Symptoms of alcohol withdrawl Multivitamins (Hexavitamin) 1 tab PO DAILY [facility] Last Admin: 09/22/16 10:13 Dose: 1 tab Thiamine HCl (Vitamin B1 Tab) 100 mg PO DAILY [facility] Last Admin: 09/22/16 10:14 Dose: 100 mg - Labs Labs: 09/22/16 07:26 09/22/16 07:26 PT 12.7 SECONDS (9.7-12.2) H 09/22/16 07:26 INR 1.1 09/22/16 07:26 APTT 32 SECONDS (21-34) 09/17/16 19:43 Attending/Attestation - Attestation I have personally seen and examined this patient.: Yes I have fully participated in the care of the patient.: Yes I have reviewed all pertinent clinical information, including history, physical exam and plan: Yes Notes (Text): 09/23/16 09:21 I have seen and examined patient with GI fellow. No acute events overnight. He is seen resting in bed comfortably eating breakfast. He denies abdominal pain, nausea, vomiting, diarrhea, fever/chills. He had a normal formed bowel movement this morning as per patient. HTN Schizophrenia ETOH abuse, acute ETOH hepatitis - Diet as tolerated - LFTs, bilirubin trending down, continue to monitor. Patient not a candidate for steroid therapy due to low DF. - Awaiting autoimmune panel results - Patient currently awaiting ETOH rehabilitation placement - No ongoing GI issues, will sign off case. Please reconsult as necessary, thank you.
--- NOTE | 2016-09-23 07:21 | PN ---
DATE: 09/22/2016 SUBJECTIVE: The patient was seen and examined on the bedside. He denies abdominal pain, nausea, vomiting, or diarrhea. No hematuria or hematochezia. No swelling of the leg. No chest pain, no palpitation, no headache, no dizziness. No dyspnea. PHYSICAL EXAMINATION: VITAL SIGNS: Temperature is 99.2, pulse 81, respiratory rate 20, blood pressure 95/55, pulse oximetry 99. HEENT: Head normocephalic, atraumatic. Eyes: PERRLA. Extraocular muscles intact. Conjunctivae clear. Nose patent. Mucous membranes moist. NECK: Supple. No carotid bruit. No JVD or thyromegaly. CHEST: Bilaterally symmetrical. HEART: S1, S2 positive. LUNGS: Clear to auscultation. ABDOMEN: Soft. Bowel sounds present. No organomegaly. EXTREMITIES: No edema, no cyanosis. NEUROLOGIC: The patient is awake, alert, moving all 4 extremities. No focal deficit. MEDICATIONS: Cogentin, Pepcid, folic acid, Haldol, Enulose, Ativan, B1. LABORATORY DATA: White blood cell is 10.8, hemoglobin 8.2, hematocrit 23.3, platelets 156. Sodium 133, potassium 3.4, BUN 13, creatinine 0.8, glucose 111. ASSESSMENT AND PLAN: The patient is a 51-year-old male with anemia, hypokalemia , hyperglycemia, history of schizophrenia, hypertension, alcohol abuse, has alcoholic hepatitis, prerenal state, has jaundice. The patient had EEG on . No prior colonoscopy. went down, getting alcohol cessation counseling. Psychiatrist is on the case. The patient should need high caloric, high protein , low salt diet. The patient wanted to go detoxification. Appreciated gastroenterology input. Maybe psychiatrist will take care of patient's detoxification. Meanwhile, continue present treatment. Gastrointestinal and venous thrombosis prophylaxis. Repeat labs. We will follow up. Trinity Coronado MD cc: [id number] TT: 09/23/2016 07:21:00 Confirmation # [id number] Dictation # [id number] karnua MCKEON
[2016-09-23] MEDS: Multiple Vitamins Tab PO SCH (09:39)
--- NOTE | 2016-09-23 10:12 | PN ---
DATE: 09/21/2016 SUBJECTIVE: The patient was seen and examined on the bedside on 09/21/2016. No change in the status. The patient denies any issues overnight and is tolerating diet without issues. No fever, no chills. No nausea, vomiting or diarrhea. Not feeling anxious or tremulous. REVIEW OF SYSTEMS: Performed and negative except above stated. PHYSICAL EXAMINATION: VITAL SIGNS: Temperature 99, pulse 77, respiratory rate 20, blood pressure 92/ 55, pulse oximetry 98. HEENT: Head normocephalic, atraumatic. Eyes: PERRLA. Extraocular muscles intact. Conjunctivae are clear. Nose patent. Mucous membranes moist. NECK: Supple. No carotid bruit. No JVD or thyromegaly. CHEST: Bilaterally symmetrical. HEART: S1, S2 positive. LUNGS: Clear to auscultation. ABDOMEN: Soft. Bowel sounds present. No organomegaly. EXTREMITIES: No edema, no cyanosis. NEUROLOGIC: The patient is awake, alert, moving all 4 extremities. No focal deficits. MEDICATIONS: Cogentin, Pepcid, folic acid, Haldol, lactulose, Ativan, vitamin B1. LABORATORY DATA: We do not have recent labs today, but I reviewed old labs. ASSESSMENT AND PLAN: The patient is a 51-year-old male with anemia, history for hypertension, schizophrenia, ethanol abuse, admitted for abdominal pain and jaundice. Repeat CT pancreatic protocol negative for pancreatic mass and obstruction. Abnormal liver function tests, to the ethanol hepatitis. Will continue monitoring liver function tests. Continuing supportive care. GI and psychiatrist are on the case. Urged to quit ethanol abuse. Diet as tolerated. Follow up with the psychiatrist's recommendation. Repeat labs. Will follow up. Trinity Coronado MD cc: [id number] TT: 09/23/2016 10:12:05 Confirmation # [id number] Dictation # [id number] bertin MCKEON
[2016-09-23 11:23] LABS: HEMATOCRIT 22.6 % (35.0-51.0); MEAN CELL VOLUME 101.8 fL (80.0-94.0); MEAN CORPUSCULAR HEMOGLOBIN 35.4 pg (27.0-31.0); MEAN CORPUSCULAR HGB CONC 34.8 g/dL (33.0-37.0); MEAN PLATELET VOLUME 10.7 fL (7.2-11.7); RED CELL DISTRIBUTION WIDTH 17.7 % (11.5-14.5); WHITE BLOOD COUNT 12.5 K/uL (4.8-10.8)
[2016-09-23 11:25] LABS: INR 1.1
[2016-09-23 11:29] LABS: CHLORIDE 98 mmol/L (98-107); POTASSIUM 3.4 mmol/L (3.6-5.2); SODIUM 133 mmol/L (132-148)
[2016-09-23 11:31] LABS: GFR AFRICAN-AMERICAN > 60
[2016-09-23 11:32] LABS: ALB/GLOB RATIO 0.7 (1.0-2.1); ALKALINE PHOSPHATASE 304 U/L (38-126); ALT/SGPT 58 U/L (21-72); AST/SGOT 78 U/L (17-59); BILIRUBIN,TOTAL 17.9 mg/dL (0.2-1.3); BLOOD UREA NITROGEN 11 mg/dL (9-20); CARBON DIOXIDE 25 mmol/L (22-30); GLUCOSE,RANDOM 93 mg/dL (75-110); TOTAL PROTEIN 7.3 g/dL (6.3-8.3)
[2016-09-23 11:33] LABS: CALCIUM 8.7 mg/dl (8.6-10.4)
[2016-09-23 12:05] LABS: LYMPH # 1.5 K/uL (1.0-4.3); MONO # 0.8 K/uL (0.0-0.8)
[2016-09-23 15:32] LABS: SMOOTH MUSCLE AB TITER 1:20 Titer (< 1:20)
--- NOTE | 2016-09-24 09:29 | PN ---
DATE: 09/23/2016 The patient was seen and examined on the bedside, looks comfortable. No nausea , vomiting, or diarrhea. No hematuria or hematochezia. No swelling of the leg. Tolerating diet, having bowel movements. Appetite is okay. REVIEW OF SYSTEMS: A 12-point review of system is negative except for the above. PHYSICAL EXAMINATION: VITAL SIGNS: Temperature 98.5, pulse 57, respiratory rate 20, blood pressure 102/62, pulse oximetry 98%. HEENT: Head normocephalic, atraumatic. Eyes: PERRLA. Extraocular muscles intact. Conjunctivae clear. Nose patent. Mucous membranes moist. NECK: Supple. No carotid bruit, JVD or thyromegaly. CHEST: Bilaterally symmetrical. HEART: S1, S2 positive. LUNGS: Clear to auscultation. ABDOMEN: Soft, bowel sounds present. No organomegaly. EXTREMITIES: No edema, no cyanosis. NEUROLOGICAL: The patient is awake, alert, moving all 4 extremities. No focal deficit, MEDICATIONS: Cogentin, Pepcid, folic acid, Haldol, lactulose, Ativan, multivitamins. LABORATORY DATA: White blood cells 10.8, hemoglobin 8.2, hematocrit 23.3, platelets 156. Sodium 133, potassium 3.4, BUN 13, creatinine 0.8, glucose 111. ASSESSMENT AND PLAN: The patient is a 51-year-old male with anemia, hypokalemia , hyperglycemia, has history of hypertension, schizophrenia, ethanol abuse, acute hepatitis. Diet as tolerated. Liver function tests, bilirubin trending down. waiting for autoimmune panel. The patient currently waiting for ethanol rehabilitation placement. No ongoing gastrointestinal issues, will sign off as per gastroenterology. Seen by Dr. Cheyanne Ellis 2 times. We need their opinion about rehabilitation. Medically, the patient is improving. We will follow up. Trinity Coronado MD cc: [id number] TT: 09/24/2016 09:28:48 Confirmation # [id number] Dictation # [id number] tn [email or web address]
[2016-09-24] MEDS: Multiple Vitamins Tab PO SCH (09:56)
[2016-09-24] MEDS ORDERED: Potassium Chloride 20 mEq ER Tab PO ONE (12:15)
--- NOTE | 2016-09-24 13:15 | CARD ---
APPROVED REPORT EKG Measurement Heart [id number] OR 140P30 [id number] <Conclusion> Normal sinus rhythm Minimal voltage criteria for LVH, may be normal variant Borderline ECG
[2016-09-24 14:42] LABS: HEMATOCRIT 21.4 % (35.0-51.0); MEAN CELL VOLUME 103.1 fL (80.0-94.0); MEAN CORPUSCULAR HEMOGLOBIN 35.2 pg (27.0-31.0); MEAN CORPUSCULAR HGB CONC 34.1 g/dL (33.0-37.0); MEAN PLATELET VOLUME 10.8 fL (7.2-11.7); PLATELET COUNT 171 K/uL (130-400); RED CELL DISTRIBUTION WIDTH 17.4 % (11.5-14.5); WHITE BLOOD COUNT 11.4 K/uL (4.8-10.8)
[2016-09-24 14:56] LABS: CHLORIDE 99 mmol/L (98-107)
[2016-09-24 14:57] LABS: POTASSIUM 3.4 mmol/L (3.6-5.2); SODIUM 134 mmol/L (132-148)
[2016-09-24 14:59] LABS: GFR AFRICAN-AMERICAN > 60
[2016-09-24 15:00] LABS: BLOOD UREA NITROGEN 11 mg/dL (9-20); CALCIUM 8.8 mg/dl (8.6-10.4); CARBON DIOXIDE 23 mmol/L (22-30); GLUCOSE,RANDOM 116 mg/dL (75-110)
[2016-09-24 15:38] LABS: BASO # 0.5 K/uL (0.0-0.2); EOS # 0.2 K/uL (0.0-0.7); LYMPH # 1.4 K/uL (1.0-4.3); MONO # 0.2 K/uL (0.0-0.8)
[2016-09-24 15:41] LABS: BASOPHIL 1 % (0-2); EOSINOPHIL 5 % (0-4); MYELOCYTE 1 % (0-0); NEUTROPHIL 73 % (50-75); TOTAL CELLS COUNTED 100
[2016-09-24 15:43] LABS: GIANT PLATELETS PRESENT; LARGE PLATELETS PRESENT
--- NOTE | 2016-09-24 18:07 | CP.PCM.PN ---
Subjective - Date & Time of Evaluation Date of Evaluation: 09/24/16 Time of Evaluation: 14:00 - Subjective Subjective: CERTIFIED PERFORMANCE TECHNOLOGIST NOTES pt seen today awake alert, oriented ,NAD 51 year old male with h/o HTN, schizophrenia, ETOH abuse who is admitted with abdominal pain/delusions/paranoia and jaundice. Pt has ETOH hepatitis cbc repeated today - hgb dropped from 7.9- 7.3 D/W Dr. Fitch, will transfuse 2 units of PRBC and repeat cbc after transfusion Plan discussed with patient After enplaning the alternatives , benefit vs risks , blood consent obtained from patient and RN witnessed Objective - Vital Signs/Intake and Output Vital Signs (last 24 hours): Temp Pulse Resp BP Pulse Ox 98.6 F 64 20 100/63 98 09/24/16 16:09 09/24/16 16:09 09/24/16 16:09 09/24/16 16:09 09/24/16 16:09 Intake and Output: 09/24/16 09/24/16 06:59 18:59 Intake Total 560 600 Balance 560 600 - Medications Medications: Current Medications Benztropine Mesylate (Cogentin) 1 mg PO Q6 PRN PRN Reason: Extra Pyramidal Symptoms Famotidine (Pepcid) 40 mg PO DAILY [facility] Last Admin: 09/24/16 09:57 Dose: 40 mg Folic Acid (Folic Acid) 1 mg PO DAILY [facility] Last Admin: 09/24/16 09:56 Dose: 1 mg Haloperidol (Haldol) 2 mg PO BID [facility] Last Admin: 09/24/16 09:58 Dose: 2 mg Lactulose (Enulose) 20 gm PO BID [facility] Last Admin: 09/24/16 09:56 Dose: 20 gm Lorazepam (Ativan) 0.25 mg PO Q8H PRN PRN Reason: Symptoms of alcohol withdrawl Multivitamins (Hexavitamin) 1 tab PO DAILY [facility] Last Admin: 09/24/16 09:56 Dose: 1 tab Potassium Chloride (K-Dur 20 Meq Er Tab) 20 meq PO DAILY [facility] Stop: 09/26/16 18:01 Thiamine HCl (Vitamin B1 Tab) 100 mg PO DAILY [facility] Last Admin: 09/24/16 09:56 Dose: 100 mg - Labs Labs: 09/24/16 14:23 09/24/16 14:23 PT 13.0 SECONDS (9.7-12.2) H 09/23/16 11:14 INR 1.1 09/23/16 11:14 APTT 32 SECONDS (21-34) 09/17/16 19:43
[2016-09-24] MEDS: Potassium Chloride 20 mEq ER Tab PO SCH (18:21)
[2016-09-25 08:07] LABS: HEMATOCRIT 24.6 % (35.0-51.0); MEAN CORPUSCULAR HEMOGLOBIN 34.6 pg (27.0-31.0); MEAN CORPUSCULAR HGB CONC 34.8 g/dL (33.0-37.0); MEAN PLATELET VOLUME 10.9 fL (7.2-11.7); RED CELL DISTRIBUTION WIDTH 18.5 % (11.5-14.5); WHITE BLOOD COUNT 12.6 K/uL (4.8-10.8)
[2016-09-25 08:09] LABS: MEAN CELL VOLUME 99.4 fL (80.0-94.0)
[2016-09-25 08:31] LABS: IRON 58 ug/dL (49-181)
[2016-09-25] MEDS: Potassium Chloride 20 mEq ER Tab PO SCH (09:20)
[2016-09-25] MEDS: Multiple Vitamins Tab PO SCH (09:21)
--- NOTE | 2016-09-25 09:30 | PN ---
DATE: 09/24/2016 The patient is a 51-year-old male. The patient was seen and examined on the bedside, looks comfortable on 09/24/2016. No nausea, vomiting, diarrhea. No hematuria, no hematochezia. No swelling of the legs. No chest pain, no palpitations, no headache, no dizziness. PHYSICAL EXAMINATION: VITAL SIGNS: Temperature 98.7, pulse 80 , blood pressure 120/78, respiratory rate 20. HEENT: Head normocephalic, atraumatic. Eyes, PERRLA. Extraocular muscles intact. Conjunctivae clear. Nose patent. Mucous membranes moist. NECK: Supple. No carotid bruit, no JVD, no thyromegaly. CHEST: Bilaterally symmetrical. HEART: S1, S2 positive. LUNGS: Clear to auscultation. ABDOMEN: Soft. Bowel sounds positive. No organomegaly. EXTREMITIES: No edema, no cyanosis. NEUROLOGIC: The patient is awake, alert, moving all 4 extremities. No focal deficits. MEDICATIONS: Ativan, Cogentin, lactulose, folic acid, Haldol, potassium, Pepcid. LABORATORIES: White blood cells 12.6, hemoglobin 8.6, hematocrit 24.6, platelets 180. Sodium 134, potassium 3.4, glucose 116. ASSESSMENT AND PLAN: The patient is a 51-year-old male with leukocytosis, anemia, hypokalemia, replaced, hyperglycemia, abnormal liver function test, cirrhosis of the liver due to ethanol abuse. Antismooth muscle antibody is positive. Seen by GI and psychiatrist. Schizophrenia ethanol abuse, acute ethanol hepatitis. Diet as tolerated. Gastrointestinal and deep venous thrombosis prophylaxis. Repeat labs. We will follow up. Trinity Coronado MD cc: [id number] TT: 09/25/2016 09:29:37 Confirmation # [id number] Dictation # [id number] en MTDD
--- NOTE | 2016-09-25 14:42 | CP.PCM.PN ---
Subjective - Date & Time of Evaluation Date of Evaluation: 09/25/16 Time of Evaluation: 14:37 - Subjective Subjective: 51 Y/O MALE SEEN AND EXAMINED TODAY BY DR MILLAN PT W/PMHX SCHIZOPHRENIA, HTN, ALCOHOL ABUSE, ALCOHOL HEPATITIS, DELUSION, JAUNDICE PT SEEN BY GI, TREATED FOR ALCOHOLIC HEPATITIS, CLEARED FROM GI AND DR MILLAN FOR D/C US- HEPATIC STENOSIS TRANSFUSED 1 UNIT BLOOD ON 09/24 IMPROVED BILIRUBIN, HGB 7.3 TO 8.6, PT DENIES ANY PAIN, HEMATURIA, HEMATOCHEZIA Objective - Vital Signs/Intake and Output Vital Signs (last 24 hours): Temp Pulse Resp BP Pulse Ox 98.7 F 68 20 120/78 97 09/25/16 07:00 09/25/16 07:30 09/25/16 07:00 09/25/16 07:00 09/25/16 07:00 Intake and Output: 09/25/16 09/25/16 06:59 18:59 Intake Total 1350 Output Total 200 Balance 1150 - Medications Medications: Current Medications Benztropine Mesylate (Cogentin) 1 mg PO Q6 PRN PRN Reason: Extra Pyramidal Symptoms Famotidine (Pepcid) 40 mg PO DAILY [facility] Last Admin: 09/25/16 09:21 Dose: 40 mg Folic Acid (Folic Acid) 1 mg PO DAILY [facility] Last Admin: 09/25/16 09:21 Dose: 1 mg Haloperidol (Haldol) 1 mg PO BID [facility] Last Admin: 09/25/16 09:27 Dose: 1 mg Lactulose (Enulose) 20 gm PO BID [facility] Last Admin: 09/25/16 09:22 Dose: 20 gm Lorazepam (Ativan) 0.25 mg PO Q8H PRN PRN Reason: Symptoms of alcohol withdrawl Multivitamins (Hexavitamin) 1 tab PO DAILY [facility] Last Admin: 09/25/16 09:21 Dose: 1 tab Potassium Chloride (K-Dur 20 Meq Er Tab) 20 meq PO DAILY [facility] Stop: 09/26/16 18:01 Last Admin: 09/25/16 09:20 Dose: 20 meq Thiamine HCl (Vitamin B1 Tab) 100 mg PO DAILY [facility] Last Admin: 09/25/16 09:23 Dose: 100 mg - Labs Labs: 09/25/16 07:53 09/24/16 14:23 PT 13.0 SECONDS (9.7-12.2) H 09/23/16 11:14 INR 1.1 09/23/16 11:14 APTT 32 SECONDS (21-34) 09/17/16 19:43
[2016-09-25 16:05] VITALS: BP 101/64; PULSE 82; RESP 18; TEMP 98.2; O2SAT 100
--- NOTE | 2016-09-26 07:44 | PN ---
DATE: 09/25/2016 SUBJECTIVE: The patient is seen and examined on the bedside. Looks comfortable. No nausea, vomiting, or diarrhea. No fever, no chills. No headache, no dizziness. The patient is status post blood transfusion, tolerated blood transfusion very well. PHYSICAL EXAMINATION: VITAL SIGNS: Temperature is 98.7, pulse 68, respirations 20, blood pressure 120 /78, pulse oximetry 97. HEENT: Head normocephalic, atraumatic. Eyes: PERRLA. Extraocular muscles intact. Conjunctivae clear. Nose patent. Mucous membranes moist. NECK: Supple. No carotid bruit, JVD or thyromegaly. CHEST: Bilaterally symmetrical. HEART: S1, S2 positive. LUNGS: Clear to auscultation. ABDOMEN: Soft. Bowel sounds + . No organomegaly. EXTREMITIES: No edema, no cyanosis. NEUROLOGIC: The patient is awake, alert, moving all 4 extremities. No focal deficits. MEDICATIONS: Cogentin, Pepcid, folic acid, Haldol, Ativan, multivitamins, K- Dur. LABORATORY DATA: White blood cells 12.6, hemoglobin 8.6, hematocrit 24.6, platelets 102. Sodium 134, potassium 3.4, BUN 11, creatinine 0.2. Glucose is.116. ASSESSMENT AND PLAN: The patient is a 51-year-old male with leukocytosis, anemia, hyperglycemia, hypokalemia, has history of schizophrenia, hypertension, alcohol abuse, alcoholic-induced hepatitis, delusions, and jaundice. The patient was seen and treated for alcoholic hepatitis by gastroenterology, cleared from gastroenterology and Dr. for discharge. Has severe anemia, transfused 1 unit of packed RBC, improved bilirubin. Hemoglobin ranged from 7.8 to 8.6 after blood transfusion. Denies any type of pain, hematuria or hematochezia. Trying to get the patient to [facility] for deconditioning and for continuity of care. We will follow up. Trinity Coronado MD cc: [id number] TT: 09/26/2016 07:43:03 Confirmation # [id number] Dictation # [id number] karuna [facility]
== END 2016-09-25 19:10 | DRG 433 ==
LOC: C.ER 19:33 → C.9E 21:55 → C.6T 23:12
PROVIDERS: ADMIT Internal Medicine; ATTEND Internal Medicine
PROC: 30233N1 Transfusion of Nonautologous Red Blood Cells into Peripheral Vein, Percutaneous Approach (ICD-10-PCS; principal; 2016-09-24)
DX: K70.10 Alcoholic hepatitis without ascites (principal); F10.239 Alcohol dependence with withdrawal, unspecified; K70.30 Alcoholic cirrhosis of liver without ascites; G62.9 Polyneuropathy, unspecified; I10 Essential (primary) hypertension; F20.0 Paranoid schizophrenia; E87.6 Hypokalemia; J45.909 Unspecified asthma, uncomplicated; F17.210 Nicotine dependence, cigarettes, uncomplicated; D64.9 Anemia, unspecified; D72.829 Elevated white blood cell count, unspecified; R73.9 Hyperglycemia, unspecified

== ENCOUNTER 2016-11-06 06:43 | Day surgery (SDC) | payer MEDICARE ==
[2016-11-06 07:17] VITALS: BMI 28.0
[2016-11-06] MEDS ORDERED: Lactated Ringer's 500 ML IV ONE (08:53)
[2016-11-06] MEDS ORDERED: Propofol 10 mg/ml Inj (20 ML) ONE (08:56)
[2016-11-06 09:48] VITALS: TEMP 97
[2016-11-06 10:24] VITALS: BP 119/67; PULSE 65; RESP 16; O2SAT 98
== END 2016-11-06 10:23 | disposition home or self-care (01) ==
LOC: C.ENDO 06:43
PROVIDERS: ATTEND Internal Medicine Gastroenterology
DX: K64.8 Other hemorrhoids (principal)
CPT/HCPCS: 45378; J2001; J2704; J3010; J7120

== ENCOUNTER 2017-06-28 15:48 | Emergency (ER) | payer MEDICARE ==
[2017-06-28 16:03] VITALS: RESP 16; BMI 23.7
[2017-06-28 16:14] LABS: URINE BILIRUBIN NEGATIVE (NEGATIVE); URINE BLOOD NEGATIVE (NEGATIVE); URINE CLARITY Clear (Clear); URINE COLOR Colorless (YELLOW); URINE GLUCOSE (UA) NORMAL (Normal); URINE LEUKOCYTE ESTERASE NEG Leu/uL (Negative); URINE NITRATE NEGATIVE (NEGATIVE); URINE PROTEIN NEGATIVE (NEGATIVE); URINE UROBILINOGEN NORMAL mg/dL (0.2-1.0)
--- NOTE | 2017-06-28 16:26 | RAD ---
Chest x-ray single frontal view History: Shortness of breath. Comparison: 09/17/2016 Findings: Mild venous congestion. Heart size within normal limits. Degenerative changes in the spine. Impression: Mild venous congestion
[2017-06-28 16:27] LABS: BARBITURATES, UR NEGATIVE (NEGATIVE); BENZODIAZEPINES, UR NEGATIVE (NEGATIVE); OPIATES, UR NEGATIVE (NEGATIVE); PHENCYCLIDINE, UR NEGATIVE (NEGATIVE)
[2017-06-28 16:29] LABS: BASO % 0.5 % (0.0-2.0); EOS # 0.1 K/uL (0.0-0.7); EOS % 1.3 % (0.0-4.0); HEMOGLOBIN 14.5 g/dL (12.0-18.0); LYMPH # 1.4 K/uL (1.0-4.3); LYMPH % 14.9 % (20.0-40.0); MEAN CELL VOLUME 91.6 fL (80.0-94.0); MEAN CORPUSCULAR HEMOGLOBIN 32.8 pg (27.0-31.0); MEAN CORPUSCULAR HGB CONC 35.8 g/dL (33.0-37.0); MEAN PLATELET VOLUME 9.9 fL (7.2-11.7); MONO # 0.6 K/uL (0.0-0.8); MONO % 6.6 % (0.0-10.0); NEUT # 7.1 K/uL (1.8-7.0); NEUT % 76.7 % (50.0-75.0); NRBC % 0.1 % (0.0-2.0); RBC 4.42 Mil/uL (4.40-5.90); RED CELL DISTRIBUTION WIDTH 12.5 % (11.5-14.5); WHITE BLOOD COUNT 9.3 K/uL (4.8-10.8)
[2017-06-28 16:43] LABS: ALB/GLOB RATIO 1.2 (1.0-2.1); ALBUMIN 4.4 g/dL (3.5-5.0); ALT/SGPT 40 U/L (21-72); AST/SGOT 37 U/L (17-59); BLOOD UREA NITROGEN 8 mg/dL (9-20); CALCIUM 9.3 mg/dl (8.6-10.4); GFR AFRICAN-AMERICAN > 60; GFR NON-AFRICAN AMERICAN > 60
--- NOTE | 2017-06-28 17:11 | C.PDOC ---
History Of Present Illness 52 year old male presents to the ED requesting psychiatric evaluation. Patient reports experiencing auditory hallucinations and also complains of chest discomfort for the past few hours. Patient has a long history of schizophrenia and substance abuse. He denies suicidal/homicidal ideation, nausea, vomiting, extremity numbness/weakness. Time Seen by Provider: 06/28/17 15:59 Chief Complaint (Nursing): Psychiatric Evaluation History Per: Patient History/Exam Limitations: no limitations Onset/Duration Of Symptoms: Hrs Current Symptoms Are (Timing): Still Present Suicide/Self Injury Attempted (Context): None Associated Symptoms: Other (auditory hallucination). denies: Suicidal Thoughts , Suicidal Plan Involuntary Hold By: None Recent travel outside of the [place]: No Additional History Per: Patient Past Medical History Reviewed: Historical Data, Nursing Documentation, Vital Signs Vital Signs: Last Vital Signs Temp 98.5 F 06/28/17 17:35 Pulse 86 06/28/17 17:35 Resp 16 06/28/17 17:35 BP 142/84 06/28/17 17:35 Pulse Ox 97 06/28/17 18:23 - Medical History PMH: Anxiety, Arthritis, Depression, Fractures (LEFT WRIST), Gastritis, HTN, Migraine, Paranoia, Schizophrenia (UNSPECIFIED), Seizures Denies: HIV, Chronic Kidney Disease, Sexually Transmitted Disease Comment Only: Asthma (SMOKER) Surgical History: Endoscopy - [facility] Procedures ALCOHOL DETOXIFICATION (12/25/14) DETOXIFICATION SERVICES FOR SUBSTANCE ABUSE TREATMENT (05/16/16) GROUP STRUCTURAL DRAFTER FOR SUBSTANCE ABUSE TREATMENT, PSYCHOEDUCATION (02/12/16) INDIVID PSYCHOTHERAP NEC (01/17/15) INSERTION OF ENDOTRACHEAL AIRWAY INTO TRACHEA, VIA OPENING (02/10/15) INSPECTION OF UPPER INTESTINAL TRACT, ENDO (09/09/16) MEDS MGMT FOR SUBSTANCE ABUSE TREATMENT, PSYCH MED (05/16/16) OTHER GROUP THERAPY (01/17/15) PSYCHIAT DRUG THERAP NEC (01/17/15) RESPIRATORY VENTILATION, 24-96 CONSECUTIVE HOURS (02/10/15) TRANSFUSE NONAUT RED BLOOD CELLS IN PERIPH VEIN, PERC (09/17/16) Family History: States: Unknown Family Hx, [place] (Father in his 60's) - Social History Hx Tobacco Use: Yes (heavy smoker) Hx Alcohol Use: No Hx Substance Use: Yes (ALCOHOLIC ) - Immunization History Hx Tetanus Toxoid Vaccination: Yes Hx Influenza Vaccination: Yes Hx Pneumococcal Vaccination: No Review Of Systems Cardiovascular: Positive for: Other (chest discomfort ) Psych: Positive for: Other (auditory hallucination). Negative for: Suicidal ideation Physical Exam - Physical Exam Appears: Non-toxic, No Acute Distress, Other (anxious ) Skin: Normal Color, Warm, Dry, No Rash Head: Atraumatic, Normacephalic Eye(s): bilateral: Normal Inspection Oral Mucosa: Moist Neck: Supple Chest: Symmetrical, No Deformity, Other (digitally reproducible pain to left parasternal area, around T4 ) Cardiovascular: Rhythm Regular, No Murmur Respiratory: Normal Breath Sounds, No Rales, No Rhonchi, No Wheezing Extremity: Normal ROM, Capillary Refill (less than 2 seconds ) Neurological/Psych: Oriented x3, Normal Speech, Normal Cognition ED Course And Treatment - Laboratory Results Result Diagrams: 06/28/17 16:24 06/28/17 16:24 Lab Interpretation: Normal (trop neg.) ECG: Interpreted By Me ECG Rhythm: Sinus Rhythm ECG Interpretation: Normal Rate From EC O2 Sat by Pulse Oximetry: 97 (on RA) Pulse Ox Interpretation: Normal - Radiology CXR: Interpreted by Me CXR Interpretation: Yes: No Acute Disease Progress Note: Bloodwork, urinalysis, CXR, and EKG ordered and reviewed. Case discussed with assembly line worker, who asked to give patient Ativan to calm him down. Admission deferred. Ativan PO administered. Medical Decision Making Medical Decision Makin, 1700: d/w Crisis, raphael Jacob to d/c with outpatient resources. Disposition Doctor Will See Patient In The: Office Counseled Patient/Family Regarding: Studies Performed, Diagnosis - Disposition Referrals: [facility] [Outside] [facility] [Outside] [facility] [Outside] Disposition: HOME/ ROUTINE Disposition Time: 17:12 Condition: GOOD Additional Instructions: follow-up per out Psychiatry recommendations- Nidia. Instructions: Chest Pain That Is Not Caused by the Heart (DC), Schizoaffective Disorder (DC) Forms: [employer] (Omani) - Clinical Impression Clinical Impression: Schizoaffective disorder, Chest discomfort - Scribe Statement The provider has reviewed the documentation as recorded by the Scribe (Megan Albarran) Provider Attestation: All medical record entries made by the Scribe were at my direction and personally dictated by me. I have reviewed the chart and agree that the record accurately reflects my personal performance of the history, physical exam, medical decision making, and the department course for this patient. I have also personally directed, reviewed, and agree with the discharge instructions and disposition.
[2017-06-28 17:36] VITALS: BP 142/84; PULSE 86; TEMP 98.5
[2017-06-28 18:19] VITALS: O2SAT 97
--- NOTE | 2017-06-30 13:59 | CARD ---
APPROVED REPORT EKG Measurement Heart [id number] <Conclusion> Normal sinus rhythm Normal ECG
== END 2017-06-28 17:59 | disposition home or self-care (01) ==
LOC: C.ER 15:48
DX: F25.9 Schizoaffective disorder, unspecified (principal); R07.89 Other chest pain; I10 Essential (primary) hypertension
CPT/HCPCS: 71045; 80053; 81001; 84484; 85025; 93005; 99283; G0480

== ENCOUNTER 2017-07-16 07:09 | Day surgery (SDC) | payer MEDICARE ==
[2017-07-16 08:16] VITALS: BMI 23.7
[2017-07-16] MEDS ORDERED: Lactated Ringer's 1,000 ML IV ONE ×2 (11:55)
[2017-07-16] MEDS ORDERED: Propofol 10 mg/ml Inj (20 ML) ONE (11:56)
--- NOTE | 2017-07-16 11:56 | CP.SDSHP ---
Same Day Surgery H & P - History Proposed Procedure: colonoscopy Pre-Op Diagnosis: screening - Previous Medical/Surgical History Cardiac: Hypertension Comments: schizophrenia - Allergies Allergies: Allergies No Known Allergies Allergy (Verified 07/16/17 08:14) - Physical Exam General Appearance: NAD Vital Signs: Vital Signs 07/16/17 07:50 Temperature 99.5 F Pulse Rate 80 Respiratory 20 Rate Blood Pressure 120/88 O2 Sat by Pulse 98 Oximetry Mental Status: Alert & Oriented x3 Neuro: WNL Heart: WNL Lungs: WNL GI: WNL - {Optional Preform as Required} Abdomen: WNL - Impression Pt. Evaluated Today:Candidate for Anesthesia & Procedure: Yes - Date & Time Date: 07/16/17 Time: 11:56 Short Stay Discharge - Short Stay Discharge Admitting Diagnosis/Reason for Visit: SCREENING Disposition: HOME/ ROUTINE
[2017-07-16 12:34] VITALS: TEMP 98.9
[2017-07-16 13:04] VITALS: PULSE 79; RESP 12
[2017-07-16 13:14] VITALS: BP 106/64; O2SAT 99
== END 2017-07-16 13:12 | disposition home or self-care (01) ==
LOC: C.ENDO 07:09
PROVIDERS: ATTEND Internal Medicine Gastroenterology
DX: Z12.11 Encounter for screening for malignant neoplasm of colon (principal); D12.5 Benign neoplasm of sigmoid colon; K64.8 Other hemorrhoids; I10 Essential (primary) hypertension; F20.9 Schizophrenia, unspecified
CPT/HCPCS: 45380; 88305; J2704; J3010; J7120

== ENCOUNTER 2017-08-13 09:59 | Inpatient (IN) | payer MEDICARE ==
[2017-08-13 09:59] VITALS: BMI 31.1
--- NOTE | 2017-08-13 11:21 | C.PDOC ---
History Of Present Illness 52 y/o male with history of hallucinations presents to ED stating he is hearing voices "Telling me to kill myself and everyone around me". Patient denies substance use and denies suicidal or homicidal plan. No other physical complaints at this time. Time Seen by Provider: 08/13/17 10:28 Chief Complaint (Nursing): Psychiatric Evaluation History Per: Patient History/Exam Limitations: no limitations Onset/Duration Of Symptoms: Days Current Symptoms Are (Timing): Still Present Suicide/Self Injury Attempted (Context): None Modifying Factor(s): None Past Medical History Reviewed: Historical Data, Nursing Documentation, Vital Signs Vital Signs: Last Vital Signs Temp 98.1 F 08/13/17 14:00 Pulse 62 08/13/17 16:35 Resp 18 08/13/17 15:10 BP 137/89 08/13/17 16:35 Pulse Ox 99 08/13/17 18:41 - Medical History PMH: Anxiety, Arthritis, Bipolar Disorder, Depression, Fractures (RIGHT WRIST, RIGTH FOOT), Gastritis, HTN, Migraine, Paranoia, Schizophrenia (UNSPECIFIED), Seizures Comment Only: Asthma (SMOKER) Surgical History: Endoscopy - [facility] Procedures ALCOHOL DETOXIFICATION (12/25/14) DETOXIFICATION SERVICES FOR SUBSTANCE ABUSE TREATMENT (05/16/16) GROUP ARCHITECTURAL MODELER FOR SUBSTANCE ABUSE TREATMENT, PSYCHOEDUCATION (02/12/16) INDIVID PSYCHOTHERAP NEC (01/17/15) INSERTION OF ENDOTRACHEAL AIRWAY INTO TRACHEA, VIA OPENING (02/10/15) INSPECTION OF UPPER INTESTINAL TRACT, ENDO (09/09/16) MEDS MGMT FOR SUBSTANCE ABUSE TREATMENT, PSYCH MED (05/16/16) OTHER GROUP THERAPY (01/17/15) PSYCHIAT DRUG THERAP NEC (01/17/15) RESPIRATORY VENTILATION, 24-96 CONSECUTIVE HOURS (02/10/15) TRANSFUSE NONAUT RED BLOOD CELLS IN PERIPH VEIN, PERC (09/17/16) Family History: States: [place] (Father in his 60's) - Social History Hx Tobacco Use: Yes (heavy smoker) Hx Alcohol Use: No Hx Substance Use: Yes (ALCOHOLIC ) - Immunization History Hx Tetanus Toxoid Vaccination: Yes Hx Influenza Vaccination: Yes Hx Pneumococcal Vaccination: No Review Of Systems Constitutional: Negative for: Fever, Chills Cardiovascular: Negative for: Chest Pain Respiratory: Negative for: Shortness of Breath Gastrointestinal: Negative for: Nausea, Vomiting Psych: Positive for: Suicidal ideation. Negative for: Anxiety, Depression Physical Exam - Physical Exam Appears: Non-toxic, No Acute Distress Skin: Warm, Dry, No Rash Head: Atraumatic, Normacephalic Eye(s): bilateral: Normal Inspection Oral Mucosa: Moist Neck: Normal ROM, Supple Cardiovascular: Rhythm Regular, No Friction Rub, No Murmur Respiratory: Normal Breath Sounds, No Rales, No Rhonchi, No Wheezing Gastrointestinal/Abdominal: Soft, No Tenderness, No Guarding, No Rebound Extremity: Normal ROM, No Tenderness, Capillary Refill (<2 seconds), No Swelling Neurological/Psych: Oriented x3, Normal Speech, Normal Cognition, Normal Motor Gait: Steady ED Course And Treatment - Laboratory Results Result Diagrams: 08/13/17 11:25 08/13/17 11:25 O2 Sat by Pulse Oximetry: 99 (RA) Pulse Ox Interpretation: Normal Medical Decision Making Medical Decision Making: Crisis evaluation pending. Patient is medically cleared for psych admission. The case was discussed with psych oncall who agrees to admit the patient to their service. Disposition - Disposition Disposition: HOSPITALIZED Disposition Time: 12:18 Condition: STABLE - Clinical Impression Clinical Impression: Schizophrenia, Single major depressive episode, severe, with psychosis - PA / APPAREL DESIGNER / Resident Statement MD/DO has reviewed & agrees with the documentation as recorded. - Scribe Statement The provider has reviewed the documentation as recorded by the Charlieibbailey Christopher All medical record entries made by the Charlieibbailey were at my direction and personally dictated by me. I have reviewed the chart and agree that the record accurately reflects my personal performance of the history, physical exam, medical decision making, and the department course for this patient. I have also personally directed, reviewed, and agree with the discharge instructions and disposition.
[2017-08-13 11:30] LABS: BASO % 0.4 % (0.0-2.0); EOS # 0.2 K/uL (0.0-0.7); EOS % 3.5 % (0.0-4.0); HEMOGLOBIN 14.7 g/dL (12.0-18.0); LYMPH # 1.3 K/uL (1.0-4.3); MEAN CELL VOLUME 93.1 fL (80.0-94.0); MEAN CORPUSCULAR HEMOGLOBIN 32.6 pg (27.0-31.0); MEAN CORPUSCULAR HGB CONC 35.1 g/dL (33.0-37.0); MONO # 0.5 K/uL (0.0-0.8); MONO % 6.8 % (0.0-10.0); NEUT # 4.8 K/uL (1.8-7.0); NEUT % 70.3 % (50.0-75.0); RBC 4.51 Mil/uL (4.40-5.90); RED CELL DISTRIBUTION WIDTH 12.9 % (11.5-14.5); WHITE BLOOD COUNT 6.8 K/uL (4.8-10.8)
[2017-08-13 11:33] LABS: URINE BILIRUBIN NEGATIVE (NEGATIVE); URINE BLOOD NEGATIVE (NEGATIVE); URINE CLARITY Clear (Clear); URINE COLOR Colorless (YELLOW); URINE GLUCOSE (UA) NORMAL (Normal); URINE LEUKOCYTE ESTERASE NEG Leu/uL (Negative); URINE PROTEIN NEGATIVE (NEGATIVE); URINE UROBILINOGEN NORMAL mg/dL (0.2-1.0)
[2017-08-13 11:55] LABS: ALBUMIN 4.1 g/dL (3.5-5.0); ALT/SGPT 26 U/L (21-72); AST/SGOT 34 U/L (17-59); BLOOD UREA NITROGEN 8 mg/dL (9-20); GFR AFRICAN-AMERICAN > 60; GFR NON-AFRICAN AMERICAN > 60
[2017-08-13 12:02] LABS: BARBITURATES, UR NEGATIVE (NEGATIVE); BENZODIAZEPINES, UR NEGATIVE (NEGATIVE); OPIATES, UR NEGATIVE (NEGATIVE); PHENCYCLIDINE, UR NEGATIVE (NEGATIVE)
--- NOTE | 2017-08-13 15:08 | PCM.BM ---
<AliaosoLiza - Last Filed: 08/13/17 15:13> Treatment Plan Problems - Problems identified on initial assessmt Psychosis Date Initiated: 08/13/17 Time Initiated: 15:13 Assessment reference: NA Treatment assets and liabiliti Patient Assests: cooperative, educated Patient Liabilities: live alone - Milieu Protocol Maintain good personal hygiene: daily Encourage regular showers, daily Remind patient to perform daily oral care, daily Assist patient to perform ADL's Maintain personal safety: every shift Educate patient to report safety concerns to staff, every shift Monitor environment for contraband/sharps Medication safety: Monitor for expected outcome, potential side effects: every shift, Assess barriers to learning: every shift, Assess readiness for medication education: every shift <Cheyanne Ellis - Last Filed: 08/14/17 11:19> - Diagnosis (1) Schizophrenia Status: Chronic Interventions: 08/14/17 11:19 * Assess/adjust medications daily and /or as needed * See patient on an individual basis 7x/week to assess status of hallucinations * Discuss risks, benefits, side effects and alternatives of medications * <Jasmin Sanon - Last Filed: 08/14/17 11:26> Family Contact Family involvement: Family/SO is involved Family contact: Patient declines to allow family contact at present - Goals for Treatment Patient goals for treatment: "I want to go back to my psychiatrist." Discharge/Continuing Care - Education Needs Education Needs: Patient Medication, Patient Coping Skills - Discharge Discharge Criteria: Tolerates medication w/o severe side effects, Reduction of target symptoms Discharge to:: Home - Treatment Team Participation Discussed with Family/SO: No Was Patient/Family/SO present at Treatment Team Meeting: Yes
--- NOTE | 2017-08-14 11:19 | PCM.PSYCH ---
Initial Psychiatric Evaluation - Initial Psychiatric Evaluation Type of Admission: Voluntary Legal Status: Capacity Chief Complaint (in patient's own words): I am hearing voices.' History of Present Illness and Precipitating Events: Pt is a 52 year old CM, came to the ED with delusions and hallucinations. Pt has a long history of schizophrenia paranoid type. He has a history of multiple inpatient psychiatric hospitalizations. Pt reports that since past few days his voices are getting worse. Yesterday she started hearing voices telling him to kill himself. so her came to hospital to get help. He remained disorganized, and internally preoccupied thought out the interview. He remained superficially cooperative but guarded about the details. As per the pt he had a long history of drinking. But he stopped drinking last year. He reports of hearing voices and seeing shadows. Patient still appears paranoid and delusional. He reports depressed mood and feelings of hopelessness and helplessness. He denies any drinking or any substance abuse. PMH none reported Current Medications: Active Medications Generic Name Dose Route Start Last Admin Trade Name Freq PRN Reason Stop Dose Admin Benztropine Mesylate 1 mg 08/13/17 18:00 08/14/17 10:19 Cogentin PO 1 mg BID IFTIKHAR Administration Benztropine Mesylate 1 mg 08/13/17 23:53 Cogentin PO Q6 PRN Extra Pyramidal Symptoms Fluphenazine HCl 10 mg 08/13/17 18:00 08/14/17 10:19 Prolixin PO 10 mg BID IFTIKHAR Administration Hydroxyzine HCl 25 mg 08/13/17 17:35 08/13/17 21:46 Atarax PO 25 mg Q6 PRN Administration Anxiety Trazodone HCl 50 mg 08/13/17 17:35 08/13/17 21:47 Desyrel PO 50 mg HS PRN Administration Sleep Past Psychiatric History - Past Psychiatric History Previous Treatment History: Inpatient Pertinent Medical Hx (Current Medical&Sleep Prob, Allergies): Allergies Allergy/AdvReac Type Severity Reaction Status Date / Time No Known Allergies Allergy Verified 08/13/17 10:04 Benztropine [Cogentin] 1 mg PO Q6 PRN tab 09/25/16 Home Med 1 unit PO DAILY 08/13/17 Mirtazapine [Remeron] 15 mg PO DAILY 08/13/17 QUEtiapine [SEROquel] 100 mg PO DAILY 08/13/17 hydrOXYzine HCl [Atarax] 10 mg PO BID 08/13/17 Review of Systems - Review of Systems All systems: reviewed and no additional remarkable complaints except - Psychiatric Psychiatric: Anxiety, Auditory Hallucinations, Irritability, Paranoia Mental Status Examination - Personal Presentation Personal Presentation: Looks stated age - Affect Affect: Constricted - Motor Activity Motor Activity: Calm - Reliability in Providing Information Reliability in Providing Information: Fair, Poor, due to alteration in thoughts - Speech Speech: Disorganized - Formal Thought Process Formal Thought Process: Hallucinations, Delusions, Paranoia, Loosening of associations - Hallucinations/Delusions Hallucinations: Visual, Auditory Delusions: Persecution - Obsessions/Compulsions Obsessions: No Compulsions: No - Cognitive Functions Orientation: Person, Place, Situation, Time Sensorium: Alert Attention/Concentration: Attentive Abstract Thinking: [place] Estimate of Intelligence: Below average Judgement: Imparied, as evidence by: Poor judgement, Imparied, as evidence by: Lack of insight into illness - Risk Risk: Suicidal, Withdrawal, Diminished functioning DSM 5 DX - DSM 5 DSM 5 Diagnosis: Schizophrenia paranoid type continuous Alcohol use disorder severe in sustained remission - Recommended/Plan of Treatment Treatment Recommendations and Plan of Treatment: Schizophrenia paranoid type continuous -CBT -Psychoeducation -Supportive therapy, group therapy, individual therapy -Prolixin 5 mg by mouth twice a day -Cogentin 1 mg by mouth twice a day -Trazodone 50 mg by mouth daily at bedtime Alcohol use disorder severe in sustained remission -CBT -Psychoeducation -Supportive therapy, individual therapy -Use PR for abstinence - Smoking Cessation Smoking Cessation Initiated: No
--- NOTE | 2017-08-15 13:03 | PCM.PYCHPN ---
Psychiatric Progress Note - Psychiatric Progress Note Patient seen today, length of contact: 15 min Patient Chief Complaint: I am hearing voices.' Problems Identified/Issues Discussed: Patient seen and evaluated, chart reviewed and discussed with the staff. Today patient appeared more organized and less internally preoccupied. Patient reports some improvement in the persecutory delusions. He denies any suicidal ideation or homicidal ideation. He remains calm and cooperative. He is taking medications and denies any side effects. symptoms are improving but he needs more time for stabilization Supportive therapy and psychoeducation were given. Medication Change: Yes (Increase Prolixin) Medical Record Reviewed: Yes Mental Status Examination - Cognitive Function Orientation: Person, Place, Situation, Time Memory: Intact Attention: WNL Concentration: Poor Association: WNL Fund of Knowledge: Poor - Mood Mood: Depressed, Anxious - Affect Affect: Constricted - Speech Speech: Appropriate - Formal Thought Process Formal Thought Process: Hallucinations, Delusions, Paranoia, Loosening of associations - Suicidal Ideation Suicidal Ideation: No - Homicidal Ideation Homicidal Ideation: No Goal/Treatment Plan - Goal/Treatment Plan Need for Continued Stay: Severe depression anxiety, Severe functional impairment Progress Toward Problem(s) and Goals/Treatment Plan: Schizophrenia paranoid type continuous -CBT -Psychoeducation -Supportive therapy, group therapy, individual therapy -Prolixin 10 mg by mouth twice a day -Cogentin 1 mg by mouth twice a day -Trazodone 50 mg by mouth daily at bedtime Alcohol use disorder severe in sustained remission -CBT -Psychoeducation -Supportive therapy, individual therapy -Use [facility] for abstinence - Smoking Cessation Smoking Cessation Initiated: No
--- NOTE | 2017-08-16 10:49 | PCM.PYCHPN ---
Psychiatric Progress Note - Psychiatric Progress Note Patient seen today, length of contact: 15 min Patient Chief Complaint: I am hearing voices.' Problems Identified/Issues Discussed: Patient seen and evaluated, chart reviewed and discussed with the staff. Patient reports some improvement in the persecutory delusions. He appeared more organized and less internally preoccupied. He denies any suicidal ideation or homicidal ideation. He remains calm and cooperative. He is taking medications and denies any side effects. symptoms are improving but he needs more time for stabilization Supportive therapy and psychoeducation were given. Medication Change: Yes (Increase Prolixin) Medical Record Reviewed: Yes Mental Status Examination - Cognitive Function Orientation: Person, Place, Situation, Time Memory: Intact Attention: WNL Concentration: Poor Association: WNL Fund of Knowledge: Poor - Mood Mood: Depressed, Anxious - Affect Affect: Constricted - Speech Speech: Appropriate - Formal Thought Process Formal Thought Process: Hallucinations, Delusions, Loosening of associations - Suicidal Ideation Suicidal Ideation: No - Homicidal Ideation Homicidal Ideation: No Goal/Treatment Plan - Goal/Treatment Plan Need for Continued Stay: Severe depression anxiety, Severe functional impairment Progress Toward Problem(s) and Goals/Treatment Plan: Schizophrenia paranoid type continuous -CBT -Psychoeducation -Supportive therapy, group therapy, individual therapy -Prolixin 10 mg by mouth twice a day -Cogentin 1 mg by mouth twice a day -Trazodone 50 mg by mouth daily at bedtime Alcohol use disorder severe in sustained remission -CBT -Psychoeducation -Supportive therapy, individual therapy -Use [place] for abstinence - Smoking Cessation Smoking Cessation Initiated: No
[2017-08-17 06:56] VITALS: RESP 20
[2017-08-18 06:44] VITALS: BP 121/82; PULSE 65; TEMP 97.5; O2SAT 98
--- NOTE | 2017-08-18 10:07 | PCM.PYCHDC ---
Mental Status Examination - Mental Status Examination Orientation: Person, Place, Situation, Time Memory: Intact Mood: Neutral Affect: Constricted Speech: Soft Attention: WNL Concentration: WNL Association: WNL Fund of Knowledge: WNL Formal Thought Process: No Impairment Description of patient's judgement and insight: good, fair Psychotic Thoughts and Behaviors: denies any AVH Suicidal Ideation: No Current Homicidal Ideation?: No Discharge Summary - Discharge Note Consultations:: List each consultation separately and include: 1. Reason for request. 2. Findings. 3. Follow-up Summary of Hospital Course include:: 1. Description of specific treatment plan utilized for patients during their course of treatmen. 2. Summarize the time- course for resolution of acute symptoms and/or regressed behaviors. 3. Describe issues identified and worked on during hospitalization. 4. Describe medication utilized. 5. Describe medical problems identified and treated. 6. Reassessment of suicide risk Summary of Hospital Course: Pt is a 52 year old CM, came to the ED with delusions and hallucinations. Pt has a long history of schizophrenia paranoid type. He has a history of multiple inpatient psychiatric hospitalizations. Pt reports that since past few days his voices are getting worse. Yesterday she started hearing voices telling him to kill himself. so her came to hospital to get help. He remained disorganized, and internally preoccupied thought out the interview. He remained superficially cooperative but guarded about the details. As per the pt he had a long history of drinking. But he stopped drinking last year. He reports of hearing voices and seeing shadows. Patient still appears paranoid and delusional. He reports depressed mood and feelings of hopelessness and helplessness. He denies any drinking or any substance abuse. PMH none reported - Diagnosis (1) Schizophrenia Current Visit: Yes Status: Chronic Priority: High Comment: Management per Psych team. - Final Diagnosis (DSM 5) Condition upon Discharge: STABLE Disposition: HOME/ ROUTINE Follow-up Treatment Plan: Schizophrenia paranoid type continuous -CBT -Psychoeducation -Supportive therapy, group therapy, individual therapy -Prolixin 10 mg by mouth twice a day -Cogentin 1 mg by mouth twice a day -Trazodone 50 mg by mouth daily at bedtime Alcohol use disorder severe in sustained remission -CBT -Psychoeducation -Supportive therapy, individual therapy -Use OK for abstinence Prescriptions/Medication Reconciliation: Benztropine [Cogentin] 1 mg PO BID #60 tab fluPHENAZine [Prolixin] 10 mg PO BID #60 tab traZODone [Desyrel] 50 mg PO HS PRN #30 tab PRN Reason: Sleep
== END 2017-08-18 11:55 | disposition home or self-care (01) | DRG 885 ==
LOC: C.ER 09:59 → C.9E 12:18 → C.5E 12:39
PROVIDERS: ADMIT Psychiatry & Neurology Psychiatry; ATTEND Psychiatry & Neurology Psychiatry
DX: F20.0 Paranoid schizophrenia (principal); F31.9 Bipolar disorder, unspecified; I10 Essential (primary) hypertension; J45.909 Unspecified asthma, uncomplicated; F10.10 Alcohol abuse, uncomplicated; Y90.9 Presence of alcohol in blood, level not specified

== ENCOUNTER 2018-02-24 17:05 | Emergency (ER) | payer MEDICARE, OTHER ==
[2018-02-24 17:13] VITALS: BMI 33.7
[2018-02-24 17:28] VITALS: BP 145/92; PULSE 83; RESP 16; TEMP 98.5; O2SAT 96
--- NOTE | 2018-02-24 18:02 | C.PDOC ---
History Of Present Illness 52 y/o male, w/PMHx of HTN, schizophrenia, and anxiety presents to the ER complaining of chest pain and abdominal pain. Patient also states that he hears voices and he wants to kill himself. Per family, patient has been drinking and smoking. Denies having homicidal ideation, SOB, nausea, and vomiting. Of note, patient has been admitted few times in [facility]. Time Seen by Provider: 02/24/18 17:12 Chief Complaint (Nursing): Chest Pain History Per: Patient History/Exam Limitations: no limitations Onset/Duration Of Symptoms: Days Current Symptoms Are (Timing): Still Present Severity: Moderate Past Medical History Reviewed: Historical Data, Nursing Documentation, Vital Signs Vital Signs: Last Vital Signs Temp 98.5 F 02/24/18 17:25 Pulse 83 02/24/18 17:25 Resp 16 02/24/18 17:25 BP 145/92 H 02/24/18 17:25 Pulse Ox 96 02/24/18 17:25 - Medical History PMH: Anxiety, Arthritis, Bipolar Disorder, Depression, Fractures (RIGHT WRIST, RIGTH FOOT), Gastritis, HTN, Migraine, Paranoia, Schizophrenia (UNSPECIFIED), Seizures Denies: HIV, Chronic Kidney Disease, Sexually Transmitted Disease Comment Only: Asthma (SMOKER) Surgical History: Endoscopy - [facility] Procedures ALCOHOL DETOXIFICATION (12/25/14) DETOXIFICATION SERVICES FOR SUBSTANCE ABUSE TREATMENT (05/16/16) GROUP THERMODYNAMICIST FOR SUBSTANCE ABUSE TREATMENT, PSYCHOEDUCATION (02/12/16) INDIVID PSYCHOTHERAP NEC (01/17/15) INSERTION OF ENDOTRACHEAL AIRWAY INTO TRACHEA, VIA OPENING (02/10/15) INSPECTION OF UPPER INTESTINAL TRACT, ENDO (09/09/16) MEDS MGMT FOR SUBSTANCE ABUSE TREATMENT, PSYCH MED (05/16/16) OTHER GROUP THERAPY (01/17/15) PSYCHIAT DRUG THERAP NEC (01/17/15) RESPIRATORY VENTILATION, 24-96 CONSECUTIVE HOURS (02/10/15) TRANSFUSE NONAUT RED BLOOD CELLS IN PERIPH VEIN, PERC (09/17/16) Family History: States: [place] (Father in his 60's) - Social History Hx Tobacco Use: Yes (heavy smoker) Hx Alcohol Use: No Hx Substance Use: Yes - Immunization History Hx Tetanus Toxoid Vaccination: Yes Hx Influenza Vaccination: Yes Hx Pneumococcal Vaccination: No Review Of Systems Except As Marked, All Systems Reviewed And Found Negative. Constitutional: Negative for: Fever, Chills Cardiovascular: Positive for: Chest Pain Respiratory: Negative for: Shortness of Breath Gastrointestinal: Positive for: Abdominal Pain. Negative for: Nausea, Vomiting Physical Exam - Physical Exam Appears: Other (teary-eyed, crying, smells like smoke) Skin: Normal Color, Warm, Dry Head: Atraumatic, Normacephalic Eye(s): bilateral: Normal Inspection Nose: Normal Oral Mucosa: Moist Neck: Supple Chest: Symmetrical Cardiovascular: Rhythm Regular Respiratory: Normal Breath Sounds, No Rales, No Rhonchi, No Wheezing Gastrointestinal/Abdominal: Normal Exam, Soft, No Tenderness, No Guarding, No Rebound Neurological/Psych: Oriented x3, Normal Speech ED Course And Treatment - Laboratory Results Result Diagrams: 02/24/18 17:24 02/24/18 17:24 Lab Interpretation: Normal ECG: Interpreted By Me ECG Rhythm: Sinus Rhythm Rate From EC O2 Sat by Pulse Oximetry: 96 (RA) Pulse Ox Interpretation: Normal - Radiology CXR: Interpreted by Me CXR Interpretation: Yes: No Acute Disease - Other Rad No standard instances X-Ray: Viewed By Me, Read By Radiologist (FINDINGS:) Progress Note: Case discussed with structural metal worker who contacted psychiatrist Dr Ellis irrigation tax assessor collector and declined psych evaluation or admission. Family at bedside who reports recent rehab admission. Case discussed with crisis metallurgy teacher who recommends discharge home and follow up as outpatient. Case discussed with patients sister who agrees to bring patient home after discharge Reassessment Condition: Improved Medical Decision Making Medical Decision Making: Plan: --Labs --ECG --CXR --UA Disposition Counseled Patient/Family Regarding: Studies Performed, Diagnosis, Need For Followup - Disposition Referrals: [facility] [Outside] [facility] [Outside] [facility] [Outside] [facility] [Outside] Disposition: HOME/ ROUTINE Disposition Time: 18:50 Condition: STABLE Instructions: Schizophrenia, Chest Pain Forms: [facility] (Nepali) - POA Present On Arrival: None - Clinical Impression Clinical Impression: Chest pain, Schizophrenia, acute - PA / SENIOR WEALTH ADVISOR / Resident Statement MD/DO has reviewed & agrees with the documentation as recorded. - Scribe Statement The provider has reviewed the documentation as recorded by the Charlieibe Summen Prashanth Provider Attestation All medical record entries made by the Scribe were at my direction and personally dictated by me. I have reviewed the chart and agree that the record accurately reflects my personal performance of the history, physical exam, medical decision making, and the department course for this patient. I have also personally directed, reviewed, and agree with the discharge instructions and disposition.
[2018-02-24 18:03] LABS: BASO # 0.1 K/uL (0.0-0.2); BASO % 0.6 % (0.0-2.0); EOS % 0.5 % (0.0-4.0); HEMOGLOBIN 15.8 g/dL (12.0-18.0); LYMPH # 0.8 K/uL (1.0-4.3); LYMPH % 8.7 % (20.0-40.0); MEAN CELL VOLUME 96.1 fL (80.0-94.0); MEAN CORPUSCULAR HEMOGLOBIN 33.5 pg (27.0-31.0); MEAN CORPUSCULAR HGB CONC 34.9 g/dL (33.0-37.0); MEAN PLATELET VOLUME 9.1 fL (7.2-11.7); MONO # 0.9 K/uL (0.0-0.8); MONO % 9.3 % (0.0-10.0); NEUT # 7.4 K/uL (1.8-7.0); NEUT % 80.9 % (50.0-75.0); PLATELET COUNT 105 K/uL (130-400); RBC 4.71 Mil/uL (4.40-5.90); RED CELL DISTRIBUTION WIDTH 14.9 % (11.5-14.5); WHITE BLOOD COUNT 9.2 K/uL (4.8-10.8)
[2018-02-24 18:16] LABS: ALB/GLOB RATIO 1.3 (1.0-2.1); ALBUMIN 4.4 g/dL (3.5-5.0); ALT/SGPT 112 U/L (21-72); AST/SGOT 121 U/L (17-59); BLOOD UREA NITROGEN 7 mg/dL (9-20); CALCIUM 8.7 mg/dl (8.6-10.4); GFR NON-AFRICAN AMERICAN > 60
--- NOTE | 2018-02-24 18:23 | RAD ---
HISTORY: Detox/Psy COMPARISON: Chest x-ray performed 06/28/17 TECHNIQUE: Chest, one view. FINDINGS: Examination limited by habitus and hypoinflation. LUNGS: No focal consolidation. Bilateral nodular opacities consistent with nipple shadows. Please note that chest x-ray has limited sensitivity for the detection of pulmonary masses. PLEURA: No significant pleural effusion identified. No definite pneumothorax . CARDIOVASCULAR: The cardiomediastinal silhouette appears within normal limits of size. Mild atherosclerotic calcification present. OSSEOUS STRUCTURES: Degenerative changes.. VISUALIZED UPPER ABDOMEN: Unremarkable. OTHER FINDINGS: None. IMPRESSION: No focal consolidation.
[2018-02-24 18:24] LABS: URINE BACTERIA RARE (<OCC); URINE BILIRUBIN NEGATIVE (NEGATIVE); URINE BLOOD NEGATIVE (NEGATIVE); URINE CLARITY Clear (Clear); URINE COLOR Straw (YELLOW); URINE GLUCOSE (UA) NORMAL (Normal); URINE LEUKOCYTE ESTERASE NEG Leu/uL (Negative); URINE PROTEIN NEGATIVE (NEGATIVE); URINE UROBILINOGEN NORMAL mg/dL (0.2-1.0)
[2018-02-24 18:28] LABS: CK-MB 0.83 ng/mL (0.0-3.38)
[2018-02-24 18:32] LABS: BENZODIAZEPINES, UR NEGATIVE (NEGATIVE); OPIATES, UR NEGATIVE (NEGATIVE); PHENCYCLIDINE, UR NEGATIVE (NEGATIVE)
[2018-02-24 18:54] LABS: BANDS 2 % (0-2); EOSINOPHIL 2 % (0-4); LYMPHOCYTE 8 % (20-40); MONOCYTE 7 % (0-10); NEUTROPHIL 81 % (50-75); TOTAL CELLS COUNTED 100
[2018-02-24 18:55] LABS: PLATELET ESTIMATE SLIGHTLY DECREASED (NORMAL)
[2018-02-24 19:11] LABS: BARBITURATES, UR NEGATIVE (NEGATIVE)
--- NOTE | 2018-03-01 07:34 | CARD ---
APPROVED REPORT Date of service: 02/24/2018 EKG Measurement Heart [id number] <Conclusion> Normal sinus rhythm Normal ECG
== END 2018-02-24 19:54 | disposition home or self-care (01) ==
LOC: C.ER 17:05
DX: R07.9 Chest pain, unspecified (principal); F20.9 Schizophrenia, unspecified
CPT/HCPCS: 71045; 80053; 81001; 82553; 83735; 84100; 84484; 85025; 93005; 99285; G0480